=== PATIENT | male | born 1955 | race Caucasian/White ===

== ENCOUNTER 2017-01-11 09:06 | Day surgery (SDC) | payer BC ==
[2017-01-08 12:09] VITALS: BMI 29.8
[~2017-01-11 09:06] MED LIST: LACTATED RINGERS 1,000 ML IV SCH
[2017-01-11 09:45] VITALS: TEMP 97.8
[2017-01-11] MEDS ORDERED: LIDOCAINE 1% 20 ML VIAL (10MG/ML) FOR IV START INTRADERMA ONE (09:48)
[2017-01-11] MEDS ORDERED: LIDOCAINE 1% INJ 10MG/ML (20 ML MDV) ONE (10:39)
[2017-01-11] MEDS ORDERED: PROPOFOL 10 MG/ML 20 ML VIAL IV ONE (10:39)
--- NOTE | 2017-01-11 10:50 | P.GSHP ---
History of Present Illness H&P Date: 01/11/17 Chief Complaint: Abdominal pain, change in bowel Patient here today for upper and lower endoscopy. His last colonoscopy was 6-7 years ago. He is having increased constipation he is also having upper abdominal burning pain. No family history of colon cancer. Past Medical History Past Medical History: GERD/Reflux, Hypertension, Osteoarthritis (OA) Additional Past Medical History / Comment(s): CHRONIC BACK PAIN, abdominal pain with burning History of Any Multi-Drug Resistant Organisms: None Reported Past Surgical History: Hernia Repair, Orthopedic Surgery Additional Past Surgical History / Comment(s): ALBERT SHOULDERS, LEFT CARPAL TUNNEL , Past Anesthesia/Blood Transfusion Reactions: No Reported Reaction Past Psychological History: No Psychological Hx Reported Smoking Status: Former smoker Past Alcohol Use History: None Reported Additional Past Alcohol Use History / Comment(s): smoked 20 years <1ppd quit 2015 Past Drug Use History: None Reported - Past Family History Mother Family Medical History: No Reported History Medications and Allergies Home Medications Medication Instructions Recorded Confirmed Type Celecoxib [Celecoxib] 200 mg PO DAILY 03/28/15 01/08/17 History Cyclobenzaprine [Flexeril] 10 mg PO DAILY 03/28/15 01/08/17 History Lisinopril-Hctz 10-12.5 mg 1 tab PO DAILY 03/28/15 01/08/17 History [Zestoretic 10-12.5] Omeprazole [Omeprazole] 20 mg PO DAILY 03/28/15 01/08/17 History Leg Cramp Medication 1 tab PO DAILY PRN 03/30/15 01/08/17 History Ascorbic Acid [Vitamin C] 1,000 mg PO DAILY 01/08/17 01/08/17 History Escitalopram [Lexapro] 20 mg PO DAILY 01/08/17 01/08/17 History Eye Vitamin 1 tab PO DAILY 01/08/17 01/08/17 History HYDROcodone/APAP 10-325MG [[place] 1 tab PO DAILY PRN 01/08/17 01/08/17 History 10-325] Multivitamins, Thera [Multivitamin 1 tab PO DAILY 01/08/17 01/08/17 History (formulary)] Allergies Allergy/AdvReac Type Severity Reaction Status Date / Time No Known Allergies Allergy Verified 01/08/17 11:48 Surgical - Exam Vital Signs Temp Pulse Resp BP Pulse Ox 97.8 F 100 18 158/82 98 01/11/17 09:43 01/11/17 09:43 01/11/17 09:43 01/11/17 09:43 01/11/17 09:43 Physical exam: General: Well-developed, well-nourished HEENT: Normocephalic, sclerae nonicteric Abdomen: Nontender, nondistended Extremities: No edema Neuro: Alert and oriented Assessment and Plan (1) Abdominal pain Narrative/Plan: Will proceed with upper and lower endoscopy at this time. Status: Acute
--- NOTE | 2017-01-11 11:12 | P.PCN ---
Date of Procedure: 01/11/17 Procedure(s) Performed: PREOPERATIVE DIAGNOSIS: Abdominal pain, change in bowel habits POSTOPERATIVE DIAGNOSIS: Duodenitis with suspected ulcer, gastritis PROCEDURE: 1. EGD with biopsy 2. Colonoscopy ANESTHESIA: MAC SURGEON: Pepe Stock M.D. SPECIMENS: Duodenum, antrum ENDOSCOPIC PROCEDURE: The patient was on the endoscopy table in the left decubitus position. The Olympus gastroscope was inserted into the oropharynx and passed under direct visualization to the region of the third portion of the duodenum. From that point the scope was slowly withdrawn inspecting all surfaces carefully. The second and third portion of the duodenum appear normal. At the junction with the first and second portion of the duodenum there was some friable mucosa with induration and some evidence of recent bleeding. I could not visualize a definite ulcer crater however and ulcer was suspected in this area. I was able to take biopsies of the friable tissue in that area. The duodenal bulb itself was otherwise normal. The pylorus was widely patent. The stomach was carefully inspected. There was mild gastritis present. A biopsy of the antrum took place to rule out H. pylori. Retroflexion revealed a normal hiatus. The esophagus was then carefully examined. There were no neoplastic inflammatory or polypoid lesions throughout the visualized esophagus. The patient was kept on the endoscopy table in the left decubitus position. The Olympus colonoscope was inserted into the anus and passed under direct visualization to the base of the cecum. The appendiceal orifice was visualized. From that point the scope was slowly withdrawn inspecting all surfaces carefully. There were no neoplastic inflammatory or polypoid lesions throughout the cecum, ascending, transverse, descending, sigmoid and rectum. There was no diverticulosis noted. Overall the patient's prep was slightly suboptimal with some retained stool seen scattered amongst colonic mucosa. Digital rectal examination was normal. The patient was taken to the recovery room in stable condition per anesthesia guidelines. RECOMMENDATIONS: Await biopsy results. Will check CT abdomen to evaluate the duodenum. Increase antiacid therapy. We will advise shorter-term follow-up EGD
[2017-01-11 11:19] VITALS: RESP 16
[2017-01-11 11:59] VITALS: BP 149/81; PULSE 76
== END 2017-01-11 12:21 | disposition home or self-care (01) ==
LOC: ORWHC2ENDO 09:06
PROVIDERS: ATTEND Surgery
DX: K29.80 Duodenitis without bleeding (principal); K29.50 Unspecified chronic gastritis without bleeding; K21.9 Gastro-esophageal reflux disease without esophagitis; K59.00 Constipation, unspecified; I10 Essential (primary) hypertension; M19.90 Unspecified osteoarthritis, unspecified site; G89.29 Other chronic pain; M54.9 Dorsalgia, unspecified; Z87.891 Personal history of nicotine dependence; Z79.891 Long term (current) use of opiate analgesic; Z79.899 Other long term (current) drug therapy
CPT/HCPCS: 88305; 88342; 45378; 43239; J2001; J2704

== ENCOUNTER → 2017-01-17 | Outpatient (CLI) | payer BC ==
--- NOTE | 2017-01-17 19:59 | CT ---
EXAMINATION TYPE: CT abdomen w con DATE OF EXAM: 01/17/2017 7:41 PM COMPARISON: NONE HISTORY: Pt states of epigastric pain and reflux after eating x3-[address] DLP: 1245 mGycm Automated exposure control for dose reduction was used. TECHNIQUE: Helical acquisition of images was performed from the lung bases through the top of iliac crest to include entire abdomen. CONTRAST: Performed with Oral Contrast and with IV Contrast, patient injected with 100 mL of Omnipaque 300. FINDINGS: Lung bases are clear. There is no pleural effusion. There is no pericardial effusion. Liver spleen pancreas gallbladder appear normal. Bile ducts are not dilated. There is no adrenal mass . Kidneys show satisfactory contrast opacification. There is no hydronephrosis. Ureters are not dilat ed. There is no retroperitoneal adenopathy. There is no ascites. I see no intestinal wall thickening. There are no dilated loops. There is an umbilical hernia that measures 2.5 cm it contains omental fa t. I see no bony destructive process. There is spurring in the lumbar spine. IMPRESSION: THERE IS UMBILICAL HERNIA WITH OMENTAL FAT. OTHERWISE NEGATIVE CT SCAN OF THE ABDOMEN. MILD SPONDYLOT IC CHANGES IN THE LUMBAR SPINE.
== END | disposition home or self-care (01) ==
LOC: RADCTMAIN 18:41
PROVIDERS: ATTEND Surgery
DX: K42.9 Umbilical hernia without obstruction or gangrene (principal)
CPT/HCPCS: 74160; Q9967

== ENCOUNTER → 2017-09-17 | Outpatient (CLI) | payer BC | END | disposition home or self-care (01) | LOC: CPPFTMAIN 13:23 | PROVIDERS: ATTEND Family Medicine | DX: R06.09 Other forms of dyspnea (principal) | CPT/HCPCS: 94060; 94726; 94729 ==

== ENCOUNTER → 2017-12-12 | Outpatient (CLI) | payer BC ==
--- NOTE | 2017-12-12 16:47 | CT ---
CT CHEST FOR PULMONARY EMBOLISM. EXAMINATION TYPE: CT angio chest DATE OF EXAM: 12/12/2017 INDICATION: Pulmonary embolism CT DLP: 669 mGycm, Automated exposure control for dose reduction was used. CONTRAST: Patient injected with 90 mL of Omnipaque 350. COMPARISON: NONE TECHNIQUE: CT of the chest is performed on a spiral scan at 2 mm thick sections. Study is performed with intravenous contrast timed for evaluation for pulmonary embolism. This will limit additional po rtions of the evaluation. 3-D MIP images reconstructed by the technologist are reviewed on the compu ter in the coronal and sagittal planes. FINDINGS: No persistent filling defects are evident to suggest an acute pulmonary embolism. No mediastinal or hilar adenopathy enlarged by CT criteria is evident. The ascending aorta diameter at the level of the main pulmonary artery is 3.6 cm. The main pulmonary artery diameter at the bifur cation is 3.3 cm. Lung windows are clear. Limited CT section through the upper abdomen are unremarkable. IMPRESSIONS: 1. No acute pulmonary embolism.
== END | disposition home or self-care (01) ==
LOC: RADCTMAIN 15:57
PROVIDERS: ATTEND Internal Medicine Critical Care Medicine
DX: I26.99 Other pulmonary embolism without acute cor pulmonale (principal)
CPT/HCPCS: 71275; Q9967

== ENCOUNTER 2018-01-28 18:22 | Inpatient (IN) | payer BC ==
--- NOTE | 2018-01-28 18:01 | CT ---
EXAMINATION TYPE: CT angio chest DATE OF EXAM: 01/28/2018 5:50 PM COMPARISON: 12/12/2017 HISTORY: Patient complains of dyspnea with prior history of PE. CT DLP: 420.9 mGycm Automated exposure control for dose reduction was used. CONTRAST: CTA scan of the thorax is performed with IV Contrast, patient injected with 100 mL of Isovue 370, pul monary embolism protocol. There are 3-D post processed images.. FINDINGS: There is patchy coarse reticular density in the lungs consistent with fibrosis. There is no evidence of a pulmonary mass. There is no pulmonary consolidation. There is no pleural effusion. Heart size is fairly normal. There is no pericardial effusion. There is no mediastinal adenopathy. There are no hi lar masses. There are multiple filling defects in the lower lobe pulmonary arteries bilaterally. There is also fi lling defect in the left upper lobe pulmonary artery. There is spurring in the thoracic spine. I see no bony destructive process. IMPRESSION: THERE ARE NEW MULTIPLE LARGE EMBOLI IN THE LEFT UPPER LOBE AND BILATERAL LOWER LOBE PULMONARY ARTERY BRANCHES. THIS IS A CHANGE COMPARED TO LAST EXAM. PULMONARY FIBROTIC CHANGES.
--- NOTE | 2018-01-28 18:17 | US ---
EXAMINATION TYPE: US venous doppler duplex LE BI DATE OF EXAM: 01/28/2018 5:56 PM COMPARISON: NONE CLINICAL HISTORY: I29.99 Pulmonary embolism,R09.02 Hypoxia. History of PE patient on blood thinners x 2 days. SIDE PERFORMED: Bilateral TECHNIQUE: The lower extremity deep venous system is examined utilizing real time linear array sonog davion with graded compression, doppler sonography and color-flow sonography. VESSELS IMAGED: External Iliac Vein (EIV) Common Femoral Vein Deep Femoral Vein Greater Saphenous Vein * Femoral Vein Popliteal Vein Small Saphenous Vein * Proximal Calf Veins (* superficial vessels) Right Leg: Negative for DVT Left Leg: Negative for DVT No evidence of DVT bilateral legs. IMPRESSION: No evidence of deep venous thrombosis in both legs.
[2018-01-28] MEDS ORDERED: HEPARIN SODIUM,PORCINE 5,000 UNIT/ML 1 ML VIAL IV STA (18:27)
[2018-01-28] MEDS ORDERED: HEPARIN SOD,PORK IN 0.45% NACL 25,000 UNIT in 0.45% NACL 1 500ML.BAG IV SCH (18:30)
--- NOTE | 2018-01-28 18:36 | ED ---
SOB HPI - General Source: patient, RN notes reviewed Mode of arrival: ambulatory Limitations: no limitations <Denver Shin - Last Filed: 01/28/18 18:42> <Liam Moore - Last Filed: 01/28/18 18:59> - General Chief Complaint: Shortness of Breath Time Seen by Provider: 01/28/18 18:26 - History of Present Illness Initial Comments: 62-year-old male presents emergency Department from CT for abnormal CT. Patient states that he's been having shortness breath since last . Patient's found have a PE. Patient states that he had a PE last year was on eliquis up until last month. Patient states he has no Pain does have some swelling. Patient denies any chest pain no headache no dizziness. Patient states that he had workup for blood clotting disorders and states that it was all negative. Patient had no clear answer for his pulmonary embolism came from. (Denver Shin) - Related Data Home Medications Medication Instructions Recorded Confirmed Cyclobenzaprine [Flexeril] 10 mg PO HS 03/28/15 01/28/18 Lisinopril-Hctz 10-12.5 mg 1 tab PO DAILY 03/28/15 01/28/18 [Zestoretic 10-12.5] Omeprazole [Omeprazole] 20 mg PO DAILY 03/28/15 01/28/18 Ascorbic Acid [Vitamin C] 1,000 mg PO DAILY 01/08/17 01/28/18 Escitalopram [Lexapro] 20 mg PO HS 01/08/17 01/28/18 HYDROcodone/APAP 10-325MG [[place] 1 tab PO TID PRN 01/08/17 01/28/18 10-325] Multivitamins, Thera [Multivitamin 1 tab PO DAILY 01/08/17 01/28/18 (formulary)] Apixaban [Eliquis] 5 mg PO BID 01/28/18 01/28/18 Melatonin 10 mg PO HS PRN 01/28/18 01/28/18 Vits A,C,E/Lutein/Minerals 1 tab PO DAILY 01/28/18 01/28/18 [Ocuvite with Lutein Tablet] Allergies Allergy/AdvReac Type Severity Reaction Status Date / Time No Known Allergies Allergy Verified 01/28/18 18:49 Review of Systems ROS Other: All systems not noted in ROS Statement are negative. <Denver Shin - Last Filed: 01/28/18 18:42> ROS Other: All systems not noted in ROS Statement are negative. <Liam Moore - Last Filed: 01/28/18 18:59> ROS Statement: Those systems with pertinent positive or pertinent negative responses have been documented in the HPI. Past Medical History Past Medical History: GERD/Reflux, Hypertension, Osteoarthritis (OA), Pulmonary Embolus (PE) Additional Past Medical History / Comment(s): CHRONIC BACK PAIN, abdominal pain with burning History of Any Multi-Drug Resistant Organisms: None Reported Past Surgical History: Hernia Repair, Orthopedic Surgery Additional Past Surgical History / Comment(s): ALBERT SHOULDERS, LEFT CARPAL TUNNEL , Past Anesthesia/Blood Transfusion Reactions: No Reported Reaction Past Psychological History: No Psychological Hx Reported Smoking Status: Former smoker Past Alcohol Use History: None Reported Past Drug Use History: None Reported - Past Family History Mother Family Medical History: No Reported History <Denver Shin - Last Filed: 01/28/18 18:42> General Exam Limitations: no limitations General appearance: alert, in no apparent distress Head exam: Present: atraumatic, normocephalic, normal inspection Neck exam: Present: normal inspection. Absent: tenderness, meningismus, lymphadenopathy Respiratory exam: Present: normal lung sounds bilaterally. Absent: respiratory distress, wheezes, rales, rhonchi, stridor, chest wall tenderness Cardiovascular Exam: Present: regular rate, normal rhythm, normal heart sounds. Absent: systolic murmur, diastolic murmur, rubs, gallop, clicks GI/Abdominal exam: Present: soft, normal bowel sounds. Absent: distended, tenderness, guarding, rebound, rigid Extremities exam: Present: pedal edema. Absent: calf tenderness Skin exam: Present: warm, dry, intact, normal color. Absent: rash <Denver Shin - Last Filed: 01/28/18 18:42> Vital Signs 01/28/18 18:22 Temperature 98.9 F Pulse Rate 99 Respiratory 20 Rate Blood Pressure 145/67 O2 Sat by Pulse 99 Oximetry Medical Decision Making <Denver Shin - Last Filed: 01/28/18 18:42> <Liam Moore - Last Filed: 01/28/18 18:59> - Medical Decision Making Patient be admitted the hospital for PE. Patient currently sees Dr. Washington.. ( Denver Shin) Medical decision making; this is a 62-year-old male here with his . The patient first had pulmonary emboli in May of last year. He is on L Oquist of the proximal one month ago. He reports that one month ago he had a repeat CAT scan and it was suggested he stop the eliquis . The patient was reevaluated today at the centrifugal screen tender office because of shortness of breath. Repeat CAT scan today showed evidence of pulmonary emboli. The patient states he started taken eliquis several days ago because of shortness of breath started approximately 5 days ago. Complaint of shortness of breath with exertion. Lungs are clear to auscultation heart no murmur. He has chronically swollen right leg which comes and goes. But reports no evidence of past DVTs to his extremities. No other significant complaints at this time. The case discussed with Dr. Galarza, patient be admitted his service with consultation from his centrifugal screen tender, Dr. Washington. Dr. Moore (Liam Moore) - EKG Data EKG Comments: EKG performed at 18:38 sinus rhythm with first-degree AV block, rate of 78 ME 216 QRS 98 QT/QTC 404/460 (Denver Shin) Disposition <Denver Shin - Last Filed: 01/28/18 18:42> <Liam Moore - Last Filed: 01/28/18 18:59> Clinical Impression: Pulmonary embolism, Dyspnea Disposition: ADMITTED IP TO THIS HOSP Condition: Stable Referrals: Theo Reid MD [Primary Care Provider] - 1-2 days
[2018-01-28] MEDS ORDERED: NALOXONE 0.4 MG/ML 1 ML VIAL IV PRN (18:43)
[2018-01-28] MEDS ORDERED: MELATONIN 5 MG TABLET PO PRN (19:17)
[2018-01-28] MEDS ORDERED: HYDROcodone/APAP 10-325MG 1 EACH TAB PO ONE (19:17)
[2018-01-28] MEDS ORDERED: APIXABAN 5 MG TAB PO STA (19:20)
[2018-01-28 19:21] LABS: Basophils # (A) 0.1 k/uL (0-0.2); Basophils % (A) 1 %; Eosinophils # (A) 0.7 k/uL (0-0.7); Eosinophils % (A) 7 %; HCT 38.8 % (39.0-53.0); HGB 13.3 gm/dL (13.0-17.5); Lymphocytes # (A) 4.6 k/uL (1.0-4.8); MCH 29.3 pg (25.0-35.0); MCHC 34.3 g/dL (31.0-37.0); MCV 85.4 fL (80.0-100.0); Mean Platelet Volume 7.6; Monocytes # (A) 0.5 k/uL (0-1.0); Monocytes % (A) 5 %; Neutrophils % (A) 33 %; Platelet Count 284 k/uL (150-450); RBC 4.55 m/uL (4.30-5.90); RDW 12.8 % (11.5-15.5); WBC 9.1 k/uL (3.8-10.6)
[2018-01-28 19:33] LABS: Albumin 4.1 g/dL (3.5-5.0); Calcium 9.7 mg/dL (8.4-10.2); Magnesium 1.9 mg/dL (1.6-2.3); Potassium 4.4 mmol/L (3.5-5.1); Total Bilirubin 0.3 mg/dL (0.2-1.3); Total Protein 6.6 g/dL (6.3-8.2)
[2018-01-28 19:34] LABS: Lymphocytes % (A) 50 %
[2018-01-28 19:41] LABS: INR 1.1 (<1.2); Prothrombin Time 10.6 sec (9.0-12.0)
[2018-01-28] MEDS: CYCLOBENZAPRINE 10 MG TAB PO SCH (20:40)
[2018-01-28] MEDS: ESCITALOPRAM 20 MG TAB PO SCH (20:40)
[2018-01-28 22:02] VITALS: BMI 33.0
[2018-01-29] MEDS: PANTOPRAZOLE 40 MG TABLET PO SCH (06:07)
[2018-01-29] MEDS: VIT A,C & E-LUTEIN-MINERALS 1 EACH TAB PO SCH (08:02)
[2018-01-29] MEDS: APIXABAN 5 MG TAB PO SCH ×2 (08:02→19:43)
[2018-01-29] MEDS: ASCORBIC ACID 500 MG TAB PO SCH (08:02)
[2018-01-29] MEDS: LISINOPRIL-HCTZ 10-12.5 MG 1 EACH TAB PO SCH (08:03)
[2018-01-29] MEDS: HYDROcodone/APAP 10-325MG 1 EACH TAB PO PRN ×2 (08:07→17:16)
[2018-01-29] MEDS ORDERED: MULTIVITAMINS, THERA 1 EACH TAB PO SCH (12:00)
--- NOTE | 2018-01-29 12:25 | P.CNPUL ---
History of Present Illness Consult date: 01/29/18 Requesting physician: Theo Reid Reason for consult: dyspnea, abnormal CXR/CT Chief complaint: Shortness of breath, dyspnea on exertion History of present illness: This is a very pleasant 62-year-old gentleman who follows with Dr. Reid as his primary care physician. He has a history of hypertension, osteoarthritis, chronic back pain, gastroesophageal reflux disease, anxiety/depression, previous smoking history. He also has a history of pulmonary embolism and had been treated with Eliquis. He had a follow-up CT angiogram approximately one month ago that showed no evidence of residual pulmonary embolism and has Eliquis had been stopped on 12/23/2017. He presented to our office yesterday with complaints of increasing shortness of breath and dyspnea on exertion. A 6 minute walk revealed O2 saturations as low as 87%. He was sent in again yesterday for a CT angiogram and Doppler of the lower extremities. He was found to have recurrent bilateral pulmonary emboli. Dopplers of the lower extremity were negative for DVT. He was started back on his Eliquis. He is seen again today in consultation on the selective care unit. He is currently awake and alert in no acute distress. He states he is breathing easier today as compared to yesterday. He is maintaining good O2 saturations in the 90s on 2 L/m per nasal cannula. He's been hemodynamically stable. No cough or congestion. No hemoptysis. Review of Systems Constitutional: Reports fatigue, Reports malaise Eyes: denies blurred vision, denies decreased vision Ears: deny: decreased hearing Ears, nose, mouth and throat: Denies headache, Denies sore throat Cardiovascular: Reports shortness of breath, Denies chest pain Respiratory: Reports dyspnea Gastrointestinal: Denies abdominal pain, Denies diarrhea, Denies nausea, Denies vomiting Genitourinary: Reports as per HPI Musculoskeletal: Denies myalgias Integumentary: Denies pruritus, Denies rash Neurological: Denies numbness, Denies weakness Psychiatric: Denies anxiety, Denies depression Endocrine: Denies fatigue, Denies weight change Past Medical History Past Medical History: GERD/Reflux, Hypertension, Osteoarthritis (OA), Pulmonary Embolus (PE) Additional Past Medical History / Comment(s): CHRONIC BACK PAIN History of Any Multi-Drug Resistant Organisms: None Reported Past Surgical History: Hernia Repair, Orthopedic Surgery Additional Past Surgical History / Comment(s): ALBERT SHOULDERS right rotator cuff / left tendon damage, LEFT CARPAL TUNNEL, Past Anesthesia/Blood Transfusion Reactions: No Reported Reaction Past Psychological History: Depression Smoking Status: Former smoker Past Alcohol Use History: None Reported Additional Past Alcohol Use History / Comment(s): smoked 20 years <1ppd quit 2015 Past Drug Use History: None Reported - Past Family History Mother Family Medical History: No Reported History Medications and Allergies Home Medications Medication Instructions Recorded Confirmed Type Cyclobenzaprine [Flexeril] 10 mg PO HS 03/28/15 01/28/18 History Lisinopril-Hctz 10-12.5 mg 1 tab PO DAILY 03/28/15 01/28/18 History [Zestoretic 10-12.5] Omeprazole [Omeprazole] 20 mg PO DAILY 03/28/15 01/28/18 History Ascorbic Acid [Vitamin C] 1,000 mg PO DAILY 01/08/17 01/28/18 History Escitalopram [Lexapro] 20 mg PO HS 01/08/17 01/28/18 History HYDROcodone/APAP 10-325MG [[place] 1 tab PO TID PRN 01/08/17 01/28/18 History 10-325] Multivitamins, Thera [Multivitamin 1 tab PO DAILY 01/08/17 01/28/18 History (formulary)] Apixaban [Eliquis] 5 mg PO BID 01/28/18 01/28/18 History Melatonin 10 mg PO HS PRN 01/28/18 01/28/18 History Vits A,C,E/Lutein/Minerals 1 tab PO DAILY 01/28/18 01/28/18 History [Ocuvite with Lutein Tablet] Allergies Allergy/AdvReac Type Severity Reaction Status Date / Time No Known Allergies Allergy Verified 01/28/18 18:49 Physical Exam Vitals: Vital Signs Temp Pulse Pulse Resp BP BP Pulse Ox 01/29/18 08:00 97.5 F L 96 18 140/72 95 01/29/18 04:00 97 F L 88 16 125/67 97 01/29/18 00:00 97 F L 80 17 139/70 97 01/28/18 20:40 78 18 140/65 95 01/28/18 20:11 96.9 F L 71 17 139/79 97 01/28/18 19:10 98.1 F 78 18 146/67 95 01/28/18 18:30 18 01/28/18 18:22 98.9 F 99 20 145/67 99 Intake and Output 01/28/18 01/29/18 01/29/18 22:59 06:59 14:59 Intake Total 180 Balance 180 Intake: Oral 180 Other: # Voids 1 1 Weight 110.6 kg 110.6 kg GENERAL EXAM: Alert, active, comfortable in no apparent distress. HEAD: Normocephalic. EYES: Normal reaction of pupils, equal size. NOSE: Clear with pink turbinates. THROAT: No erythema or exudates. NECK: No masses, no JVD. CHEST: No chest wall deformity. LUNGS: Equal air entry with no crackles, wheeze, rhonchi or dullness. CVS: S1 and S2 normal with no audible murmur, regular rhythm. ABDOMEN: No hepatosplenomegaly, normal bowel sounds, no guarding or rigidity. SPINE: No scoliosis or deformity SKIN: No rashes CENTRAL NERVOUS SYSTEM: No focal deficits, tone is normal in all 4 extremities. EXTREMITIES: There is no peripheral edema. No clubbing, no cyanosis. Peripheral pulses are intact. Results - Laboratory Findings CBC and BMP: 01/28/18 18:59 01/28/18 18:59 PT/INR, D-dimer PT 10.6 sec (9.0-12.0) 01/28/18 18:59 INR 1.1 (<1.2) 04 18:59 Abnormal lab findings: Abnormal Labs 01/28/18 04 18:59 18:59 Hct 38.8 L Sodium 134 L BUN 27 H - Diagnostic Findings Chest x-ray: image reviewed CT scan - chest: image reviewed Assessment and Plan Assessment: Impression: #1 Acute hypoxic respiratory failure secondary to bilateral pulmonary emboli. This is unprovoked and recurrent. Outpatient workup for hereditary blood dyscrasias was negative. #2 Recent pulmonary emboli treated for greater than 3 months with follow-up CT angiogram revealing no evidence of pulmonary embolism. Eliquis was discontinued 12/23/2017. #3 Hypertension. #4 Osteoarthritis with chronic back pain. #5 History of anxiety/depression. #6 Gastroesophageal reflux disease. Plan: The patient was seen and evaluated by Dr. Washington. CT angiogram and labs were reviewed. The patient definitely will need long-term anticoagulation most likely lifelong. Previous workup for hereditary blood dyscrasias was negative according to the patient with seen Dr. White. We will evaluate the patient for possible home oxygen need. Could be discharged in the a.m. We'll continue to follow make further recommendations based on his clinical status. I, the cosigning physician, performed a history & physical examination of the patient. Lungs sounds are clear. Maintaining good O2 saturations in the 90s on 2 L/m per nasal cannula. I discussed the assessment and plan of care with my nurse practitioner, Cass Winslow. I attest to the above note as dictated by her. Time with Patient: Greater than 30
--- NOTE | 2018-01-29 15:53 | P.HPIM ---
History of Present Illness H&P Date: 01/29/18 Chief Complaint: shortness of breath 62-year-old who presented to the emergency room after undergoing a CT for shortness of breath x [address] scan revealed pulmonary embolus. The patient has a history of pulmonary embolus in 2017. He was on Eliquis up until a month ago. Patient states it was discontinued by Dr. Washington. He reports undergoing workup for clotting disorders and everything was negative per patient. The patient has a history of pulmonary embolus. Gastro-esophageal reflux disease, hypertension, osteoarthritis, chronic back pain, and depression. He is a former cigarette smoker and quit smoking in 2016 after smoking 1 pack per day for [address] of the chest: Multiple large emboli in the left upper lobe and bilateral lower lobe pulmonary artery branches Venous Doppler: Negative for DVT bilaterally Laboratory data: WBC 9.1. Hemoglobin 13.3. Platelet count 284. Sodium 134. Potassium 4.4. BUN 27. Creatinine 1.04. Magnesium 1.9. Troponin negative 1 The patient was admitted to the hospital under the care of Dr. Galarza. Consultations were placed to pulmonary. Review of Systems GENERAL: Patient denies fever. Denies chills. EYES: Denies blurred vision. Denies vision changes. Denies eye pain. EARS, NOSE, MOUTH, & THROAT: Denies headache. Denies sore throat. Denies ear pain. RESPIRATORY: Positive for shortness of breath. Denies cough. Denies sputum production. Denies hemoptysis. CARDIOVASCULAR: Denies chest pain or pressure. Denies palpitations. Denies arrhythmias. GASTROINTESTINAL: Denies abdominal pain. Denies diarrhea. Denies constipation. Denies nausea. Denies vomiting. Denies heartburn. Denies blood in the stool. GENITOURINARY: Denies urinary frequency. Denies burning. Denies dysuria. Denies cloudy urine. Denies blood in the urine. MUSCULOSKELETAL: Positive for chronic back pain. Denies myalgias. Denies joint swelling. Denies decreased range of motion beyond patients baseline. INTEGUMENTARY: Denies pruitis. Denies rash. PSYCHIATRIC: Denies suicidal or homicial ideations. ENDOCRINE: Denies weight change. Denies polydipsia. Denies polyuria. HEMATOLOGIC: Denies bleeding disorders. Past Medical History Past Medical History: GERD/Reflux, Hypertension, Osteoarthritis (OA), Pulmonary Embolus (PE) Additional Past Medical History / Comment(s): CHRONIC BACK PAIN History of Any Multi-Drug Resistant Organisms: None Reported Past Surgical History: Hernia Repair, Orthopedic Surgery Additional Past Surgical History / Comment(s): ALBERT SHOULDERS right rotator cuff / left tendon damage, LEFT CARPAL TUNNEL, Past Anesthesia/Blood Transfusion Reactions: No Reported Reaction Past Psychological History: Depression Smoking Status: Former smoker Past Alcohol Use History: None Reported Additional Past Alcohol Use History / Comment(s): smoked 20 years <1ppd quit 2015 Past Drug Use History: None Reported - Past Family History Mother Family Medical History: No Reported History Medications and Allergies Home Medications Medication Instructions Recorded Confirmed Type Cyclobenzaprine [Flexeril] 10 mg PO HS 03/28/15 01/28/18 History Lisinopril-Hctz 10-12.5 mg 1 tab PO DAILY 03/28/15 01/28/18 History [Zestoretic 10-12.5] Omeprazole [Omeprazole] 20 mg PO DAILY 03/28/15 01/28/18 History Ascorbic Acid [Vitamin C] 1,000 mg PO DAILY 01/08/17 01/28/18 History Escitalopram [Lexapro] 20 mg PO HS 01/08/17 01/28/18 History HYDROcodone/APAP 10-325MG [[place] 1 tab PO TID PRN 01/08/17 01/28/18 History 10-325] Multivitamins, Thera [Multivitamin 1 tab PO DAILY 01/08/17 01/28/18 History (formulary)] Apixaban [Eliquis] 5 mg PO BID 01/28/18 01/28/18 History Melatonin 10 mg PO HS PRN 01/28/18 01/28/18 History Vits A,C,E/Lutein/Minerals 1 tab PO DAILY 01/28/18 01/28/18 History [Ocuvite with Lutein Tablet] Allergies Allergy/AdvReac Type Severity Reaction Status Date / Time No Known Allergies Allergy Verified 01/28/18 18:49 Physical Exam Vitals: Vital Signs Temp Pulse Pulse Resp BP BP Pulse Ox 01/29/18 08:00 97.5 F L 96 18 140/72 95 01/29/18 04:00 97 F L 88 16 125/67 97 01/29/18 00:00 97 F L 80 17 139/70 97 04/10/18 20:40 78 18 140/65 95 01/28/18 20:11 96.9 F L 71 17 139/79 97 01/28/18 19:10 98.1 F 78 18 146/67 95 01/28/18 18:30 18 01/28/18 18:22 98.9 F 99 20 145/67 99 Intake and Output 01/28/18 01/29/18 01/29/18 22:59 06:59 14:59 Intake Total 180 Balance 180 Intake: Oral 180 Other: # Voids 1 1 Weight 110.6 kg 110.6 kg GENERAL: This is a 62-year-old male in no apparent distress at the time of examination. Pleasant and cooperative. HEENT: Head is atraumatic, normocephalic. Pupils are equal, round, and reactive to light. Sclerae anicteric. Conjunctivae are clear. Mucus membranes of the mouth are moist. Neck is supple. RESPIRATORY: Clear to ausculation, diminished. No wheezes, rales, or rhonchi. No use of accessory muscles. Patient maintaining oxygen saturation greater than 92%. No chest wall tenderness is noted on palpation or with deep breathing. CARDIOVASCULAR: Regular rate and rhythm. S1 and S2 noted. No systolic or diastolic murmur auscultated. No JVD noted. No S3 or S4 noted. GASTROINTESTINAL: No distention noted. Abdomen soft and round. Normal active bowel sounds auscultated x 4 quadrants. No pain or tenderness noted upon palpation. INTEGUMENTARY: No cyanosis. No jaundice. No rashes noted. No cellulitis noted. EXTREMITIES: 2+ peripheral pulses. No evidence of peripheral edema. No calf tenderness noted. NEUROLOGIC: Cranial nerves II-XII intact. PSYCHIATRIC: Awake, alert, and oriented X 3. Appropriate affect. Intact judgement and insight. Results CBC & Chem 7: 01/28/18 18:59 01/28/18 18:59 Labs: Abnormal Lab Results - Last 24 Hours (Table) 01/28/18 01/28/18 Range/Units 18:59 18:59 Hct 38.8 L (39.0-53.0) % Sodium 134 L (137-145) mmol/L BUN 27 H (9-20) mg/dL Thrombosis Risk Factor Assmnt - Choose All That Apply Any of the Below Risk Factors Present?: Yes Each Factor Represents 1 point: Obesity (BMI >25), Varicose veins Other Risk Factors: Yes Each Risk Factor Represents 2 Points: Age 61-74 years Each Risk Factor Represents 3 Points: History of DVT/PE Other congenital or acquired thrombophilia - If yes, enter type in comment: No Thrombosis Risk Factor Assessment Total Risk Factor Score: 7 Thrombosis Risk Factor Assessment Level: High Risk Assessment and Plan Plan: ASSESSMENT: Shortness of breath 1 week, secondary to multiple large pulmonary emboli in the left upper lobe and bilateral lower lobe pulmonary artery branches History of pulmonary emboli in 2017, 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 Appreciate recommendations and input Continue Eliquis Home meds as appropriate Monitor labs GI prophylaxis: Protonix 40 mg PO Daily DVT prophylaxis: Eliquis Monitor vital signs and address as appropriate Discharge planning: Patient to return home when stable Further recommendations pending patient's course Nurse practitioner note has been reviewed by physician. Signing provider agrees with the documented findings, assessment, and plan of care.
[2018-01-29] MEDS: CYCLOBENZAPRINE 10 MG TAB PO SCH (19:42)
[2018-01-29] MEDS: ESCITALOPRAM 20 MG TAB PO SCH (19:43)
[2018-01-30] MEDS: PANTOPRAZOLE 40 MG TABLET PO SCH (06:54)
[2018-01-30] MEDS: APIXABAN 5 MG TAB PO SCH (08:38)
[2018-01-30] MEDS: ASCORBIC ACID 500 MG TAB PO SCH (08:39)
[2018-01-30] MEDS: LISINOPRIL-HCTZ 10-12.5 MG 1 EACH TAB PO SCH (08:39)
[2018-01-30] MEDS: HYDROcodone/APAP 10-325MG 1 EACH TAB PO PRN (08:39)
[2018-01-30] MEDS: VIT A,C & E-LUTEIN-MINERALS 1 EACH TAB PO SCH (08:39)
[2018-01-30 11:25] VITALS: BP 125/62; PULSE 94; RESP 16; TEMP 97.2
--- NOTE | 2018-01-30 12:55 | P.DS ---
Providers Date of admission: 01/28/18 19:02 Expected date of discharge: 01/30/18 Attending physician: Theo Reid Consults: 01/28/18 18:43 Consult Physician Stat Consulting Provider: Mamadou Washington Reason/Comments: Pulmonary embolism Do you want consulting provider notified?: Yes Primary care physician: [facility] Course: 62-year-old who presented to the emergency room after undergoing a CT for shortness of breath x [address] scan revealed pulmonary embolus. The patient has a history of pulmonary embolus in 2017. He was on Eliquis up until a month ago. Patient states it was discontinued by Dr. Washington. Apparently, the patient had a CT scan about a month ago that was negative for PE. He reports undergoing workup for clotting disorders and everything was negative per patient. The patient has a history of pulmonary embolus. Gastro-esophageal reflux disease, hypertension, osteoarthritis, chronic back pain, and depression. He is a former cigarette smoker and quit smoking in 2016 after smoking 1 pack per day for [address] of the chest: Multiple large emboli in the left upper lobe and bilateral lower lobe pulmonary artery branches Venous Doppler: Negative for DVT bilaterally Laboratory data: WBC 9.1. Hemoglobin 13.3. Platelet count 284. Sodium 134. Potassium 4.4. BUN 27. Creatinine 1.04. Magnesium 1.9. Troponin negative 1 The patient was evaluated by pulmonary during hospitalization. Initially, the patient was requiring supplemental oxygen to maintain saturations greater than 92%. The patient is now on room air with oxygen saturations of 96%. He was started back on Eliquis on 01/29/2018. His dose is 10mg PO BID x 1 week. On 02/05/2018, the patient may decrease his dose to 5mg PO BID. The patient states he has a full bottle of Eliquis at home and does not require a prescription for Eliquis at this time. Patient states he will obtain refill from Dr. Galarza/Jeanette when he needs it. The patient was deemed stable for discharge per Dr. Galarza. He has also been cleared from pulmonary services for discharge. He is to follow up on an outpatient basis. DISCHARGE DIAGNOSIS: 1. Shortness of breath 1 week, secondary to multiple large pulmonary emboli in the left upper lobe and bilateral lower lobe pulmonary artery branches, unprovoked and recurrent, outpatient workup for hereditary blood dyscrasias was negative 2. Acute hypoxic respiratory failure secondary to bilateral pulmonary emboli, requiring supplemental oxygen, resolved at time of discharge 3. History of pulmonary emboli in 2017, treated with Eliquis for greater than 3 months with follow-up CT negative for PE, Eliquis discontinued 12/23/2017 per pulmonary 4. Essential hypertension 5. History of gastroesophageal reflux disease 6. Chronic back pain 7. Depression, unspecified 8. Nicotine dependence, in remission, patient quit smoking in 2016 after smoking 1 pack per day for 20 years 9. Obesity: BMI 33.1 Nurse practitioner note has been reviewed by physician. Signing provider agrees with the documented findings, assessment, and plan of care. Patient Condition at Discharge: Stable Plan - Discharge Summary New Discharge Prescriptions: Continue Omeprazole 20 mg PO DAILY Lisinopril-Hctz 10-12.5 mg [Zestoretic 10-12.5] 1 tab PO DAILY Cyclobenzaprine [Flexeril] 10 mg PO HS Multivitamins, Thera [Multivitamin (formulary)] 1 tab PO DAILY HYDROcodone/APAP 10-325MG [[place] 10-325] 1 tab PO TID PRN PRN Reason: Pain Escitalopram [Lexapro] 20 mg PO HS Ascorbic Acid [Vitamin C] 1,000 mg PO DAILY Apixaban [Eliquis] 5 mg PO BID Vits A,C,E/Lutein/Minerals [Ocuvite with Lutein Tablet] 1 tab PO DAILY Melatonin 10 mg PO HS PRN PRN Reason: Insomnia Discharge Medication List Cyclobenzaprine [Flexeril] 10 mg PO HS 03/28/15 [History] Lisinopril-Hctz 10-12.5 mg [Zestoretic 10-12.5] 1 tab PO DAILY 03/28/15 [History ] Omeprazole 20 mg PO DAILY 03/28/15 [History] Ascorbic Acid [Vitamin C] 1,000 mg PO DAILY 01/08/17 [History] Escitalopram [Lexapro] 20 mg PO HS 01/08/17 [History] HYDROcodone/APAP 10-325MG [[place] 10-325] 1 tab PO TID PRN 01/08/17 [History] Multivitamins, Thera [Multivitamin (formulary)] 1 tab PO DAILY 01/08/17 [History ] Apixaban [Eliquis] 5 mg PO BID 01/28/18 [History] Melatonin 10 mg PO HS PRN 01/28/18 [History] Vits A,C,E/Lutein/Minerals [Ocuvite with Lutein Tablet] 1 tab PO DAILY 01/28/18 [History] Follow up Appointment(s)/Referral(s): Mamadou Washington DO [Doctor of Osteopathic Medicine] - 02/13/18 2:30 pm () Theo Reid MD [Primary Care Provider] - 02/05/18 2:45 pm (Saturday) Patient Instructions/Handouts: Pulmonary Embolism (DC), Safe Use of Anticoagulants (DC) Activity/Diet/Wound Care/Special Instructions: Patient states he has a full bottle of Eliquis at home and does not need a prescription for it at this time. Will obtain refill when needed from Dr. Galarza /Jeanette Continue taking Eliquis 10mg twice a day until 02/05/2018. On 02/05/2018 resume your previous dose of 5mg twice a day. Discharge Disposition: HOME SELF-CARE
--- NOTE | 2018-01-30 14:47 | P.PN ---
Subjective Progress Note Date: 01/30/18 Principal diagnosis: Acute hypoxic rest she failure secondary to bilateral pulmonary emboli This is a very pleasant 62-year-old gentleman who follows with Dr. Reid as his primary care physician. He has a history of hypertension, osteoarthritis, chronic back pain, gastroesophageal reflux disease, anxiety/depression, previous smoking history. He also has a history of pulmonary embolism and had been treated with Eliquis. He had a follow-up CT angiogram approximately one month ago that showed no evidence of residual pulmonary embolism and has Eliquis had been stopped on 12/23/2017. He presented to our office yesterday with complaints of increasing shortness of breath and dyspnea on exertion. A 6 minute walk revealed O2 saturations as low as 87%. He was sent in again yesterday for a CT angiogram and Doppler of the lower extremities. He was found to have recurrent bilateral pulmonary emboli. Dopplers of the lower extremity were negative for DVT. He was started back on his Eliquis. He is seen again today in consultation on the selective care unit. He is currently awake and alert in no acute distress. He states he is breathing easier today as compared to yesterday. He is maintaining good O2 saturations in the 90s on 2 L/m per nasal cannula. He's been hemodynamically stable. No cough or congestion. No hemoptysis. On 01/30/2018 patient seen in follow-up on selective care unit. Denies any dyspnea, denies any chest pain, denies any pleuritic chest pain, vital signs are stable, her 3 on room air with O2 sat 96%. Respirations are even and nonlabored, lung sounds are clear to auscultation. Patient has been every initiated on Eliquis 10 mg twice daily, and from pulmonary standpoint he is stable for discharge home today with follow-up with Dr. Washington in the office. No complaints at this time, patient has been up ambulating, tolerating activity very well. Objective - Vital Signs Vital signs: Vital Signs Temp 97.2 F L 01/30/18 11:23 Pulse 94 01/30/18 11:23 Resp 16 01/30/18 12:00 BP 125/62 01/30/18 11:23 Pulse Ox 96 01/30/18 11:23 Intake & Output 04/11/18 04/12/18 04/12/18 18:59 06:59 18:59 Intake Total 660 900 236 Output Total 400 Balance 260 900 236 Weight 110.6 kg Intake: Oral 660 900 236 Output: Urine 400 Other: Voiding Method Toilet Toilet # Voids 1 - Exam GENERAL EXAM: Alert, pleasant, 62-year-old white male comfortable in no apparent distress. HEAD: Normocephalic/atraumatic. EYES: Normal reaction of pupils, equal size. Conjunctiva pink, sclera white. NOSE: Clear with pink turbinates. THROAT: No erythema or exudates. NECK: No masses, no JVD, no thyroid enlargement, no adenopathy. CHEST: No chest wall deformity. Symmetrical expansion. LUNGS: Equal air entry with no crackles, wheeze, rhonchi or dullness. CVS: Regular rate and rhythm, normal S1 and S2, no gallops, no murmurs, no rubs ABDOMEN: Soft, nontender. No hepatosplenomegaly, normal bowel sounds, no guarding or rigidity. EXTREMITIES: No clubbing, no edema, no cyanosis, 2+ pulses and upper and lower extremities. MUSCULOSKELETAL: Muscle strength and tone normal. SPINE: No scoliosis or deformity SKIN: No rashes CENTRAL NERVOUS SYSTEM: Alert and oriented -3. No focal deficits, tone is normal in all 4 extremities. PSYCHIATRIC: Alert and oriented -3. Appropriate affect. Intact judgment and insight. - Labs CBC & Chem 7: 01/28/18 18:59 04 18:59 Assessment and Plan Plan: Assessment: #1 Acute hypoxic respiratory failure secondary to bilateral pulmonary emboli. This is unprovoked and recurrent. Outpatient workup for hereditary blood dyscrasias was negative. #2 Recent pulmonary emboli treated for greater than 3 months with follow-up CT angiogram revealing no evidence of pulmonary embolism. Eliquis was discontinued 12/23/2017. #3 Hypertension. #4 Osteoarthritis with chronic back pain. #5 History of anxiety/depression. #6 Gastroesophageal reflux disease. Plan: Patient denies any complaints, denies any dyspnea, denies any chest pain, vital signs are stable, he is on room air, stable oxygenation. Patient is on Eliquis, 10 mg twice daily for the first 7 days, then 5 mg twice daily thereafter. Patient will need lifelong anticoagulation. Follow-up with Dr. Washington in the office next week. I performed a history & physical examination of the patient and discussed their management with my nurse practitioner, Cindi Stanley. I reviewed the nurse practitioner's note and agree with the documented findings and plan of care. Lung sounds are positive for clear lung sounds . The findings and the impression was discussed with the patient. I attest to the documentation by the nurse practitioner. Time with Patient: Less than 30
== END 2018-01-30 13:26 | disposition home or self-care (01) | DRG 175 ==
LOC: EC 18:22 → 6SEL 19:02
PROVIDERS: ADMIT Family Medicine; ATTEND Family Medicine
DX: I26.99 Other pulmonary embolism without acute cor pulmonale (principal); J96.01 Acute respiratory failure with hypoxia; E66.9 Obesity, unspecified; Z68.33 Body mass index [BMI] 33.0-33.9, adult; Z87.891 Personal history of nicotine dependence; F32.9 Major depressive disorder, single episode, unspecified; G89.29 Other chronic pain; I10 Essential (primary) hypertension; K21.9 Gastro-esophageal reflux disease without esophagitis; Z79.899 Other long term (current) drug therapy; Z86.711 Personal history of pulmonary embolism; M19.90 Unspecified osteoarthritis, unspecified site; M54.9 Dorsalgia, unspecified; F41.9 Anxiety disorder, unspecified
CPT/HCPCS: 71275; 80053; 83735; 84484; 85025; 85610; 85730; 93005; 93970; 99285

== ENCOUNTER 2018-12-20 02:17 | Inpatient (IN) | payer BC ==
--- NOTE | 2018-12-20 02:50 | ED ---
Syncope HPI - General Chief Complaint: Syncope Stated Complaint: Syncope Time Seen by Provider: 12/20/18 02:32 Source: patient, EMS Mode of arrival: EMS Limitations: no limitations - History of Present Illness Initial Comments: This patient is a 63-year-old man who presents to emergency department after having had multiple syncopal episodes. Patient states that his symptoms started little over 24 hours ago. He states that last night he got up to use the bathroom and then passed out. He didn't fall but denies having any significant trauma. He was also short of breath and lightheaded. He was having palpitations at this time. The patient states that he just wants go back to bed so he did that. He had another couple of episodes where he passed out and so tonight presents for evaluation. The patient states that he was having similar episodes of this year ago and was diagnosed with having a pulmonary embolism. MD Complaint: collapsed Onset/Timin -: hour(s) Prodromal Symptoms: none Injuries Sustained Associated with Event: None Current Symptoms: lightheaded, shortness of breath Context: getting out of bed Treatments Prior to Arrival: none - Related Data Home Medications Medication Instructions Recorded Confirmed Cyclobenzaprine [Flexeril] 10 mg PO HS 03/28/15 12/20/18 Lisinopril-Hctz 10-12.5 mg 1 tab PO DAILY 03/28/15 12/20/18 [Zestoretic 10-12.5] Omeprazole 20 mg PO DAILY 03/28/15 12/20/18 Ascorbic Acid [Vitamin C] 1,000 mg PO DAILY 01/08/17 12/20/18 Escitalopram [Lexapro] 20 mg PO HS 01/08/17 12/20/18 HYDROcodone/APAP 10-325MG [Kaleva 1 tab PO TID PRN 01/08/17 12/20/18 10-325] Multivitamins, Thera [Multivitamin 1 tab PO DAILY 01/08/17 12/20/18 (formulary)] Apixaban [Eliquis] 5 mg PO BID 01/28/18 12/20/18 Melatonin 10 mg PO HS PRN 01/28/18 12/20/18 Vits A,C,E/Lutein/Minerals 1 tab PO DAILY 01/28/18 12/20/18 [Ocuvite with Lutein Tablet] Allergies Allergy/AdvReac Type Severity Reaction Status Date / Time No Known Allergies Allergy Verified 01/28/18 18:49 Review of Systems ROS Statement: Those systems with pertinent positive or pertinent negative responses have been documented in the HPI. ROS Other: All systems not noted in ROS Statement are negative. Constitutional: Denies: fever, chills Respiratory: Reports: dyspnea. Denies: cough, wheezes, hemoptysis Cardiovascular: Reports: palpitations, syncope. Denies: chest pain, orthopnea, edema Gastrointestinal: Denies: abdominal pain, nausea, vomiting Genitourinary: Denies: dysuria, hematuria Musculoskeletal: Denies: back pain Skin: Denies: rash Neurological: Denies: headache, weakness, numbness Past Medical History Past Medical History: GERD/Reflux, Hypertension, Osteoarthritis (OA), Pulmonary Embolus (PE) Additional Past Medical History / Comment(s): CHRONIC BACK PAIN History of Any Multi-Drug Resistant Organisms: None Reported Past Surgical History: Hernia Repair, Orthopedic Surgery Additional Past Surgical History / Comment(s): ALBERT SHOULDERS right rotator cuff / left tendon damage, LEFT CARPAL TUNNEL, Past Anesthesia/Blood Transfusion Reactions: No Reported Reaction Past Psychological History: Depression Smoking Status: Former smoker Past Alcohol Use History: None Reported Past Drug Use History: None Reported - Past Family History Mother Family Medical History: No Reported History General Exam Limitations: no limitations General appearance: alert, in no apparent distress Head exam: Present: atraumatic, normocephalic Eye exam: Present: normal appearance. Absent: scleral icterus, conjunctival injection ENT exam: Present: normal oropharynx Neck exam: Present: normal inspection Respiratory exam: Present: normal lung sounds bilaterally. Absent: respiratory distress, wheezes, rales, rhonchi, stridor Cardiovascular Exam: Present: regular rate, normal rhythm, normal heart sounds, other (Auscultation reveals that approximately every fourth beat is dropped). Absent: bradycardia, tachycardia, irregular rhythm GI/Abdominal exam: Present: soft. Absent: distended, tenderness, guarding, rebound, rigid, mass Extremities exam: Present: normal inspection, normal capillary refill. Absent: pedal edema, calf tenderness Back exam: Present: normal inspection. Absent: CVA tenderness (R), CVA tenderness (L) Neurological exam: Present: alert Skin exam: Present: warm, dry, intact, normal color. Absent: rash Course Vital Signs 03/02/19 03/02/19 03/02/19 02:23 03:26 04:55 Temperature 98.2 F Pulse Rate 94 86 97 Respiratory 18 20 20 Rate Blood Pressure 121/66 122/66 127/51 O2 Sat by Pulse 100 97 100 Oximetry 12/20/18 05:00 Temperature Pulse Rate 95 Respiratory 18 Rate Blood Pressure 124/60 O2 Sat by Pulse 97 Oximetry - Reevaluation(s) Reevaluation #1: 12/20/18 06:22 Patient did have an episode when she attempts to get up to use the bathroom and then appears to have had a syncopal episode. He did have loss continence of bladder. Repeat ECG ordered. EKG Findings - EKG Comments: EKG Findings:: The underlying rhythm appears to be quadrigeminal, with a rate of approximately 105 bpm - EKG Results: EKG: interpreted by JOSE, sinus rhythm, normal axis, normal QRS, normal ST/T, no acute changes EKG shows: tachycardia (Rate approximately 105 bpm) Medical Decision Making - Lab Data Result diagrams: 12/20/18 02:20 12/20/18 02:20 Lab Results 12/20/18 12/20/18 12/20/18 Range/Units 02:20 02:20 02:20 WBC 9.2 (3.8-10.6) k/uL RBC 3.32 L (4.30-5.90) m/uL Hgb 9.3 L (13.0-17.5) gm/dL Hct 28.5 L (39.0-53.0) % MCV 86.0 (80.0-100.0) fL MCH 28.1 (25.0-35.0) pg MCHC 32.7 (31.0-37.0) g/dL RDW 14.9 (11.5-15.5) % Plt Count 238 (150-450) k/uL Neutrophils % 50 % Lymphocytes % 37 % Monocytes % 6 % Eosinophils % 4 % Basophils % 1 % Neutrophils # 4.6 (1.3-7.7) k/uL Lymphocytes # 3.4 (1.0-4.8) k/uL Monocytes # 0.5 (0-1.0) k/uL Eosinophils # 0.4 (0-0.7) k/uL Basophils # 0.1 (0-0.2) k/uL PT 11.3 (9.0-12.0) sec INR 1.1 (<1.2) APTT 20.0 L (22.0-30.0) sec D-Dimer 0.73 H (<0.60) mg/L FEU Sodium 133 L (137-145) mmol/L Potassium 4.2 (3.5-5.1) mmol/L Chloride 105 (98-107) mmol/L Carbon Dioxide 18 L (22-30) mmol/L Anion Gap 10 mmol/L BUN 60 H (9-20) mg/dL Creatinine 1.01 (0.66-1.25) mg/dL Est GFR (CKD-EPI)AfAm >90 (>60 ml/min/1.73 sqM) Est GFR (CKD-EPI)NonAf 78 (>60 ml/min/1.73 sqM) Glucose 124 H (74-99) mg/dL Calcium 8.7 (8.4-10.2) mg/dL Magnesium 1.9 (1.6-2.3) mg/dL Total Bilirubin 0.4 (0.2-1.3) mg/dL AST 31 (17-59) U/L ALT 41 (21-72) U/L Alkaline Phosphatase 48 (38-126) U/L Troponin I (0.000-0.034) ng/mL Total Protein 5.3 L (6.3-8.2) g/dL Albumin 3.2 L (3.5-5.0) g/dL 12/20/18 Range/Units 02:20 WBC (3.8-10.6) k/uL RBC (4.30-5.90) m/uL Hgb (13.0-17.5) gm/dL Hct (39.0-53.0) % MCV (80.0-100.0) fL MCH (25.0-35.0) pg MCHC (31.0-37.0) g/dL RDW (11.5-15.5) % Plt Count (150-450) k/uL Neutrophils % % Lymphocytes % % Monocytes % % Eosinophils % % Basophils % % Neutrophils # (1.3-7.7) k/uL Lymphocytes # (1.0-4.8) k/uL Monocytes # (0-1.0) k/uL Eosinophils # (0-0.7) k/uL Basophils # (0-0.2) k/uL PT (9.0-12.0) sec INR (<1.2) APTT (22.0-30.0) sec D-Dimer (<0.60) mg/L FEU Sodium (137-145) mmol/L Potassium (3.5-5.1) mmol/L Chloride (98-107) mmol/L Carbon Dioxide (22-30) mmol/L Anion Gap mmol/L BUN (9-20) mg/dL Creatinine (0.66-1.25) mg/dL Est GFR (CKD-EPI)AfAm (>60 ml/min/1.73 sqM) Est GFR (CKD-EPI)NonAf (>60 ml/min/1.73 sqM) Glucose (74-99) mg/dL Calcium (8.4-10.2) mg/dL Magnesium (1.6-2.3) mg/dL Total Bilirubin (0.2-1.3) mg/dL AST (17-59) U/L ALT (21-72) U/L Alkaline Phosphatase (38-126) U/L Troponin I <0.012 (0.000-0.034) ng/mL Total Protein (6.3-8.2) g/dL Albumin (3.5-5.0) g/dL Disposition Clinical Impression: Pulmonary embolism, Syncope, Rib fracture Disposition: ADMITTED IP TO THIS HOSP Condition: Fair Is patient prescribed a controlled substance at d/c from ED?: No Referrals: Theo Reid MD [Primary Care Provider] - 1-2 days
[2018-12-20 03:05] LABS: Basophils # (A) 0.1 k/uL (0-0.2); Basophils % (A) 1 %; Eosinophils # (A) 0.4 k/uL (0-0.7); Eosinophils % (A) 4 %; HCT 28.5 % (39.0-53.0); HGB 9.3 gm/dL (13.0-17.5); Lymphocytes # (A) 3.4 k/uL (1.0-4.8); Lymphocytes % (A) 37 %; MCH 28.1 pg (25.0-35.0); MCHC 32.7 g/dL (31.0-37.0); Mean Platelet Volume 7.3; Monocytes # (A) 0.5 k/uL (0-1.0); Monocytes % (A) 6 %; Neutrophils # (A) 4.6 k/uL (1.3-7.7); Neutrophils % (A) 50 %; Platelet Count 238 k/uL (150-450); RBC 3.32 m/uL (4.30-5.90); RDW 14.9 % (11.5-15.5); WBC 9.2 k/uL (3.8-10.6)
[2018-12-20 03:15] LABS: ALT 41 U/L (21-72); AST 31 U/L (17-59); Albumin 3.2 g/dL (3.5-5.0); Alkaline Phosphatase 48 U/L (38-126); Anion Gap 10 mmol/L; Blood Urea Nitrogen 60 mg/dL (9-20); Calcium 8.7 mg/dL (8.4-10.2); Carbon Dioxide 18 mmol/L (22-30); Chloride 105 mmol/L (98-107); Glucose 124 mg/dL (74-99); Magnesium 1.9 mg/dL (1.6-2.3); Potassium 4.2 mmol/L (3.5-5.1); Sodium 133 mmol/L (137-145); Total Bilirubin 0.4 mg/dL (0.2-1.3); Total Protein 5.3 g/dL (6.3-8.2)
--- NOTE | 2018-12-20 03:18 | XR ---
EXAM: XR Chest, 1 View CLINICAL HISTORY: ITS.REASON XR Reason: syncope TECHNIQUE: Frontal view of the chest. COMPARISON: 12/12/17. FINDINGS: Lungs: Mild lower lung opacities, possible atelectasis. No consolidation. Pleural space: No significant pleural effusion or pneumothorax. Heart: Unremarkable. Mediastinum: Unremarkable. Bones/joints: No gross acute fracture. IMPRESSION: No evidence of acute cardiopulmonary process.
[2018-12-20 03:25] LABS: INR 1.1 (<1.2); Prothrombin Time 11.3 sec (9.0-12.0)
[2018-12-20 03:44] LABS: D-Dimer 0.73 mg/L FEU (<0.60)
[2018-12-20] MEDS ORDERED: HEPARIN SODIUM,PORCINE 10,000 UNIT/ML 1 ML VIAL IV ONE (04:30)
[2018-12-20] MEDS ORDERED: HEPARIN SOD,PORK IN 0.45% NACL 25,000 UNIT in 0.45% NACL 1 250ML.BAG IV SCH ×2 (04:30→15:45)
[2018-12-20] MEDS ORDERED: HEPARIN SODIUM,PORCINE 5,000 UNIT/ML 1 ML VIAL IV PRN ×2 (04:30→15:32)
--- NOTE | 2018-12-20 04:31 | CT ---
EXAM: CT Angiography Chest With Intravenous Contrast CLINICAL HISTORY: ITS.REASON CT Reason: Pain TECHNIQUE: Axial computed tomographic angiography images of the chest with intravenous contrast using pulmonary embolism protocol. CTDI is 12.4 mGy and DLP is 590.5 mGy-cm. This CT exam was performed using one or more of the following dose reduction techniques: automated exposure control, adjustment of the mA and/or kV according to patient size, and/or use of iterative reconstruction technique. MIP reconstructed images were created and reviewed. COMPARISON: CT 01/28/18. FINDINGS: Pulmonary arteries: Slightly suboptimal bolus timing. Small filling defects in the right lower lobe compatible with PE. No large central saddle embolus. Aorta: No aortic aneurysm or dissection. Lungs: Mild nonspecific patchy lung densities, query atelectasis, pneumonitis, or early infarct. Pleural space: No significant effusion. No pneumothorax. Heart: Unremarkable. Bones/joints: Nondisplaced fracture of the left anterolateral seventh rib. Soft tissues: Unremarkable as visualized. Lymph nodes: Unremarkable. IMPRESSION: 1. Small filling defects in the right lower lobe compatible with PE. 2. Nondisplaced fracture of the left anterolateral seventh rib. 3. Mild nonspecific patchy lung densities, query atelectasis, pneumonitis, or early infarct. <MYCVCSECTION> Critical Value Communications 12/20/18 04:29 Call Doctor Regarding Above results, called Dr. Hutchison on 12/20 04:29 (-05:00)
[2018-12-20] MEDS ORDERED: NITROGLYCERIN SL TABS 0.4 MG TAB SUBLINGUAL PRN (06:24)
[2018-12-20] MEDS ORDERED: MELATONIN 5 MG TABLET PO PRN (11:19)
[2018-12-20] MEDS ORDERED: LISINOPRIL-HCTZ 10-12.5 MG 1 EACH TAB PO SCH (11:30)
[2018-12-20 12:08] LABS: Glucose,Whole Blood 162 mg/dL (75-99)
[2018-12-20 12:34] LABS: Glucose,Whole Blood 142 mg/dL (75-99)
--- NOTE | 2018-12-20 12:38 | P.HPIM ---
History of Present Illness H&P Date: 12/20/18 Chief Complaint: Syncope Andrea is a 63-year-old white male patient well known to my practice. Apparently over the past 24 hours, he has had several episodes of syncope with loss of consciousness. He reports getting up in bed and just not feeling well in the next things he noted he urinated himself. He has a history of pulmonary embolism 2 in the past. It was thought that he had a another pulmonary embolism. He currently takes Elequis 5 mg twice a day for anticoagulation. Andrea denies any chest pains pressures and has some minimal shortness of breath at this time. Indicates any sort of exertion he is extremely weak. He denies striking his head during any of the episodes syncope. His laboratory studies show hemoglobin of 9.3. Troponins 2 were normal at less than 0.012 and 0.0-3. His d-dimer was slightly elevated at 0.73. CT chest which was reviewed with Dr. Casanova shows residual pulmonary embolism that is small, questionably acute. But does not significantly explain his symptoms of syncope. EKG in the ER showed frequent PVCs initially and then occasional PVCs. He is not currently on telemetry. Review of Systems All systems: negative Past Medical History Past Medical History: GERD/Reflux, Hypertension, Osteoarthritis (OA), Pulmonary Embolus (PE) Additional Past Medical History / Comment(s): CHRONIC BACK PAIN History of Any Multi-Drug Resistant Organisms: None Reported Past Surgical History: Hernia Repair, Orthopedic Surgery Additional Past Surgical History / Comment(s): ALBERT SHOULDERS right rotator cuff / left tendon damage, LEFT CARPAL TUNNEL, Past Anesthesia/Blood Transfusion Reactions: No Reported Reaction Past Psychological History: Depression Smoking Status: Former smoker Past Alcohol Use History: None Reported Past Drug Use History: None Reported - Past Family History Mother Family Medical History: No Reported History Medications and Allergies Home Medications Medication Instructions Recorded Confirmed Type Lisinopril-Hctz 10-12.5 mg 1 tab PO DAILY 03/28/15 12/20/18 History [Zestoretic 10-12.5] Ascorbic Acid [Vitamin C] 1,000 mg PO DAILY 01/08/17 12/20/18 History Escitalopram [Lexapro] 20 mg PO HS 01/08/17 12/20/18 History HYDROcodone/APAP 10-325MG [Horatio 1 tab PO TID PRN 01/08/17 12/20/18 History 10-325] Multivitamins, Thera [Multivitamin 1 tab PO DAILY 01/08/17 12/20/18 History (formulary)] Apixaban [Eliquis] 5 mg PO BID 01/28/18 12/20/18 History Melatonin 10 mg PO HS PRN 01/28/18 12/20/18 History Vits A,C,E/Lutein/Minerals 1 tab PO DAILY 01/28/18 12/20/18 History [Ocuvite with Lutein Tablet] Lansoprazole [Prevacid] 30 mg PO DAILY 12/20/18 12/20/18 History Allergies Allergy/AdvReac Type Severity Reaction Status Date / Time No Known Allergies Allergy Verified 12/20/18 07:02 Physical Exam Vitals: Vital Signs Temp Pulse Pulse Pulse Pulse Resp BP 12/20/18 12:10 133 H 16 12/20/18 12:07 136 H 16 12/20/18 11:54 98.9 F 123 H 17 12/20/18 07:30 98 F 100 17 12/20/18 06:00 100 20 138/69 12/20/18 05:00 95 18 124/60 12/20/18 04:55 97 20 127/51 12/20/18 03:26 86 20 122/66 12/20/18 02:23 98.2 F 94 18 121/66 BP BP BP Pulse Ox 12/20/18 12:10 86/51 100 12/20/18 12:07 143/69 100 12/20/18 11:54 125/63 100 12/20/18 07:30 144/75 99 12/20/18 06:00 98 12/20/18 05:00 97 12/20/18 04:55 100 12/20/18 03:26 97 12/20/18 02:23 100 Intake and Output 12/19/18 12/20/18 12/20/18 22:59 06:59 14:59 Intake Total 126.941 Balance 126.941 Intake: Intake, IV Titration 126.941 Amount Heparin Sod,Pork in 0.45% 126.941 NaCl 25,000 unit In 0.45 % NaCl 1 250ml.bag @ 18 UNITS/KG/HR 20.81 mls/hr IV .Q12H1M [facility] Rx#: [id number] Other: Voiding Method Urinal Weight 115.666 kg GENERAL: fatigued HEAD: Atraumatic, normocephalic. EYES: Pupils equal round and reactive to light, extraocular movements intact, sclera anicteric, conjunctiva are normal. ENT:nares patent, oropharynx clear without exudates. Moist mucous membranes. NECK: Normal range of motion, supple without lymphadenopathy or JVD, no thyromegaly LUNGS: Breath sounds coarse to auscultation bilaterally and equal. No wheezes rales or rhonchi. HEART: Regular rate and rhythm without murmurs, rubs or gallops.S1S2 Normal ABDOMEN: Soft, nontender, normoactive bowel sounds. No guarding, no rebound. No masses appreciated. EXTREMITIES: Normal range of motion, no pitting, +1 edema and bilateral calf tenderness noted today. It is worse on the right compared to the left.. No clubbing or cyanosis. NEUROLOGICAL: Cranial nerves II through XII grossly intact. Normal speech, normal gait. PSYCH: Normal mood, normal affect. SKIN: Warm, Dry, normal turgor, no rashes or lesions noted. There are several small areas of ecchymosis consistent with his syncope and the trauma from that. Results CBC & Chem 7: 12/20/18 02:20 12/20/18 02:20 Labs: Abnormal Lab Results - Last 24 Hours (Table) 12/20/18 12/20/18 12/20/18 Range/Units 02:20 02:20 02:20 RBC 3.32 L (4.30-5.90) m/uL Hgb 9.3 L (13.0-17.5) gm/dL Hct 28.5 L (39.0-53.0) % APTT 20.0 L (22.0-30.0) sec D-Dimer 0.73 H (<0.60) mg/L FEU Sodium 133 L (137-145) mmol/L Carbon Dioxide 18 L (22-30) mmol/L BUN 60 H (9-20) mg/dL Glucose 124 H (74-99) mg/dL POC Glucose (mg/dL) (75-99) mg/dL Total Protein 5.3 L (6.3-8.2) g/dL Albumin 3.2 L (3.5-5.0) g/dL 12/20/18 12/20/18 Range/Units 10:06 12:06 RBC (4.30-5.90) m/uL Hgb (13.0-17.5) gm/dL Hct (39.0-53.0) % APTT 150.0 H* (22.0-30.0) sec D-Dimer (<0.60) mg/L FEU Sodium (137-145) mmol/L Carbon Dioxide (22-30) mmol/L BUN (9-20) mg/dL Glucose (74-99) mg/dL POC Glucose (mg/dL) 162 H (75-99) mg/dL Total Protein (6.3-8.2) g/dL Albumin (3.5-5.0) g/dL Chest x-ray: report reviewed CT scan - chest: image reviewed (With Dr. Casanova, pulmonary embolism seems minimal and improved from previous imaging) Thrombosis Risk Factor Assmnt - DVT/VTE Prophylaxis DVT/VTE Prophylaxis: Pharmacologic Prophylaxis ordered (He is currently on a heparin drip) - Choose All That Apply Each Risk Factor Represents 3 Points: History of DVT/PE Thrombosis Risk Factor Assessment Total Risk Factor Score: 3 Thrombosis Risk Factor Assessment Level: Moderate Risk Assessment and Plan (1) Syncope Current Visit: Yes Status: Acute Code(s): R55 - SYNCOPE AND COLLAPSE SNOMED Code(s): 598959409 (2) Hypertension Current Visit: Yes Status: Acute Code(s): I10 - ESSENTIAL (PRIMARY) HYPERTENSION SNOMED Code(s): 63269399 (3) assisted (current) use of anticoagulants Current Visit: Yes Status: Acute Code(s): Z79.01 - SENIOR LIVING (CURRENT) USE OF ANTICOAGULANTS SNOMED Code(s): 061546908 (4) Elevated glucose Current Visit: Yes Status: Acute Code(s): R73.09 - OTHER ABNORMAL GLUCOSE SNOMED Code(s): 910221764 (5) Anemia Current Visit: Yes Status: Acute Code(s): D64.9 - ANEMIA, UNSPECIFIED SNOMED Code(s): 624751871 (6) Hyponatremia Current Visit: Yes Status: Acute Code(s): E87.1 - HYPO-OSMOLALITY AND HYPONATREMIA SNOMED Code(s): 36198404 (7) Dehydration Current Visit: Yes Status: Acute Code(s): E86.0 - DEHYDRATION SNOMED Code( s): 71190815 (8) Pulmonary embolism Current Visit: Yes Status: Acute Code(s): I26.99 - OTHER PULMONARY EMBOLISM WITHOUT ACUTE COR PULMONALE SNOMED Code(s): 89222145 (9) Rib fracture Current Visit: Yes Status: Acute Code(s): S22.39XA - FRACTURE OF ONE RIB, UNSP SIDE, INIT FOR CLOS FX SNOMED Code(s): 79485027 (10) Dyspnea Current Visit: No Status: Acute Code(s): R06.00 - DYSPNEA, UNSPECIFIED SNOMED Code(s): 418484509 Plan: Transfer him over to the telemetry stepdown unit or ICU. Stat CT brain without contrast to evaluate for occult bleeding. Saline IV fluids for dehydration. Repeat labs, troponins every 4 hours 3, obtain a 2-D echo, carotid Doppler. Consult pulmonology ongoing, consult cardiology for further evaluation of PVCs and possible underlying arrhythmia. I'll await further recommendations from consultants. I reevaluated next 24 hours.
[2018-12-20] MEDS ORDERED: SODIUM CHLORIDE 0.9% 1,000 ML IV SCH (12:45)
--- NOTE | 2018-12-20 12:47 | P.CNPUL ---
History of Present Illness Consult date: 12/20/18 Reason for consult: dyspnea History of present illness: 63-year-old male patient with previous history of recurrent DVT and pulmonary embolism last bout being in January 2019 and the patient has been on anticoagulation with Eliquis since. The patient came into the hospital after having several syncopal episodes. The patient apparently was at home and she had 2 syncopal episode. He collapsed on the floor and he passed out. He also had a traumatic injury to his left chest area and the area is quite tender at this point in time. He has no recollection. No seizure activity. No jerky body movements. No palpitations. No chest pain. He would wake up immediately following these episodes without having any altered mentation. No focal neurological deficits. He had 2 episodes at home and he had another episode in the hospital. No cardiac arrhythmias have been documented. EKG that was done in the emergency department showed sinus rhythm with frequent P VCs. The patient is quite short of breath. He gets short of breath with limited amount of activity. Moving him to a sitting position, while examination with make him short of breath and he would drop his pressures become tachycardic. I reviewed the CT angios the chest. In comparison to the CAT scan of the chest was done in January 2018, the pulmonary emboli have privileges old and the patient has minimal residual changes/filling defect in the right lower lobe pulmonary artery branch. I would say that the symptoms that he is having is not related to pulmonary embolism nontender the patient has been on anticoagulation patient is improved considerably. D-dimer is at 0.7. O2 sat of cardiac enzymes level of less than 0.012 and a second level of 0.02. Rest of the electrodes are all within normal limits. He is diaphoretic and clammy. He is not having any chest pain. He is having some skeletal chest (probably due to this fall and left-sided chest trauma. CAT scan of the brain was not done. Dopplers were not done. Echocardiogram was not done. I ordered transferring this patient to ICU for intensive monitoring. He is currently on IV heparin. Cardiology consultation will be obtained on an emergent basis. Suspect underlying ischemic heart disease/cardiac arrhythmias underlying the patient's recurrent syncopes and passing out episodes. No swelling lower extremities at this point in time. Hemoglobin is low at 9.3 Review of Systems Constitutional: Reports fatigue, Reports weakness Eyes: denies as per HPI, denies blurred vision, denies bulging eye, denies decreased vision, denies diplopia, denies discharge, denies dry eye, denies irritation, denies itching, denies pain, denies photophobia, denies loss of peripheral vision, denies loss of vision, denies tunnel vision/blind spots Ears: deny: decreased hearing, ear discharge, earache, tinnitus Ears, nose, mouth and throat: Denies headache, Denies sore throat Cardiovascular: Reports chest pain, Reports decreased exercise tolerance, Reports dyspnea on exertion, Reports palpitations, Reports shortness of breath Respiratory: Reports dyspnea Gastrointestinal: Denies abdominal pain, Denies diarrhea, Denies nausea, Denies vomiting Genitourinary: Reports as per HPI Musculoskeletal: Reports as per HPI Musculoskeletal: absent: ankle pain, ankle stiffness, ankle swelling, as per HPI , elbow pain, elbow stiffness, elbow swelling, foot pain, foot stiffness, foot swelling, hand pain, hand stiffness, hand swelling, hip pain, hip stiffness, hip swelling, knee pain, knee stiffness, knee swelling, shoulder pain, shoulder stiffness, shoulder swelling, wrist pain, wrist stiffness, wrist swelling Integumentary: Reports as per HPI Neurological: Reports as per HPI, Reports syncope Psychiatric: Reports as per HPI Endocrine: Reports fatigue Hematologic/Lymphatic: Reports as per HPI Allergic/Immunologic: Reports as per HPI Past Medical History Past Medical History: GERD/Reflux, Hypertension, Osteoarthritis (OA), Pulmonary Embolus (PE) Additional Past Medical History / Comment(s): CHRONIC BACK PAIN, recurrent pulmonary embolism the first episode was around 2-1/2 years ago and the patient was treated with anticoagulation and then discontinued and subsequently he had another episode in 2018 and since then has been on anticoagulation History of Any Multi-Drug Resistant Organisms: None Reported Past Surgical History: Hernia Repair, Orthopedic Surgery Additional Past Surgical History / Comment(s): ALBERT SHOULDERS right rotator cuff / left tendon damage, LEFT CARPAL TUNNEL, Past Anesthesia/Blood Transfusion Reactions: No Reported Reaction Past Psychological History: Depression Smoking Status: Former smoker Past Alcohol Use History: None Reported Past Drug Use History: None Reported - Past Family History Mother Family Medical History: No Reported History Medications and Allergies Home Medications Medication Instructions Recorded Confirmed Type Lisinopril-Hctz 10-12.5 mg 1 tab PO DAILY 03/28/15 12/20/18 History [Zestoretic 10-12.5] Ascorbic Acid [Vitamin C] 1,000 mg PO DAILY 01/08/17 12/20/18 History Escitalopram [Lexapro] 20 mg PO HS 01/08/17 12/20/18 History HYDROcodone/APAP 10-325MG [Kirklin 1 tab PO TID PRN 01/08/17 12/20/18 History 10-325] Multivitamins, Thera [Multivitamin 1 tab PO DAILY 01/08/17 12/20/18 History (formulary)] Apixaban [Eliquis] 5 mg PO BID 01/28/18 12/20/18 History Melatonin 10 mg PO HS PRN 01/28/18 12/20/18 History Vits A,C,E/Lutein/Minerals 1 tab PO DAILY 01/28/18 12/20/18 History [Ocuvite with Lutein Tablet] Lansoprazole [Prevacid] 30 mg PO DAILY 12/20/18 12/20/18 History Allergies Allergy/AdvReac Type Severity Reaction Status Date / Time No Known Allergies Allergy Verified 12/20/18 07:02 Physical Exam Vitals: Vital Signs Temp Pulse Pulse Pulse Pulse Resp BP 12/20/18 12:10 133 H 16 12/20/18 12:07 136 H 16 12/20/18 11:54 98.9 F 123 H 17 12/20/18 07:30 98 F 100 17 12/20/18 06:00 100 20 138/69 12/20/18 05:00 95 18 124/60 12/20/18 04:55 97 20 127/51 12/20/18 03:26 86 20 122/66 12/20/18 02:23 98.2 F 94 18 121/66 BP BP BP Pulse Ox 12/20/18 12:10 86/51 100 12/20/18 12:07 143/69 100 12/20/18 11:54 125/63 100 12/20/18 07:30 144/75 99 12/20/18 06:00 98 12/20/18 05:00 97 12/20/18 04:55 100 12/20/18 03:26 97 12/20/18 02:23 100 Intake and Output 12/19/18 12/20/18 12/20/18 22:59 06:59 14:59 Intake Total 126.941 Balance 126.941 Intake: Intake, IV Titration 126.941 Amount Heparin Sod,Pork in 0.45% 126.941 NaCl 25,000 unit In 0.45 % NaCl 1 250ml.bag @ 18 UNITS/KG/HR 20.81 mls/hr IV .Q12H1M [facility] Rx#: [id number] Other: Voiding Method Urinal Weight 115.666 kg GENERAL EXAM: Alert, active, shortness of breath with limited amount of activity. At times he becomes tachycardic and other times he dropped his pressure. He is having a labile heart rate and blood pressure control for now. His resting in bed. He is a bit pale and he seems to be slightly diaphoretic. HEAD: Normocephalic. EYES: Normal reaction of pupils, equal size. NOSE: Clear with pink turbinates. THROAT: No erythema or exudates. NECK: No masses, no JVD. CHEST: No chest wall deformity. LUNGS: Equal air entry with no crackles, wheeze, rhonchi or dullness. CVS: S1 and S2 normal with no audible murmur, regular rhythm. ABDOMEN: No hepatosplenomegaly, normal bowel sounds, no guarding or rigidity. SPINE: No scoliosis or deformity SKIN: No rashes CENTRAL NERVOUS SYSTEM: No focal deficits, tone is normal in all 4 extremities. EXTREMITIES: There is no peripheral edema. No clubbing, no cyanosis. Peripheral pulses are intact. Results - Laboratory Findings CBC and BMP: 12/20/18 02:20 12/20/18 02:20 PT/INR, D-dimer PT 11.3 sec (9.0-12.0) 12/20/18 02:20 INR 1.1 (<1.2) 12/20/18 02:20 D-Dimer 0.73 mg/L FEU (<0.60) H 12/20/18 02:20 Abnormal lab findings: Abnormal Labs 12/20/18 12/20/18 12/20/18 02:20 02:20 02:20 RBC 3.32 L Hgb 9.3 L Hct 28.5 L APTT 20.0 L D-Dimer 0.73 H Sodium 133 L Carbon Dioxide 18 L BUN 60 H Glucose 124 H POC Glucose (mg/dL) Total Protein 5.3 L Albumin 3.2 L 12/20/18 12/20/18 12/20/18 10:06 12:06 12:32 RBC Hgb Hct APTT 150.0 H* D-Dimer Sodium Carbon Dioxide BUN Glucose POC Glucose (mg/dL) 162 H 142 H Total Protein Albumin - Diagnostic Findings CT scan - chest: image reviewed Assessment and Plan Plan: Assessment 1 recurrent bouts of syncope, very unlikely to be related to pulmonary embolism based on the above-mentioned findings. The CAT scan of the chest was reviewed and compared to the previous CAT scans was done in January 2018. The emboli discussed in the lower lobes are pretty much recovered and the patient has some minimal residual defect in the right lower lobe subsegmental branch which is not enough to explain the patient's symptoms. No hypoxemia. No signs of any RV strain pattern on the CT angios the chest. The patient is currently on IV heparin. Noted the patient was on Eliquis on outpatient basis within compliant to the treatment. Rule out cardiogenic causes of syncope including cardiac arrhythmias in the setting of an acute ischemic heart disease. Rule out neurologic causes 2 recurrent pulmonary embolism maintained on long-term medical condition with Eliquis 3 hypertension 4 osteoarthritis and chronic back pain 5 chronic eczematous depression 6 acid reflux 7 anemia, chronicity is not known. The patient a normal hemoglobin back in 2018. No evidence of any acute bleeding. No evidence of any thoracic aortic dissection. Plan We'll obtain a stat CAT scan of the brain and Dopplers of the carotids. We'll obtain a stat echocardiogram. Monitor cardiac enzymes. Monitor hemoglobin. We 'll obtain a stat cardiology consultation. Monitor hemodynamics and move the patient to the intensive care unit. We'll continue to follow and make further recommendations based on his progress. Case was discussed with the primary care. Cardiology was informed. We'll continue to follow. Condition is critical at this point in time. May have an underlying ischemic heart disease.
[2018-12-20] MEDS ORDERED: ONDANSETRON 4 MG/2 ML VIAL IVP PRN (13:11)
--- NOTE | 2018-12-20 14:21 | CT ---
EXAMINATION TYPE: CT brain wo con DATE OF EXAM: 12/20/2018 COMPARISON: None HISTORY: syncope CT DLP: 1099.4 mGycm Automated exposure control for dose reduction was used. FINDINGS: Ventricles have normal size. There is no mass effect nor midline shift. There is no sign of intracran ial hemorrhage. Calvarium is intact. IMPRESSION: NEGATIVE CT SCAN OF THE BRAIN.
[2018-12-20] MEDS ORDERED: NALOXONE 0.4 MG/ML 1 ML VIAL IV PRN (14:40)
[2018-12-20 14:47] LABS: Basophils # (A) 0.1 k/uL (0-0.2); Basophils % (A) 1 %; Eosinophils # (A) 0.1 k/uL (0-0.7); Eosinophils % (A) 1 %; HCT 23.9 % (39.0-53.0); HGB 8.1 gm/dL (13.0-17.5); Lymphocytes # (A) 1.9 k/uL (1.0-4.8); Lymphocytes % (A) 15 %; MCH 29.1 pg (25.0-35.0); MCHC 33.8 g/dL (31.0-37.0); MCV 86.1 fL (80.0-100.0); Mean Platelet Volume 8.3; Monocytes # (A) 0.4 k/uL (0-1.0); Monocytes % (A) 4 %; Neutrophils # (A) 10.1 k/uL (1.3-7.7); Neutrophils % (A) 80 %; Platelet Count 246 k/uL (150-450); RBC 2.78 m/uL (4.30-5.90); RDW 15.3 % (11.5-15.5); WBC 12.6 k/uL (3.8-10.6)
--- NOTE | 2018-12-20 14:47 | CT ---
EXAMINATION TYPE: CT abdomen pelvis wo con DATE OF EXAM: 12/20/2018 COMPARISON: 01/17/2017 HISTORY: r/o dissection or bleed abdominal pain CT DLP: 769.6 mGycm Automated exposure control for dose reduction was used. TECHNIQUE: Helical acquisition of images was performed from the lung bases through the pelvis. FINDINGS: Lung bases are clear. There is no pleural effusion. Heart size is normal. Liver spleen pancreas gallbladder appear normal. Bile ducts are not dilated. There is no adrenal mass . There is high attenuation in the renal collecting systems from previous contrast injection. Stomach appears normal. There is no hydronephrosis. There is umbilical broad-based hernia that contains fat. This measures 3 x 3 cm. There is no retroperitoneal adenopathy. Abdominal aorta is atheromatous. Contrast is present in the urinary bladder which distends smoothly. There is no inguinal hernia. Ther e is no free fluid in the pelvis. There is retained fecal material in the rectosigmoid colon. The caty endix appears normal. There is no ascites. There is no mesenteric edema. There is no evidence of free air. The bony structures are intact. There are some spondylotic changes in the lumbar spine. IMPRESSION: NO SIGN OF ACUTE ABDOMEN AND PELVIS. CONSTIPATION. NORMAL APPENDIX.
--- NOTE | 2018-12-20 15:12 | US ---
EXAMINATION TYPE: US carotid duplex BILAT DATE OF EXAM: 12/20/2018 COMPARISON: NONE CLINICAL HISTORY: syncope. EXAM MEASUREMENTS: RIGHT: Peak Systolic Velocity (PSV) cm/sec ----- Right CCA: 62.7 ----- Right ICA: 103.3 ----- Right ECA: 69.3 ICA/CCA ratio: 1.6 RIGHT: End Diastole cm/sec ----- Right CCA: 15.6 ----- Right ICA: 31.2 ----- Right ECA: 8.4 LEFT: Peak Systolic Velocity (PSV) cm/sec ----- Left CCA: 89.7 ----- Left ICA: 133.1 ----- Left ECA: 58.6 ICA/CCA ratio: 1.5 LEFT: End Diastole cm/sec ----- Left CCA: 21.7 ----- Left ICA: 42.2 ----- Left ECA: 11.6 VERTEBRALS (direction of flow): Right Vertebral: Antegrade Left Vertebral: Antegrade Rhythm: Normal No significant stenosis seen. Right ICA is tortuous distally. Left CCA has intimal thickening. Mildly elevated left ICA. Bilateral plaque noted at bulbs. IMPRESSION: There is elevated velocity in the left internal carotid artery that is suggestive of 50- 70% stenosis. There is antegrade flow in the vertebral arteries. Criteria for Assigning % of Stenosis / Diameter reduction (Estimation based on the indirect measurements of the internal carotid artery velocities (ICA PSV). 1. Normal (no stenosis)=ICA PSV < 125 cm/s: ratio < 2.0: ICA EDV<40 cm/s. 2. Less than 50% stenosis=ICA PSV < 125 cm/s: ratio < 2.0: ICA EDV<40 cm/s. 3. 50 to 69% stenosis=ICA PSV of 125 to 230 cm/s: ration 2.0 ? 4.0: ICA EDV 40-100 cm/s. 4. Greater than 70% stenosis to near occlusion= ICA PSV > 230 cm/s: ratio > 4.0: ICA EDV > 100 cm/s. 5. Near occlusion= ICA PSV velocities may be low or undetectable: variable ratio and ICA EDV. 6. Total occlusion=unable to detect flow.
--- NOTE | 2018-12-20 15:13 | US ---
EXAMINATION TYPE: US venous doppler duplex LE BI DATE OF EXAM: 12/20/2018 2:42 PM COMPARISON: US CLINICAL HISTORY: PE. Patient states history of DVT, is on eloquist. SIDE PERFORMED: Bilateral TECHNIQUE: The lower extremity deep venous system is examined utilizing real time linear array sonog davion with graded compression, doppler sonography and color-flow sonography. VESSELS IMAGED: External Iliac Vein (EIV) Common Femoral Vein Deep Femoral Vein Greater Saphenous Vein * Femoral Vein Popliteal Vein Proximal Calf Veins (* superficial vessels) Right Leg: Negative for DVT Left Leg: Negative for DVT IMPRESSION: No evidence of deep venous thrombosis in both legs.
[2018-12-20 15:14] LABS: Appearance,Urine Clear (Clear); Bilirubin,Urine Negative (Negative); Blood,Urine Negative (Negative); Color,Urine Light Yellow; Glucose,Urine (UA) Negative (Negative); Ketones,Urine Negative (Negative); Leukocyte Esterase,Urine Negative (Negative); Nitrite,Urine Negative (Negative); PH, Urine 5.5 (5.0-8.0); Protein,Urine Negative (Negative); Specific Gravity,Urine 1.023 (1.001-1.035); Urobilinogen,Urine <2.0 mg/dL (<2.0)
[2018-12-20] MEDS: HYDROcodone/APAP 10-325MG 1 EACH TAB PO PRN (15:19)
[2018-12-20] MEDS: VIT A,C & E-LUTEIN-MINERALS 1 EACH TAB PO SCH (15:20)
[2018-12-20] MEDS: PANTOPRAZOLE 40 MG TABLET PO SCH (15:20)
--- NOTE | 2018-12-20 15:28 | P.CRDCN ---
History of Present Illness Consult date: 12/20/18 History of present illness: This is a 63-year-old gentleman with history of recurrent DVT and pulmonary emboli, last episode being in January 2019. Patient has been on anticoagulation therapy with Eliquis. Patient is now admitted to the hospital with a 2 episodes of syncope at home and witnessed syncope, in the emergency room. In the emergency room, patient was in sinus rhythm with PVCs, at the time of syncope. Subsequently was admitted to medical floor. He was seen by global coordinator. He was found to be pale and seemed to be in acute distress with respiratory difficulties. His computed tomography scan of the chest showed evidence of small right-sided emboli. It was felt that, the small emboli could not be responsible for recurrent syncopes. His hemoglobin has dropped to 9 g. There is no obvious source of bleeding. Computed tomography scan of the chest did not show any evidence of dissection. Patient cardiac enzymes showed normal troponins. EKGs did not reveal any acute changes except sinus tachycardia and occasional PVCs. Venous duplex study is negative for DVT. Patient seemed to be pale, restless and complaining of intermittent abdominal pain and an urge to move bowels. Patient is being evaluated for possible any intra-abdominal bleeding or GI bleeding. A bedside echo Cardigan showed normal LV function. Actually showed hyperdynamic LV. It appears that his syncope could be related to hypovolemia and blood loss. I'm not seeing any cardiac issues at this time. We'll continue to monitor him. Computed tomography scan of the abdomen is also being planned. Computed tomography scan of the head is being planned. Further recommendation to follow. Prognosis is guarded Review of Systems Not obtained Past Medical History Past Medical History: GERD/Reflux, Hypertension, Osteoarthritis (OA), Pulmonary Embolus (PE) Additional Past Medical History / Comment(s): CHRONIC BACK PAIN, recurrent pulmonary embolism the first episode was around 2-1/2 years ago and the patient was treated with anticoagulation and then discontinued and subsequently he had another episode in 2018 and since then has been on anticoagulation History of Any Multi-Drug Resistant Organisms: None Reported Past Surgical History: Hernia Repair, Orthopedic Surgery Additional Past Surgical History / Comment(s): ALBERT SHOULDERS right rotator cuff / left tendon damage, LEFT CARPAL TUNNEL, Past Anesthesia/Blood Transfusion Reactions: No Reported Reaction Past Psychological History: Depression Smoking Status: Former smoker Past Alcohol Use History: None Reported Past Drug Use History: None Reported - Past Family History Mother Family Medical History: No Reported History Medications and Allergies Home Medications Medication Instructions Recorded Confirmed Type Lisinopril-Hctz 10-12.5 mg 1 tab PO DAILY 03/28/15 12/20/18 History [Zestoretic 10-12.5] Ascorbic Acid [Vitamin C] 1,000 mg PO DAILY 01/08/17 12/20/18 History Escitalopram [Lexapro] 20 mg PO HS 01/08/17 12/20/18 History HYDROcodone/APAP 10-325MG [Ector 1 tab PO TID PRN 01/08/17 12/20/18 History 10-325] Multivitamins, Thera [Multivitamin 1 tab PO DAILY 01/08/17 12/20/18 History (formulary)] Apixaban [Eliquis] 5 mg PO BID 01/28/18 12/20/18 History Melatonin 10 mg PO HS PRN 01/28/18 12/20/18 History Vits A,C,E/Lutein/Minerals 1 tab PO DAILY 01/28/18 12/20/18 History [Ocuvite with Lutein Tablet] Lansoprazole [Prevacid] 30 mg PO DAILY 12/20/18 12/20/18 History Allergies Allergy/AdvReac Type Severity Reaction Status Date / Time No Known Allergies Allergy Verified 12/20/18 07:02 Physical Exam Vitals: Vital Signs Temp Pulse Pulse Pulse Pulse Resp BP 12/20/18 14:30 123 H 23 114/95 12/20/18 14:15 110 H 10 L 135/70 12/20/18 13:45 125/69 12/20/18 13:30 108 H 26 H 136/63 12/20/18 13:15 107 H 17 100/86 12/20/18 13:00 122 H 18 120/69 12/20/18 12:45 115 H 17 135/78 12/20/18 12:34 98.2 F 115 H 16 135/78 12/20/18 12:10 133 H 16 12/20/18 12:07 136 H 16 12/20/18 11:54 98.9 F 123 H 17 12/20/18 07:30 98 F 100 17 12/20/18 06:00 100 20 138/69 12/20/18 05:00 95 18 124/60 12/20/18 04:55 97 20 127/51 12/20/18 03:26 86 20 122/66 12/20/18 02:23 98.2 F 94 18 121/66 BP BP BP Pulse Ox 12/20/18 14:30 100 12/20/18 14:15 99 12/20/18 13:45 12/20/18 13:30 99 12/20/18 13:15 100 12/20/18 13:00 98 12/20/18 12:45 100 12/20/18 12:34 100 12/20/18 12:10 86/51 100 12/20/18 12:07 143/69 100 12/20/18 11:54 125/63 100 12/20/18 07:30 144/75 99 12/20/18 06:00 98 12/20/18 05:00 97 12/20/18 04:55 100 12/20/18 03:26 97 12/20/18 02:23 100 Intake and Output 12/20/18 12/20/18 12/20/18 06:59 14:59 22:59 Intake Total 1126.941 Balance 1126.941 Intake: IV 500 Sodium Chloride 0.9% 1, 500 000 ml @ 500 mls/hr IV . Q2H [facility] Rx#:[id number] Intake, IV Titration 626.941 Amount Heparin Sod,Pork in 0.45% 126.941 NaCl 25,000 unit In 0.45 % NaCl 1 250ml.bag @ 18 UNITS/KG/HR 20.81 mls/hr IV .Q12H1M [facility] Rx#: [id number] Sodium Chloride 0.9% 1, 500 000 ml @ 500 mls/hr IV . Q2H [facility] Rx#:[id number] Other: Voiding Method Urinal Weight 115.666 kg GENERAL EXAM: Patient is alert and oriented and appears to be in moderate distress and also restless HEENT: Normocephalic. Normal reaction of pupils, equal size NECK: No masses, no nuchal rigidity. CHEST: No chest wall deformity. LUNGS: Equal air entry with no crackles or wheeze. HEART: S1 and S2 normal with no audible mumurs or gallops. Regular rhythm, distant heart sounds ABDOMEN: Soft and mildly distended. Mild discomfort in the lower abdomen SKIN: No rashes CENTRAL NERVOUS SYSTEM: No focal deficits. EXTREMITIES: No cyanosis, clubbing or edema. Results 12/20/18 14:22 12/20/18 02:20 Cardiac Enzymes 12/20/18 12/20/18 12/20/18 Range/Units 02:20 02:20 07:55 AST 31 (17-59) U/L Troponin I <0.012 0.023 (0.000-0.034) ng/mL 12/20/18 Range/Units 14:22 AST (17-59) U/L Troponin I 0.014 (0.000-0.034) ng/mL Coagulation 12/20/18 12/20/18 Range/Units 02:20 10:06 PT 11.3 (9.0-12.0) sec APTT 20.0 L 150.0 H* (22.0-30.0) sec CBC 12/20/18 12/20/18 Range/Units 02:20 14:22 WBC 9.2 12.6 H (3.8-10.6) k/uL RBC 3.32 L 2.78 L (4.30-5.90) m/uL Hgb 9.3 L 8.1 L (13.0-17.5) gm/dL Hct 28.5 L 23.9 L (39.0-53.0) % Plt Count 238 246 (150-450) k/uL Comprehensive Metabolic Panel 12/20/18 Range/Units 02:20 Sodium 133 L (137-145) mmol/L Potassium 4.2 (3.5-5.1) mmol/L Chloride 105 (98-107) mmol/L Carbon Dioxide 18 L (22-30) mmol/L BUN 60 H (9-20) mg/dL Creatinine 1.01 (0.66-1.25) mg/dL Glucose 124 H (74-99) mg/dL Calcium 8.7 (8.4-10.2) mg/dL AST 31 (17-59) U/L ALT 41 (21-72) U/L Alkaline Phosphatase 48 (38-126) U/L Total Protein 5.3 L (6.3-8.2) g/dL Albumin 3.2 L (3.5-5.0) g/dL Current Medications Generic Name Dose Route Start Last Admin Trade Name Freq PRN Reason Stop Dose Admin Hydrocodone Bitart/Acetaminophen 1 each 12/20/18 11:19 Ector 10 PO TID PRN Pain Escitalopram Oxalate 20 mg 12/20/18 21:00 Lexapro PO HS [facility] Sodium Chloride 1,000 mls @ 100 mls/hr 12/20/18 12:45 Saline 0.9% IV .Q10H [facility] Insulin Aspart 0 unit 12/20/18 17:30 Novolog SQ ACHS [facility] Protocol Melatonin 10 mg 12/20/18 11:19 Melatonin PO HS PRN Insomnia Multivitamins/Minerals 1 each 12/20/18 12:00 Ivite PO DAILY@1200 [facility] Naloxone HCl 0.2 mg 12/20/18 14:40 Narcan IV Q2M PRN Opioid Reversal Nitroglycerin 0.4 mg 12/20/18 06:24 Nitrostat SUBLINGUAL Q5M PRN Chest Pain Ondansetron HCl 4 mg 12/20/18 13:11 12/20/18 13:39 Zofran IVP 4 mg Q6HR PRN Administration Nausea And Vomiting Pantoprazole Sodium 40 mg 12/20/18 11:30 Protonix PO AC-BRKFST [facility] Intake and Output 12/20/18 12/20/18 12/20/18 06:59 14:59 22:59 Intake Total 1126.941 Balance 1126.941 Intake: IV 500 Sodium Chloride 0.9% 1, 500 000 ml @ 500 mls/hr IV . Q2H [facility] Rx#:[id number] Intake, IV Titration 626.941 Amount Heparin Sod,Pork in 0.45% 126.941 NaCl 25,000 unit In 0.45 % NaCl 1 250ml.bag @ 18 UNITS/KG/HR 20.81 mls/hr IV .Q12H1M [facility] Rx#: [id number] Sodium Chloride 0.9% 1, 500 000 ml @ 500 mls/hr IV . Q2H [facility] Rx#:[id number] Other: Voiding Method Urinal Weight 115.666 kg 12/20/18 14:22 12/20/18 02:20 EKG Interpretations (text) Sinus rhythm and sinus tachycardia Assessment and Plan (1) Anemia Current Visit: Yes Status: Acute Code(s): D64.9 - ANEMIA, UNSPECIFIED SNOMED Code(s): 518798365 (2) long term care administrator (current) use of anticoagulants Current Visit: Yes Status: Acute Code(s): Z79.01 - STAVE CUTTER (CURRENT) USE OF ANTICOAGULANTS SNOMED Code(s): 813960716 (3) Pulmonary embolism Current Visit: Yes Status: Acute Code(s): I26.99 - OTHER PULMONARY EMBOLISM WITHOUT ACUTE COR PULMONALE SNOMED Code(s): 47391095 (4) Rib fracture Current Visit: Yes Status: Acute Code(s): S22.39XA - FRACTURE OF ONE RIB, UNSP SIDE, INIT FOR CLOS FX SNOMED Code(s): 71346068 (5) Syncope Current Visit: Yes Status: Acute Code(s): R55 - SYNCOPE AND COLLAPSE SNOMED Code(s): 453031352 (6) Abdominal pain Current Visit: No Status: Acute Code(s): R10.9 - UNSPECIFIED ABDOMINAL PAIN SNOMED Code(s): 09251353 Plan: The etiology of his syncope isn't symptoms is not entirely clear. It appears there is a drop in hemoglobin and is suspected there could be GI bleeding. Patient already had troponins which are within normal range. An echo Doppler study which showed normal LV function. No arrhythmias are documented. We'll continue to monitor him. Further recommendation to follow
[2018-12-20] MEDS ORDERED: HEPARIN SODIUM,PORCINE 5,000 UNIT/ML 1 ML VIAL IV ONE (15:32)
[2018-12-20] MEDS: SODIUM CHLORIDE 0.9% 1,000 ML IV SCH (15:47)
--- NOTE | 2018-12-20 16:29 | ECHOF ---
Referral Reason:syncope MEASUREMENTS -------- HEIGHT: 177.8 cm WEIGHT: 115.7 kg BP: RVIDd: 2.7 cm (< 3.3) IVSd: 1.4 cm (0.6 - 1.1) LVIDd: 2.1 cm (3.9 - 5.3) LVPWd: 1.4 cm (0.6 - 1.1) IVSs: 1.6 cm LVIDs: 1.3 cm LVPWs: 1.9 cm MV E Daniel: 0.86 m/s MV DecT: 135 ms MV A Daniel: 0.59 m/s MV E/A Ratio: 1.46 RAP: 5.00 mmHg RVSP: 8.99 mmHg FINDINGS -------- Resting tachycardia (HR>100bpm). This was a technically difficult study with suboptimal views. The left ventricular size is normal. There is moderate concentric left ventricular hypertrophy. O verall left ventricular systolic function is normal with, an EF between 65 - 70 %. The right ventricle is normal in size and function. The left atrium is normal in size. The right atrium is normal in size. The aortic valve is trileaflet and appears structurally normal. There is trace mitral regurgitation. Trace tricuspid regurgitation present. The pulmonic valve was not well visualized. The aortic root size is normal. The pericardium is normal. CONCLUSIONS -------- 1. Resting tachycardia (HR>100bpm). 2. This was a technically difficult study with suboptimal views. 3. The left ventricular size is normal. 4. There is moderate concentric left ventricular hypertrophy. 5. Overall left ventricular systolic function is normal with, an EF between 65 - 70 %. 6. The right ventricle is normal in size and function. 7. The left atrium is normal in size. 8. The right atrium is normal in size. 9. The aortic valve is trileaflet and appears structurally normal. 10. There is trace mitral regurgitation. 11. Trace tricuspid regurgitation present. 12. The pulmonic valve was not well visualized. 13. The aortic root size is normal. 14. The pericardium is normal. EYE PHYSICIAN: Reyna Hawk [facility]
[2018-12-20 17:14] LABS: Glucose,Whole Blood 141 mg/dL (75-99)
[2018-12-20] MEDS: INSULIN ASPART (NovoLOG) 100 UNIT/ML VIAL SQ SCH ×2 (17:20→20:00)
[2018-12-20 19:39] LABS: Glucose,Whole Blood 175 mg/dL (75-99)
[2018-12-20] MEDS: ESCITALOPRAM 20 MG TAB PO SCH (20:00)
[2018-12-20 20:24] LABS: Basophils # (A) 0.1 k/uL (0-0.2); Basophils % (A) 0 %; Eosinophils % (A) 0 %; HCT 20.9 % (39.0-53.0); Lymphocytes # (A) 2.3 k/uL (1.0-4.8); Lymphocytes % (A) 18 %; MCH 28.7 pg (25.0-35.0); MCHC 33.2 g/dL (31.0-37.0); MCV 86.5 fL (80.0-100.0); Mean Platelet Volume 7.9; Monocytes # (A) 0.8 k/uL (0-1.0); Monocytes % (A) 6 %; Neutrophils # (A) 9.7 k/uL (1.3-7.7); Neutrophils % (A) 75 %; Platelet Count 235 k/uL (150-450); RBC 2.42 m/uL (4.30-5.90); RDW 15.7 % (11.5-15.5)
[2018-12-20 20:33] LABS: Anion Gap 8 mmol/L; Blood Urea Nitrogen 53 mg/dL (9-20); Calcium 8.2 mg/dL (8.4-10.2); Carbon Dioxide 19 mmol/L (22-30); Chloride 109 mmol/L (98-107); Glucose 145 mg/dL (74-99); Potassium 4.9 mmol/L (3.5-5.1); Sodium 136 mmol/L (137-145)
[2018-12-20] MEDS: DOCUSATE 100 MG CAP PO SCH (21:00)
[2018-12-20 23:05] LABS: Hemoglobin A1C 6.4 % (4.0-6.0)
[2018-12-21 00:04] LABS: Basophils # (A) 0.1 k/uL (0-0.2); Basophils % (A) 0 %; Eosinophils % (A) 0 %; Lymphocytes # (A) 2.7 k/uL (1.0-4.8); Lymphocytes % (A) 18 %; MCH 28.7 pg (25.0-35.0); MCHC 33.2 g/dL (31.0-37.0); MCV 86.7 fL (80.0-100.0); Mean Platelet Volume 7.8; Monocytes # (A) 0.8 k/uL (0-1.0); Monocytes % (A) 6 %; Neutrophils # (A) 10.8 k/uL (1.3-7.7); Neutrophils % (A) 74 %; Platelet Count 229 k/uL (150-450); RDW 15.9 % (11.5-15.5); WBC 14.6 k/uL (3.8-10.6)
[2018-12-21 00:10] LABS: HCT 19.1 % (39.0-53.0); HGB 6.3 gm/dL (13.0-17.5)
[2018-12-21] MEDS: SODIUM CHLORIDE 0.9% 1,000 ML IV SCH ×3 (01:15→14:06)
[2018-12-21] MEDS: HYDROcodone/APAP 10-325MG 1 EACH TAB PO PRN ×3 (02:07→17:15)
[2018-12-21 06:46] LABS: Basophils # (A) 0.1 k/uL (0-0.2); Basophils % (A) 1 %; Eosinophils # (A) 0.1 k/uL (0-0.7); Eosinophils % (A) 0 %; HCT 23.2 % (39.0-53.0); HGB 7.7 gm/dL (13.0-17.5); Hypochromasia Slight; Lymphocytes # (A) 2.5 k/uL (1.0-4.8); Lymphocytes % (A) 18 %; MCH 28.9 pg (25.0-35.0); MCV 87.6 fL (80.0-100.0); Mean Platelet Volume 7.8; Monocytes # (A) 0.9 k/uL (0-1.0); Monocytes % (A) 6 %; Neutrophils # (A) 10.3 k/uL (1.3-7.7); Neutrophils % (A) 74 %; Platelet Count 192 k/uL (150-450); RBC 2.64 m/uL (4.30-5.90); WBC 13.9 k/uL (3.8-10.6)
[2018-12-21 06:58] LABS: Glucose,Whole Blood 171 mg/dL (75-99)
[2018-12-21 07:05] LABS: Anion Gap 6 mmol/L; Blood Urea Nitrogen 50 mg/dL (9-20); Calcium 7.7 mg/dL (8.4-10.2); Carbon Dioxide 19 mmol/L (22-30); Chloride 110 mmol/L (98-107); Cholesterol 108 mg/dL (<200); Glucose 141 mg/dL (74-99); HDL Cholesterol 26 mg/dL (40-60); LDL Cholesterol,Calculated 25 mg/dL (0-99); Magnesium 1.9 mg/dL (1.6-2.3); Phosphorus 3.1 mg/dL (2.5-4.5); Potassium 5.1 mmol/L (3.5-5.1); Sodium 135 mmol/L (137-145); Triglycerides 285 mg/dL (<150)
[2018-12-21] MEDS: INSULIN ASPART (NovoLOG) 100 UNIT/ML VIAL SQ SCH ×4 (07:09→21:27)
[2018-12-21] MEDS: MAGNESIUM SULFATE-D5W PMX 1 GM in DEXTROSE/WATER 1 100ML.BAG IVPB SCH ×2 (07:13→08:17)
[2018-12-21] MEDS: DOCUSATE 100 MG CAP PO SCH ×2 (08:10→21:47)
[2018-12-21] MEDS: PANTOPRAZOLE 40 MG TABLET PO SCH (08:10)
[2018-12-21] MEDS ORDERED: ASPIRIN 325 MG TAB PO SCH (09:00)
[2018-12-21] MEDS ORDERED: MAGNESIUM HYDROXIDE 2,400 MG/10 ML CUP PO PRN (09:14)
[2018-12-21] MEDS: METOPROLOL TARTRATE 25 MG TAB PO SCH ×2 (09:43→21:46)
[2018-12-21 10:32] LABS: Anisocytosis Slight; Basophils # (A) 0.1 k/uL (0-0.2); Basophils % (A) 1 %; Eosinophils # (A) 0.1 k/uL (0-0.7); Eosinophils % (A) 0 %; HCT 21.7 % (39.0-53.0); Lymphocytes # (A) 2.8 k/uL (1.0-4.8); Lymphocytes % (A) 18 %; MCH 27.6 pg (25.0-35.0); MCHC 32.2 g/dL (31.0-37.0); MCV 85.8 fL (80.0-100.0); Mean Platelet Volume 8.9; Monocytes # (A) 1.2 k/uL (0-1.0); Monocytes % (A) 8 %; Neutrophils # (A) 11.2 k/uL (1.3-7.7); Neutrophils % (A) 72 %; Platelet Count 192 k/uL (150-450); RBC 2.53 m/uL (4.30-5.90); WBC 15.6 k/uL (3.8-10.6)
--- NOTE | 2018-12-21 10:46 | P.PN ---
Subjective Progress Note Date: 12/21/18 This is a 63-year-old gentleman with history of pulmonary emboli and DVT who was on anticoagulation therapy, was admitted with recurrent syncopal episodes. Patient was hypotensive, pale and having chest and abdominal discomfort yesterday. It is also found that patient's hemoglobin was dropping. Yesterday' s hemoglobin dropped below 7 g. Patient received IV fluids and the blood transfusion. His hemoglobin went up to more than 7 g. His blood pressure is well controlled. Patient seemed to be more comfortable and doesn't appear to be in distress. The etiology of the anemia is not clear. No evidence of GI bleeding. Apparently patient had a normal bowel movement. Denies any chest pain. Still complains of exertional shortness of breath which could be related to his anemia. His echocardiogram showed normal LV function. No further cardiac solutions at this time. Workup for anemia needs to be continued Objective - Vital Signs Vital signs: Vital Signs Temp 98.1 F 12/21/18 08:00 Pulse 92 12/21/18 10:00 Resp 18 12/21/18 10:00 BP 164/57 12/21/18 10:00 Pulse Ox 99 12/21/18 10:00 Intake & Output 12/20/18 12/21/18 12/21/18 18:59 06:59 18:59 Intake Total 2666.941 3562.833 2700 Output Total 500 1380 615 Balance 2166.941 2182.833 2085 Weight 112.3 kg Intake: IV 900 1820 1300 PRBC 620 Sodium Chloride 0.9% 1, 400 1200 1300 000 ml @ 100 mls/hr IV . Q10H JULIA Rx#:[id number] Sodium Chloride 0.9% 1, 500 000 ml @ 500 mls/hr IV . Q2H JULIA Rx#:[id number] Intake, IV Titration 626.941 42.833 Amount Heparin Sod,Pork in 0.45% 126.941 NaCl 25,000 unit In 0.45 % NaCl 1 250ml.bag @ 18 UNITS/KG/HR 20.81 mls/hr IV .Q12H1M JULIA Rx#: [id number] Heparin Sod,Pork in 0.45% 42.833 NaCl 25,000 unit In 0.45 % NaCl 1 250ml.bag @ 8.65 UNITS/KG/HR 10 mls/hr IV .Q24H JULIA Rx#:[id number] Sodium Chloride 0.9% 1, 500 000 ml @ 500 mls/hr IV . Q2H JULIA Rx#:[id number] Oral 1140 1080 1400 Blood Product 620 Rc As-1 Unit 310 [id number] Rc As-1 Unit 310 [id number] Output: Urine 500 1380 615 Other: Voiding Method Urinal Indwelling Catheter Indwelling Catheter - Exam GENERAL EXAM: Patient is alert and oriented and doesn't appear to be in any acute distress HEENT: Normocephalic. Normal reaction of pupils, equal size, normal range of extraocular motion. No erythema or exudates in the throat. NECK: No masses, no nuchal rigidity. CHEST: No chest wall deformity. LUNGS: Equal air entry with no crackles or wheeze. HEART: S1 and S2 normal with no audible mumurs or gallops. Regular rhythm, femorals equal on both sides.. ABDOMEN: No hepatosplenomegaly, normal bowel sounds, no guarding or rigidity. Mild tenderness in the lower abdomen SKIN: No rashes CENTRAL NERVOUS SYSTEM: No focal deficits. EXTREMITIES: No cyanosis, clubbing or edema. - Labs CBC & Chem 7: 12/21/18 06:25 12/21/18 06:25 Labs: Abnormal Lab Results - Last 24 Hours (Table) 12/20/18 12/20/18 12/20/18 Range/Units 02:20 10:06 12:06 WBC (3.8-10.6) k/uL RBC (4.30-5.90) m/uL Hgb (13.0-17.5) gm/dL Hct (39.0-53.0) % RDW (11.5-15.5) % Neutrophils # (1.3-7.7) k/uL APTT 150.0 H* (22.0-30.0) sec Sodium (137-145) mmol/L Chloride (98-107) mmol/L Carbon Dioxide (22-30) mmol/L BUN (9-20) mg/dL Glucose (74-99) mg/dL POC Glucose (mg/dL) 162 H (75-99) mg/dL Hemoglobin A1c 6.4 H (4.0-6.0) % Calcium (8.4-10.2) mg/dL Triglycerides (<150) mg/dL HDL Cholesterol (40-60) mg/dL Crossmatch 12/20/18 12/20/18 12/20/18 Range/Units 12:32 14:22 17:12 WBC 12.6 H (3.8-10.6) k/uL RBC 2.78 L (4.30-5.90) m/uL Hgb 8.1 L (13.0-17.5) gm/dL Hct 23.9 L (39.0-53.0) % RDW (11.5-15.5) % Neutrophils # 10.1 H (1.3-7.7) k/uL APTT (22.0-30.0) sec Sodium (137-145) mmol/L Chloride (98-107) mmol/L Carbon Dioxide (22-30) mmol/L BUN (9-20) mg/dL Glucose (74-99) mg/dL POC Glucose (mg/dL) 142 H 141 H (75-99) mg/dL Hemoglobin A1c (4.0-6.0) % Calcium (8.4-10.2) mg/dL Triglycerides (<150) mg/dL HDL Cholesterol (40-60) mg/dL Crossmatch 12/20/18 12/20/18 12/20/18 Range/Units 19:37 19:41 19:41 WBC 13.0 H (3.8-10.6) k/uL RBC 2.42 L (4.30-5.90) m/uL Hgb 7.0 L (13.0-17.5) gm/dL Hct 20.9 L (39.0-53.0) % RDW 15.7 H (11.5-15.5) % Neutrophils # 9.7 H (1.3-7.7) k/uL APTT (22.0-30.0) sec Sodium 136 L (137-145) mmol/L Chloride 109 H (98-107) mmol/L Carbon Dioxide 19 L (22-30) mmol/L BUN 53 H (9-20) mg/dL Glucose 145 H (74-99) mg/dL POC Glucose (mg/dL) 175 H (75-99) mg/dL Hemoglobin A1c (4.0-6.0) % Calcium 8.2 L (8.4-10.2) mg/dL Triglycerides (<150) mg/dL HDL Cholesterol (40-60) mg/dL Crossmatch 12/20/18 12/20/18 12/20/18 Range/Units 19:41 20:45 23:21 WBC 14.6 H (3.8-10.6) k/uL RBC 2.20 L (4.30-5.90) m/uL Hgb 6.3 L* (13.0-17.5) gm/dL Hct 19.1 L* (39.0-53.0) % RDW 15.9 H (11.5-15.5) % Neutrophils # 10.8 H (1.3-7.7) k/uL APTT 46.1 H (22.0-30.0) sec Sodium (137-145) mmol/L Chloride (98-107) mmol/L Carbon Dioxide (22-30) mmol/L BUN (9-20) mg/dL Glucose (74-99) mg/dL POC Glucose (mg/dL) (75-99) mg/dL Hemoglobin A1c (4.0-6.0) % Calcium (8.4-10.2) mg/dL Triglycerides (<150) mg/dL HDL Cholesterol (40-60) mg/dL Crossmatch See Detail 12/21/18 12/21/18 12/21/18 Range/Units 06:25 06:25 06:58 WBC 13.9 H (3.8-10.6) k/uL RBC 2.64 L (4.30-5.90) m/uL Hgb 7.7 L (13.0-17.5) gm/dL Hct 23.2 L (39.0-53.0) % RDW 16.0 H (11.5-15.5) % Neutrophils # 10.3 H (1.3-7.7) k/uL APTT (22.0-30.0) sec Sodium 135 L (137-145) mmol/L Chloride 110 H (98-107) mmol/L Carbon Dioxide 19 L (22-30) mmol/L BUN 50 H (9-20) mg/dL Glucose 141 H (74-99) mg/dL POC Glucose (mg/dL) 171 H (75-99) mg/dL Hemoglobin A1c (4.0-6.0) % Calcium 7.7 L (8.4-10.2) mg/dL Triglycerides 285 H (<150) mg/dL HDL Cholesterol 26 L (40-60) mg/dL Crossmatch Assessment and Plan (1) Anemia Current Visit: Yes Status: Acute Code(s): D64.9 - ANEMIA, UNSPECIFIED SNOMED Code(s): 056115734 (2) [facility] (current) use of anticoagulants Current Visit: Yes Status: Acute Code(s): Z79.01 - SKILLED NURSING (CURRENT) USE OF ANTICOAGULANTS SNOMED Code(s): 642015746 (3) Pulmonary embolism Current Visit: Yes Status: Acute Code(s): I26.99 - OTHER PULMONARY EMBOLISM WITHOUT ACUTE COR PULMONALE SNOMED Code(s): 08434323 (4) Rib fracture Current Visit: Yes Status: Acute Code(s): S22.39XA - FRACTURE OF ONE RIB, UNSP SIDE, INIT FOR CLOS FX SNOMED Code(s): 01752189 (5) Syncope Current Visit: Yes Status: Acute Code(s): R55 - SYNCOPE AND COLLAPSE SNOMED Code(s): 969243447 (6) Abdominal pain Current Visit: No Status: Acute Code(s): R10.9 - UNSPECIFIED ABDOMINAL PAIN SNOMED Code(s): 56008015 Plan: Patient is ill-looking better today. Doesn't appear to be in acute distress. Blood pressure is going up. I'm going to start him on a beta jay in the form of metoprolol 25 mg by mouth twice a day. We'll may also start on bisoprolol. Workup for anemia to be continued
[2018-12-21 10:59] LABS: Reticulocyte % 3.3 % (0.5-2.0)
[2018-12-21 12:04] LABS: Glucose,Whole Blood 186 mg/dL (75-99)
[2018-12-21] MEDS: VIT A,C & E-LUTEIN-MINERALS 1 EACH TAB PO SCH (12:14)
--- NOTE | 2018-12-21 12:18 | P.PN ---
Subjective Andrea is a 63-year-old white male patient well known to my practice. Apparently over the past 24 hours, he has had several episodes of syncope with loss of consciousness. He reports getting up in bed and just not feeling well in the next things he noted he urinated himself. He has a history of pulmonary embolism 2 in the past. It was thought that he had a another pulmonary embolism. He currently takes Elequis 5 mg twice a day for anticoagulation. Andrea denies any chest pains pressures and has some minimal shortness of breath at this time. Indicates any sort of exertion he is extremely weak. He denies striking his head during any of the episodes syncope. His laboratory studies show hemoglobin of 9.3. Troponins 2 were normal at less than 0.012 and 0.0-3. His d-dimer was slightly elevated at 0.73. CT chest which was reviewed with Dr. Casanova shows residual pulmonary embolism that is small, questionably acute. But does not significantly explain his symptoms of syncope. EKG in the ER showed frequent PVCs initially and then occasional PVCs. He is not currently on telemetry. 12/21/2018: Patient is now on the intensive care unit. After seeing the patient , I ordered IV fluid bolus due to his elevated BUN/creatinine and his decreased hemoglobin. His hemoglobin dropped as well last night requiring 2 units packed red blood cells. Overnight he had a small bloody stool. Cardiology seen him and felt that there is no cardiac etiology for his syncope. On discussions today, Andrea indicates he is feeling a bit better, he's been having midepigastric abdominal pain for the past several weeks. He's been taking a lot of Tums lately. Currently he denies any chest pains pressures or shortness of breath at rest. He complains of weakness, that is mildly improved. He remains on IV fluids of normal saline 100 mL an hour. Incidental finding of elevated glucose led to hemoglobin A1c was 6.4. I discussed with him that he has new onset diabetes. I did Discussed his case with Dr. Casanova today. I also discussed with Dr. Blum is now on consult and will plan EGD for him. Objective - Vital Signs Vital signs: Vital Signs Temp 98.1 F 12/21/18 08:00 Pulse 93 12/21/18 11:00 Resp 29 H 12/21/18 11:00 BP 155/61 12/21/18 11:00 Pulse Ox 99 12/21/18 11:00 Intake & Output 12/20/18 12/21/18 12/21/18 18:59 06:59 18:59 Intake Total 2666.941 3562.833 3280 Output Total 500 1380 765 Balance 2166.941 2182.833 2515 Weight 112.3 kg Intake: IV 900 1820 1400 PRBC 620 Sodium Chloride 0.9% 1, 400 1200 1400 000 ml @ 100 mls/hr IV . Q10H JULIA Rx#:[id number] Sodium Chloride 0.9% 1, 500 000 ml @ 500 mls/hr IV . Q2H JULIA Rx#:[id number] Intake, IV Titration 626.941 42.833 Amount Heparin Sod,Pork in 0.45% 126.941 NaCl 25,000 unit In 0.45 % NaCl 1 250ml.bag @ 18 UNITS/KG/HR 20.81 mls/hr IV .Q12H1M JULIA Rx#: [id number] Heparin Sod,Pork in 0.45% 42.833 NaCl 25,000 unit In 0.45 % NaCl 1 250ml.bag @ 8.65 UNITS/KG/HR 10 mls/hr IV .Q24H JULIA Rx#:[id number] Sodium Chloride 0.9% 1, 500 000 ml @ 500 mls/hr IV . Q2H JULIA Rx#:[id number] Oral 1140 1080 1880 Blood Product 620 Rc As-1 Unit 310 [id number] Rc As-1 Unit 310 [id number] Output: Urine 500 1380 765 Other: Voiding Method Urinal Indwelling Catheter Indwelling Catheter - Exam GENERAL: fatigued NECK: Normal range of motion, supple without lymphadenopathy or JVD, no thyromegaly LUNGS: Breath sounds coarse to auscultation bilaterally and equal. No wheezes rales or rhonchi. HEART: Regular rate and rhythm without murmurs, rubs or gallops.S1S2 Normal ABDOMEN: Soft, mild midepigastric tenderness, normoactive bowel sounds. No guarding, no rebound. No masses appreciated. EXTREMITIES: Normal range of motion, no pitting, +1 edema and bilateral calf tenderness noted today. It is worse on the right compared to the left.. No clubbing or cyanosis. NEUROLOGICAL: Cranial nerves II through XII grossly intact. Normal speech, normal gait. PSYCH: Normal mood, normal affect. SKIN: Warm, Dry, normal turgor, no rashes or lesions noted. There are several small areas of ecchymosis consistent with his syncope and the trauma from that. - Labs CBC & Chem 7: 12/21/18 10:07 12/21/18 06:25 Labs: Abnormal Lab Results - Last 24 Hours (Table) 12/20/18 12/20/18 12/20/18 Range/Units 02:20 12:32 14:22 WBC 12.6 H (3.8-10.6) k/uL RBC 2.78 L (4.30-5.90) m/uL Hgb 8.1 L (13.0-17.5) gm/dL Hct 23.9 L (39.0-53.0) % RDW (11.5-15.5) % Neutrophils # 10.1 H (1.3-7.7) k/uL Monocytes # (0-1.0) k/uL Retic Count (0.5-2.0) % APTT (22.0-30.0) sec Sodium (137-145) mmol/L Chloride (98-107) mmol/L Carbon Dioxide (22-30) mmol/L BUN (9-20) mg/dL Glucose (74-99) mg/dL POC Glucose (mg/dL) 142 H (75-99) mg/dL Hemoglobin A1c 6.4 H (4.0-6.0) % Calcium (8.4-10.2) mg/dL Triglycerides (<150) mg/dL HDL Cholesterol (40-60) mg/dL Crossmatch 12/20/18 12/20/18 12/20/18 Range/Units 17:12 19:37 19:41 WBC 13.0 H (3.8-10.6) k/uL RBC 2.42 L (4.30-5.90) m/uL Hgb 7.0 L (13.0-17.5) gm/dL Hct 20.9 L (39.0-53.0) % RDW 15.7 H (11.5-15.5) % Neutrophils # 9.7 H (1.3-7.7) k/uL Monocytes # (0-1.0) k/uL Retic Count (0.5-2.0) % APTT (22.0-30.0) sec Sodium (137-145) mmol/L Chloride (98-107) mmol/L Carbon Dioxide (22-30) mmol/L BUN (9-20) mg/dL Glucose (74-99) mg/dL POC Glucose (mg/dL) 141 H 175 H (75-99) mg/dL Hemoglobin A1c (4.0-6.0) % Calcium (8.4-10.2) mg/dL Triglycerides (<150) mg/dL HDL Cholesterol (40-60) mg/dL Crossmatch 12/20/18 12/20/18 12/20/18 Range/Units 19:41 19:41 20:45 WBC (3.8-10.6) k/uL RBC (4.30-5.90) m/uL Hgb (13.0-17.5) gm/dL Hct (39.0-53.0) % RDW (11.5-15.5) % Neutrophils # (1.3-7.7) k/uL Monocytes # (0-1.0) k/uL Retic Count (0.5-2.0) % APTT 46.1 H (22.0-30.0) sec Sodium 136 L (137-145) mmol/L Chloride 109 H (98-107) mmol/L Carbon Dioxide 19 L (22-30) mmol/L BUN 53 H (9-20) mg/dL Glucose 145 H (74-99) mg/dL POC Glucose (mg/dL) (75-99) mg/dL Hemoglobin A1c (4.0-6.0) % Calcium 8.2 L (8.4-10.2) mg/dL Triglycerides (<150) mg/dL HDL Cholesterol (40-60) mg/dL Crossmatch See Detail 12/20/18 12/21/18 12/21/18 Range/Units 23:21 06:25 06:25 WBC 14.6 H 13.9 H (3.8-10.6) k/uL RBC 2.20 L 2.64 L (4.30-5.90) m/uL Hgb 6.3 L* 7.7 L (13.0-17.5) gm/dL Hct 19.1 L* 23.2 L (39.0-53.0) % RDW 15.9 H 16.0 H (11.5-15.5) % Neutrophils # 10.8 H 10.3 H (1.3-7.7) k/uL Monocytes # (0-1.0) k/uL Retic Count (0.5-2.0) % APTT (22.0-30.0) sec Sodium 135 L (137-145) mmol/L Chloride 110 H (98-107) mmol/L Carbon Dioxide 19 L (22-30) mmol/L BUN 50 H (9-20) mg/dL Glucose 141 H (74-99) mg/dL POC Glucose (mg/dL) (75-99) mg/dL Hemoglobin A1c (4.0-6.0) % Calcium 7.7 L (8.4-10.2) mg/dL Triglycerides 285 H (<150) mg/dL HDL Cholesterol 26 L (40-60) mg/dL Crossmatch 12/21/18 12/21/18 12/21/18 Range/Units 06:58 10:07 10:07 WBC 15.6 H (3.8-10.6) k/uL RBC 2.53 L (4.30-5.90) m/uL Hgb 7.0 L (13.0-17.5) gm/dL Hct 21.7 L (39.0-53.0) % RDW 16.0 H (11.5-15.5) % Neutrophils # 11.2 H (1.3-7.7) k/uL Monocytes # 1.2 H (0-1.0) k/uL Retic Count 3.3 H (0.5-2.0) % APTT (22.0-30.0) sec Sodium (137-145) mmol/L Chloride (98-107) mmol/L Carbon Dioxide (22-30) mmol/L BUN (9-20) mg/dL Glucose (74-99) mg/dL POC Glucose (mg/dL) 171 H (75-99) mg/dL Hemoglobin A1c (4.0-6.0) % Calcium (8.4-10.2) mg/dL Triglycerides (<150) mg/dL HDL Cholesterol (40-60) mg/dL Crossmatch 12/21/18 Range/Units 12:02 WBC (3.8-10.6) k/uL RBC (4.30-5.90) m/uL Hgb (13.0-17.5) gm/dL Hct (39.0-53.0) % RDW (11.5-15.5) % Neutrophils # (1.3-7.7) k/uL Monocytes # (0-1.0) k/uL Retic Count (0.5-2.0) % APTT (22.0-30.0) sec Sodium (137-145) mmol/L Chloride (98-107) mmol/L Carbon Dioxide (22-30) mmol/L BUN (9-20) mg/dL Glucose (74-99) mg/dL POC Glucose (mg/dL) 186 H (75-99) mg/dL Hemoglobin A1c (4.0-6.0) % Calcium (8.4-10.2) mg/dL Triglycerides (<150) mg/dL HDL Cholesterol (40-60) mg/dL Crossmatch Assessment and Plan (1) Syncope Current Visit: Yes Status: Acute Code(s): R55 - SYNCOPE AND COLLAPSE SNOMED Code(s): 374422507 (2) Hypertension Current Visit: Yes Status: Acute Code(s): I10 - ESSENTIAL (PRIMARY) HYPERTENSION SNOMED Code(s): 19455352 (3) [facility] (current) use of anticoagulants Current Visit: Yes Status: Acute Code(s): Z79.01 - [facility] (CURRENT) USE OF ANTICOAGULANTS SNOMED Code(s): 083038862 (4) Elevated glucose Current Visit: Yes Status: Acute Code(s): R73.09 - OTHER ABNORMAL GLUCOSE SNOMED Code(s): 823473751 (5) Anemia Current Visit: Yes Status: Acute Code(s): D64.9 - ANEMIA, UNSPECIFIED SNOMED Code(s): 672227497 (6) Hyponatremia Current Visit: Yes Status: Acute Code(s): E87.1 - HYPO-OSMOLALITY AND HYPONATREMIA SNOMED Code(s): 71441388 (7) Dehydration Current Visit: Yes Status: Acute Code(s): E86.0 - DEHYDRATION SNOMED Code( s): 94864654 (8) Pulmonary embolism Current Visit: Yes Status: Acute Code(s): I26.99 - OTHER PULMONARY EMBOLISM WITHOUT ACUTE COR PULMONALE SNOMED Code(s): 87042213 (9) Rib fracture Current Visit: Yes Status: Acute Code(s): S22.39XA - FRACTURE OF ONE RIB, UNSP SIDE, INIT FOR CLOS FX SNOMED Code(s): 14699540 (10) Dyspnea Current Visit: No Status: Acute Code(s): R06.00 - DYSPNEA, UNSPECIFIED SNOMED Code(s): 966361456 (11) Midepigastric pain Current Visit: Yes Status: Acute Code(s): R10.13 - EPIGASTRIC PAIN SNOMED Code(s): 15913033 (12) Upper GI bleeding Current Visit: Yes Status: Acute Code(s): K92.2 - GASTROINTESTINAL HEMORRHAGE, UNSPECIFIED SNOMED Code(s): 28648314 (13) New onset type 2 diabetes mellitus Current Visit: Yes Status: Acute Code(s): E11.9 - TYPE 2 DIABETES MELLITUS WITHOUT COMPLICATIONS SNOMED Code(s): 45699159 Plan: An EGD is planned with Dr. Blum. Consult has been ordered with Dr. White for possible hemolysis. He'll be transfused 1 unit of packed red blood cells at this time for continuing dropping hemoglobin. He'll continue on NovoLog scale and Accu-Cheks before meals and at bedtime. Once he is stable plan metformin orally. CT abdomen and pelvis was essentially normal, 2-D echo essentially normal. EF. Venous Doppler was normal limits DVT. Carotids surely shows elevated left internal carotid artery velocity. This consistent with 50-70% stenosis. CT brain was negative for any bleeding I'll await further recommendations from consultants. I reevaluated next 24 hours.
--- NOTE | 2018-12-21 12:45 | P.PN ---
Subjective Progress Note Date: 12/21/18 63-year-old male patient with previous history of recurrent DVT and pulmonary embolism last bout being in January 2019 and the patient has been on anticoagulation with Eliquis since. The patient came into the hospital after having several syncopal episodes. The patient apparently was at home and she had 2 syncopal episode. He collapsed on the floor and he passed out. He also had a traumatic injury to his left chest area and the area is quite tender at this point in time. He has no recollection. No seizure activity. No jerky body movements. No palpitations. No chest pain. He would wake up immediately following these episodes without having any altered mentation. No focal neurological deficits. He had 2 episodes at home and he had another episode in the hospital. No cardiac arrhythmias have been documented. EKG that was done in the emergency department showed sinus rhythm with frequent P VCs. The patient is quite short of breath. He gets short of breath with limited amount of activity. Moving him to a sitting position, while examination with make him short of breath and he would drop his pressures become tachycardic. I reviewed the CT angios the chest. In comparison to the CAT scan of the chest was done in January 2018, the pulmonary emboli have privileges old and the patient has minimal residual changes/filling defect in the right lower lobe pulmonary artery branch. I would say that the symptoms that he is having is not related to pulmonary embolism nontender the patient has been on anticoagulation patient is improved considerably. D-dimer is at 0.7. O2 sat of cardiac enzymes level of less than 0.012 and a second level of 0.02. Rest of the electrodes are all within normal limits. He is diaphoretic and clammy. He is not having any chest pain. He is having some skeletal chest (probably due to this fall and left-sided chest trauma. CAT scan of the brain was not done. Dopplers were not done. Echocardiogram was not done. I ordered transferring this patient to ICU for intensive monitoring. He is currently on IV heparin. Cardiology consultation will be obtained on an emergent basis. Suspect underlying ischemic heart disease/cardiac arrhythmias underlying the patient's recurrent syncopes and passing out episodes. No swelling lower extremities at this point in time. Hemoglobin is low at 9.3 On today's evaluation of 2018, the patient is in the intensive care unit. The workup thus far has been negative for any cardiopulmonary issues. As mentioned earlier, CT angios the chest was not suggestive of pulmonary embolism. The patient had an echocardiogram that showed no acute abnormalities and he was hyperdynamic. CAT scan of the brain was negative. CAT scan of the abdomen and pelvis was also negative. Overnight, the patient continued to have issues with drop in hemoglobin without any evidence of any external bleeding or ongoing GI bleed. His hemoglobin dropped down to 6.3. At that point, the patient was transfused with 2 units of packed RBC. He had a small bloody stool , yet an upper GI bleeding is suspected knowing that the patient's BNP is also elevated. I consulted gastroenterology and the plan is to proceed with a EGD for tomorrow. Currently he is on a normal saline at the rate of 100 mL an hour. He has some vague abdominal discomfort in the mid abdominal area. He has taken and it states in the past. He is currently on IV fluids at the rate of 100 mL an hour. Hemoglobin was being monitored. No chest pain other than some skeletal chest wall pain at site of his fall along the left chest area. Hematology consultation will be also obtained. No evidence of any hemolysis. Note that, the IV heparin was also discontinued based on the significant drop in hemoglobin. His most recent hemoglobin is at 7.7. A repeat level came back at 7.0. His coagulation profile at time of admission was within normal limits. Objective - Vital Signs Vital signs: Vital Signs Temp 98.2 F 12/21/18 12:00 Pulse 73 12/21/18 12:00 Resp 18 12/21/18 12:00 BP 124/49 12/21/18 12:00 Pulse Ox 100 12/21/18 12:00 Intake & Output 12/20/18 12/21/18 12/21/18 18:59 06:59 18:59 Intake Total 2666.941 3562.833 3860 Output Total 500 1380 865 Balance 2166.941 2182.833 2995 Weight 112.3 kg Intake: IV 900 1820 1500 PRBC 620 Sodium Chloride 0.9% 1, 400 1200 1500 000 ml @ 100 mls/hr IV . Q10H JULIA Rx#:[id number] Sodium Chloride 0.9% 1, 500 000 ml @ 500 mls/hr IV . Q2H JULIA Rx#:[id number] Intake, IV Titration 626.941 42.833 Amount Heparin Sod,Pork in 0.45% 126.941 NaCl 25,000 unit In 0.45 % NaCl 1 250ml.bag @ 18 UNITS/KG/HR 20.81 mls/hr IV .Q12H1M JULIA Rx#: [id number] Heparin Sod,Pork in 0.45% 42.833 NaCl 25,000 unit In 0.45 % NaCl 1 250ml.bag @ 8.65 UNITS/KG/HR 10 mls/hr IV .Q24H JULIA Rx#:[id number] Sodium Chloride 0.9% 1, 500 000 ml @ 500 mls/hr IV . Q2H JULIA Rx#:[id number] Oral 1140 1080 2360 Blood Product 620 Rc As-1 Unit 310 [id number] Rc As-1 Unit 310 [id number] Output: Urine 500 1380 865 Other: Voiding Method Urinal Indwelling Catheter Indwelling Catheter - Exam GENERAL EXAM: Alert, active HEAD: Normocephalic. EYES: Normal reaction of pupils, equal size. NOSE: Clear with pink turbinates. THROAT: No erythema or exudates. NECK: No masses, no JVD. CHEST: No chest wall deformity. LUNGS: Equal air entry with no crackles, wheeze, rhonchi or dullness. CVS: S1 and S2 normal with no audible murmur, regular rhythm. ABDOMEN: No hepatosplenomegaly, normal bowel sounds, no guarding or rigidity. SPINE: No scoliosis or deformity SKIN: No rashes CENTRAL NERVOUS SYSTEM: No focal deficits, tone is normal in all 4 extremities. EXTREMITIES: There is no peripheral edema. No clubbing, no cyanosis. Peripheral pulses are intact. - Labs CBC & Chem 7: 12/21/18 10:07 12/21/18 06:25 Labs: Abnormal Lab Results - Last 24 Hours (Table) 12/20/18 12/20/18 12/20/18 Range/Units 02:20 14:22 17:12 WBC 12.6 H (3.8-10.6) k/uL RBC 2.78 L (4.30-5.90) m/uL Hgb 8.1 L (13.0-17.5) gm/dL Hct 23.9 L (39.0-53.0) % RDW (11.5-15.5) % Neutrophils # 10.1 H (1.3-7.7) k/uL Monocytes # (0-1.0) k/uL Retic Count (0.5-2.0) % APTT (22.0-30.0) sec Sodium (137-145) mmol/L Chloride (98-107) mmol/L Carbon Dioxide (22-30) mmol/L BUN (9-20) mg/dL Glucose (74-99) mg/dL POC Glucose (mg/dL) 141 H (75-99) mg/dL Hemoglobin A1c 6.4 H (4.0-6.0) % Calcium (8.4-10.2) mg/dL Triglycerides (<150) mg/dL HDL Cholesterol (40-60) mg/dL Crossmatch 12/20/18 12/20/18 12/20/18 Range/Units 19:37 19:41 19:41 WBC 13.0 H (3.8-10.6) k/uL RBC 2.42 L (4.30-5.90) m/uL Hgb 7.0 L (13.0-17.5) gm/dL Hct 20.9 L (39.0-53.0) % RDW 15.7 H (11.5-15.5) % Neutrophils # 9.7 H (1.3-7.7) k/uL Monocytes # (0-1.0) k/uL Retic Count (0.5-2.0) % APTT (22.0-30.0) sec Sodium 136 L (137-145) mmol/L Chloride 109 H (98-107) mmol/L Carbon Dioxide 19 L (22-30) mmol/L BUN 53 H (9-20) mg/dL Glucose 145 H (74-99) mg/dL POC Glucose (mg/dL) 175 H (75-99) mg/dL Hemoglobin A1c (4.0-6.0) % Calcium 8.2 L (8.4-10.2) mg/dL Triglycerides (<150) mg/dL HDL Cholesterol (40-60) mg/dL Crossmatch 12/20/18 12/20/18 12/20/18 Range/Units 19:41 20:45 23:21 WBC 14.6 H (3.8-10.6) k/uL RBC 2.20 L (4.30-5.90) m/uL Hgb 6.3 L* (13.0-17.5) gm/dL Hct 19.1 L* (39.0-53.0) % RDW 15.9 H (11.5-15.5) % Neutrophils # 10.8 H (1.3-7.7) k/uL Monocytes # (0-1.0) k/uL Retic Count (0.5-2.0) % APTT 46.1 H (22.0-30.0) sec Sodium (137-145) mmol/L Chloride (98-107) mmol/L Carbon Dioxide (22-30) mmol/L BUN (9-20) mg/dL Glucose (74-99) mg/dL POC Glucose (mg/dL) (75-99) mg/dL Hemoglobin A1c (4.0-6.0) % Calcium (8.4-10.2) mg/dL Triglycerides (<150) mg/dL HDL Cholesterol (40-60) mg/dL Crossmatch See Detail 12/21/18 12/21/18 12/21/18 Range/Units 06:25 06:25 06:58 WBC 13.9 H (3.8-10.6) k/uL RBC 2.64 L (4.30-5.90) m/uL Hgb 7.7 L (13.0-17.5) gm/dL Hct 23.2 L (39.0-53.0) % RDW 16.0 H (11.5-15.5) % Neutrophils # 10.3 H (1.3-7.7) k/uL Monocytes # (0-1.0) k/uL Retic Count (0.5-2.0) % APTT (22.0-30.0) sec Sodium 135 L (137-145) mmol/L Chloride 110 H (98-107) mmol/L Carbon Dioxide 19 L (22-30) mmol/L BUN 50 H (9-20) mg/dL Glucose 141 H (74-99) mg/dL POC Glucose (mg/dL) 171 H (75-99) mg/dL Hemoglobin A1c (4.0-6.0) % Calcium 7.7 L (8.4-10.2) mg/dL Triglycerides 285 H (<150) mg/dL HDL Cholesterol 26 L (40-60) mg/dL Crossmatch 12/21/18 12/21/18 12/21/18 Range/Units 10:07 10:07 12:02 WBC 15.6 H (3.8-10.6) k/uL RBC 2.53 L (4.30-5.90) m/uL Hgb 7.0 L (13.0-17.5) gm/dL Hct 21.7 L (39.0-53.0) % RDW 16.0 H (11.5-15.5) % Neutrophils # 11.2 H (1.3-7.7) k/uL Monocytes # 1.2 H (0-1.0) k/uL Retic Count 3.3 H (0.5-2.0) % APTT (22.0-30.0) sec Sodium (137-145) mmol/L Chloride (98-107) mmol/L Carbon Dioxide (22-30) mmol/L BUN (9-20) mg/dL Glucose (74-99) mg/dL POC Glucose (mg/dL) 186 H (75-99) mg/dL Hemoglobin A1c (4.0-6.0) % Calcium (8.4-10.2) mg/dL Triglycerides (<150) mg/dL HDL Cholesterol (40-60) mg/dL Crossmatch Assessment and Plan Plan: Assessment 1 recurrent bouts of syncope, with a significant drop in hemoglobin down to 6.4. Consider an upper GI bleeding 9 elevation in the [place]. The workup for cardiopulmonary disease has been negative. Cardiac enzymes are nonelevated. Echo is within normal limits. No significant cardiac arrhythmias. The CAT scan of the abdomen and pelvis is also within normal limits. 2 recurrent pulmonary embolism maintained on long-term medical condition with Eliquis, currently off anticoagulation and the patient is also off IV heparin also. 3 hypertension 4 osteoarthritis and chronic back pain 5 chronic eczematous depression 6 acid reflux Plan It is very much likely the patient is having upper GI bleed and we haven't seen or with this any melanotic stool or bloody bowel movements.. We'll monitor the hemoglobin. We'll continue IV fluids. We'll transfuse to maintain hemoglobin above 7. Put the patient IV Protonix. GI consultation. EGD for tomorrow. We' ll obtain a GI consultation. We'll obtain a hematology consultation. We'll keep the patient ICU for now. Clear liquids only. Monitored hemodynamics and keep the maintenance fluid at 130s an hour. Further recommendations are to follow.
--- NOTE | 2018-12-21 13:07 | CONS ---
CONSULTATION DATE OF SERVICE: December 21, 2018. REQUESTING PHYSICIAN: Dr. Reid. REASON FOR CONSULTATION: Severe anemia and syncope. HISTORY OF PRESENT ILLNESS: The patient is a 63-year-old pleasant white male came to the emergency room after having 2 episodes of syncope at home. He has history of DVT and PE in the past and has been on anticoagulation with Eliquis since then. Came to the emergency room yesterday and was very orthostatic and . He passed out at home, he fell and hit the floor and he was having some tenderness in the left rib cage area. CT of the chest, abdomen and pelvis done that was unremarkable. This morning, the patient dropped his hemoglobin by 3 g. At the time of admission to the hospital. His hemoglobin was 9.3 g/dL. This morning it was 6.3 g/dL. He received 2 units of blood transfusion and repeat CBC was 7. He has been complaining of some epigastric discomfort but no nausea, vomiting. He had 1 bowel movement this morning in the ICU, which was brown in color. Prior to the onset of his symptoms, patient denies having any GI bleed. Has been taking Motrin as needed for headaches and chronic back pain for the last several weeks. He has prior history of peptic ulcer disease. PAST MEDICAL HISTORY: Significant for DVT and PE in the past on Eliquis, currently on hold. He was on IV heparin yesterday but did hold because of drop in hemoglobin. History of hypertension, degenerative joint disease. Gastroesophageal reflux disease, chronic back pain. PAST SURGICAL HISTORY: Hernia repair, shoulder surgery. SOCIAL HISTORY: Chronic smoker. Former smoker. No alcohol use. FAMILY HISTORY: Unremarkable. MEDICATIONS: At home include lisinopril, Lexapro, multivitamin, Eliquis, melatonin, multivitamin, and Prevacid. ALLERGIES: None. REVIEW OF SYSTEMS: Cardiopulmonary: No chest pain, shortness of breath. GENITOURINARY: No dysuria or hematuria. Musculoskeletal: Unremarkable. Skin unremarkable. Endocrine unremarkable. Psychiatric unremarkable. Neurology: Severe syncope. ENT: Vision unremarkable. Constitutional: No recent weight loss. No fever, chills, night sweats. PHYSICAL EXAMINATION: He appears comfortable. No apparent distress. Vital signs stable. Blood pressure is 124/76 and pulse rate 74. The patient apparently is still orthostatic. HEENT examination unremarkable. Conjunctivae pink. Sclerae anicteric. Oral cavity no lesions. Neck: No jugular venous distention or lymph node enlargement. Chest was clear to auscultation. HEART: Regular rate and rhythm. ABDOMEN: Soft, very minimal tenderness in the epigastric area. Bowel sounds are positive. No organomegaly. Extremities: No pedal edema. Skin no rashes. NEUROLOGIC: Alert and oriented x3. No focal deficits. LABS: At the time of admission to the hospital, yesterday hemoglobin was 9.3. Yesterday evening it was 6.3 and today it is 7 after 2 units of blood transfusion. BUN is 60, creatinine 1.01. ALT, AST, bilirubin and alkaline phosphatase are within normal limits. Stool occult blood was negative. IMPRESSION: 1. This is a patient who presented to the hospital with acute episode of syncope at which time he passed out and fell on the floor and hurt his left side of the chest. He was noted to have a hemoglobin of 9.3 and yesterday evening dropped to 6.3 g/dL. Clinically no evidence of active gastrointestinal bleed. He had 1 bowel movement this morning which was brown in color. Stool was Hemoccult negative, but no evidence of nausea. No evidence of coffee-grounds emesis also. Because of the elevated BUN, it is likely that he may have an upper GI source of bleeding, though clinically not apparent yet. Presently receiving a third unit of blood transfusion, has been taking Motrin and possibility of upper GI source of bleeding because of NSAID use needs to be considered. 2. History of atrial fibrillation and pulmonary embolism, was on Eliquis, currently on hold. RECOMMENDATION: 1. Clear liquid diet. 2. Continue with Protonix 40 mg daily. 3. We will proceed with an upper endoscopy tomorrow or today if his overall condition changes. 4. CBC every 12 hours and we will follow the patient during his hospital stay. Thank you for this consultation. MMODL / IJN: [id number] /
[2018-12-21 16:48] LABS: HCT 23.4 % (39.0-53.0); HGB 7.9 gm/dL (13.0-17.5); MCH 28.5 pg (25.0-35.0); MCHC 33.8 g/dL (31.0-37.0); MCV 84.5 fL (80.0-100.0); Mean Platelet Volume 8.5; Platelet Count 147 k/uL (150-450); RBC 2.77 m/uL (4.30-5.90); RDW 15.9 % (11.5-15.5); WBC 17.1 k/uL (3.8-10.6)
[2018-12-21 16:55] LABS: Glucose,Whole Blood 137 mg/dL (75-99)
[2018-12-21 21:27] LABS: Glucose,Whole Blood 117 mg/dL (75-99)
[2018-12-21] MEDS: ESCITALOPRAM 20 MG TAB PO SCH (21:47)
[2018-12-21 22:47] LABS: Anisocytosis Slight; Basophils # (A) 0.1 k/uL (0-0.2); Basophils % (A) 1 %; Eosinophils # (A) 0.2 k/uL (0-0.7); Eosinophils % (A) 2 %; HCT 20.4 % (39.0-53.0); Lymphocytes # (A) 2.8 k/uL (1.0-4.8); Lymphocytes % (A) 21 %; MCH 29.2 pg (25.0-35.0); MCHC 33.7 g/dL (31.0-37.0); MCV 86.5 fL (80.0-100.0); Mean Platelet Volume 7.4; Monocytes # (A) 0.8 k/uL (0-1.0); Monocytes % (A) 6 %; Neutrophils # (A) 9.4 k/uL (1.3-7.7); Neutrophils % (A) 69 %; Platelet Count 162 k/uL (150-450); RBC 2.36 m/uL (4.30-5.90); WBC 13.6 k/uL (3.8-10.6)
[2018-12-21 22:56] LABS: HGB 6.9 gm/dL (13.0-17.5)
[2018-12-22 05:43] LABS: Basophils # (A) 0.1 k/uL (0-0.2); Basophils % (A) 1 %; Eosinophils # (A) 0.3 k/uL (0-0.7); Eosinophils % (A) 2 %; HCT 22.7 % (39.0-53.0); HGB 7.4 gm/dL (13.0-17.5); Lymphocytes # (A) 2.6 k/uL (1.0-4.8); Lymphocytes % (A) 21 %; MCH 28.7 pg (25.0-35.0); MCHC 32.6 g/dL (31.0-37.0); Mean Platelet Volume 7.2; Monocytes # (A) 0.7 k/uL (0-1.0); Monocytes % (A) 5 %; Neutrophils # (A) 8.4 k/uL (1.3-7.7); Neutrophils % (A) 69 %; Platelet Count 155 k/uL (150-450); RBC 2.58 m/uL (4.30-5.90); RDW 15.9 % (11.5-15.5); WBC 12.2 k/uL (3.8-10.6)
[2018-12-22 05:52] LABS: Anion Gap 2 mmol/L; Blood Urea Nitrogen 22 mg/dL (9-20); Calcium 7.4 mg/dL (8.4-10.2); Carbon Dioxide 23 mmol/L (22-30); Chloride 107 mmol/L (98-107); Glucose 106 mg/dL (74-99); Magnesium 2.3 mg/dL (1.6-2.3); Potassium 4.4 mmol/L (3.5-5.1); Sodium 132 mmol/L (137-145)
[2018-12-22 06:57] LABS: Glucose,Whole Blood 130 mg/dL (75-99)
[2018-12-22] MEDS: INSULIN ASPART (NovoLOG) 100 UNIT/ML VIAL SQ SCH ×4 (07:38→21:26)
[2018-12-22] MEDS: PANTOPRAZOLE 40 MG TABLET PO SCH (07:39)
[2018-12-22] MEDS ORDERED: METOPROLOL TARTRATE 5 MG/5 ML VIAL IVP ONE (08:52)
[2018-12-22 09:14] LABS: Iron Saturation 84.12 (15.00-50.00)
[2018-12-22] MEDS: METOPROLOL TARTRATE 25 MG TAB PO SCH ×2 (09:25→21:31)
[2018-12-22] MEDS: SODIUM CHLORIDE 0.9% 1,000 ML IV SCH ×3 (10:04→21:30)
[2018-12-22 11:10] LABS: Reticulocyte % 2.7 % (0.5-2.0)
--- NOTE | 2018-12-22 11:41 | P.PN ---
Subjective Progress Note Date: 12/22/18 Principal diagnosis: Recurrent bouts of syncope and anemia. 63-year-old male patient with previous history of recurrent DVT and pulmonary embolism last bout being in January 2019 and the patient has been on anticoagulation with Eliquis since. The patient came into the hospital after having several syncopal episodes. The patient apparently was at home and she had 2 syncopal episode. He collapsed on the floor and he passed out. He also had a traumatic injury to his left chest area and the area is quite tender at this point in time. He has no recollection. No seizure activity. No jerky body movements. No palpitations. No chest pain. He would wake up immediately following these episodes without having any altered mentation. No focal neurological deficits. He had 2 episodes at home and he had another episode in the hospital. No cardiac arrhythmias have been documented. EKG that was done in the emergency department showed sinus rhythm with frequent P VCs. The patient is quite short of breath. He gets short of breath with limited amount of activity. Moving him to a sitting position, while examination with make him short of breath and he would drop his pressures become tachycardic. I reviewed the CT angios the chest. In comparison to the CAT scan of the chest was done in January 2018, the pulmonary emboli have privileges old and the patient has minimal residual changes/filling defect in the right lower lobe pulmonary artery branch. I would say that the symptoms that he is having is not related to pulmonary embolism nontender the patient has been on anticoagulation patient is improved considerably. D-dimer is at 0.7. O2 sat of cardiac enzymes level of less than 0.012 and a second level of 0.02. Rest of the electrodes are all within normal limits. He is diaphoretic and clammy. He is not having any chest pain. He is having some skeletal chest (probably due to this fall and left-sided chest trauma. CAT scan of the brain was not done. Dopplers were not done. Echocardiogram was not done. I ordered transferring this patient to ICU for intensive monitoring. He is currently on IV heparin. Cardiology consultation will be obtained on an emergent basis. Suspect underlying ischemic heart disease/cardiac arrhythmias underlying the patient's recurrent syncopes and passing out episodes. No swelling lower extremities at this point in time. Hemoglobin is low at 9.3 On today's evaluation of 2018, the patient is in the intensive care unit. The workup thus far has been negative for any cardiopulmonary issues. As mentioned earlier, CT angios the chest was not suggestive of pulmonary embolism. The patient had an echocardiogram that showed no acute abnormalities and he was hyperdynamic. CAT scan of the brain was negative. CAT scan of the abdomen and pelvis was also negative. Overnight, the patient continued to have issues with drop in hemoglobin without any evidence of any external bleeding or ongoing GI bleed. His hemoglobin dropped down to 6.3. At that point, the patient was transfused with 2 units of packed RBC. He had a small bloody stool , yet an upper GI bleeding is suspected knowing that the patient's BNP is also elevated. I consulted gastroenterology and the plan is to proceed with a EGD for tomorrow. Currently he is on a normal saline at the rate of 100 mL an hour. He has some vague abdominal discomfort in the mid abdominal area. He has taken and it states in the past. He is currently on IV fluids at the rate of 100 mL an hour. Hemoglobin was being monitored. No chest pain other than some skeletal chest wall pain at site of his fall along the left chest area. Hematology consultation will be also obtained. No evidence of any hemolysis. Note that, the IV heparin was also discontinued based on the significant drop in hemoglobin. His most recent hemoglobin is at 7.7. A repeat level came back at 7.0. His coagulation profile at time of admission was within normal limits. Reevaluated today on 12/22/2018, patient remains in the intensive care unit, scheduled to undergo EGD today to further evaluate his anemia. Hemoglobin this morning is 7.4, patient received a total of 4 units of packed RBCs since admission. It is felt that his anemia is most likely secondary to GI blood losses unless proven otherwise. Patient is presently asymptomatic, no shortness of breath no cough no wheezing no chest pain. And he is quite comfortable in the ICU. Again EGD is scheduled to be done today. And the patient is hemodynamically stable. Anticoagulations therapy remains on hold. Objective - Vital Signs Vital signs: Vital Signs Temp 98.5 F 12/22/18 08:00 Pulse 78 12/22/18 11:00 Resp 11 L 12/22/18 11:00 BP 143/59 12/22/18 11:00 Pulse Ox 95 12/22/18 11:00 Intake & Output 12/21/18 12/22/18 12/22/18 18:59 06:59 18:59 Intake Total 5540 2130 400 Output Total 1540 1385 452 Balance 4000 745 -52 Weight 113 kg Intake: IV 2390 1200 300 PRBC 390 Sodium Chloride 0.9% 1, 2000 1200 300 000 ml @ 100 mls/hr IV . Q10H JULIA Rx#:[id number] Intake, IV Titration 100 Amount Sodium Chloride 0.9% 1, 100 000 ml @ 100 mls/hr IV . Q10H JULIA Rx#:[id number] Oral 2840 620 Blood Product 310 310 Rc As-1 Unit 310 [id number] Rc As-1 Unit 310 [id number] Output: Urine 1540 1385 452 Other: Voiding Method Indwelling Catheter Indwelling Catheter Indwelling Catheter - Exam Physical Exam: Revealed 63-year-old white male in no distress. Head: Atraumatic normocephalic. HEENT:[Neck is supple.] [No neck masses.] [No thyromegaly.] [No JVD.] PERRLA, EOMI, moist mucous membranes. Chest: [Clear throughout, no crackles, no rhonchi, no wheezes.] Cardiac Exam: [Normal S1 and S2, no S3 gallop, no murmur.] Abdomen: [Soft, nontender, no megaly, no rebound, no guarding, normal bowel sounds.] Extremities: [No clubbing, no edema, no cyanosis.] Neurological Exam: [No focal neurologic deficit. Lymphatics: No lymphadenopathy. Psychiatric: Normal mood affect and mental status examination. Skin: No rashes.] - Labs CBC & Chem 7: 12/22/18 04:50 12/22/18 04:50 Labs: Abnormal Lab Results - Last 24 Hours (Table) 12/20/18 12/21/18 12/21/18 Range/Units 20:45 10:07 12:02 WBC (3.8-10.6) k/uL RBC (4.30-5.90) m/uL Hgb (13.0-17.5) gm/dL Hct (39.0-53.0) % RDW (11.5-15.5) % Plt Count (150-450) k/uL Neutrophils # (1.3-7.7) k/uL Retic Count (0.5-2.0) % Sodium (137-145) mmol/L BUN (9-20) mg/dL Glucose (74-99) mg/dL POC Glucose (mg/dL) 186 H (75-99) mg/dL Calcium (8.4-10.2) mg/dL Iron 249 H (65-175) ug/dL Iron Saturation 84.12 H (15.00-50.00) Crossmatch See Detail 12/21/18 12/21/18 12/21/18 Range/Units 16:24 16:53 21:25 WBC 17.1 H (3.8-10.6) k/uL RBC 2.77 L (4.30-5.90) m/uL Hgb 7.9 L (13.0-17.5) gm/dL Hct 23.4 L (39.0-53.0) % RDW 15.9 H (11.5-15.5) % Plt Count 147 L (150-450) k/uL Neutrophils # (1.3-7.7) k/uL Retic Count (0.5-2.0) % Sodium (137-145) mmol/L BUN (9-20) mg/dL Glucose (74-99) mg/dL POC Glucose (mg/dL) 137 H 117 H (75-99) mg/dL Calcium (8.4-10.2) mg/dL Iron (65-175) ug/dL Iron Saturation (15.00-50.00) Crossmatch 12/21/18 12/22/18 12/22/18 Range/Units 22:15 04:50 04:50 WBC 13.6 H 12.2 H (3.8-10.6) k/uL RBC 2.36 L 2.58 L (4.30-5.90) m/uL Hgb 6.9 L* 7.4 L (13.0-17.5) gm/dL Hct 20.4 L 22.7 L (39.0-53.0) % RDW 16.0 H 15.9 H (11.5-15.5) % Plt Count (150-450) k/uL Neutrophils # 9.4 H 8.4 H (1.3-7.7) k/uL Retic Count (0.5-2.0) % Sodium 132 L (137-145) mmol/L BUN 22 H (9-20) mg/dL Glucose 106 H (74-99) mg/dL POC Glucose (mg/dL) (75-99) mg/dL Calcium 7.4 L (8.4-10.2) mg/dL Iron (65-175) ug/dL Iron Saturation (15.00-50.00) Crossmatch 12/22/18 12/22/18 Range/Units 04:50 06:56 WBC (3.8-10.6) k/uL RBC (4.30-5.90) m/uL Hgb (13.0-17.5) gm/dL Hct (39.0-53.0) % RDW (11.5-15.5) % Plt Count (150-450) k/uL Neutrophils # (1.3-7.7) k/uL Retic Count 2.7 H (0.5-2.0) % Sodium (137-145) mmol/L BUN (9-20) mg/dL Glucose (74-99) mg/dL POC Glucose (mg/dL) 130 H (75-99) mg/dL Calcium (8.4-10.2) mg/dL Iron (65-175) ug/dL Iron Saturation (15.00-50.00) Crossmatch Assessment and Plan Assessment: Impression: 1 recurrent episodes of syncope, associated with anemia, most likely source is GI blood loss unless for otherwise. Patient received a total of 4 units of packed RBCs since admission, presently hemodynamically stable, asymptomatic, and he is undergoing EGD sometime later today. 2 history of deep vein thromboses and pulmonary embolism 2 presently he is off heparin, and off anticoagulation therapy until cleared by gastroenterology. Otherwise the patient could not be cleared for anticoagulations therapy, May have to seriously consider a placement of IVC filter. 3 multiple comorbidities including hypertension, osteoarthritis, history of depression, GERD without esophagitis. Recommendation: Continue present meds, continue Protonix, patient will remain in the ICU for now, we'll decide upon transfer out of the ICU depending on the GI findings/EGD findings. Had a long discussion with the and the patient regarding his anticoagulations therapy, and again they are very well aware that I may recommend IVC filter placement if there is absent contraindication to anticoagulation therapy if recommended by GI. In the meantime we'll continue to hold and granulation therapy for now. We'll continue to follow closely. Time with Patient: Less than 30
[2018-12-22 12:03] LABS: Glucose,Whole Blood 121 mg/dL (75-99)
[2018-12-22] MEDS ORDERED: IV FLUID CONTINUATION 300 ML IV ONE (13:02)
[2018-12-22] MEDS ORDERED: PROPOFOL 10 MG/ML 20 ML VIAL IV ONE (13:02)
[2018-12-22] MEDS ORDERED: fentaNYL (PF) 50 MCG/ML 2 ML AMP ONE (13:02)
[2018-12-22] MEDS ORDERED: LIDOCAINE 1% INJ 10MG/ML (20 ML MDV) ONE (13:02)
--- NOTE | 2018-12-22 13:30 | P.PCN ---
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 On presentation to the hospital patient was found to have a hemoglobin of 6.9. The patient has had prior peptic ulcer disease and underwent initial EGD with repeat to check for healing in the past. He does report very occasional Motrin use. PROCEDURE PERFORMED: Esophagogastroduodenoscopy with biopsy. PREOPERATIVE DIAGNOSIS: Anemia of acute blood loss. ESTIMATED BLOOD LOSS: Minimal. IV sedation per anesthesia. PROCEDURE: After informed consent was obtained, the patient was brought into the endoscopy unit. IV sedation was administered by Anesthesia under continuous monitoring. Initially the Olympus GIF-190 video endoscope was inserted into the mouth. Esophagus intubated without any difficulty. It was gradually advanced into the stomach and duodenum and carefully examined. The bulb appeared grossly normal except for a small nonbleeding ulcer in the distal bulb proximal to the duodenal sweep without high risk stigmata for rebleeding, with biopsies taken of the duodenal ulcer. The second portion of the duodenum appeared grossly normal, with biopsies taken. The scope at this time was withdrawn to the stomach , adequately insufflated with air, and upon careful examination, mucosa of the antrum, body, cardia and the fundus appeared normal except for some mild scattered erythema in the antrum and body with biopsies taken. The scope was then withdrawn into the esophagus. The GE junction was located at 40 cm from the incisors. The esophagus appeared normal. There were no erosions or ulcerations seen and the patient tolerated the procedure well. IMPRESSION: 1. Nonbleeding duodenal bulb ulcer without high-risk stigmata for rebleeding, biopsied. 2. Mild gastritis antrum and body, biopsied. 3. Duodenal biopsies. RECOMMENDATIONS: The findings of this examination were discussed with the patient and his . Okay for full liquid diet. Continue to monitor hemoglobin and transfuse as needed. Continue Protonix twice a day. Await pathology from biopsies. Would hold Eliquis today and tomorrow given presentation of symptomatic anemia of acute blood loss.
[2018-12-22] MEDS: PANTOPRAZOLE 40 MG/10 ML VIAL IVP SCH ×2 (13:49→21:30)
[2018-12-22] MEDS: VIT A,C & E-LUTEIN-MINERALS 1 EACH TAB PO SCH (13:50)
[2018-12-22] MEDS: HYDROcodone/APAP 10-325MG 1 EACH TAB PO PRN (13:50)
[2018-12-22] MEDS: DOCUSATE 100 MG CAP PO SCH ×2 (13:50→21:31)
--- NOTE | 2018-12-22 14:05 | P.PN ---
Subjective Progress Note Date: 12/22/18 This is a 63-year-old gentleman with history of pulmonary emboli and DVT who was on anticoagulation therapy, was admitted with recurrent syncopal episodes. Patient was hypotensive, pale and having chest and abdominal discomfort yesterday. It is also found that patient's hemoglobin was dropping. Yesterday' s hemoglobin dropped below 7 g. Patient received IV fluids and the blood transfusion. His hemoglobin went up to more than 7 g. His blood pressure is well controlled. Patient seemed to be more comfortable and doesn't appear to be in distress. The etiology of the anemia is not clear. No evidence of GI bleeding. Apparently patient had a normal bowel movement. Denies any chest pain. Still complains of exertional shortness of breath which could be related to his anemia. His echocardiogram showed normal LV function. No further cardiac solutions at this time. Workup for anemia needs to be continued. 12/22/2018: The patient is more stable today. Denies any chest pain or shortness of breath. It continues to complain of epigastric burning and pain. Patient is going to have upper endoscopy today. Patient received another unit of blood transfusion yesterday and his hemoglobin is about 8 g. Clinically blood pressure is stable. In fact, his blood pressure running about 150/80. Heart rate is better controlled. We'll going to resume him on his lisinopril hydrochlorothiazide along with beta jay. Further recommendations depend on findings on endoscopy. Objective - Vital Signs Vital signs: Vital Signs Temp 98.5 F 12/22/18 12:00 Pulse 71 12/22/18 13:00 Resp 16 12/22/18 13:00 BP 146/58 12/22/18 13:00 Pulse Ox 95 12/22/18 13:00 Intake & Output 12/21/18 12/22/18 12/22/18 18:59 06:59 18:59 Intake Total 5540 2130 800 Output Total 1540 1385 902 Balance 4000 745 -102 Weight 113 kg Intake: IV 2390 1200 700 PRBC 390 Sodium Chloride 0.9% , 1999 1200 700 000 ml @ 100 mls/hr IV . Q10H JULIA Rx#:[id number] Intake, IV Titration 100 Amount Sodium Chloride 0.9% 1, 100 000 ml @ 100 mls/hr IV . Q10H JULIA Rx#:[id number] Oral 2840 620 Blood Product 310 310 Rc As-1 Unit 310 [id number] Rc As-1 Unit 310 [id number] Output: Urine 1540 1385 902 Other: Voiding Method Indwelling Catheter Indwelling Catheter Indwelling Catheter - Exam GENERAL EXAM: Patient is alert and oriented and doesn't appear to be in any acute distress HEENT: Normocephalic. Normal reaction of pupils, equal size, normal range of extraocular motion. No erythema or exudates in the throat. NECK: No masses, no nuchal rigidity. CHEST: No chest wall deformity. LUNGS: Equal air entry with no crackles or wheeze. HEART: S1 and S2 normal with no audible mumurs or gallops. Regular rhythm, femorals equal on both sides.. ABDOMEN: No hepatosplenomegaly, normal bowel sounds, no guarding or rigidity. Mild tenderness in the lower abdomen SKIN: No rashes CENTRAL NERVOUS SYSTEM: No focal deficits. EXTREMITIES: No cyanosis, clubbing or edema. - Labs CBC & Chem 7: 12/22/18 04:50 12/22/18 04:50 Labs: Abnormal Lab Results - Last 24 Hours (Table) 12/20/18 12/21/18 12/21/18 Range/Units 20:45 10:07 16:24 WBC 17.1 H (3.8-10.6) k/uL RBC 2.77 L (4.30-5.90) m/uL Hgb 7.9 L (13.0-17.5) gm/dL Hct 23.4 L (39.0-53.0) % RDW 15.9 H (11.5-15.5) % Plt Count 147 L (150-450) k/uL Neutrophils # (1.3-7.7) k/uL Retic Count (0.5-2.0) % Sodium (137-145) mmol/L BUN (9-20) mg/dL Glucose (74-99) mg/dL POC Glucose (mg/dL) (75-99) mg/dL Calcium (8.4-10.2) mg/dL Iron 249 H (65-175) ug/dL Iron Saturation 84.12 H (15.00-50.00) Crossmatch See Detail 12/21/18 12/21/18 12/21/18 Range/Units 16:53 21:25 22:15 WBC 13.6 H (3.8-10.6) k/uL RBC 2.36 L (4.30-5.90) m/uL Hgb 6.9 L* (13.0-17.5) gm/dL Hct 20.4 L (39.0-53.0) % RDW 16.0 H (11.5-15.5) % Plt Count (150-450) k/uL Neutrophils # 9.4 H (1.3-7.7) k/uL Retic Count (0.5-2.0) % Sodium (137-145) mmol/L BUN (9-20) mg/dL Glucose (74-99) mg/dL POC Glucose (mg/dL) 137 H 117 H (75-99) mg/dL Calcium (8.4-10.2) mg/dL Iron (65-175) ug/dL Iron Saturation (15.00-50.00) Crossmatch 12/22/18 12/22/18 12/22/18 Range/Units 04:50 04:50 04:50 WBC 12.2 H (3.8-10.6) k/uL RBC 2.58 L (4.30-5.90) m/uL Hgb 7.4 L (13.0-17.5) gm/dL Hct 22.7 L (39.0-53.0) % RDW 15.9 H (11.5-15.5) % Plt Count (150-450) k/uL Neutrophils # 8.4 H (1.3-7.7) k/uL Retic Count 2.7 H (0.5-2.0) % Sodium 132 L (137-145) mmol/L BUN 22 H (9-20) mg/dL Glucose 106 H (74-99) mg/dL POC Glucose (mg/dL) (75-99) mg/dL Calcium 7.4 L (8.4-10.2) mg/dL Iron (65-175) ug/dL Iron Saturation (15.00-50.00) Crossmatch 12/22/18 12/22/18 Range/Units 06:56 12:02 WBC (3.8-10.6) k/uL RBC (4.30-5.90) m/uL Hgb (13.0-17.5) gm/dL Hct (39.0-53.0) % RDW (11.5-15.5) % Plt Count (150-450) k/uL Neutrophils # (1.3-7.7) k/uL Retic Count (0.5-2.0) % Sodium (137-145) mmol/L BUN (9-20) mg/dL Glucose (74-99) mg/dL POC Glucose (mg/dL) 130 H 121 H (75-99) mg/dL Calcium (8.4-10.2) mg/dL Iron (65-175) ug/dL Iron Saturation (15.00-50.00) Crossmatch Assessment and Plan (1) Anemia Current Visit: Yes Status: Acute Code(s): D64.9 - ANEMIA, UNSPECIFIED SNOMED Code(s): 938812427 (2) intermediate (current) use of anticoagulants Current Visit: Yes Status: Acute Code(s): Z79.01 - APPLICATIONS PROGRAMMER (CURRENT) USE OF ANTICOAGULANTS SNOMED Code(s): 331201088 (3) Pulmonary embolism Current Visit: Yes Status: Acute Code(s): I26.99 - OTHER PULMONARY EMBOLISM WITHOUT ACUTE COR PULMONALE SNOMED Code(s): 42475128 (4) Rib fracture Current Visit: Yes Status: Acute Code(s): S22.39XA - FRACTURE OF ONE RIB, UNSP SIDE, INIT FOR CLOS FX SNOMED Code(s): 85524709 (5) Syncope Current Visit: Yes Status: Acute Code(s): R55 - SYNCOPE AND COLLAPSE SNOMED Code(s): 362075011 (6) Abdominal pain Current Visit: No Status: Acute Code(s): R10.9 - UNSPECIFIED ABDOMINAL PAIN SNOMED Code(s): 23251718 Plan: Hemodynamically stable. Waiting for endoscopy. I will add lisinopril/ hydrochlorothiazide for better control of blood pressure. Will continue beta blockers.
[2018-12-22 16:46] LABS: Glucose,Whole Blood 118 mg/dL (75-99)
--- NOTE | 2018-12-22 18:37 | P.PN ---
Subjective Progress Note Date: 12/22/18 Principal diagnosis: GI bleed Patient underwent EGD earlier today, at that time a nonbleeding duodenal bulb ulcer, was noted with mild gastritis antrum and body by the both were biopsied and duodenum was also biopsied, she has a past medical history of pulmonary embolus 2 for which she was worked up extensively and to this day we haven't found the cause patient had a second pulmonary embolus and it was determined that we will add anticoagulate him with eliquis which incidentally was being held patient was also transfused with I believe a unit of packed red cells on examination was appeared quite stable today Objective - Vital Signs Vital signs: Vital Signs Temp 98.3 F 12/22/18 16:00 Pulse 87 12/22/18 18:00 Resp 27 H 12/22/18 18:00 BP 153/65 12/22/18 18:00 Pulse Ox 98 12/22/18 18:00 Intake & Output 12/21/18 12/22/18 12/22/18 18:59 06:59 18:59 Intake Total 5540 2130 1100 Output Total 1540 1385 1172 Balance 4000 745 -72 Weight 113 kg Intake: IV 2390 1200 1000 PRBC 390 Sodium Chloride 0.9% 1, 2000 1200 1000 000 ml @ 100 mls/hr IV . Q10H [facility] Rx#:[id number] Intake, IV Titration 100 Amount Sodium Chloride 0.9% 1, 100 000 ml @ 100 mls/hr IV . Q10H JULIA Rx#:[id number] Oral 2840 620 Blood Product 310 310 Rc As-1 Unit 310 [id number] Rc As-1 Unit 310 [id number] Output: Urine 1540 1385 1172 Other: Voiding Method Indwelling Catheter Indwelling Catheter Indwelling Catheter - Exam General: [Patient awake, alert and oriented times 3. Patient in no acute distress.] Slightly pale HEENT: [PERRL. EOMI. No pharyngeal erythema or exudate.] Neck: [No adenopathy.] Cardiac: [Heart regular in rate and rhythm. No S3. No S4. No clicks, rubs. No murmur.] Lungs: [Clear to auscultation bilaterally.] Abdomen: [No mass. No organomegaly. Bowel sounds presnt and normoactive in all 4 quadrants.] Extremes: [No edema no cyanosis no claudication normal pulses] : [] Musculoskeletal: [No joint erythema, edema or tenderness.] Skin: [No rash.] Neurologic: [No lateralizing deficits. CN II - XII grossly intact.] Lymphatic: [No adenopathy.] - Labs CBC & Chem 7: 12/22/18 04:50 12/22/18 04:50 Labs: Abnormal Lab Results - Last 24 Hours (Table) 12/20/18 12/21/18 12/21/18 Range/Units 20:45 10:07 21:25 WBC (3.8-10.6) k/uL RBC (4.30-5.90) m/uL Hgb (13.0-17.5) gm/dL Hct (39.0-53.0) % RDW (11.5-15.5) % Neutrophils # (1.3-7.7) k/uL Retic Count (0.5-2.0) % Sodium (137-145) mmol/L BUN (9-20) mg/dL Glucose (74-99) mg/dL POC Glucose (mg/dL) 117 H (75-99) mg/dL Calcium (8.4-10.2) mg/dL Iron 249 H (65-175) ug/dL Iron Saturation 84.12 H (15.00-50.00) Crossmatch See Detail 12/21/18 12/22/18 12/22/18 Range/Units 22:15 04:50 04:50 WBC 13.6 H 12.2 H (3.8-10.6) k/uL RBC 2.36 L 2.58 L (4.30-5.90) m/uL Hgb 6.9 L* 7.4 L (13.0-17.5) gm/dL Hct 20.4 L 22.7 L (39.0-53.0) % RDW 16.0 H 15.9 H (11.5-15.5) % Neutrophils # 9.4 H 8.4 H (1.3-7.7) k/uL Retic Count (0.5-2.0) % Sodium 132 L (137-145) mmol/L BUN 22 H (9-20) mg/dL Glucose 106 H (74-99) mg/dL POC Glucose (mg/dL) (75-99) mg/dL Calcium 7.4 L (8.4-10.2) mg/dL Iron (65-175) ug/dL Iron Saturation (15.00-50.00) Crossmatch 12/22/18 12/22/18 12/22/18 Range/Units 04:50 06:56 12:02 WBC (3.8-10.6) k/uL RBC (4.30-5.90) m/uL Hgb (13.0-17.5) gm/dL Hct (39.0-53.0) % RDW (11.5-15.5) % Neutrophils # (1.3-7.7) k/uL Retic Count 2.7 H (0.5-2.0) % Sodium (137-145) mmol/L BUN (9-20) mg/dL Glucose (74-99) mg/dL POC Glucose (mg/dL) 130 H 121 H (75-99) mg/dL Calcium (8.4-10.2) mg/dL Iron (65-175) ug/dL Iron Saturation (15.00-50.00) Crossmatch 12/22/18 Range/Units 16:44 WBC (3.8-10.6) k/uL RBC (4.30-5.90) m/uL Hgb (13.0-17.5) gm/dL Hct (39.0-53.0) % RDW (11.5-15.5) % Neutrophils # (1.3-7.7) k/uL Retic Count (0.5-2.0) % Sodium (137-145) mmol/L BUN (9-20) mg/dL Glucose (74-99) mg/dL POC Glucose (mg/dL) 118 H (75-99) mg/dL Calcium (8.4-10.2) mg/dL Iron (65-175) ug/dL Iron Saturation (15.00-50.00) Crossmatch Assessment and Plan (1) Anemia Current Visit: Yes Status: Acute Code(s): D64.9 - ANEMIA, UNSPECIFIED SNOMED Code(s): 891877925 (2) Dehydration Current Visit: Yes Status: Acute Code(s): E86.0 - DEHYDRATION SNOMED Code( s): 24802892 (3) Elevated glucose Current Visit: Yes Status: Acute Code(s): R73.09 - OTHER ABNORMAL GLUCOSE SNOMED Code(s): 985561045 (4) Hypertension Current Visit: Yes Status: Acute Code(s): I10 - ESSENTIAL (PRIMARY) HYPERTENSION SNOMED Code(s): 61881132 (5) Hyponatremia Current Visit: Yes Status: Acute Code(s): E87.1 - HYPO-OSMOLALITY AND HYPONATREMIA SNOMED Code(s): 35295731 (6) New onset type 2 diabetes mellitus Current Visit: Yes Status: Acute Code(s): E11.9 - TYPE 2 DIABETES MELLITUS WITHOUT COMPLICATIONS SNOMED Code(s): 22835558 Plan: Discussed at length with patient the likelihood that this was stress induced ulcer disease Discussed strategies for reducing life stressors including shelter which this patient is eligible for And he feels at this time the financial gain with waiting another year is not worth the risk so in fact that may be the plan after being discharge from the hospital However we are awaiting biopsies and will continue to follow patient may be transferred to selective Time with Patient: Greater than 30
[2018-12-22 20:46] LABS: Glucose,Whole Blood 120 mg/dL (75-99)
[2018-12-22] MEDS: ESCITALOPRAM 20 MG TAB PO SCH (21:31)
--- NOTE | 2018-12-22 21:48 | P.CONS ---
History of Present Illness - Reason for Consult Consult date: 12/22/18 anemia Requesting physician: Natalya Casanova - Chief Complaint syncopy - History of Present Illness Mr. White is a very pleasant male with a past medical history significant for PE in April 2017 post flight, then January of 2018 with no cause identified, CTA is showing small PE in the RLL, BLE doppler is negative for DVT. Pt came to hospital because any time he sat up he would pass out, he was feeling very SOB, experiencing palpitations. He has complained more of "burning " in the epigastric area, noted significant increase in TUMS use, he had a gastric ulcer diagnosed 4-5 years ago, he had colonoscopy 3 years ago and most recent EGD was 2 years ago. Pt denies bleeding, black or bloody stool, he takes motrin a few times a week for MS c/o, no recent wt. loss, N,V,D, no other c/o on a 14 point ROS. Review of Systems 14 point ROS Is negative except as stated in HPI Past Medical History Past Medical History: GERD/Reflux, Hypertension, Osteoarthritis (OA), Pulmonary Embolus (PE) Additional Past Medical History / Comment(s): CHRONIC BACK PAIN, recurrent pulmonary embolism the first episode was around 2-1/2 years ago and the patient was treated with anticoagulation and then discontinued and subsequently he had another episode in 2018 and since then has been on anticoagulation History of Any Multi-Drug Resistant Organisms: None Reported Past Surgical History: Hernia Repair, Orthopedic Surgery Additional Past Surgical History / Comment(s): [employer] right rotator cuff / left tendon damage, LEFT CARPAL TUNNEL, Past Anesthesia/Blood Transfusion Reactions: No Reported Reaction Past Psychological History: Depression Smoking Status: Former smoker Past Alcohol Use History: None Reported Past Drug Use History: None Reported - Past Family History Mother Family Medical History: No Reported History Medications and Allergies Home Medications Medication Instructions Recorded Confirmed Type Lisinopril-Hctz 10-12.5 mg 1 tab PO DAILY 03/28/15 12/20/18 History [Zestoretic 10-12.5] Ascorbic Acid [Vitamin C] 1,000 mg PO DAILY 01/08/17 12/20/18 History Escitalopram [Lexapro] 20 mg PO HS 01/08/17 12/20/18 History HYDROcodone/APAP 10-325MG [[place] 1 tab PO TID PRN 01/08/17 12/20/18 History 10-325] Multivitamins, Thera [Multivitamin 1 tab PO DAILY 01/08/17 12/20/18 History (formulary)] Apixaban [Eliquis] 5 mg PO BID 01/28/18 12/20/18 History Melatonin 10 mg PO HS PRN 01/28/18 12/20/18 History Vits A,C,E/Lutein/Minerals 1 tab PO DAILY 01/28/18 12/20/18 History [Ocuvite with Lutein Tablet] Lansoprazole [Prevacid] 30 mg PO DAILY 12/20/18 12/20/18 History Allergies Allergy/AdvReac Type Severity Reaction Status Date / Time No Known Allergies Allergy Verified 12/20/18 07:02 Physical Exam Vitals: Vital Signs Temp Pulse Resp BP Pulse Ox 12/22/18 19:00 80 19 167/56 95 12/22/18 18:00 87 27 H 153/65 98 12/22/18 17:00 77 23 145/50 100 12/22/18 16:00 98.3 F 85 16 152/54 95 12/22/18 15:00 69 25 H 150/60 99 12/22/18 14:00 70 16 142/56 97 12/22/18 13:00 71 16 146/58 95 12/22/18 12:00 98.5 F 76 18 146/59 95 12/22/18 11:00 78 11 L 143/59 95 12/22/18 10:00 77 14 150/61 95 12/22/18 09:00 78 24 156/58 96 12/22/18 08:00 98.5 F 78 23 146/60 95 12/22/18 07:00 84 16 147/61 94 L 12/22/18 06:00 76 19 144/57 95 12/22/18 05:00 86 22 140/58 95 12/22/18 04:00 72 19 141/60 96 12/22/18 03:00 80 27 H 146/59 99 12/22/18 02:40 74 16 146/59 12/22/18 02:00 75 21 144/61 99 12/22/18 01:15 75 12 144/61 12/22/18 01:00 71 21 134/55 98 12/22/18 00:45 97.9 F 68 17 135/55 98 12/22/18 00:35 98.3 F 71 20 137/58 12/22/18 00:14 73 20 140/58 95 12/22/18 00:00 98.2 F 75 19 128/59 99 12/21/18 23:00 80 21 145/59 98 12/21/18 22:00 80 6 L 134/55 100 Intake and Output 12/22/18 12/22/18 12/22/18 06:59 14:59 22:59 Intake Total 1110 800 500 Output Total 905 902 370 Balance 205 -102 130 Intake: IV 800 700 500 Sodium Chloride 0.9% 1, 800 700 500 000 ml @ 100 mls/hr IV . Q10H [facility] Rx#:[id number] Intake, IV Titration 100 Amount Sodium Chloride 0.9% 1, 100 000 ml @ 100 mls/hr IV . Q10H JULIA Rx#:[id number] Blood Product 310 Rc As-1 Unit 310 [id number] Output: Urine 905 902 370 Other: Voiding Method Indwelling Catheter Indwelling Catheter Indwelling Catheter Weight 113 kg - Constitutional General appearance: cooperative, no acute distress, obese - EENT Eyes: anicteric sclerae, EOMI ENT: hearing grossly normal, normal oropharynx - Neck Neck: no lymphadenopathy - Respiratory Respiratory: bilateral: CTA - Cardiovascular sinus tachycardia Heart sounds: normal: S1, S2 Abnormal Heart Sounds: no systolic murmur, no diastolic murmur, no rub, no S3 Gallop, no S4 Gallop, no click, no other leg Peripheral Edema: bilateral: None - Gastrointestinal General gastrointestinal: no absent bowel sounds, no decreased bowel sounds, no distended, no hepatomegaly, no hyperactive bowel sounds, normal bowel sounds, no organomegaly, no rigid, no scaphoid, soft, no splenomegaly, tenderness, no umbilical hernia, no ventral hernia Localized gastrointestinal: tender: epigastric periumbilical (mild) - Integumentary Integumentary: normal turgor, pale - Neurologic Neurologic: CNII-XII intact - Musculoskeletal Musculoskeletal: strength equal bilaterally - Psychiatric Psychiatric: A&O x's 3, appropriate affect, intact judgment & insight Results CBC & Chem 7: 12/22/18 04:50 12/22/18 04:50 Labs: Abnormal Lab Results - Last 24 Hours (Table) 12/20/18 12/21/18 12/21/18 Range/Units 20:45 10:07 22:15 WBC 13.6 H (3.8-10.6) k/uL RBC 2.36 L (4.30-5.90) m/uL Hgb 6.9 L* (13.0-17.5) gm/dL Hct 20.4 L (39.0-53.0) % RDW 16.0 H (11.5-15.5) % Neutrophils # 9.4 H (1.3-7.7) k/uL Retic Count (0.5-2.0) % Sodium (137-145) mmol/L BUN (9-20) mg/dL Glucose (74-99) mg/dL POC Glucose (mg/dL) (75-99) mg/dL Calcium (8.4-10.2) mg/dL Iron 249 H (65-175) ug/dL Iron Saturation 84.12 H (15.00-50.00) Crossmatch See Detail 12/22/18 12/22/18 12/22/18 Range/Units 04:50 04:50 04:50 WBC 12.2 H (3.8-10.6) k/uL RBC 2.58 L (4.30-5.90) m/uL Hgb 7.4 L (13.0-17.5) gm/dL Hct 22.7 L (39.0-53.0) % RDW 15.9 H (11.5-15.5) % Neutrophils # 8.4 H (1.3-7.7) k/uL Retic Count 2.7 H (0.5-2.0) % Sodium 132 L (137-145) mmol/L BUN 22 H (9-20) mg/dL Glucose 106 H (74-99) mg/dL POC Glucose (mg/dL) (75-99) mg/dL Calcium 7.4 L (8.4-10.2) mg/dL Iron (65-175) ug/dL Iron Saturation (15.00-50.00) Crossmatch 12/22/18 12/22/18 12/22/18 Range/Units 06:56 12:02 16:44 WBC (3.8-10.6) k/uL RBC (4.30-5.90) m/uL Hgb (13.0-17.5) gm/dL Hct (39.0-53.0) % RDW (11.5-15.5) % Neutrophils # (1.3-7.7) k/uL Retic Count (0.5-2.0) % Sodium (137-145) mmol/L BUN (9-20) mg/dL Glucose (74-99) mg/dL POC Glucose (mg/dL) 130 H 121 H 118 H (75-99) mg/dL Calcium (8.4-10.2) mg/dL Iron (65-175) ug/dL Iron Saturation (15.00-50.00) Crossmatch 12/22/18 Range/Units 20:45 WBC (3.8-10.6) k/uL RBC (4.30-5.90) m/uL Hgb (13.0-17.5) gm/dL Hct (39.0-53.0) % RDW (11.5-15.5) % Neutrophils # (1.3-7.7) k/uL Retic Count (0.5-2.0) % Sodium (137-145) mmol/L BUN (9-20) mg/dL Glucose (74-99) mg/dL POC Glucose (mg/dL) 120 H (75-99) mg/dL Calcium (8.4-10.2) mg/dL Iron (65-175) ug/dL Iron Saturation (15.00-50.00) Crossmatch CT scan - abdomen: report reviewed CT scan - chest: report reviewed CT Scan - head: report reviewed CT scan - pelvis: report reviewed Venous US: report reviewed Assessment and Plan (1) Anemia Narrative/Plan: Highly suspect acute on chronic loss of blood as cause for significant anemia. Acute on chronic, r/t anticoagulation and NSAID. GI work up is planned. Pt has been transfused. Cont CBC monitoring with PRBCs for Hgb<7. Anemia work up ordered. No evidence to support work up hemolysis at this time but, will cont to monitor Current Visit: Yes Status: Acute Priority: High Code(s): D64.9 - ANEMIA, UNSPECIFIED SNOMED Code(s): 570617617 Plan: Dr attests: I have performed history and physical exam of patient, developed impression and plan of care, discussed with dictator. Agree with dictation, documented as a scribe.
[2018-12-22] MEDS ORDERED: FAMOTIDINE 20 MG TAB PO PRN (21:53)
[2018-12-23 05:34] LABS: Anisocytosis Slight; Basophils % (A) 0 %; Eosinophils # (A) 0.3 k/uL (0-0.7); Eosinophils % (A) 4 %; Lymphocytes # (A) 1.9 k/uL (1.0-4.8); Lymphocytes % (A) 24 %; MCH 28.9 pg (25.0-35.0); MCV 87.5 fL (80.0-100.0); Mean Platelet Volume 7.3; Monocytes # (A) 0.5 k/uL (0-1.0); Monocytes % (A) 6 %; Neutrophils # (A) 5.2 k/uL (1.3-7.7); Neutrophils % (A) 64 %; Platelet Count 162 k/uL (150-450); RBC 2.41 m/uL (4.30-5.90); RDW 16.7 % (11.5-15.5); WBC 8.1 k/uL (3.8-10.6)
[2018-12-23 05:49] LABS: Anion Gap 3 mmol/L; Blood Urea Nitrogen 14 mg/dL (9-20); Calcium 7.7 mg/dL (8.4-10.2); Carbon Dioxide 24 mmol/L (22-30); Chloride 108 mmol/L (98-107); Glucose 100 mg/dL (74-99); HGB 6.9 gm/dL (13.0-17.5); Sodium 135 mmol/L (137-145)
[2018-12-23 06:50] LABS: Glucose,Whole Blood 127 mg/dL (75-99)
[2018-12-23] MEDS: INSULIN ASPART (NovoLOG) 100 UNIT/ML VIAL SQ SCH ×4 (07:01→21:48)
[2018-12-23] MEDS: METOPROLOL TARTRATE 25 MG TAB PO SCH ×2 (09:36→21:53)
[2018-12-23] MEDS: PANTOPRAZOLE 40 MG/10 ML VIAL IVP SCH ×2 (09:36→21:54)
[2018-12-23] MEDS: DOCUSATE 100 MG CAP PO SCH ×2 (10:01→21:53)
--- NOTE | 2018-12-23 10:23 | P.PN ---
Subjective Progress Note Date: 12/23/18 Principal diagnosis: Acute blood loss anemia and GI bleeding Status post EGD with findings of nonbleeding duodenal ulcer yesterday. Passed a black colored bowel movement this morning. Hemoglobin down to 6.9 this morning receiving 1 unit of blood. BUN 14. Feels well. Afebrile. Denies hematemesis or hematochezia. Objective - Vital Signs Vital signs: Vital Signs Temp 98.3 F 12/23/18 09:54 Pulse 82 12/23/18 09:54 Resp 18 12/23/18 09:54 BP 140/65 12/23/18 09:54 Pulse Ox 98 12/23/18 09:44 Intake & Output 12/22/18 12/23/18 12/23/18 18:59 06:59 18:59 Intake Total 1300 1200 0 Output Total 1272 1040 Balance 28 160 0 Weight 113 kg 117.6 kg Intake: IV 1200 1200 Sodium Chloride 0.9% 1, 1200 1200 000 ml @ 100 mls/hr IV . Q10H JULIA Rx#:[id number] Intake, IV Titration 100 Amount Sodium Chloride 0.9% 1, 100 000 ml @ 100 mls/hr IV . Q10H JULIA Rx#:[id number] Blood Product 0 Rc As-1 Unit 0 [id number] Output: Urine 1272 1040 Other: Voiding Method Indwelling Catheter Indwelling Catheter Indwelling Catheter - Exam General appearance: The patient is alert, oriented, in no acute distress. HET: Head is normocephalic and atraumatic. Pupils are equal and reactive. Oropharynx is clear without lesions. Neck: Supple without lymphadenopathy. Trachea midline. Heart: S1 S2. Regular rate and rhythm. Lungs: No crackles or wheezes are heard. Abdomen: Soft, nontender, nondistended with bowel sounds. No peritoneal signs. No palpable organomegaly or masses. Extremities: Normal skin color and turgor. No cyanosis, rash, ulceration, clubbing, or edema. Radial and pedal pulses are 2/4 bilaterally. Neurological: No focal deficits. Strength and sensation are grossly intact. - Labs CBC & Chem 7: 12/23/18 04:50 12/23/18 04:50 Labs: Abnormal Lab Results - Last 24 Hours (Table) 12/20/18 12/22/18 12/22/18 Range/Units 20:45 04:50 12:02 RBC (4.30-5.90) m/uL Hgb (13.0-17.5) gm/dL Hct (39.0-53.0) % RDW (11.5-15.5) % Retic Count 2.7 H (0.5-2.0) % Sodium (137-145) mmol/L Chloride (98-107) mmol/L Glucose (74-99) mg/dL POC Glucose (mg/dL) 121 H (75-99) mg/dL Calcium (8.4-10.2) mg/dL Crossmatch See Detail 12/22/18 12/22/18 12/23/18 Range/Units 16:44 20:45 04:50 RBC 2.41 L (4.30-5.90) m/uL Hgb 6.9 L* (13.0-17.5) gm/dL Hct 21.0 L (39.0-53.0) % RDW 16.7 H (11.5-15.5) % Retic Count (0.5-2.0) % Sodium (137-145) mmol/L Chloride (98-107) mmol/L Glucose (74-99) mg/dL POC Glucose (mg/dL) 118 H 120 H (75-99) mg/dL Calcium (8.4-10.2) mg/dL Crossmatch 12/23/18 12/23/18 Range/Units 04:50 06:48 RBC (4.30-5.90) m/uL Hgb (13.0-17.5) gm/dL Hct (39.0-53.0) % RDW (11.5-15.5) % Retic Count (0.5-2.0) % Sodium 135 L (137-145) mmol/L Chloride 108 H (98-107) mmol/L Glucose 100 H (74-99) mg/dL POC Glucose (mg/dL) 127 H (75-99) mg/dL Calcium 7.7 L (8.4-10.2) mg/dL Crossmatch Assessment and Plan (1) Duodenal ulcer Current Visit: Yes Status: Acute Code(s): K26.9 - DUODENAL ULCER, UNSP ACUTE OR CHRONIC, W/O HEMOR OR PERF SNOMED Code(s): 95339002 (2) GI bleed Current Visit: Yes Status: Acute Code(s): K92.2 - GASTROINTESTINAL HEMORRHAGE, UNSPECIFIED SNOMED Code(s): 59856779 (3) Acute blood loss anemia Current Visit: Yes Status: Acute Code(s): D62 - ACUTE POSTHEMORRHAGIC ANEMIA SNOMED Code(s): 620718791 (4) History of atrial fibrillation Current Visit: Yes Status: Acute Code(s): Z86.79 - PERSONAL HISTORY OF OTHER DISEASES OF THE CIRCULATORY SYSTEM SNOMED Code(s): 083217174 (5) Hx pulmonary embolism Current Visit: Yes Status: Acute Code(s): Z86.711 - PERSONAL HISTORY OF PULMONARY EMBOLISM SNOMED Code(s): 505572601 Plan: 1. CBC monitoring will check at 1600 after blood transfusion is completed. Protonix 40 mg twice daily. Carafate 1 g twice daily. Clear liquid diet for now. We'll continue to follow closely. Continue to hold anticoagulation. Assessment and plan a care discussed with Dr. Siddiqui
--- NOTE | 2018-12-23 14:00 | NM ---
EXAMINATION TYPE: NM GI bleeding DATE OF EXAM: 12/23/2018 HISTORY: Persistent anemia COMPARISON: NONE Following administration of 3 ml PYP, 26.2 mCi Tc 99m Sodium Pertechnetate labeled red cells was give n intravenously. Immediate images post injection. FINDINGS: Normal tracer activity is seen in the blood pool of the abdominal aorta, common iliac arteries, liver , and spleen on all of the interval images. Later images show accumulation of tracer in the urinary b ladder, which is consistent with excreted tracer. No abnormal tracer uptake is present outside the bl ood pool that would be consistent with an active GI bleed. IMPRESSION: Negative examination. No evidence of active gastrointestinal bleeding. Follow-up as clinically indica sumi if recurrent gastrointestinal bleeding is noted.
--- NOTE | 2018-12-23 14:16 | P.PN ---
Subjective Progress Note Date: 12/23/18 Principal diagnosis: Syncope, acute GI blood loss anemia 63-year-old male patient with previous history of recurrent DVT and pulmonary embolism last bout being in January 2019 and the patient has been on anticoagulation with Eliquis since. The patient came into the hospital after having several syncopal episodes. The patient apparently was at home and she had 2 syncopal episode. He collapsed on the floor and he passed out. He also had a traumatic injury to his left chest area and the area is quite tender at this point in time. He has no recollection. No seizure activity. No jerky body movements. No palpitations. No chest pain. He would wake up immediately following these episodes without having any altered mentation. No focal neurological deficits. He had 2 episodes at home and he had another episode in the hospital. No cardiac arrhythmias have been documented. EKG that was done in the emergency department showed sinus rhythm with frequent P VCs. The patient is quite short of breath. He gets short of breath with limited amount of activity. Moving him to a sitting position, while examination with make him short of breath and he would drop his pressures become tachycardic. I reviewed the CT angios the chest. In comparison to the CAT scan of the chest was done in January 2018, the pulmonary emboli have privileges old and the patient has minimal residual changes/filling defect in the right lower lobe pulmonary artery branch. I would say that the symptoms that he is having is not related to pulmonary embolism nontender the patient has been on anticoagulation patient is improved considerably. D-dimer is at 0.7. O2 sat of cardiac enzymes level of less than 0.012 and a second level of 0.02. Rest of the electrodes are all within normal limits. He is diaphoretic and clammy. He is not having any chest pain. He is having some skeletal chest (probably due to this fall and left-sided chest trauma. CAT scan of the brain was not done. Dopplers were not done. Echocardiogram was not done. I ordered transferring this patient to ICU for intensive monitoring. He is currently on IV heparin. Cardiology consultation will be obtained on an emergent basis. Suspect underlying ischemic heart disease/cardiac arrhythmias underlying the patient's recurrent syncopes and passing out episodes. No swelling lower extremities at this point in time. Hemoglobin is low at 9.3 On today's evaluation of 2018, the patient is in the intensive care unit. The workup thus far has been negative for any cardiopulmonary issues. As mentioned earlier, CT angios the chest was not suggestive of pulmonary embolism. The patient had an echocardiogram that showed no acute abnormalities and he was hyperdynamic. CAT scan of the brain was negative. CAT scan of the abdomen and pelvis was also negative. Overnight, the patient continued to have issues with drop in hemoglobin without any evidence of any external bleeding or ongoing GI bleed. His hemoglobin dropped down to 6.3. At that point, the patient was transfused with 2 units of packed RBC. He had a small bloody stool , yet an upper GI bleeding is suspected knowing that the patient's BNP is also elevated. I consulted gastroenterology and the plan is to proceed with a EGD for tomorrow. Currently he is on a normal saline at the rate of 100 mL an hour. He has some vague abdominal discomfort in the mid abdominal area. He has taken and it states in the past. He is currently on IV fluids at the rate of 100 mL an hour. Hemoglobin was being monitored. No chest pain other than some skeletal chest wall pain at site of his fall along the left chest area. Hematology consultation will be also obtained. No evidence of any hemolysis. Note that, the IV heparin was also discontinued based on the significant drop in hemoglobin. His most recent hemoglobin is at 7.7. A repeat level came back at 7.0. His coagulation profile at time of admission was within normal limits. Reevaluated today on 12/22/2018, patient remains in the intensive care unit, scheduled to undergo EGD today to further evaluate his anemia. Hemoglobin this morning is 7.4, patient received a total of 4 units of packed RBCs since admission. It is felt that his anemia is most likely secondary to GI blood losses unless proven otherwise. Patient is presently asymptomatic, no shortness of breath no cough no wheezing no chest pain. And he is quite comfortable in the ICU. Again EGD is scheduled to be done today. And the patient is hemodynamically stable. Anticoagulations therapy remains on hold. On 12/23/2017 patient seen in follow-up [facility], patient had a small dark-colored bowel movement this morning, today's hemoglobin 6.9, patient is receiving another unit of blood, will be his fifth unit of PRBCs. Hemodynamics remain stable, no fever, slightly lightheaded at times with position change, but no acute distress, no complaints of shortness of breath or chest pain, room air pulse ox 98%. Patient underwent EGD yesterday, with findings of nonbleeding duodenal ulcer. No hematemesis or hematochezia, he is on PPI therapy, tolerating clear liquid diet, anticoagulation remains on hold. Objective - Vital Signs Vital signs: Vital Signs Temp 97.4 F L 12/23/18 10:24 Pulse 68 12/23/18 10:24 Resp 18 12/23/18 10:24 BP 160/69 12/23/18 10:24 Pulse Ox 98 12/23/18 09:44 Intake & Output 12/22/18 12/23/18 12/23/18 18:59 06:59 18:59 Intake Total 1300 1200 310 Output Total 1272 1040 300 Balance 28 160 10 Weight 113 kg 117.6 kg Intake: IV 1200 1200 Sodium Chloride 0.9% 1, 1200 1200 000 ml @ 100 mls/hr IV . Q10H JULIA Rx#:[id number] Intake, IV Titration 100 Amount Sodium Chloride 0.9% 1, 100 000 ml @ 100 mls/hr IV . Q10H JULIA Rx#:[id number] Blood Product 310 Rc As-1 Unit 310 [id number] Output: Urine 1272 1040 300 Other: Voiding Method Indwelling Catheter Indwelling Catheter Indwelling Catheter - Exam GENERAL EXAM: Alert, pleasant, 63-year-old white male comfortable in no apparent distress. HEAD: Normocephalic/atraumatic. EYES: Normal reaction of pupils, equal size. Conjunctiva pink, sclera white. NOSE: Clear with pink turbinates. THROAT: No erythema or exudates. NECK: No masses, no JVD, no thyroid enlargement, no adenopathy. CHEST: No chest wall deformity. Symmetrical expansion. LUNGS: Equal air entry with no crackles, wheeze, rhonchi or dullness. CVS: Regular rate and rhythm, normal S1 and S2, no gallops, no murmurs, no rubs ABDOMEN: Soft, nontender. No hepatosplenomegaly, normal bowel sounds, no guarding or rigidity. EXTREMITIES: No clubbing, no edema, no cyanosis, 2+ pulses and upper and lower extremities. MUSCULOSKELETAL: Muscle strength and tone normal. SPINE: No scoliosis or deformity SKIN: No rashes CENTRAL NERVOUS SYSTEM: Alert and oriented -3. No focal deficits, tone is normal in all 4 extremities. PSYCHIATRIC: Alert and oriented -3. Appropriate affect. Intact judgment and insight. - Labs CBC & Chem 7: 12/23/18 04:50 12/23/18 04:50 Labs: Abnormal Lab Results - Last 24 Hours (Table) 12/20/18 12/22/18 12/22/18 Range/Units 20:45 04:50 16:44 RBC (4.30-5.90) m/uL Hgb (13.0-17.5) gm/dL Hct (39.0-53.0) % RDW (11.5-15.5) % Sodium (137-145) mmol/L Chloride (98-107) mmol/L Glucose (74-99) mg/dL POC Glucose (mg/dL) 118 H (75-99) mg/dL Calcium (8.4-10.2) mg/dL RBC Folate 1,846 H (280 - 791) ng/mL Crossmatch See Detail 12/22/18 12/23/18 12/23/18 Range/Units 20:45 04:50 04:50 RBC 2.41 L (4.30-5.90) m/uL Hgb 6.9 L* (13.0-17.5) gm/dL Hct 21.0 L (39.0-53.0) % RDW 16.7 H (11.5-15.5) % Sodium 135 L (137-145) mmol/L Chloride 108 H (98-107) mmol/L Glucose 100 H (74-99) mg/dL POC Glucose (mg/dL) 120 H (75-99) mg/dL Calcium 7.7 L (8.4-10.2) mg/dL RBC Folate (280 - 791) ng/mL Crossmatch 12/23/18 Range/Units 06:48 RBC (4.30-5.90) m/uL Hgb (13.0-17.5) gm/dL Hct (39.0-53.0) % RDW (11.5-15.5) % Sodium (137-145) mmol/L Chloride (98-107) mmol/L Glucose (74-99) mg/dL POC Glucose (mg/dL) 127 H (75-99) mg/dL Calcium (8.4-10.2) mg/dL RBC Folate (280 - 791) ng/mL Crossmatch Assessment and Plan Plan: Assessment: 1 recurrent bouts of syncope, related to acute GI blood loss anemia. Patient has received a total of 5 units of packed red blood cells since admission, EGD with findings of nonbleeding duodenal ulcer and gastritis. The workup for cardiopulmonary disease has been negative. Cardiac enzymes are nonelevated. Echo is within normal limits. No significant cardiac arrhythmias. The CAT scan of the abdomen and pelvis is also within normal limits. 2 recurrent pulmonary embolism maintained on long-term medical condition with Eliquis, currently off anticoagulation and the patient is also off IV heparin also. 3 hypertension 4 osteoarthritis and chronic back pain 5 chronic eczematous depression 6 acid reflux Plan: Hemodynamic patient remains stable, did receive in the unit of packed red blood cells this morning, he is off anticoagulation. He may need IVC filter placement if there is absolute contraindication to restart anticoagulation. GI service is following, and patient will need clearance from the GI service for anticoagulation. Otherwise no complaints of shortness of breath, chest pain, patient is tolerating ambulation, tolerating clear liquid diet. Continue with current medical treatment I performed a history & physical examination of the patient and discussed their management with my nurse practitioner, Cindi Stanley. I reviewed the nurse practitioner's note and agree with the documented findings and plan of care. Lung sounds are positive for clear breath sounds. The findings and the impression was discussed with the patient. I attest to the documentation by the nurse practitioner. Time with Patient: Less than 30
[2018-12-23] MEDS: LISINOPRIL-HCTZ 10-12.5 MG 1 EACH TAB PO SCH (14:32)
[2018-12-23] MEDS: HYDROcodone/APAP 10-325MG 1 EACH TAB PO PRN (14:32)
[2018-12-23] MEDS: SUCRALFATE 1 GM TAB PO SCH ×2 (14:32→18:06)
[2018-12-23] MEDS: VIT A,C & E-LUTEIN-MINERALS 1 EACH TAB PO SCH (14:37)
[2018-12-23] MEDS: SODIUM CHLORIDE 0.9% 1,000 ML IV SCH ×2 (14:39→21:55)
[2018-12-23 16:16] LABS: Anisocytosis Slight; Basophils # (A) 0.1 k/uL (0-0.2); Basophils % (A) 1 %; Eosinophils # (A) 0.4 k/uL (0-0.7); Eosinophils % (A) 4 %; HCT 25.1 % (39.0-53.0); Lymphocytes # (A) 1.9 k/uL (1.0-4.8); Lymphocytes % (A) 19 %; MCH 29.4 pg (25.0-35.0); MCHC 33.8 g/dL (31.0-37.0); MCV 86.9 fL (80.0-100.0); Mean Platelet Volume 7.1; Monocytes # (A) 0.6 k/uL (0-1.0); Monocytes % (A) 6 %; Neutrophils # (A) 6.9 k/uL (1.3-7.7); Neutrophils % (A) 69 %; Platelet Count 190 k/uL (150-450); RBC 2.89 m/uL (4.30-5.90); RDW 16.5 % (11.5-15.5)
[2018-12-23 16:20] LABS: HGB 8.5 gm/dL (13.0-17.5)
[2018-12-23 16:41] LABS: Glucose,Whole Blood 114 mg/dL (75-99)
--- NOTE | 2018-12-23 18:05 | P.PN ---
Subjective Progress Note Date: 12/23/18 Principal diagnosis: GI bleed Patient underwent EGD earlier yesterday, at that time a nonbleeding duodenal bulb ulcer, was noted with mild gastritis antrum and body by the both were biopsied and duodenum was also biopsied, he has a past medical history of pulmonary embolus 2 for which she was worked up extensively and to this day we haven't found the cause patient had a second pulmonary embolus and it was determined that we will add anticoagulate him with eliquis which incidentally was being held patient was also transfused with I believe a unit of packed red cells on examination was appeared quite stable today 12/23/2018 It appears patient went to radiology to undergo tagged red cell study for possible persistent GI bleeding, the examination was negative with no evidence of gastrointestinal bleeding he was transfused what appears to be a fifth unit packed red blood cells today, hemoglobin is now up to 8.5 patient still complains of mild dizziness appears to be hemodynamically stable, will await tomorrow's hemoglobin and hematocrit Objective - Vital Signs Vital signs: Vital Signs Temp 98.1 F 12/23/18 16:00 Pulse 71 12/23/18 16:00 Resp 18 12/23/18 16:00 BP 133/62 12/23/18 16:00 Pulse Ox 96 12/23/18 16:00 Intake & Output 12/22/18 12/23/18 12/23/18 18:59 06:59 18:59 Intake Total 1300 1200 532 Output Total 1272 1040 1800 Balance 28 160 -1268 Weight 113 kg 117.6 kg Intake: IV 1200 1200 Sodium Chloride 0.9% 1, 1200 1200 000 ml @ 100 mls/hr IV . Q10H JULIA Rx#:[id number] Intake, IV Titration 100 Amount Sodium Chloride 0.9% 1, 100 000 ml @ 100 mls/hr IV . Q10H JULIA Rx#:[id number] Oral 222 Blood Product 310 Rc As-1 Unit 310 [id number] Output: Urine 1272 1040 1800 Uretheral ([place]inter[place]) 900 Other: Voiding Method Indwelling Catheter Indwelling Catheter Toilet Urinal - Exam General: [Patient awake, alert and oriented times 3. Patient in no acute distress.] Slightly pale HEENT: [PERRL. EOMI. No pharyngeal erythema or exudate.] Neck: [No adenopathy.] Cardiac: [Heart regular in rate and rhythm. No S3. No S4. No clicks, rubs. No murmur.] Lungs: [Clear to auscultation bilaterally.] Abdomen: [No mass. No organomegaly. Bowel sounds presnt and normoactive in all 4 quadrants.] Extremes: [No edema no cyanosis no claudication normal pulses] : [] Musculoskeletal: [No joint erythema, edema or tenderness.] Skin: [No rash.] Neurologic: [No lateralizing deficits. CN II - XII grossly intact.] Lymphatic: [No adenopathy.] - Labs CBC & Chem 7: 12/23/18 15:56 12/23/18 04:50 Labs: Abnormal Lab Results - Last 24 Hours (Table) 12/20/18 12/22/18 12/22/18 Range/Units 20:45 04:50 20:45 RBC (4.30-5.90) m/uL Hgb (13.0-17.5) gm/dL Hct (39.0-53.0) % RDW (11.5-15.5) % Sodium (137-145) mmol/L Chloride (98-107) mmol/L Glucose (74-99) mg/dL POC Glucose (mg/dL) 120 H (75-99) mg/dL Calcium (8.4-10.2) mg/dL RBC Folate 1,846 H (280 - 791) ng/mL Crossmatch See Detail 12/23/18 12/23/18 12/23/18 Range/Units 04:50 04:50 06:48 RBC 2.41 L (4.30-5.90) m/uL Hgb 6.9 L* (13.0-17.5) gm/dL Hct 21.0 L (39.0-53.0) % RDW 16.7 H (11.5-15.5) % Sodium 135 L (137-145) mmol/L Chloride 108 H (98-107) mmol/L Glucose 100 H (74-99) mg/dL POC Glucose (mg/dL) 127 H (75-99) mg/dL Calcium 7.7 L (8.4-10.2) mg/dL RBC Folate (280 - 791) ng/mL Crossmatch 12/23/18 12/23/18 Range/Units 15:56 16:39 RBC 2.89 L (4.30-5.90) m/uL Hgb 8.5 L D (13.0-17.5) gm/dL Hct 25.1 L (39.0-53.0) % RDW 16.5 H (11.5-15.5) % Sodium (137-145) mmol/L Chloride (98-107) mmol/L Glucose (74-99) mg/dL POC Glucose (mg/dL) 114 H (75-99) mg/dL Calcium (8.4-10.2) mg/dL RBC Folate (280 - 791) ng/mL Crossmatch Assessment and Plan (1) Anemia Current Visit: Yes Status: Acute Priority: High Code(s): D64.9 - ANEMIA, UNSPECIFIED SNOMED Code(s): 706530799 (2) Dehydration Current Visit: Yes Status: Acute Code(s): E86.0 - DEHYDRATION SNOMED Code( s): 57274912 (3) Elevated glucose Current Visit: Yes Status: Acute Code(s): R73.09 - OTHER ABNORMAL GLUCOSE SNOMED Code(s): 553602506 (4) Hypertension Current Visit: Yes Status: Acute Code(s): I10 - ESSENTIAL (PRIMARY) HYPERTENSION SNOMED Code(s): 84384018 (5) Hyponatremia Current Visit: Yes Status: Acute Code(s): E87.1 - HYPO-OSMOLALITY AND HYPONATREMIA SNOMED Code(s): 08621134 (6) New onset type 2 diabetes mellitus Current Visit: Yes Status: Acute Code(s): E11.9 - TYPE 2 DIABETES MELLITUS WITHOUT COMPLICATIONS SNOMED Code(s): 79395322 Plan: Discussed at length with patient the likelihood that this was stress induced ulcer disease Discussed strategies for reducing life stressors including fci which this patient is eligible for And he feels at this time the financial gain with waiting another year is not worth the risk so in fact that may be the plan after being discharge from the hospital However we are awaiting biopsies and will continue to follow patient may be transferred to [facility] Awaiting input from Cole Kwan as to whether or not patient is able to resume anticoagulant/antiplatelet therapy for recurrent pulmonary embolus as recommended or suggested by Dr. Farley a Vianey filter may be a viable alternative Awaiting further recommendations Time with Patient: Greater than 30
[2018-12-23 21:02] LABS: Glucose,Whole Blood 113 mg/dL (75-99)
[2018-12-23] MEDS: ESCITALOPRAM 20 MG TAB PO SCH (21:54)
[2018-12-24 04:00] LABS: Hemoglobin A1C 5.8 % (4.0-6.0)
[2018-12-24 06:05] LABS: Glucose,Whole Blood 107 mg/dL (75-99)
[2018-12-24] MEDS: INSULIN ASPART (NovoLOG) 100 UNIT/ML VIAL SQ SCH ×4 (06:07→21:30)
[2018-12-24] MEDS: SUCRALFATE 1 GM TAB PO SCH ×2 (06:27→17:32)
[2018-12-24] MEDS: SODIUM CHLORIDE 0.9% 1,000 ML IV SCH ×2 (06:28→17:22)
[2018-12-24 07:09] LABS: Anisocytosis Slight; Basophils % (A) 1 %; Eosinophils # (A) 0.4 k/uL (0-0.7); Eosinophils % (A) 5 %; HCT 25.3 % (39.0-53.0); HGB 8.3 gm/dL (13.0-17.5); Lymphocytes # (A) 1.7 k/uL (1.0-4.8); Lymphocytes % (A) 21 %; MCH 28.1 pg (25.0-35.0); MCHC 32.7 g/dL (31.0-37.0); MCV 86.2 fL (80.0-100.0); Mean Platelet Volume 7.8; Monocytes # (A) 0.4 k/uL (0-1.0); Monocytes % (A) 5 %; Neutrophils # (A) 5.5 k/uL (1.3-7.7); Neutrophils % (A) 67 %; Platelet Count 199 k/uL (150-450); RBC 2.94 m/uL (4.30-5.90); RDW 16.9 % (11.5-15.5); WBC 8.2 k/uL (3.8-10.6)
[2018-12-24 07:26] LABS: Anion Gap 6 mmol/L; Blood Urea Nitrogen 12 mg/dL (9-20); Carbon Dioxide 25 mmol/L (22-30); Chloride 104 mmol/L (98-107); Glucose 101 mg/dL (74-99); Potassium 3.8 mmol/L (3.5-5.1); Sodium 135 mmol/L (137-145)
[2018-12-24] MEDS: DOCUSATE 100 MG CAP PO SCH ×2 (08:19→21:29)
[2018-12-24] MEDS: LISINOPRIL-HCTZ 10-12.5 MG 1 EACH TAB PO SCH (08:26)
[2018-12-24] MEDS: METOPROLOL TARTRATE 25 MG TAB PO SCH ×2 (08:26→21:29)
[2018-12-24] MEDS: PANTOPRAZOLE 40 MG/10 ML VIAL IVP SCH (08:26)
[2018-12-24 11:17] LABS: Glucose,Whole Blood 132 mg/dL (75-99)
[2018-12-24] MEDS: HYDROcodone/APAP 10-325MG 1 EACH TAB PO PRN (11:33)
[2018-12-24] MEDS: VIT A,C & E-LUTEIN-MINERALS 1 EACH TAB PO SCH (11:34)
--- NOTE | 2018-12-24 12:49 | P.PN ---
Subjective Progress Note Date: 12/24/18 Principal diagnosis: Acute blood loss anemia and GI bleeding Status post EGD with findings of nonbleeding duodenal ulcer. Denies hematemesis hematochezia melena. Hemoglobin stable at 8.3. Denies abdominal pain. Tolerating full liquids. BUN 12. Feels well. Afebrile. Objective - Vital Signs Vital signs: Vital Signs Temp 99.1 F 12/24/18 08:17 Pulse 85 12/24/18 08:17 Resp 14 12/24/18 08:17 BP 130/60 12/24/18 08:17 Pulse Ox 95 12/24/18 08:17 Intake & Output 12/23/18 12/24/18 12/24/18 18:59 06:59 18:59 Intake Total 754 720 Output Total 1800 1200 Balance -1046 -480 Weight 112.1 kg Intake: Oral 444 720 Blood Product 310 Rc As-1 Unit 310 [id number] Output: Urine 1800 1200 Uretheral ([place]) 900 Other: Voiding Method Toilet Toilet Urinal Urinal # Voids 3 - Exam General appearance: The patient is alert, oriented, in no acute distress. HET: Head is normocephalic and atraumatic. Pupils are equal and reactive. Oropharynx is clear without lesions. Neck: Supple without lymphadenopathy. Trachea midline. Heart: S1 S2. Regular rate and rhythm. Lungs: No crackles or wheezes are heard. Abdomen: Soft, nontender, nondistended with bowel sounds. No peritoneal signs. No palpable organomegaly or masses. Extremities: Normal skin color and turgor. No cyanosis, rash, ulceration, clubbing, or edema. Radial and pedal pulses are 2/4 bilaterally. Neurological: No focal deficits. Strength and sensation are grossly intact. - Labs CBC & Chem 7: 12/24/18 06:08 12/24/18 06:08 Labs: Abnormal Lab Results - Last 24 Hours (Table) 12/20/18 12/23/18 12/23/18 Range/Units 20:45 15:56 16:39 RBC 2.89 L (4.30-5.90) m/uL Hgb 8.5 L D (13.0-17.5) gm/dL Hct 25.1 L (39.0-53.0) % RDW 16.5 H (11.5-15.5) % Sodium (137-145) mmol/L Glucose (74-99) mg/dL POC Glucose (mg/dL) 114 H (75-99) mg/dL Calcium (8.4-10.2) mg/dL Crossmatch See Detail 12/23/18 12/24/18 12/24/18 Range/Units 21:01 06:04 06:08 RBC 2.94 L (4.30-5.90) m/uL Hgb 8.3 L (13.0-17.5) gm/dL Hct 25.3 L (39.0-53.0) % RDW 16.9 H (11.5-15.5) % Sodium (137-145) mmol/L Glucose (74-99) mg/dL POC Glucose (mg/dL) 113 H 107 H (75-99) mg/dL Calcium (8.4-10.2) mg/dL Crossmatch 12/24/18 12/24/18 Range/Units 06:08 11:15 RBC (4.30-5.90) m/uL Hgb (13.0-17.5) gm/dL Hct (39.0-53.0) % RDW (11.5-15.5) % Sodium 135 L (137-145) mmol/L Glucose 101 H (74-99) mg/dL POC Glucose (mg/dL) 132 H (75-99) mg/dL Calcium 8.0 L (8.4-10.2) mg/dL Crossmatch Assessment and Plan (1) Duodenal ulcer Current Visit: Yes Status: Acute Code(s): K26.9 - DUODENAL ULCER, UNSP ACUTE OR CHRONIC, W/O HEMOR OR PERF SNOMED Code(s): 98097765 (2) GI bleed Current Visit: Yes Status: Acute Code(s): K92.2 - GASTROINTESTINAL HEMORRHAGE, UNSPECIFIED SNOMED Code(s): 18361140 (3) Acute blood loss anemia Current Visit: Yes Status: Acute Code(s): D62 - ACUTE POSTHEMORRHAGIC ANEMIA SNOMED Code(s): 098670011 (4) History of atrial fibrillation Current Visit: Yes Status: Acute Code(s): Z86.79 - PERSONAL HISTORY OF OTHER DISEASES OF THE CIRCULATORY SYSTEM SNOMED Code(s): 705134709 (5) Hx pulmonary embolism Current Visit: Yes Status: Acute Code(s): Z86.711 - PERSONAL HISTORY OF PULMONARY EMBOLISM SNOMED Code(s): 954214424 Plan: 1. CBC daily. Low residue diet. Continue with Carafate and Protonix. From a GI standpoint okay to restart anticoagulant if necessary. Assessment and plan a care discussed with Dr. Siddiqui
--- NOTE | 2018-12-24 13:21 | P.PN ---
Subjective Progress Note Date: 12/24/18 Principal diagnosis: Syncope, acute GI blood loss anemia 63-year-old male patient with previous history of recurrent DVT and pulmonary embolism last bout being in January 2019 and the patient has been on anticoagulation with Eliquis since. The patient came into the hospital after having several syncopal episodes. The patient apparently was at home and she had 2 syncopal episode. He collapsed on the floor and he passed out. He also had a traumatic injury to his left chest area and the area is quite tender at this point in time. He has no recollection. No seizure activity. No jerky body movements. No palpitations. No chest pain. He would wake up immediately following these episodes without having any altered mentation. No focal neurological deficits. He had 2 episodes at home and he had another episode in the hospital. No cardiac arrhythmias have been documented. EKG that was done in the emergency department showed sinus rhythm with frequent P VCs. The p atient is quite short of breath. He gets short of breath with limited amount of activity. Moving him to a sitting position, while examination with make him short of breath and he would drop his pressures become tachycardic. I reviewed the CT angios the chest. In comparison to the CAT scan of the chest was done in January 2018, the pulmonary emboli have privileges old and the patient has minimal residual changes/filling defect in the right lower lobe pulmonary artery branch. I would say that the symptoms that he is having is not related to pulmonary embolism nontender the patient has been on anticoagulation patient is improved considerably. D-dimer is at 0.7. O2 sat of cardiac enzymes level of less than 0.012 and a second level of 0.02. Rest of the electrodes are all within normal limits. He is diaphoretic and clammy. He is not having any chest pain. He is having some skeletal chest (probably due to this fall and left-sided chest trauma. CAT scan of the brain was not done. Dopplers were not done. Echocardiogram was not done. I ordered transferring this patient to ICU for i ntensive monitoring. He is currently on IV heparin. Cardiology consultation will be obtained on an emergent basis. Suspect underlying ischemic heart disease/cardiac arrhythmias underlying the patient's recurrent syncopes and passing out episodes. No swelling lower extremities at this point in time. Hemoglobin is low at 9.3 On today's evaluation of 2018, the patient is in the intensive care unit. The workup thus far has been negative for any cardiopulmonary issues. As mentioned earlier, CT angios the chest was not suggestive of pulmonary embolism. The patient had an echocardiogram that showed no acute abnormalities and he was hyperdynamic. CAT scan of the brain was negative. CAT scan of the abdomen and pelvis was also negative. Overnight, the patient continued to have issues with drop in hemoglobin without any evidence of any external bleeding or ongoing GI bleed. His hemoglobin dropped down to 6.3. At that point, the patient was transfused with 2 units of packed RBC. He had a small bloody stool, yet an upper GI bleeding is suspected knowing that the patient's BNP is also elevated. I consulted gastroenterology and the plan is to proceed with a EGD for tomorrow. Currently he is on a normal saline at the rate of 100 mL an hour. He has some vague abdominal discomfort in the mid abdominal area. He has taken and it states in the past. He is currently on IV fluids at the rate of 100 mL an hour. Hemoglobin was being monitored. No chest pain other than some skeletal chest wall pain at site of his fall along the left chest area. Hematology consultation will be also obtained. No evidence of any hemolysis. Note that, the IV heparin was also discontinued based on the significant drop in hemoglobin. His most recent hemoglobin is at 7.7. A repeat level came back at 7.0. His coagulation profile at time of admission was within normal limits. Reevaluated today on 12/22/2018, patient remains in the intensive care unit, scheduled to undergo EGD today to further evaluate his anemia. Hemoglobin this morning is 7.4, patient received a total of 4 units of packed RBCs since admission. It is felt that his anemia is most likely secondary to GI blood losses unless proven otherwise. Patient is presently asymptomatic, no shortness of breath no cough no wheezing no chest pain. And he is quite comfortable in the ICU. Again EGD is scheduled to be done today. And the patient is hemodynamically stable. Anticoagulations therapy remains on hold. On 12/23/2017 patient seen in follow-up on selective care unit, patient had a small dark-colored bowel movement this morning, today's hemoglobin 6.9, patient is receiving another unit of blood, will be his fifth unit of PRBCs. Hemodynamics remain stable, no fever, slightly lightheaded at times with position change, but no acute distress, no complaints of shortness of breath or chest pain, room air pulse ox 98%. Patient underwent EGD yesterday, with findings of nonbleeding duodenal ulcer. No hematemesis or hematochezia, he is on PPI therapy, tolerating clear liquid diet, anticoagulation remains on hold. On 12/24/2017 patient seen in follow-up on selective care unit, no acute distress, did have some bouts of clear diarrhea, no blood, no melena in the stool, no hematemesis, today's hemoglobin is 8.3. Patient did receive a total of 5 units of packed red blood cells this admission. 0.9 normal saline at a rate of 100 ML per hour, no shortness of breath, no chest pain, experiencing some shortness of breath with ambulation, but no acute distress, room air pulse ox is 95%, she did undergo GI nuclear scan, which did not show any evidence of active gastrointestinal bleeding. Blood pressure stable, no tachycardia, no fever or chills, no abdominal pain. From pulmonary perspective patient is sta ble, been ambulating, tolerating full liquid diet. Objective - Vital Signs Vital signs: Vital Signs Temp 99.1 F 12/24/18 08:17 Pulse 85 12/24/18 08:17 Resp 14 12/24/18 08:17 BP 130/60 12/24/18 08:17 Pulse Ox 95 12/24/18 08:17 Intake & Output 12/23/18 12/24/18 12/24/18 18:59 06:59 18:59 Intake Total 754 942 Output Total 1800 1200 Balance -1046 -258 Weight 112.1 kg Intake: Oral 444 942 Blood Product 310 Rc As-1 Unit 310 [id number] Output: Urine 1800 1200 Uretheral ([place]) 900 Other: Voiding Method Toilet Toilet Urinal Urinal # Voids 3 - Exam GENERAL EXAM: Alert, pleasant, 63-year-old white male comfortable in no apparent distress. HEAD: Normocephalic/atraumatic. EYES: Normal reaction of pupils, equal size. Conjunctiva pink, sclera white. NOSE: Clear with pink turbinates. THROAT: No erythema or exudates. NECK: No masses, no JVD, no thyroid enlargement, no adenopathy. CHEST: No chest wall deformity. Symmetrical expansion. LUNGS: Equal air entry with no crackles, wheeze, rhonchi or dullness. CVS: Regular rate and rhythm, normal S1 and S2, no gallops, no murmurs, no rubs ABDOMEN: Soft, nontender. No hepatosplenomegaly, normal bowel sounds, no guarding or rigidity. EXTREMITIES: No clubbing, no edema, no cyanosis, 2+ pulses and upper and lower extremities. MUSCULOSKELETAL: Muscle strength and tone normal. SPINE: No scoliosis or deformity SKIN: No rashes CENTRAL NERVOUS SYSTEM: Alert and oriented -3. No focal deficits, tone is normal in all 4 extremities. PSYCHIATRIC: Alert and oriented -3. Appropriate affect. Intact judgment and insight. - Labs CBC & Chem 7: 12/24/18 06:08 12/24/18 06:08 Labs: Abnormal Lab Results - Last 24 Hours (Table) 12/20/18 12/23/18 12/23/18 Range/Units 20:45 15:56 16:39 RBC 2.89 L (4.30-5.90) m/uL Hgb 8.5 L D (13.0-17.5) gm/dL Hct 25.1 L (39.0-53.0) % RDW 16.5 H (11.5-15.5) % Sodium (137-145) mmol/L Glucose (74-99) mg/dL POC Glucose (mg/dL) 114 H (75-99) mg/dL Calcium (8.4-10.2) mg/dL Crossmatch See Detail 12/23/18 12/24/18 12/24/18 Range/Units 21:01 06:04 06:08 RBC 2.94 L (4.30-5.90) m/uL Hgb 8.3 L (13.0-17.5) gm/dL Hct 25.3 L (39.0-53.0) % RDW 16.9 H (11.5-15.5) % Sodium (137-145) mmol/L Glucose (74-99) mg/dL POC Glucose (mg/dL) 113 H 107 H (75-99) mg/dL Calcium (8.4-10.2) mg/dL Crossmatch 12/24/18 12/24/18 Range/Units 06:08 11:15 RBC (4.30-5.90) m/uL Hgb (13.0-17.5) gm/dL Hct (39.0-53.0) % RDW (11.5-15.5) % Sodium 135 L (137-145) mmol/L Glucose 101 H (74-99) mg/dL POC Glucose (mg/dL) 132 H (75-99) mg/dL Calcium 8.0 L (8.4-10.2) mg/dL Crossmatch Assessment and Plan Plan: Assessment: 1 recurrent bouts of syncope, related to acute GI blood loss anemia. Patient has received a total of 5 units of packed red blood cells since admission, EGD with findings of nonbleeding duodenal ulcer and gastritis. The workup for cardiopulmonary disease has been negative. Cardiac enzymes are nonelevated. Echo is within normal limits. No significant cardiac arrhythmias. The CAT scan of the abdomen and pelvis is also within normal limits. GI nuclear scan did not show any evidence of active gastrointestinal bleeding 2 recurrent pulmonary embolism maintained on long-term medical condition with Eliquis, currently off anticoagulation and the patient is also off IV heparin also. 3 hypertension 4 osteoarthritis and chronic back pain 5 chronic eczematous depression 6 acid reflux Plan: From pulmonary perspective patient remains stable, no difficulty breathing, no chest pain. Vital signs are stable, we will await recommendation from GI service as to when to restart patient's anticoagulation. I performed a history & physical examination of the patient and discussed their management with my nurse practitioner, Cindi Stanley. I reviewed the nurse practitioner's note and agree with the documented findings and plan of care. Lung sounds are positive for clear breath sounds. The findings and the impression was discussed with the patient. I attest to the documentation by the nurse practitioner. Time with Patient: Less than 30
--- NOTE | 2018-12-24 14:05 | P.PN ---
Subjective Progress Note Date: 12/24/18 Principal diagnosis: GI bleed Patient underwent EGD earlier yesterday, at that time a nonbleeding duodenal bulb ulcer, was noted with mild gastritis antrum and body by the both were biopsied and duodenum was also biopsied, he has a past medical history of pulmonary embolus 2 for which she was worked up extensively and to this day we haven't found the cause patient had a second pulmonary embolus and it was determined that we will add anticoagulate him with eliquis which incidentally was being held patient was also transfused with I believe a unit of packed red cells on examination was appeared quite stable today 12/23/2018 It appears patient went to radiology to undergo tagged red cell study for possible persistent GI bleeding, the examination was negative with no evidence of gastrointestinal bleeding he was transfused what appears to be a fifth unit packed red blood cells today, hemoglobin is now up to 8.5 patient still complains of mild dizziness appears to be hemodynamically stable, will await tomorrow's hemoglobin and hematocrit 12/24/2018 Patient is awake and oriented 3 as stated tagged red cell study yesterday showed no bleeding patient is feeling better she still fatigue weakness hemoglobin was 8.3 tolerating liquids currently hemodynamically stable Objective - Vital Signs Vital signs: Vital Signs Temp 99.1 F 12/24/18 08:17 Pulse 85 12/24/18 08:17 Resp 14 12/24/18 08:17 BP 130/60 12/24/18 08:17 Pulse Ox 95 12/24/18 08:17 Intake & Output 12/23/18 12/24/18 12/24/18 18:59 06:59 18:59 Intake Total 754 942 Output Total 1800 1200 Balance -1046 -258 Weight 112.1 kg Intake: Oral 444 942 Blood Product 310 Rc As-1 Unit 310 [id number] Output: Urine 1800 1200 Uretheral ([place]) 900 Other: Voiding Method Toilet Toilet Urinal Urinal # Voids 3 - Exam General: [Patient awake, alert and oriented times 3. Patient in no acute distress.] Slightly pale HEENT: [PERRL. EOMI. No pharyngeal erythema or exudate.] Neck: [No adenopathy.] Cardiac: [Heart regular in rate and rhythm. No S3. No S4. No clicks, rubs. No murmur.] Lungs: [Clear to auscultation bilaterally.] Abdomen: [No mass. No organomegaly. Bowel sounds presnt and normoactive in all 4 quadrants.] Extremes: [No edema no cyanosis no claudication normal pulses] : [] Musculoskeletal: [No joint erythema, edema or tenderness.] Skin: [No rash.] Neurologic: [No lateralizing deficits. CN II - XII grossly intact.] Lymphatic: [No adenopathy.] - Labs CBC & Chem 7: 12/24/18 06:08 12/24/18 06:08 Labs: Abnormal Lab Results - Last 24 Hours (Table) 12/20/18 12/23/18 12/23/18 Range/Units 20:45 15:56 16:39 RBC 2.89 L (4.30-5.90) m/uL Hgb 8.5 L D (13.0-17.5) gm/dL Hct 25.1 L (39.0-53.0) % RDW 16.5 H (11.5-15.5) % Sodium (137-145) mmol/L Glucose (74-99) mg/dL POC Glucose (mg/dL) 114 H (75-99) mg/dL Calcium (8.4-10.2) mg/dL Crossmatch See Detail 12/23/18 12/24/18 12/24/18 Range/Units 21:01 06:04 06:08 RBC 2.94 L (4.30-5.90) m/uL Hgb 8.3 L (13.0-17.5) gm/dL Hct 25.3 L (39.0-53.0) % RDW 16.9 H (11.5-15.5) % Sodium (137-145) mmol/L Glucose (74-99) mg/dL POC Glucose (mg/dL) 113 H 107 H (75-99) mg/dL Calcium (8.4-10.2) mg/dL Crossmatch 12/24/18 12/24/18 Range/Units 06:08 11:15 RBC (4.30-5.90) m/uL Hgb (13.0-17.5) gm/dL Hct (39.0-53.0) % RDW (11.5-15.5) % Sodium 135 L (137-145) mmol/L Glucose 101 H (74-99) mg/dL POC Glucose (mg/dL) 132 H (75-99) mg/dL Calcium 8.0 L (8.4-10.2) mg/dL Crossmatch Assessment and Plan (1) Anemia Current Visit: Yes Status: Acute Priority: High Code(s): D64.9 - ANEMIA, UNSPECIFIED SNOMED Code(s): 853830709 (2) Dehydration Current Visit: Yes Status: Acute Code(s): E86.0 - DEHYDRATION SNOMED Code( s): 78483145 (3) Elevated glucose Current Visit: Yes Status: Acute Code(s): R73.09 - OTHER ABNORMAL GLUCOSE SNOMED Code(s): 325434517 (4) Hypertension Current Visit: Yes Status: Acute Code(s): I10 - ESSENTIAL (PRIMARY) HYPERTENSION SNOMED Code(s): 03421915 (5) Hyponatremia Current Visit: Yes Status: Acute Code(s): E87.1 - HYPO-OSMOLALITY AND HYPONATREMIA SNOMED Code(s): 92822125 (6) New onset type 2 diabetes mellitus Current Visit: Yes Status: Acute Code(s): E11.9 - TYPE 2 DIABETES MELLITUS WITHOUT COMPLICATIONS SNOMED Code(s): 49168810 Plan: Discussed at length with patient the likelihood that this was stress induced ulcer disease Discussed strategies for reducing life stressors including longterm which this patient is eligible for And he feels at this time the financial gain with waiting another year is not worth the risk so in fact that may be the plan after being discharge from the hospital However we are awaiting biopsies and will continue to follow patient may be transferred to [facility] [place] [facility] Awaiting input from Cole Kwan as to whether or not patient is able to resume anticoagulant/antiplatelet therapy for recurrent pulmonary embolus as recommended or suggested by Dr. Farley a Vina filter may be a viable alternative No dark tarry stool noted Awaiting further recommendations Time with Patient: Greater than 30
--- NOTE | 2018-12-24 15:38 | P.PN ---
Subjective Progress Note Date: 12/24/18 Patient seen and examined this morning, in no acute distress, patient did have some bouts of diarrhea which were clear, no blood, no melena in the stool. His hemoglobin today is 8.3. He did receive a total of 5 units of packed red blood cells during this admission. Continues to be on IV fluids at. He's having some mild shortness of breath when he ambulates but otherwise doing well. He did undergo a GI nuclear scan which did not show evidence of active GI bleeding. Hemodynamically he remains stable. He did have a discussion with the patient regarding placement of a filter, versus discontinuation of Eliquis. Objective - Vital Signs Vital signs: Vital Signs Temp 97.6 F 12/24/18 12:00 Pulse 85 12/24/18 12:00 Resp 16 12/24/18 12:00 BP 132/68 12/24/18 12:00 Pulse Ox 97 12/24/18 12:00 Intake & Output 12/23/18 12/24/18 12/24/18 18:59 06:59 18:59 Intake Total 754 942 Output Total 1800 1200 Balance -1046 -258 Weight 112.1 kg Intake: Oral 444 942 Blood Product 310 Rc As-1 Unit 310 [id number] Output: Urine 1800 1200 Uretheral ([place]) 900 Other: Voiding Method Toilet Toilet Toilet Urinal Urinal Urinal # Voids 3 - Exam GENERAL EXAM: Alert, pleasant, 63-year-old white male comfortable in no apparent distress. HEAD: Normocephalic/atraumatic. EYES: Normal reaction of pupils, equal size. Conjunctiva pink, sclera white. NOSE: Clear with pink turbinates. THROAT: No erythema or exudates. NECK: No masses, no JVD, no thyroid enlargement, no adenopathy. CHEST: No chest wall deformity. Symmetrical expansion. LUNGS: Equal air entry with no crackles, wheeze, rhonchi or dullness. CVS: Regular rate and rhythm, normal S1 and S2, no gallops, no murmurs, no rubs ABDOMEN: Soft, nontender. No hepatosplenomegaly, normal bowel sounds, no guarding or rigidity. EXTREMITIES: No clubbing, no edema, no cyanosis, 2+ pulses and upper and lower extremities. MUSCULOSKELETAL: Muscle strength and tone normal. SPINE: No scoliosis or deformity SKIN: No rashes CENTRAL NERVOUS SYSTEM: Alert and oriented -3. No focal deficits, tone is normal in all 4 extremities. PSYCHIATRIC: Alert and oriented -3. Appropriate affect. Intact judgment and insight. - Labs CBC & Chem 7: 12/24/18 06:08 12/24/18 06:08 Labs: Abnormal Lab Results - Last 24 Hours (Table) 12/20/18 12/23/18 12/23/18 Range/Units 20:45 15:56 16:39 RBC 2.89 L (4.30-5.90) m/uL Hgb 8.5 L D (13.0-17.5) gm/dL Hct 25.1 L (39.0-53.0) % RDW 16.5 H (11.5-15.5) % Sodium (137-145) mmol/L Glucose (74-99) mg/dL POC Glucose (mg/dL) 114 H (75-99) mg/dL Calcium (8.4-10.2) mg/dL Crossmatch See Detail 12/23/18 12/24/18 12/24/18 Range/Units 21:01 06:04 06:08 RBC 2.94 L (4.30-5.90) m/uL Hgb 8.3 L (13.0-17.5) gm/dL Hct 25.3 L (39.0-53.0) % RDW 16.9 H (11.5-15.5) % Sodium (137-145) mmol/L Glucose (74-99) mg/dL POC Glucose (mg/dL) 113 H 107 H (75-99) mg/dL Calcium (8.4-10.2) mg/dL Crossmatch 12/24/18 12/24/18 Range/Units 06:08 11:15 RBC (4.30-5.90) m/uL Hgb (13.0-17.5) gm/dL Hct (39.0-53.0) % RDW (11.5-15.5) % Sodium 135 L (137-145) mmol/L Glucose 101 H (74-99) mg/dL POC Glucose (mg/dL) 132 H (75-99) mg/dL Calcium 8.0 L (8.4-10.2) mg/dL Crossmatch Assessment and Plan Plan: Assessment: 1 recurrent bouts of syncope, related to acute GI blood loss anemia. Patient has received a total of 5 units of packed red blood cells since admission, EGD with findings of nonbleeding duodenal ulcer and gastritis. The workup for cardiopulmonary disease has been negative. Cardiac enzymes are nonelevated. Echo is within normal limits. No significant cardiac arrhythmias. The CAT scan of the abdomen and pelvis is also within normal limits. GI nuclear scan did not show any evidence of active gastrointestinal bleeding 2 recurrent pulmonary embolism maintained on long-term medical condition with Eliquis, currently off anticoagulation and the patient is also off IV heparin also. 3 hypertension 4 osteoarthritis and chronic back pain 5 chronic eczematous depression 6 acid reflux Plan Cardiology's perspective, we will just recommended at this time to continue current medications. DNP note has been reviewed, I agree with a documented findings and plan of care. Patient was seen and examined.
[2018-12-24 16:30] LABS: Glucose,Whole Blood 117 mg/dL (75-99)
[2018-12-24 20:18] LABS: Glucose,Whole Blood 129 mg/dL (75-99)
[2018-12-24] MEDS: PANTOPRAZOLE 40 MG TABLET PO SCH (21:29)
[2018-12-24] MEDS: APIXABAN 2.5 MG TABLET PO SCH (21:29)
[2018-12-24] MEDS: ESCITALOPRAM 20 MG TAB PO SCH (21:29)
--- NOTE | 2018-12-24 22:32 | P.PN ---
Subjective Progress Note Date: 12/24/18 Principal diagnosis: Upper GI bleed while on anticoagulation for PE/DVT In f/u today pt is ambulating, he is still having some dizziness with changing positions, no syncopy, bleeding. He states much improvement in the "burning" in his mid chest/epigastric area Objective - Vital Signs Vital signs: Vital Signs Temp 97.9 F 12/24/18 15:33 Pulse 85 12/24/18 15:33 Resp 16 12/24/18 15:33 BP 133/68 12/24/18 15:33 Pulse Ox 96 12/24/18 15:33 Intake & Output 12/23/18 12/24/18 12/24/18 18:59 06:59 18:59 Intake Total 754 2042 Output Total 1800 1200 Balance -1046 842 Weight 112.1 kg Intake: IV 1100 Sodium Chloride 0.9% 1, 1100 000 ml @ 100 mls/hr IV . Q10H [facility] Rx#:[id number] Oral 444 942 Blood Product 310 Rc As-1 Unit 310 [id number] Output: Urine 1800 1200 Uretheral ([place]) 900 Other: Voiding Method Toilet Toilet Toilet Urinal Urinal Urinal # Voids 3 - Constitutional General appearance: Present: cooperative, no acute distress, obese - EENT Eyes: Present: anicteric sclerae, EOMI ENT: Present: hearing grossly normal - Respiratory Respiratory: bilateral: CTA - Cardiovascular Heart sounds: normal: S1, S2 - Peripheral edema leg Peripheral Edema: bilateral: None - Gastrointestinal General gastrointestinal: Present: normal bowel sounds, soft. Absent: absent bowel sounds, decreased bowel sounds, distended, hepatomegaly, hyperactive bowel sounds, organomegaly, rigid, scaphoid, splenomegaly, tenderness, umbilical hernia, ventral hernia - Integumentary Integumentary: Present: pale - Neurologic Neurologic: Present: CNII-XII intact - Musculoskeletal Musculoskeletal: Present: generalized weakness, strength equal bilaterally - Psychiatric Psychiatric: Present: A&O x's 3, appropriate affect, intact judgment & insight - Labs CBC & Chem 7: 12/24/18 06:08 12/24/18 06:08 Labs: Abnormal Lab Results - Last 24 Hours (Table) 12/20/18 12/23/18 12/24/18 Range/Units 20:45 21:01 06:04 RBC (4.30-5.90) m/uL Hgb (13.0-17.5) gm/dL Hct (39.0-53.0) % RDW (11.5-15.5) % Sodium (137-145) mmol/L Glucose (74-99) mg/dL POC Glucose (mg/dL) 113 H 107 H (75-99) mg/dL Calcium (8.4-10.2) mg/dL Crossmatch See Detail 12/24/18 12/24/18 12/24/18 Range/Units 06:08 06:08 11:15 RBC 2.94 L (4.30-5.90) m/uL Hgb 8.3 L (13.0-17.5) gm/dL Hct 25.3 L (39.0-53.0) % RDW 16.9 H (11.5-15.5) % Sodium 135 L (137-145) mmol/L Glucose 101 H (74-99) mg/dL POC Glucose (mg/dL) 132 H (75-99) mg/dL Calcium 8.0 L (8.4-10.2) mg/dL Crossmatch 12/24/18 Range/Units 16:28 RBC (4.30-5.90) m/uL Hgb (13.0-17.5) gm/dL Hct (39.0-53.0) % RDW (11.5-15.5) % Sodium (137-145) mmol/L Glucose (74-99) mg/dL POC Glucose (mg/dL) 117 H (75-99) mg/dL Calcium (8.4-10.2) mg/dL Crossmatch Assessment and Plan (1) Anemia Narrative/Plan: Hgb stable today, cont CBC monitoring with PRBCs for Hgb<7. Anemia work up not indicative of iron deficiency, no supplement ordered. Current Visit: Yes Status: Acute Priority: High Code(s): D64.9 - ANEMIA, UNSPECIFIED SNOMED Code(s): 422628911 Plan: Discussed case with Dr. White. His recommendation is that if it is felt that gastric ulcer can be treated then close monitoring and resumption of anticoagulation would be the optimal due to pt history of unprovoked DVT. If there are concerns about treatment/healing of the ulcer or if there are concerns for additional ulcers forming then IVC would be necessary to prevent potential future DVT migration to PE. Pt and have been informed of risks and benefits of both methods of treatment.
[2018-12-25] MEDS: SODIUM CHLORIDE 0.9% 1,000 ML IV SCH ×2 (06:04→18:14)
[2018-12-25 06:25] LABS: Glucose,Whole Blood 110 mg/dL (75-99)
[2018-12-25] MEDS: INSULIN ASPART (NovoLOG) 100 UNIT/ML VIAL SQ SCH ×3 (06:32→18:15)
[2018-12-25 06:43] LABS: Anisocytosis Slight; Basophils % (A) 1 %; Eosinophils # (A) 0.5 k/uL (0-0.7); Eosinophils % (A) 7 %; HCT 24.4 % (39.0-53.0); HGB 7.8 gm/dL (13.0-17.5); Lymphocytes # (A) 1.5 k/uL (1.0-4.8); Lymphocytes % (A) 22 %; MCHC 32.1 g/dL (31.0-37.0); MCV 87.2 fL (80.0-100.0); Mean Platelet Volume 7.4; Monocytes # (A) 0.3 k/uL (0-1.0); Monocytes % (A) 4 %; Neutrophils # (A) 4.1 k/uL (1.3-7.7); Neutrophils % (A) 63 %; Platelet Count 195 k/uL (150-450); RDW 16.6 % (11.5-15.5); WBC 6.5 k/uL (3.8-10.6)
[2018-12-25 06:55] LABS: Anion Gap 6 mmol/L; Blood Urea Nitrogen 12 mg/dL (9-20); Calcium 8.2 mg/dL (8.4-10.2); Carbon Dioxide 25 mmol/L (22-30); Chloride 105 mmol/L (98-107); Glucose 98 mg/dL (74-99); Potassium 3.8 mmol/L (3.5-5.1); Sodium 136 mmol/L (137-145)
[2018-12-25] MEDS: SUCRALFATE 1 GM TAB PO SCH ×2 (07:05→18:21)
[2018-12-25] MEDS: HYDROcodone/APAP 10-325MG 1 EACH TAB PO PRN ×2 (07:05→17:14)
[2018-12-25] MEDS: METOPROLOL TARTRATE 25 MG TAB PO SCH (08:41)
[2018-12-25] MEDS: PANTOPRAZOLE 40 MG TABLET PO SCH (08:41)
[2018-12-25] MEDS: APIXABAN 2.5 MG TABLET PO SCH (08:42)
[2018-12-25] MEDS: LISINOPRIL-HCTZ 10-12.5 MG 1 EACH TAB PO SCH (08:43)
--- NOTE | 2018-12-25 11:11 | P.PN ---
Subjective Progress Note Date: 12/25/18 Principal diagnosis: Syncope, acute GI blood loss anemia 63-year-old male patient with previous history of recurrent DVT and pulmonary embolism last bout being in January 2019 and the patient has been on anticoagulation with Eliquis since. The patient came into the hospital after having several syncopal episodes. The patient apparently was at home and she had 2 syncopal episode. He collapsed on the floor and he passed out. He also had a traumatic injury to his left chest area and the area is quite tender at this point in time. He has no recollection. No seizure activity. No jerky body movements. No palpitations. No chest pain. He would wake up immediately following these episodes without having any altered mentation. No focal neurological deficits. He had 2 episodes at home and he had another episode in the hospital. No cardiac arrhythmias have been documented. EKG that was done in the emergency department showed sinus rhythm with frequent P VCs. The p atient is quite short of breath. He gets short of breath with limited amount of activity. Moving him to a sitting position, while examination with make him short of breath and he would drop his pressures become tachycardic. I reviewed the CT angios the chest. In comparison to the CAT scan of the chest was done in January 2018, the pulmonary emboli have privileges old and the patient has minimal residual changes/filling defect in the right lower lobe pulmonary artery branch. I would say that the symptoms that he is having is not related to pulmonary embolism nontender the patient has been on anticoagulation patient is improved considerably. D-dimer is at 0.7. O2 sat of cardiac enzymes level of less than 0.012 and a second level of 0.02. Rest of the electrodes are all within normal limits. He is diaphoretic and clammy. He is not having any chest pain. He is having some skeletal chest (probably due to this fall and left-sided chest trauma. CAT scan of the brain was not done. Dopplers were not done. Echocardiogram was not done. I ordered transferring this patient to ICU for i ntensive monitoring. He is currently on IV heparin. Cardiology consultation will be obtained on an emergent basis. Suspect underlying ischemic heart disease/cardiac arrhythmias underlying the patient's recurrent syncopes and passing out episodes. No swelling lower extremities at this point in time. Hemoglobin is low at 9.3 On today's evaluation of 2018, the patient is in the intensive care unit. The workup thus far has been negative for any cardiopulmonary issues. As mentioned earlier, CT angios the chest was not suggestive of pulmonary embolism. The patient had an echocardiogram that showed no acute abnormalities and he was hyperdynamic. CAT scan of the brain was negative. CAT scan of the abdomen and pelvis was also negative. Overnight, the patient continued to have issues with drop in hemoglobin without any evidence of any external bleeding or ongoing GI bleed. His hemoglobin dropped down to 6.3. At that point, the patient was transfused with 2 units of packed RBC. He had a small bloody stool, yet an upper GI bleeding is suspected knowing that the patient's BNP is also elevated. I consulted gastroenterology and the plan is to proceed with a EGD for tomorrow. Currently he is on a normal saline at the rate of 100 mL an hour. He has some vague abdominal discomfort in the mid abdominal area. He has taken and it states in the past. He is currently on IV fluids at the rate of 100 mL an hour. Hemoglobin was being monitored. No chest pain other than some skeletal chest wall pain at site of his fall along the left chest area. Hematology consultation will be also obtained. No evidence of any hemolysis. Note that, the IV heparin was also discontinued based on the significant drop in hemoglobin. His most recent hemoglobin is at 7.7. A repeat level came back at 7.0. His coagulation profile at time of admission was within normal limits. Reevaluated today on 12/22/2018, patient remains in the intensive care unit, scheduled to undergo EGD today to further evaluate his anemia. Hemoglobin this morning is 7.4, patient received a total of 4 units of packed RBCs since admission. It is felt that his anemia is most likely secondary to GI blood losses unless proven otherwise. Patient is presently asymptomatic, no shortness of breath no cough no wheezing no chest pain. And he is quite comfortable in the ICU. Again EGD is scheduled to be done today. And the patient is hemodynamically stable. Anticoagulations therapy remains on hold. On 12/23/2017 patient seen in follow-up on selective care unit, patient had a small dark-colored bowel movement this morning, today's hemoglobin 6.9, patient is receiving another unit of blood, will be his fifth unit of PRBCs. Hemodynamics remain stable, no fever, slightly lightheaded at times with position change, but no acute distress, no complaints of shortness of breath or chest pain, room air pulse ox 98%. Patient underwent EGD yesterday, with findings of nonbleeding duodenal ulcer. No hematemesis or hematochezia, he is on PPI therapy, tolerating clear liquid diet, anticoagulation remains on hold. On 12/24/2017 patient seen in follow-up on selective care unit, no acute distress, did have some bouts of clear diarrhea, no blood, no melena in the stool, no hematemesis, today's hemoglobin is 8.3. Patient did receive a total of 5 units of packed red blood cells this admission. 0.9 normal saline at a rate of 100 ML per hour, no shortness of breath, no chest pain, experiencing some shortness of breath with ambulation, but no acute distress, room air pulse ox is 95%, she did undergo GI nuclear scan, which did not show any evidence of active gastrointestinal bleeding. Blood pressure stable, no tachycardia, no fever or chills, no abdominal pain. From pulmonary perspective patient is sta ble, been ambulating, tolerating full liquid diet. On 12/25/2018 patient seen in follow-up for elective care unit, no acute distress, there has been no further bleeding, no melena, no hematemesis, vital signs have been stable, yesterday we restarted the patient on oral Eliquis at a reduced dose, 2.5 mg twice daily with permission of the GI service. There has been no bleeding overnight, vital signs remain stable, no syncope, no lightheadedness, patient is tolerating ambulation, no shortness of breath or chest pain, lung sounds are clear to auscultation, today's labs reveal hemoglobin of 7.8, appendectomy was unremarkable. Objective - Vital Signs Vital signs: Vital Signs Temp 98.7 F 12/25/18 08:44 Pulse 84 12/25/18 08:44 Resp 14 12/25/18 08:44 BP 138/58 12/25/18 08:44 Pulse Ox 95 12/25/18 08:44 Intake & Output 12/24/18 12/25/18 12/25/18 18:59 06:59 18:59 Intake Total 2042 480 Output Total 1200 1200 Balance 842 -1200 480 Weight 112.4 kg Intake: IV 1100 Sodium Chloride 0.9% 1, 1100 000 ml @ 100 mls/hr IV . Q10H [facility] Rx#:[id number] Oral 942 480 Output: Urine 1200 1200 Other: Voiding Method Toilet Toilet Toilet Urinal Urinal Urinal # Voids 2 - Exam GENERAL EXAM: Alert, pleasant, 63-year-old white male comfortable in no apparent distress. HEAD: Normocephalic/atraumatic. EYES: Normal reaction of pupils, equal size. Conjunctiva pink, sclera white. NOSE: Clear with pink turbinates. THROAT: No erythema or exudates. NECK: No masses, no JVD, no thyroid enlargement, no adenopathy. CHEST: No chest wall deformity. Symmetrical expansion. LUNGS: Equal air entry with no crackles, wheeze, rhonchi or dullness. CVS: Regular rate and rhythm, normal S1 and S2, no gallops, no murmurs, no rubs ABDOMEN: Soft, nontender. No hepatosplenomegaly, normal bowel sounds, no guarding or rigidity. EXTREMITIES: No clubbing, no edema, no cyanosis, 2+ pulses and upper and lower extremities. MUSCULOSKELETAL: Muscle strength and tone normal. SPINE: No scoliosis or deformity SKIN: No rashes CENTRAL NERVOUS SYSTEM: Alert and oriented -3. No focal deficits, tone is normal in all 4 extremities. PSYCHIATRIC: Alert and oriented -3. Appropriate affect. Intact judgment and insight. - Labs CBC & Chem 7: 12/25/18 06:06 12/25/18 06:06 Labs: Abnormal Lab Results - Last 24 Hours (Table) 12/24/18 12/24/18 12/24/18 Range/Units 11:15 16:28 20:17 RBC (4.30-5.90) m/uL Hgb (13.0-17.5) gm/dL Hct (39.0-53.0) % RDW (11.5-15.5) % Sodium (137-145) mmol/L POC Glucose (mg/dL) 132 H 117 H 129 H (75-99) mg/dL Calcium (8.4-10.2) mg/dL 12/25/18 12/25/18 12/25/18 Range/Units 06:06 06:06 06:24 RBC 2.80 L (4.30-5.90) m/uL Hgb 7.8 L (13.0-17.5) gm/dL Hct 24.4 L (39.0-53.0) % RDW 16.6 H (11.5-15.5) % Sodium 136 L (137-145) mmol/L POC Glucose (mg/dL) 110 H (75-99) mg/dL Calcium 8.2 L (8.4-10.2) mg/dL Assessment and Plan Plan: Assessment: 1 recurrent bouts of syncope, related to acute GI blood loss anemia. Patient has received a total of 5 units of packed red blood cells since admission, EGD with findings of nonbleeding duodenal ulcer and gastritis. The workup for cardiopulmonary disease has been negative. Cardiac enzymes are nonelevated. Echo is within normal limits. No significant cardiac arrhythmias. The CAT scan of the abdomen and pelvis is also within normal limits. GI nuclear scan did not show any evidence of active gastrointestinal bleeding 2 recurrent pulmonary embolism maintained on long-term medical condition with Eliquis, anticoagulation has been resumed at reduced dose with GI service clearance 3 hypertension 4 osteoarthritis and chronic back pain 5 chronic eczematous depression 6 acid reflux Plan: Patient's Eliquis has been restarted, at reduced dose, at 2.5 mg twice daily with GI service clearance. There has been no further bleeding overnight, signs remain stable, no shortness of breath or chest pain, no lightheadedness. From pulmonary perspective patient is stable for discharge home today, he will need outpatient follow-up labs in the next several days for monitoring of his anemia. I performed a history & physical examination of the patient and discussed their management with my nurse practitioner, Cindi Stanley. I reviewed the nurse practitioner's note and agree with the documented findings and plan of care. Lung sounds are positive for clear breath sounds. The findings and the impression was discussed with the patient. I attest to the documentation by the nurse practitioner. Time with Patient: Less than 30
[2018-12-25 11:13] VITALS: RESP 16
[2018-12-25 11:16] LABS: Glucose,Whole Blood 115 mg/dL (75-99)
--- NOTE | 2018-12-25 11:24 | P.PN ---
Subjective Progress Note Date: 12/25/18 Principal diagnosis: Acute blood loss anemia and GI bleeding Status post EGD with findings of nonbleeding duodenal ulcer. Denies hematemesis hematochezia melena. Hemoglobin 7.8. Denies abdominal pain. Tolerating regular. BUN creatinine within normal limits. Feels well. Afebrile. Anticoagulation restarted yesterday. Objective - Vital Signs Vital signs: Vital Signs Temp 98.6 F 12/25/18 11:12 Pulse 80 12/25/18 11:12 Resp 16 12/25/18 11:12 BP 128/72 12/25/18 11:12 Pulse Ox 97 12/25/18 11:12 Intake & Output 12/24/18 12/25/18 12/25/18 18:59 06:59 18:59 Intake Total 2042 480 Output Total 1200 1200 Balance 842 -1200 480 Weight 112.4 kg Intake: IV 1100 Sodium Chloride 0.9% 1, 1100 000 ml @ 100 mls/hr IV . Q10H [facility] Rx#:[id number] Oral 942 480 Output: Urine 1200 1200 Other: Voiding Method Toilet Toilet Toilet Urinal Urinal Urinal # Voids 2 - Exam General appearance: The patient is alert, oriented, in no acute distress. HET: Head is normocephalic and atraumatic. Pupils are equal and reactive. Oropharynx is clear without lesions. Neck: Supple without lymphadenopathy. Trachea midline. Heart: S1 S2. Regular rate and rhythm. Lungs: No crackles or wheezes are heard. Abdomen: Soft, nontender, nondistended with bowel sounds. No peritoneal signs. No palpable organomegaly or masses. Extremities: Normal skin color and turgor. No cyanosis, rash, ulceration, clu bbing, or edema. Radial and pedal pulses are 2/4 bilaterally. Neurological: No focal deficits. Strength and sensation are grossly intact. - Labs CBC & Chem 7: 12/25/18 06:06 12/25/18 06:06 Labs: Abnormal Lab Results - Last 24 Hours (Table) 12/24/18 12/24/18 12/25/18 Range/Units 16:28 20:17 06:06 RBC 2.80 L (4.30-5.90) m/uL Hgb 7.8 L (13.0-17.5) gm/dL Hct 24.4 L (39.0-53.0) % RDW 16.6 H (11.5-15.5) % Sodium (137-145) mmol/L POC Glucose (mg/dL) 117 H 129 H (75-99) mg/dL Calcium (8.4-10.2) mg/dL 12/25/18 12/25/18 12/25/18 Range/Units 06:06 06:24 11:15 RBC (4.30-5.90) m/uL Hgb (13.0-17.5) gm/dL Hct (39.0-53.0) % RDW (11.5-15.5) % Sodium 136 L (137-145) mmol/L POC Glucose (mg/dL) 110 H 115 H (75-99) mg/dL Calcium 8.2 L (8.4-10.2) mg/dL Assessment and Plan (1) Duodenal ulcer Current Visit: Yes Status: Acute Code(s): K26.9 - DUODENAL ULCER, UNSP ACUTE OR CHRONIC, W/O HEMOR OR PERF SNOMED Code(s): 07342410 (2) GI bleed Current Visit: Yes Status: Acute Code(s): K92.2 - GASTROINTESTINAL HEMORRHAGE, UNSPECIFIED SNOMED Code(s): 75400262 (3) Acute blood loss anemia Current Visit: Yes Status: Acute Code(s): D62 - ACUTE POSTHEMORRHAGIC ANEMIA SNOMED Code(s): 024225279 (4) History of atrial fibrillation Current Visit: Yes Status: Acute Code(s): Z86.79 - PERSONAL HISTORY OF OTHER DISEASES OF THE CIRCULATORY SYSTEM SNOMED Code(s): 616119397 (5) Hx pulmonary embolism Current Visit: Yes Status: Acute Code(s): Z86.711 - PERSONAL HISTORY OF PULMONARY EMBOLISM SNOMED Code(s): 175739645 Plan: 1. Continue present medical therapy. Discharge per medicine consult staff. Protonix 40 mg daily. Carafate 1 g before meals twice a day additional 2 weeks after discharge. Return to office in 2-3 weeks. Assessment and plan a care discussed with Dr. Siddiqui
[2018-12-25] MEDS ORDERED: SODIUM FERRIC GLUCONAT-SUCROSE 125 MG in SODIUM CHLORIDE 0.9% 100 ML IVPB ONE ×2 (12:56→13:30)
--- NOTE | 2018-12-25 13:06 | P.PN ---
Subjective Progress Note Date: 12/25/18 Patient seen and examined this morning, in no acute distress, patient did have some bouts of diarrhea which were clear, no blood, no melena in the stool. His hemoglobin today is 8.3. He did receive a total of 5 units of packed red blood cells during this admission. Continues to be on IV fluids at. He's having some mild shortness of breath when he ambulates but otherwise doing well. He did undergo a GI nuclear scan which did not show evidence of active GI bleeding. Hemodynamically he remains stable. He did have a discussion with the patient regarding placement of a filter, versus discontinuation of Eliquis. 12/25/2018 Patient was seen and examined this morning, feeling well overall. Hemoglobin 7.8 today, platelet count 195, sodium 136, potassium 3.8, BUN 12 and creatinine 0.8. Patient has been initiated on 2-1/2 mg of Eliquis at by mouth twice a day, by pulmonary, if he has no issues with bleeding on this this we'll continue, if he continues to have drop in hemoglobin he may require filter. Objective - Vital Signs Vital signs: Vital Signs Temp 98.6 F 12/25/18 11:12 Pulse 80 12/25/18 11:12 Resp 16 12/25/18 11:12 BP 128/72 12/25/18 11:12 Pulse Ox 97 12/25/18 11:12 Intake & Output 12/24/18 12/25/18 12/25/18 18:59 06:59 18:59 Intake Total 2042 480 Output Total 1200 1200 Balance 842 -1200 480 Weight 112.4 kg Intake: IV 1100 Sodium Chloride 0.9% 1, 1100 000 ml @ 100 mls/hr IV . Q10H [facility] Rx#:[id number] Oral 942 480 Output: Urine 1200 1200 Other: Voiding Method Toilet Toilet Toilet Urinal Urinal Urinal # Voids 2 1 - Exam GENERAL EXAM: Alert, pleasant, 63-year-old white male comfortable in no apparent distress. HEAD: Normocephalic/atraumatic. EYES: Normal reaction of pupils, equal size. Conjunctiva pink, sclera white. NOSE: Clear with pink turbinates. THROAT: No erythema or exudates. NECK: No masses, no JVD, no thyroid enlargement, no adenopathy. CHEST: No chest wall deformity. Symmetrical expansion. LUNGS: Equal air entry with no crackles, wheeze, rhonchi or dullness. CVS: Regular rate and rhythm, normal S1 and S2, no gallops, no murmurs, no rubs ABDOMEN: Soft, nontender. No hepatosplenomegaly, normal bowel sounds, no guarding or rigidity. EXTREMITIES: No clubbing, no edema, no cyanosis, 2+ pulses and upper and lower extremities. MUSCULOSKELETAL: Muscle strength and tone normal. SPINE: No scoliosis or deformity SKIN: No rashes CENTRAL NERVOUS SYSTEM: Alert and oriented -3. No focal deficits, tone is normal in all 4 extremities. PSYCHIATRIC: Alert and oriented -3. Appropriate affect. Intact judgment and insight. - Labs CBC & Chem 7: 12/25/18 06:06 12/25/18 06:06 Labs: Abnormal Lab Results - Last 24 Hours (Table) 12/24/18 12/24/18 12/25/18 Range/Units 16:28 20:17 06:06 RBC 2.80 L (4.30-5.90) m/uL Hgb 7.8 L (13.0-17.5) gm/dL Hct 24.4 L (39.0-53.0) % RDW 16.6 H (11.5-15.5) % Sodium (137-145) mmol/L POC Glucose (mg/dL) 117 H 129 H (75-99) mg/dL Calcium (8.4-10.2) mg/dL 12/25/18 12/25/18 12/25/18 Range/Units 06:06 06:24 11:15 RBC (4.30-5.90) m/uL Hgb (13.0-17.5) gm/dL Hct (39.0-53.0) % RDW (11.5-15.5) % Sodium 136 L (137-145) mmol/L POC Glucose (mg/dL) 110 H 115 H (75-99) mg/dL Calcium 8.2 L (8.4-10.2) mg/dL Assessment and Plan Plan: Assessment: 1 recurrent bouts of syncope, related to acute GI blood loss anemia. Patient has received a total of 5 units of packed red blood cells since admission, EGD with findings of nonbleeding duodenal ulcer and gastritis. The workup for cardiopulmonary disease has been negative. Cardiac enzymes are nonelevated. Echo is within normal limits. No significant cardiac arrhythmias. The CAT scan of the abdomen and pelvis is also within normal limits. GI nuclear scan did not show any evidence of active gastrointestinal bleeding 2 recurrent pulmonary embolism maintained on long-term medical condition with Eliquis, currently off anticoagulation and the patient is also off IV heparin also. 3 hypertension 4 osteoarthritis and chronic back pain 5 chronic eczematous depression 6 acid reflux Plan Cardiology's perspective, patient may be discharged once cleared by primary. We will make him a follow-up appointment to see Dr. Wallace in the office post discharge. DNP note has been reviewed, I agree with a documented findings and plan of care. Patient was seen and examined.
[2018-12-25] MEDS: DOCUSATE 100 MG CAP PO SCH (14:57)
[2018-12-25] MEDS: VIT A,C & E-LUTEIN-MINERALS 1 EACH TAB PO SCH (15:10)
[2018-12-25 15:47] VITALS: BP 132/64; PULSE 70; TEMP 97.1
[2018-12-25 16:21] LABS: Glucose,Whole Blood 114 mg/dL (75-99)
--- NOTE | 2018-12-25 18:24 | P.DS ---
Providers Date of admission: 12/20/18 13:37 Expected date of discharge: 12/25/18 Attending physician: Theo Reid Consults: 12/20/18 06:24 Consult Physician Routine Consulting Provider: Mamadou Washington Consult Reason/Comments: acute PE Do you want consulting provider notified?: Yes 12/20/18 11:59 Consult Physician Urgent Consulting Provider: Tye Wallace Consult Reason/Comments: Syncope/SOB Do you want consulting provider notified?: Yes 12/21/18 08:59 Consult Physician Routine Consulting Provider: Berto Story Consult Reason/Comments: drop in Hgb Do you want consulting provider notified?: Yes 12/21/18 09:01 Consult Physician Routine Consulting Provider: Aicha Villegas Consult Reason/Comments: drop in Hgb possible GI bleed Do you want consulting provider notified?: Yes Primary care physician: Theo Reid - Discharge Diagnosis(es) (1) Anemia Patient was admitted with GI bleed General: [Patient awake, alert and oriented times 3. Patient in no acute distress.] HEENT: [PERRL. EOMI. No pharyngeal erythema or exudate.] Neck: [No adenopathy.] Cardiac: [Heart regular in rate and rhythm. No S3. No S4. No clicks, rubs. No murmur.] Lungs: [Clear to auscultation bilaterally.] Abdomen: [No mass. No organomegaly. Bowel sounds presnt and normoactive in all 4 quadrants.] Extremes: [No edema no cyanosis no claudication normal pulses] : [] Musculoskeletal: [No joint erythema, edema or tenderness.] Skin: [No rash.] Neurologic: [No lateralizing deficits. CN II - XII grossly intact.] Lymphatic: [No adenopathy.] Current Visit: Yes Status: Acute Priority: High (2) Dehydration Current Visit: Yes Status: Acute (3) Elevated glucose Current Visit: Yes Status: Acute (4) Hypertension Current Visit: Yes Status: Acute (5) Hyponatremia Current Visit: Yes Status: Acute (6) New onset type 2 diabetes mellitus Current Visit: Yes Status: Acute Patient Condition at Discharge: Fair Plan - Discharge Summary Discharge Rx Participant: Yes New Discharge Prescriptions: No Action Lisinopril-Hctz 10-12.5 mg [Zestoretic 10-12.5] 1 tab PO DAILY Multivitamins, Thera [Multivitamin (formulary)] 1 tab PO DAILY HYDROcodone/APAP 10-325MG [[place] 10-325] 1 tab PO TID PRN PRN Reason: Pain Escitalopram [Lexapro] 20 mg PO HS Ascorbic Acid [Vitamin C] 1,000 mg PO DAILY Apixaban [Eliquis] 5 mg PO BID Vits A,C,E/Lutein/Minerals [Ocuvite with Lutein Tablet] 1 tab PO DAILY Melatonin 10 mg PO HS PRN PRN Reason: Insomnia Lansoprazole [Prevacid] 30 mg PO DAILY Discharge Medication List Lisinopril-Hctz 10-12.5 mg [Zestoretic 10-12.5] 1 tab PO DAILY 03/28/15 [History] Ascorbic Acid [Vitamin C] 1,000 mg PO DAILY 01/08/17 [History] Escitalopram [Lexapro] 20 mg PO HS 01/08/17 [History] HYDROcodone/APAP 10-325MG [[place] 10-325] 1 tab PO TID PRN 01/08/17 [History] Multivitamins, Thera [Multivitamin (formulary)] 1 tab PO DAILY 01/08/17 [History] Apixaban [Eliquis] 5 mg PO BID 01/28/18 [History] Melatonin 10 mg PO HS PRN 01/28/18 [History] Vits A,C,E/Lutein/Minerals [Ocuvite with Lutein Tablet] 1 tab PO DAILY 01/28/18 [History] Lansoprazole [Prevacid] 30 mg PO DAILY 12/20/18 [History] Follow up Appointment(s)/Referral(s): Dalton White MD [STAFF PHYSICIAN] - 1 Week (CBC follow up, plan for weekly labs draws for 4-6 weeks) Mamadou Washington DO [Doctor of Osteopathic Medicine] - 01/13/19 8:30 am Theo Reid MD [Primary Care Provider] - 12/31/18 11:30 am (Saturday with Steffi MONTAGUE) Edy Siddiqui MD [STAFF PHYSICIAN] - 01/21/19 1:30 pm (Metal Inspector.) Patient Instructions/Handouts: Pulmonary Embolism (DC), Gastritis (DC), Diet for Stomach Ulcers and Gastritis (ED), Safe Use of Anticoagulants (DC)
--- NOTE | 2018-12-25 21:15 | P.PN ---
Subjective Progress Note Date: 12/25/18 The pt denied any new s/s. No CP/SOB/obvious bleeding/n/v/f/c. He still fatigues easily. Objective - Vital Signs Vital signs: Vital Signs Temp 97.1 F L 12/25/18 15:46 Pulse 70 12/25/18 15:46 Resp 16 12/25/18 15:46 BP 132/64 12/25/18 15:46 Pulse Ox 97 12/25/18 11:12 Intake & Output 12/25/18 12/25/18 12/26/18 06:59 18:59 06:59 Intake Total 2040 Output Total 1200 Balance -1200 2040 Weight 112.4 kg Intake: Intake, IV Titration 200 Amount Sodium Chloride 0.9% 1, 100 000 ml @ 100 mls/hr IV . Q10H [facility] Rx#:[id number] Sodium Ferric Gluconat- 100 Sucrose 125 mg In Sodium Chloride 0.9% 100 ml @ 100 mls/hr IVPB ONCE ONE Rx#:[id number] Oral 1840 Output: Urine 1200 Other: Voiding Method Toilet Toilet Urinal Urinal # Voids 2 1 - Constitutional General appearance: Present: no acute distress - EENT Eyes: Present: EOMI ENT: Present: hearing grossly normal, normal oropharynx - Respiratory Respiratory: - Cardiovascular Rhythm: regular Heart sounds: - Gastrointestinal General gastrointestinal: Present: normal bowel sounds, soft - Integumentary Integumentary: Present: normal - Neurologic Neurologic: Present: CNII-XII intact - Musculoskeletal Musculoskeletal: Present: strength equal bilaterally - Psychiatric Psychiatric: Present: A&O x's 3, appropriate affect - Labs CBC & Chem 7: 12/25/18 06:06 12/25/18 06:06 Labs: Abnormal Lab Results - Last 24 Hours (Table) 12/25/18 12/25/18 12/25/18 Range/Units 06:06 06:06 06:24 RBC 2.80 L (4.30-5.90) m/uL Hgb 7.8 L (13.0-17.5) gm/dL Hct 24.4 L (39.0-53.0) % RDW 16.6 H (11.5-15.5) % Sodium 136 L (137-145) mmol/L POC Glucose (mg/dL) 110 H (75-99) mg/dL Calcium 8.2 L (8.4-10.2) mg/dL 12/25/18 12/25/18 Range/Units 11:15 16:17 RBC (4.30-5.90) m/uL Hgb (13.0-17.5) gm/dL Hct (39.0-53.0) % RDW (11.5-15.5) % Sodium (137-145) mmol/L POC Glucose (mg/dL) 115 H 114 H (75-99) mg/dL Calcium (8.4-10.2) mg/dL Assessment and Plan (1) Acute blood loss anemia Narrative/Plan: Due to duodenal ulcer, and ongoing anticoagulation. No active bleeding noted. Hgb is fairly stable. Start IV iron Current Visit: Yes Status: Acute Code(s): D62 - ACUTE POSTHEMORRHAGIC ANEMIA SNOMED Code(s): 491020470 (2) Duodenal ulcer Narrative/Plan: On aggressive treatment per GI with PPI and carafate. No active bleeding noted on EGD Current Visit: Yes Status: Acute Code(s): K26.9 - DUODENAL ULCER, UNSP ACUTE OR CHRONIC, W/O HEMOR OR PERF SNOMED Code(s): 91706202 (3) Hx pulmonary embolism Narrative/Plan: Pt has been recommended lifelong anticoagulation for his h/o unprovoked , recurrent PE. The current situation is obviously complicated by his GI bleed. Management options include following, and were discussed in detail with the patient: - Cessation of anticoagulation for a few weeks with resumption if hemoglobin remains stable. Given his history, this would place him at significant risk for recurrent PE. - Placement of an IVC filter. It is well documented, that permanent IVC filters are not reliable after about a year, with essentially similar rates of recurrent thrombosis versus patients will have filters, as well as increased risk of filter related complications. Placement of a temporary, removable filter for a few weeks is reasonable to consider, till anticoagulation can be resumed. However removable filter placement and removal is not available locally, and would require referral to an outside institution. If the patient is not actively bleeding, they may not choose to do the filter anyway. Based on our discussion the patient is less inclined for this - Resumption of anticoagulation. The patient has chosen the same, which is reasonable in my opinion. He has a known source of bleeding, which is being actively treated. At the time of his EGD, no active bleeding was noted, and hemoglobin has been fairly stable since. He is on the lower eliquis dose, which has been documented to have lower bleeding risk compared to the standard dose, and has good effectiveness in preventing recurrent thrombus, versus placebo. Therefore, continue eliquis at the current dose. He will be monitored closely as an outpatient, with blood draws every week. Current Visit: Yes Status: Acute Code(s): Z86.711 - PERSONAL HISTORY OF PULMONARY EMBOLISM SNOMED Code(s): 168502835 Plan: Okay for discharge from our standpoint, whenever felt to be appropriate per the admitting service
[2018-12-26] MEDS ORDERED: SUCRALFATE 1 GM TAB PO SCH (07:30)
[2018-12-26] MEDS ORDERED: ASCORBIC ACID 500 MG TAB PO SCH (12:00)
[2018-12-26] MEDS ORDERED: MULTIVITAMINS, THERA 1 EACH TAB PO SCH (12:00)
== END 2018-12-25 18:11 | disposition home or self-care (01) | DRG 377 ==
LOC: EC 02:17 → 3NMEDONC 06:24 → 2SICU 12:24 → OBSVTOIN 13:37 → 3SCARD 12-23 07:44
PROVIDERS: ADMIT Family Medicine; ATTEND Family Medicine
PROC: 30233N1 Transfusion of Nonautologous Red Blood Cells into Peripheral Vein, Percutaneous Approach (ICD-10-PCS; 2018-12-21)
PROC: 0DB78ZX Excision of Stomach, Pylorus, Via Natural or Artificial Opening Endoscopic, Diagnostic (ICD-10-PCS; 2018-12-22)
PROC: 0DB98ZX Excision of Duodenum, Via Natural or Artificial Opening Endoscopic, Diagnostic (ICD-10-PCS; principal; 2018-12-22 07:45)
DX: K26.4 Chronic or unspecified duodenal ulcer with hemorrhage (principal); I26.99 Other pulmonary embolism without acute cor pulmonale; D62 Acute posthemorrhagic anemia; E87.1 Hypo-osmolality and hyponatremia; S22.32XA Fracture of one rib, left side, initial encounter for closed fracture; I95.9 Hypotension, unspecified; I48.91 Unspecified atrial fibrillation; E11.65 Type 2 diabetes mellitus with hyperglycemia; K29.71 Gastritis, unspecified, with bleeding; M19.90 Unspecified osteoarthritis, unspecified site; K21.9 Gastro-esophageal reflux disease without esophagitis; I10 Essential (primary) hypertension; G89.29 Other chronic pain; M54.9 Dorsalgia, unspecified; F32.9 Major depressive disorder, single episode, unspecified; I49.3 Ventricular premature depolarization; E86.0 Dehydration; R00.0 Tachycardia, unspecified; R94.4 Abnormal results of kidney function studies; W18.30XA Fall on same level, unspecified, initial encounter; Z79.01 Long term (current) use of anticoagulants; Z79.899 Other long term (current) drug therapy; Z87.11 Personal history of peptic ulcer disease; Z87.891 Personal history of nicotine dependence
CPT/HCPCS: 36415; 43239; 70450; 71045; 71275; 74176; 78278; 80048; 80053; 80061; 81003; 82272; 82607; 82728; 82747; 83010; 83036; 83540; 83550; 83615; 83735; 84100; 84484; 85025; 85027; 85045; 85379; 85610; 85730; 86850; 86900; 86901; 86920; 88305; 93005; 93306; 93880; 93970; 96365; 96366; 96376; 99285

== ENCOUNTER 2018-12-29 14:24 | Emergency (ER) | payer BC ==
[2018-12-29 14:43] VITALS: TEMP 98.9
[2018-12-29] MEDS ORDERED: SODIUM CHLORIDE 0.9% 500 ML 500 ML IV STA ×3 (16:03→17:07)
[2018-12-29] MEDS ORDERED: SODIUM CHLORIDE 0.9% 1,000 ML IV STA (16:26)
--- NOTE | 2018-12-29 16:30 | ED ---
Recheck HPI - General Chief Complaint: Recheck/Abnormal Lab/Rx Stated Complaint: AMEILA Time Seen by Provider: 12/29/18 15:38 Source: patient, RN notes reviewed Mode of arrival: ambulatory Limitations: no limitations - History of Present Illness Initial Comments: This is a 63-year-old male with a recent admission for GI bleed from a stomach ulcer who did receive 5 units of blood while he was in the hospital who is now been home for several days that has had progressively worsening exertional dyspnea. He denies any chest pain fevers chills nausea vomiting sweats he denies any bleeding no black tarry stools no red stools. No other complaints other than the above. He was concerned that he was anemic again. He apparently did have an episode this morning where he looked pale. No other modifying factors at this time - Related Data Home Medications Medication Instructions Recorded Confirmed Lisinopril-Hctz 10-12.5 mg 1 tab PO DAILY 03/28/15 12/29/18 [Zestoretic 10-12.5] Ascorbic Acid [Vitamin C] 1,000 mg PO HS 01/08/17 12/29/18 Escitalopram [Lexapro] 20 mg PO HS 01/08/17 12/29/18 HYDROcodone/APAP 10-325MG [[place] 1 tab PO TID PRN 01/08/17 12/29/18 10-325] Multivitamins, Thera [Multivitamin 1 tab PO HS 01/08/17 12/29/18 (formulary)] Melatonin 10 mg PO HS PRN 01/28/18 12/29/18 Vits A,C,E/Lutein/Minerals 1 tab PO HS 01/28/18 12/29/18 [Ocuvite with Lutein Tablet] Amitriptyline HCl [Elavil] 25 mg PO HS 12/29/18 12/29/18 Apixaban [Eliquis] 2.5 mg PO DAILY 12/29/18 12/29/18 Previous Rx's Medication Instructions Recorded Pantoprazole Sodium [Protonix] 40 mg PO AC-BID #60 tablet. 12/25/18 Sucralfate [Carafate] 1 gm PO BID #60 ml 12/25/18 Ipratropium/Albuterol Sulfate 2 puff INHALATION QID #1 inhaler 12/29/18 [Combivent Respimat Inhaler] Allergies Allergy/AdvReac Type Severity Reaction Status Date / Time No Known Allergies Allergy Verified 12/29/18 15:32 Review of Systems ROS Statement: Those systems with pertinent positive or pertinent negative responses have been documented in the HPI. ROS Other: All systems not noted in ROS Statement are negative. Past Medical History Past Medical History: GERD/Reflux, Hypertension, Osteoarthritis (OA), Pulmonary Embolus (PE) Additional Past Medical History / Comment(s): CHRONIC BACK PAIN, recurrent pulmonary embolism the first episode was around 2-1/2 years ago and the patient was treated with anticoagulation and then discontinued and subsequently he had another episode in 2018 and since then has been on anticoagulation History of Any Multi-Drug Resistant Organisms: None Reported Past Surgical History: Hernia Repair, Orthopedic Surgery Additional Past Surgical History / Comment(s): ALBERT SHOULDERS right rotator cuff/ left tendon damage, LEFT CARPAL TUNNEL, Past Anesthesia/Blood Transfusion Reactions: No Reported Reaction Past Psychological History: Depression Smoking Status: Former smoker Past Alcohol Use History: None Reported Past Drug Use History: None Reported - Past Family History Mother Family Medical History: No Reported History General Exam - General Exam Comments Initial Comments: This is a well-developed well-nourished awake alert oriented 3 male Limitations: no limitations General appearance: alert, in no apparent distress Head exam: Present: atraumatic, normocephalic, normal inspection Eye exam: Present: normal appearance, PERRL, EOMI. Absent: scleral icterus, conjunctival injection, periorbital swelling ENT exam: Present: normal exam, mucous membranes moist Neck exam: Present: normal inspection. Absent: tenderness, meningismus, lymphadenopathy Respiratory exam: Present: normal lung sounds bilaterally. Absent: respiratory distress, wheezes, rales, rhonchi, stridor Cardiovascular Exam: Present: regular rate, normal rhythm, normal heart sounds. Absent: systolic murmur, diastolic murmur, rubs, gallop, clicks GI/Abdominal exam: Present: soft, normal bowel sounds. Absent: distended, tenderness, guarding, rebound, rigid Rectal exam: Present: deferred Extremities exam: Present: normal inspection, full ROM, normal capillary refill. Absent: tenderness, pedal edema, joint swelling, calf tenderness Back exam: Present: normal inspection Neurological exam: Present: alert, oriented X3, CN II-XII intact Psychiatric exam: Present: normal affect, normal mood Skin exam: Present: warm, dry, intact, pallor. Absent: rash Course Vital Signs 12/29/18 12/29/18 12/29/18 14:37 15:44 17:00 Temperature 98.9 F Pulse Rate 83 75 65 Respiratory 18 18 14 Rate Blood Pressure 98/52 100/56 107/49 O2 Sat by Pulse 98 98 100 Oximetry 12/29/18 18:00 Temperature Pulse Rate 67 Respiratory 12 Rate Blood Pressure 116/52 O2 Sat by Pulse 98 Oximetry - Reevaluation(s) Reevaluation #1: 12/29/18 18:07 Repeat examination patient reveals no symptoms at this time resting comfortably pulse ox 100% sinus rhythm on monitor I did discuss case with Dr. Chandra patient be discharged he is a follow-up tomorrow in the office patient will be placed on an inhaler to be used when necessary he does a long history of smoking and the glass dust exposure. Reevaluation #2: 12/29/18 18:08 environmental monitoring specialist: environmental monitoring specialist indicated due to exertional dyspnea to rule out dysrhythmia. Patient's heart rate was 84 minus examination. No evidence of dysrhythmia noted. No ST-T wave abnormalities seen. Medical Decision Making - Medical Decision Making I did discuss findings with patient family patient presenting with exertional dyspnea. Patient had an extensive workup for PE as well as treatment for the anemia that he had on his last admission. The case was discussed with Dr. Chandra patient will follow up tomorrow in the office he will be placed on an inhaler. - Lab Data Result diagrams: 12/29/18 14:58 12/29/18 14:58 Lab Results 12/29/18 12/29/18 12/29/18 Range/Units 14:58 14:58 14:58 WBC 7.8 (3.8-10.6) k/uL RBC 3.34 L (4.30-5.90) m/uL Hgb 9.2 L (13.0-17.5) gm/dL Hct 29.1 L (39.0-53.0) % MCV 86.9 (80.0-100.0) fL MCH 27.4 (25.0-35.0) pg MCHC 31.5 (31.0-37.0) g/dL RDW 15.7 H (11.5-15.5) % Plt Count 335 (150-450) k/uL Neutrophils % 58 % Lymphocytes % 26 % Monocytes % 7 % Eosinophils % 7 % Basophils % 1 % Neutrophils # 4.5 (1.3-7.7) k/uL Lymphocytes # 2.0 (1.0-4.8) k/uL Monocytes # 0.6 (0-1.0) k/uL Eosinophils # 0.5 (0-0.7) k/uL Basophils # 0.1 (0-0.2) k/uL Hypochromasia Slight Poikilocytosis Slight PT (9.0-12.0) sec INR (<1.2) APTT (22.0-30.0) sec D-Dimer (<0.60) mg/L FEU Sodium 136 L (137-145) mmol/L Potassium 4.6 (3.5-5.1) mmol/L Chloride 103 (98-107) mmol/L Carbon Dioxide 23 (22-30) mmol/L Anion Gap 10 mmol/L BUN 18 (9-20) mg/dL Creatinine 1.22 (0.66-1.25) mg/dL Est GFR (CKD-EPI)AfAm 72 (>60 ml/min/1.73 sqM) Est GFR (CKD-EPI)NonAf 63 (>60 ml/min/1.73 sqM) Glucose 107 H (74-99) mg/dL Calcium 8.8 (8.4-10.2) mg/dL Magnesium 2.1 (1.6-2.3) mg/dL Total Bilirubin 0.3 (0.2-1.3) mg/dL AST 18 (17-59) U/L ALT 37 (21-72) U/L Alkaline Phosphatase 76 (38-126) U/L Creatine Kinase 46 L (55-170) U/L Troponin I (0.000-0.034) ng/mL NT-Pro-B Natriuret Pep pg/mL Total Protein 6.0 L (6.3-8.2) g/dL Albumin 3.5 (3.5-5.0) g/dL Blood Type A Positive Blood Type Recheck No Antibody Screen NEGATIVE Spec Expiration Date 01/01/2019232612/29/18 12/29/1812/29/19 Range/Units 14:58 14:58 14:58 WBC (3.8-10.6) k/uL RBC (4.30-5.90) m/uL Hgb (13.0-17.5) gm/dL Hct (39.0-53.0) % MCV (80.0-100.0) fL MCH (25.0-35.0) pg MCHC (31.0-37.0) g/dL RDW (11.5-15.5) % Plt Count (150-450) k/uL Neutrophils % % Lymphocytes % % Monocytes % % Eosinophils % % Basophils % % Neutrophils # (1.3-7.7) k/uL Lymphocytes # (1.0-4.8) k/uL Monocytes # (0-1.0) k/uL Eosinophils # (0-0.7) k/uL Basophils # (0-0.2) k/uL Hypochromasia Poikilocytosis PT 10.1 (9.0-12.0) sec INR 0.9 (<1.2) APTT 23.2 (22.0-30.0) sec D-Dimer 1.73 H (<0.60) mg/L FEU Sodium (137-145) mmol/L Potassium (3.5-5.1) mmol/L Chloride (98-107) mmol/L Carbon Dioxide (22-30) mmol/L Anion Gap mmol/L BUN (9-20) mg/dL Creatinine (0.66-1.25) mg/dL Est GFR (CKD-EPI)AfAm (>60 ml/min/1.73 sqM) Est GFR (CKD-EPI)NonAf (>60 ml/min/1.73 sqM) Glucose (74-99) mg/dL Calcium (8.4-10.2) mg/dL Magnesium (1.6-2.3) mg/dL Total Bilirubin (0.2-1.3) mg/dL AST (17-59) U/L ALT (21-72) U/L Alkaline Phosphatase (38-126) U/L Creatine Kinase (55-170) U/L Troponin I <0.012 (0.000-0.034) ng/mL NT-Pro-B Natriuret Pep 183 pg/mL Total Protein (6.3-8.2) g/dL Albumin (3.5-5.0) g/dL Blood Type Blood Type Recheck Antibody Screen Spec Expiration Date - EKG Data -: EKG Interpreted by Me EKG shows normal: sinus rhythm (Sinus rhythm a 78. We'll 200 QRS duration 90 QT since QTC 396/451 occasional PVCs) - Radiology Data Radiology results: report reviewed, image reviewed (I did review the imaging and report some evidence of left lower lobe atelectasis apparently has been seen before) Disposition Clinical Impression: Exertional dyspnea, Bronchospasm, Chronic anemia Disposition: HOME SELF-CARE Condition: Good Instructions (If sedation given, give patient instructions): Bronchospasm (ED), Dyspnea (ED) Prescriptions: Ipratropium/Albuterol Sulfate [Combivent Respimat Inhaler] 2 puff INHALATION QID #1 inhaler Is patient prescribed a controlled substance at d/c from ED?: No Referrals: Theo Reid MD [Primary Care Provider] - 1-2 days Stan Galarza Jr, DO [Doctor of Osteopathic Medicine] - 1-2 days
[2018-12-29 16:52] LABS: Basophils # (A) 0.1 k/uL (0-0.2); Basophils % (A) 1 %; Eosinophils # (A) 0.5 k/uL (0-0.7); Eosinophils % (A) 7 %; HCT 29.1 % (39.0-53.0); HGB 9.2 gm/dL (13.0-17.5); Hypochromasia Slight; Lymphocytes % (A) 26 %; MCH 27.4 pg (25.0-35.0); MCHC 31.5 g/dL (31.0-37.0); MCV 86.9 fL (80.0-100.0); Mean Platelet Volume 9.1; Monocytes # (A) 0.6 k/uL (0-1.0); Monocytes % (A) 7 %; Neutrophils # (A) 4.5 k/uL (1.3-7.7); Neutrophils % (A) 58 %; Platelet Count 335 k/uL (150-450); Poikilocytosis Slight; RBC 3.34 m/uL (4.30-5.90); RDW 15.7 % (11.5-15.5); WBC 7.8 k/uL (3.8-10.6)
--- NOTE | 2018-12-29 17:03 | XR ---
EXAMINATION TYPE: XR chest 2V DATE OF EXAM: 12/29/2018 COMPARISON: Chest x-ray and CTA chest December 20, 2018 HISTORY: Difficulty in breathing. TECHNIQUE: Frontal and lateral views of the chest are obtained. FINDINGS: There is new patchy bibasilar opacity. No pleural effusion or pneumothorax is evident bila terally. The cardiac silhouette size is upper limits of normal on current study.. The osseous struc tures are intact. IMPRESSION: New patchy bibasilar atelectasis and/or infiltrate.
[2018-12-29 17:06] LABS: Albumin 3.5 g/dL (3.5-5.0); Calcium 8.8 mg/dL (8.4-10.2); Magnesium 2.1 mg/dL (1.6-2.3); Potassium 4.6 mmol/L (3.5-5.1); Total Bilirubin 0.3 mg/dL (0.2-1.3)
[2018-12-29 17:12] LABS: INR 0.9 (<1.2); Partial Thromboplastin Time 23.2 sec (22.0-30.0); Prothrombin Time 10.1 sec (9.0-12.0)
[2018-12-29 17:38] LABS: D-Dimer 1.73 mg/L FEU (<0.60)
[2018-12-29 18:03] VITALS: BP 116/52; PULSE 67; RESP 12
== END 2018-12-29 18:38 | disposition home or self-care (01) ==
LOC: EC 14:24
DX: R06.09 Other forms of dyspnea (principal); J98.01 Acute bronchospasm; D64.9 Anemia, unspecified; I10 Essential (primary) hypertension; F32.9 Major depressive disorder, single episode, unspecified; Z86.711 Personal history of pulmonary embolism; Z87.891 Personal history of nicotine dependence; Z79.01 Long term (current) use of anticoagulants; Z79.899 Other long term (current) drug therapy; Z53.8 Procedure and treatment not carried out for other reasons
CPT/HCPCS: 36415; 71046; 80053; 82550; 83735; 83880; 84484; 85025; 85379; 85610; 85730; 86850; 86900; 86901; 93005; 96360; 99285

== ENCOUNTER 2019-01-28 11:34 | Inpatient (IN) | payer BC ==
--- NOTE | 2019-01-28 11:06 | CT ---
EXAMINATION TYPE: CT angio chest DATE OF EXAM: 01/28/2019 COMPARISON: CTA chest January 28, 2018 HISTORY: Recurrent Pulmonary Embolism CT DLP: 529 mGycm. Automated Exposure Control for Dose Reduction was Utilized. CONTRAST: CTA scan of the thorax is performed with IV Contrast, patient injected with 80 mL of Isovue 370, pulm onary embolism protocol. MIP Images are created on CT scanner and reviewed. FINDINGS: LUNGS: The lungs are grossly clear, there is no concerning parenchymal mass or nodule identified. T here is no pleural effusion or pneumothorax seen. The tracheobronchial tree is patent. MEDIASTINUM: There is satisfactory enhancement of the pulmonary artery and its branches, there is per sistent or recurrent pulmonary embolism in the right lower lobe segmental branches with subsegmental extension beginning axial image 85 through 90 for reference. There is right middle lobe segmental emb olism with subsegmental extension beginning axial image 74. There is right upper lobe segmental embol ism axial image 41 with subsegmental extension better seen on coronal images. The lingula show segmen guilherme embolism coronal image 103.. There is smaller embolism in segmental branches left lower lobe with subsegmental extension seen best coronal image 117 and axial image 82 . No cardiomegaly or increasin g right ventricular dilatation is present. No reflux of contrast into hepatic veins or IVC is seen. There are no greater than 1 cm hilar or mediastinal lymph nodes. No pericardial effusion is seen. S ome Coronary artery calcification is redemonstrated which is noted larger for underlying coronary art adelina disease OTHER: Slight S-shaped scoliotic curvature with multilevel spurring in the spine is seen IMPRESSION: Persistent or recurrent bilateral pulmonary embolism as detailed above with areas of new clot identified though there is some improvement in clot burden in the bilateral lower lobes noted. This is in comparison to the January 28, 2018 study. On further review patient had CTA chest December 20 which I did not notice initially, there is significant increased bilateral pulmonary embolism fro m the more recent study. Critical results communicated to ordering physician via telephone at time of dictation. Patient instr ucted to report to emergency room for further workup and/or treatment. These results communicated to medical office technologist. A Document Only message has been documented for Mamadou Washington DO in the [employer] system on 01/28/2019 11:03 AM, Message ID [id number].
--- NOTE | 2019-01-28 12:53 | ED ---
General Adult HPI - General Chief complaint: Shortness of Breath Stated complaint: AMELIA Time Seen by Provider: 01/28/19 11:46 Source: patient, RN notes reviewed, old records reviewed Mode of arrival: wheelchair Limitations: no limitations - History of Present Illness Initial comments: 63-year-old male presenting for evaluation of abnormal outpatient CT. Patient has history of pulmonary embolism, he received outpatient computed tomography scan today which showed increasing clot burden. Patient had felt increasing dyspnea over the past 24 hours. Several near syncopal episodes. Patient had history of pulmonary embolism, developed significant gastrointestinal hemorrhage requiring transfusion. His anticoagulant dose was reduced to 2.5 mg of Eliquis. Denies chest pain. Denies abdominal pain nausea vomiting. Denies fever or chills. - Related Data Home Medications Medication Instructions Recorded Confirmed Lisinopril-Hctz 10-12.5 mg 1 tab PO DAILY 03/28/15 01/28/19 [Zestoretic 10-12.5] Ascorbic Acid [Vitamin C] 1,000 mg PO HS 01/08/17 01/28/19 Escitalopram [Lexapro] 20 mg PO HS 01/08/17 01/28/19 HYDROcodone/APAP 10-325MG [[place] 1 tab PO TID PRN 01/08/17 01/28/19 10-325] Multivitamins, Thera [Multivitamin 1 tab PO HS 01/08/17 01/28/19 (formulary)] Melatonin 10 mg PO HS PRN 01/28/18 01/28/19 Vits A,C,E/Lutein/Minerals 1 tab PO HS 01/28/18 01/28/19 [Ocuvite with Lutein Tablet] Amitriptyline HCl [Elavil] 25 mg PO HS 12/29/18 01/28/19 Apixaban [Eliquis] 2.5 mg PO DAILY 12/29/18 01/28/19 Previous Rx's Medication Instructions Recorded Pantoprazole Sodium [Protonix] 40 mg PO AC-BID #60 tablet. 12/25/18 Sucralfate [Carafate] 1 gm PO BID #60 ml 12/25/18 Allergies Allergy/AdvReac Type Severity Reaction Status Date / Time No Known Allergies Allergy Verified 01/28/19 13:38 Review of Systems ROS Statement: Those systems with pertinent positive or pertinent negative responses have been documented in the HPI. ROS Other: All systems not noted in ROS Statement are negative. Past Medical History Past Medical History: GERD/Reflux, Hypertension, Osteoarthritis (OA), Pulmonary Embolus (PE) Additional Past Medical History / Comment(s): CHRONIC BACK PAIN, recurrent pulmonary embolism the first episode was around 2-1/2 years ago and the patient was treated with anticoagulation and then discontinued and subsequently he had another episode in 2018 and since then has been on anticoagulation History of Any Multi-Drug Resistant Organisms: None Reported Past Surgical History: Hernia Repair, Orthopedic Surgery Additional Past Surgical History / Comment(s): ALBERT SHOULDERS right rotator cuff/ left tendon damage, LEFT CARPAL TUNNEL, Past Anesthesia/Blood Transfusion Reactions: No Reported Reaction Past Psychological History: Depression Smoking Status: Former smoker Past Alcohol Use History: None Reported Past Drug Use History: None Reported - Past Family History Mother Family Medical History: No Reported History General Exam Limitations: no limitations General appearance: alert, in no apparent distress Head exam: Present: atraumatic, normocephalic Eye exam: Present: normal appearance, PERRL ENT exam: Present: normal exam Neck exam: Present: normal inspection. Absent: tenderness, meningismus Respiratory exam: Present: normal lung sounds bilaterally. Absent: respiratory distress, wheezes Cardiovascular Exam: Present: regular rate, normal rhythm GI/Abdominal exam: Present: soft. Absent: distended, tenderness, guarding Extremities exam: Present: normal capillary refill. Absent: pedal edema, calf tenderness Neurological exam: Present: alert, oriented X3. Absent: CN II-XII intact, motor sensory deficit Psychiatric exam: Present: normal affect, normal mood Skin exam: Present: warm, dry, intact. Absent: cyanosis, diaphoretic Course Vital Signs 01/28/19 12:10 Temperature 98.2 F Pulse Rate 68 Respiratory 20 Rate Blood Pressure 109/66 O2 Sat by Pulse 100 Oximetry EKG Findings - EKG Comments: EKG Findings:: EKG: Sinus rhythm with first-degree AV block, rate of 65 DC interval 222, QRS duration 98, QTC 438, no ST segment changes, no ischemic changes. Medical Decision Making - Medical Decision Making 63-year-old male presenting with dyspnea, near syncope. Patient received outpatient computed tomography scan today which showed bilateral pulmonary embolism, there was concern that this was worsening pulmonary emboli. He is currently on Eliquis but only taking 2.5 mg once daily. Laboratory studies are obtained, patient has hemoglobin 10 which is improved from prior. He has normal white blood cell count, normal CMP. Vital signs are stable with no hypoxia, no tachycardia or hypotension. I discussed the case with Dr. Casanova, he is familiar with the case. Recommend reinitiating full dose anticoagulation. Recommend eliquis, 5 mg twice a day. This medication is warranted in the emergency department. He will be placed in observation for monitoring of vital signs and hemoglobin. Repeat hemoglobin has been ordered for the morning. Patient is also placed on proton pump inhibitor. - Lab Data Result diagrams: 01/28/19 12:50 01/28/19 12:50 Lab Results 01/28/19 01/28/19 01/28/19 Range/Units 12:50 12:50 12:50 WBC 7.8 (3.8-10.6) k/uL RBC 4.05 L (4.30-5.90) m/uL Hgb 10.0 L (13.0-17.5) gm/dL Hct 33.5 L (39.0-53.0) % MCV 82.9 (80.0-100.0) fL MCH 24.7 L (25.0-35.0) pg MCHC 29.8 L (31.0-37.0) g/dL RDW 15.1 (11.5-15.5) % Plt Count 273 (150-450) k/uL Neutrophils % 47 % Lymphocytes % 37 % Monocytes % 6 % Eosinophils % 7 % Basophils % 1 % Neutrophils # 3.6 (1.3-7.7) k/uL Lymphocytes # 2.9 (1.0-4.8) k/uL Monocytes # 0.5 (0-1.0) k/uL Eosinophils # 0.5 (0-0.7) k/uL Basophils # 0.1 (0-0.2) k/uL Hypochromasia Marked PT 10.5 (9.0-12.0) sec INR 1.0 (<1.2) APTT 21.6 L (22.0-30.0) sec Sodium 135 L (137-145) mmol/L Potassium 5.1 (3.5-5.1) mmol/L Chloride 103 (98-107) mmol/L Carbon Dioxide 22 (22-30) mmol/L Anion Gap 10 mmol/L BUN 27 H (9-20) mg/dL Creatinine 1.15 (0.66-1.25) mg/dL Est GFR (CKD-EPI)AfAm 78 (>60 ml/min/1.73 sqM) Est GFR (CKD-EPI)NonAf 67 (>60 ml/min/1.73 sqM) Glucose 93 (74-99) mg/dL Calcium 9.8 (8.4-10.2) mg/dL Magnesium 1.9 (1.6-2.3) mg/dL Total Bilirubin 0.4 (0.2-1.3) mg/dL AST 20 (17-59) U/L ALT 26 (21-72) U/L Alkaline Phosphatase 70 (38-126) U/L Troponin I (0.000-0.034) ng/mL Total Protein 6.8 (6.3-8.2) g/dL Albumin 4.0 (3.5-5.0) g/dL 01/28/19 Range/Units 12:50 WBC (3.8-10.6) k/uL RBC (4.30-5.90) m/uL Hgb (13.0-17.5) gm/dL Hct (39.0-53.0) % MCV (80.0-100.0) fL MCH (25.0-35.0) pg MCHC (31.0-37.0) g/dL RDW (11.5-15.5) % Plt Count (150-450) k/uL Neutrophils % % Lymphocytes % % Monocytes % % Eosinophils % % Basophils % % Neutrophils # (1.3-7.7) k/uL Lymphocytes # (1.0-4.8) k/uL Monocytes # (0-1.0) k/uL Eosinophils # (0-0.7) k/uL Basophils # (0-0.2) k/uL Hypochromasia PT (9.0-12.0) sec INR (<1.2) APTT (22.0-30.0) sec Sodium (137-145) mmol/L Potassium (3.5-5.1) mmol/L Chloride (98-107) mmol/L Carbon Dioxide (22-30) mmol/L Anion Gap mmol/L BUN (9-20) mg/dL Creatinine (0.66-1.25) mg/dL Est GFR (CKD-EPI)AfAm (>60 ml/min/1.73 sqM) Est GFR (CKD-EPI)NonAf (>60 ml/min/1.73 sqM) Glucose (74-99) mg/dL Calcium (8.4-10.2) mg/dL Magnesium (1.6-2.3) mg/dL Total Bilirubin (0.2-1.3) mg/dL AST (17-59) U/L ALT (21-72) U/L Alkaline Phosphatase (38-126) U/L Troponin I <0.012 (0.000-0.034) ng/mL Total Protein (6.3-8.2) g/dL Albumin (3.5-5.0) g/dL Disposition Clinical Impression: Pulmonary embolism, Anemia Disposition: ADMITTED IP TO THIS [facility] Condition: Stable Is patient prescribed a controlled substance at d/c from ED?: No Referrals: Theo Reid MD [Primary Care Provider] - 1-2 days Decision to Admit Reason: Admit from EC Decision Date: 01/28/19 Decision Time: 14:55
[2019-01-28 13:14] LABS: Calcium 9.8 mg/dL (8.4-10.2); Magnesium 1.9 mg/dL (1.6-2.3); Potassium 5.1 mmol/L (3.5-5.1); Total Bilirubin 0.4 mg/dL (0.2-1.3); Total Protein 6.8 g/dL (6.3-8.2)
[2019-01-28 13:17] LABS: Partial Thromboplastin Time 21.6 sec (22.0-30.0); Prothrombin Time 10.5 sec (9.0-12.0)
[2019-01-28 13:42] LABS: Basophils # (A) 0.1 k/uL (0-0.2); Basophils % (A) 1 %; Eosinophils # (A) 0.5 k/uL (0-0.7); Eosinophils % (A) 7 %; HCT 33.5 % (39.0-53.0); Hypochromasia Marked; Lymphocytes # (A) 2.9 k/uL (1.0-4.8); Lymphocytes % (A) 37 %; MCH 24.7 pg (25.0-35.0); MCHC 29.8 g/dL (31.0-37.0); MCV 82.9 fL (80.0-100.0); Mean Platelet Volume 7.2; Monocytes # (A) 0.5 k/uL (0-1.0); Monocytes % (A) 6 %; Neutrophils # (A) 3.6 k/uL (1.3-7.7); Neutrophils % (A) 47 %; Platelet Count 273 k/uL (150-450); RBC 4.05 m/uL (4.30-5.90); RDW 15.1 % (11.5-15.5); WBC 7.8 k/uL (3.8-10.6)
[2019-01-28] MEDS ORDERED: APIXABAN 5 MG TAB PO STA (14:22)
[2019-01-28] MEDS ORDERED: NALOXONE 0.4 MG/ML 1 ML VIAL IV PRN (14:50)
[2019-01-28] MEDS ORDERED: PANTOPRAZOLE 40 MG/10 ML VIAL IVP STA (14:52)
[2019-01-28] MEDS: SODIUM CHLORIDE 0.9% 1,000 ML IV SCH (15:16)
[2019-01-28 17:16] VITALS: BMI 33.9
[2019-01-28] MEDS: HYDROcodone/APAP 10-325MG 1 EACH TAB PO PRN (20:38)
[2019-01-28] MEDS: APIXABAN 5 MG TAB PO SCH (20:38)
[2019-01-28] MEDS: PANTOPRAZOLE 40 MG/10 ML VIAL IVP SCH (20:39)
[2019-01-28] MEDS: AMITRIPTYLINE HCL 25 MG TAB PO SCH (21:50)
[2019-01-29 06:52] LABS: Basophils # (A) 0.1 k/uL (0-0.2); Basophils % (A) 1 %; Eosinophils # (A) 0.6 k/uL (0-0.7); Eosinophils % (A) 8 %; HCT 34.5 % (39.0-53.0); HGB 10.2 gm/dL (13.0-17.5); Hypochromasia Marked; Lymphocytes # (A) 2.6 k/uL (1.0-4.8); Lymphocytes % (A) 39 %; MCH 24.9 pg (25.0-35.0); MCHC 29.6 g/dL (31.0-37.0); Mean Platelet Volume 7.3; Monocytes # (A) 0.4 k/uL (0-1.0); Monocytes % (A) 6 %; Neutrophils # (A) 2.9 k/uL (1.3-7.7); Neutrophils % (A) 43 %; Platelet Count 281 k/uL (150-450); RBC 4.11 m/uL (4.30-5.90); RDW 15.3 % (11.5-15.5); WBC 6.8 k/uL (3.8-10.6)
[2019-01-29 07:02] LABS: ALT 19 U/L (21-72); AST 19 U/L (17-59); Albumin 3.9 g/dL (3.5-5.0); Alkaline Phosphatase 73 U/L (38-126); Anion Gap 10 mmol/L; Blood Urea Nitrogen 23 mg/dL (9-20); Calcium 9.9 mg/dL (8.4-10.2); Carbon Dioxide 22 mmol/L (22-30); Chloride 104 mmol/L (98-107); Glucose 90 mg/dL (74-99); Potassium 4.9 mmol/L (3.5-5.1); Sodium 136 mmol/L (137-145); Total Bilirubin 0.7 mg/dL (0.2-1.3); Total Protein 6.6 g/dL (6.3-8.2)
[2019-01-29] MEDS: PANTOPRAZOLE 40 MG/10 ML VIAL IVP SCH ×2 (09:47→20:36)
[2019-01-29] MEDS: LISINOPRIL-HCTZ 10-12.5 MG 1 EACH TAB PO SCH (09:47)
[2019-01-29] MEDS: APIXABAN 5 MG TAB PO SCH ×2 (09:47→20:35)
[2019-01-29] MEDS ORDERED: CYCLOBENZAPRINE 10 MG TAB PO PRN (11:43)
[2019-01-29] MEDS: SODIUM CHLORIDE 0.9% 1,000 ML IV SCH (11:54)
[2019-01-29] MEDS: HYDROcodone/APAP 10-325MG 1 EACH TAB PO PRN (13:54)
--- NOTE | 2019-01-29 14:54 | P.HPIM ---
History of Present Illness H&P Date: 01/29/19 Chief Complaint: SOB, near syncope This is a 63-year-old admitted with increasing shortness of breath X 24 hours, multiple near syncopal episodes ,abnormal outpatient CT, and multiple other medical issues in a patient with history of PE, significant recent GI bleed requiring transfusions, with subsequent reduction in Eliquis dose. Outpatient CT reported increasing clot burden. He reports history of migraines, last month, when the GI bleed occurred, he was chewing many Excedrin in addition to Eliquis. GI bleed workup completed at that time .GI nuclear scan did not show evidence of active GI bleed. CT of the abdomen and pelvis reported within normal limits. EGD reported nonbleeding duodenal ulcer, mild gastritis. Echo during the prior visit within normal limits, with no significant arrhythmias. Prior anemia workup with hematology not indicative of iron deficiency. Carotid Doppler performed last visit reported left internal carotid artery stenosis 50-70%.Denie s chest pain, palpitations, nausea vomiting, diarrhea, abdominal pain. Denies hemoptysis, rectal bleeding. Complains of neck pain,"tight neck", near syncopal spells with bending over, speech sometimes affected. Denies fever. EKG reporting sinus rhythm with first-degree AV block. On admission required 2 L nasal cannula O2, currently maintaining O2 sats of 99% on room air. Hemoglobin 10. Review of Systems Review of systems: CONSTITUTIONAL: No fever, no fatigue. HEENT: No recent visual problems or hearing problems. Denied any sore throat. CARDIOVASCULAR: No chest pain, no palpitations, positive near- syncope. PULMONARY: shortness of breath, no cough, no hemoptysis. GASTROINTESTINAL: No diarrhea, no nausea, no vomiting, no abdominal pain. Normoactive bowel sounds. NEUROLOGICAL: No headaches, no weakness, no numbness. Lightheadedness, dizziness with bending over, speech sometimes affected. HEMATOLOGICAL: Denies any bleeding or petechiae. GENITOURINARY: Denies any burning micturition, frequency, or urgency. MUSCULOSKELETAL/RHEUMATOLOGICAL: Denies any joint pain, swelling, or any muscle pain. ENDOCRINE: Denies any polyuria or polydipsia. PSYCHIATRIC: No anxiety, no depression The rest of the 14 point review of systems is negative Past Medical History Past Medical History: GERD/Reflux, Hypertension, Osteoarthritis (OA), Pulmonary Embolus (PE) Additional Past Medical History / Comment(s): CHRONIC BACK PAIN, recurrent pulmonary embolism the first episode was around 2-1/2 years ago and the patient was treated with anticoagulation and then discontinued and subsequently he had another episode in 2018 and since then has been on anticoagulation, hypertension, osteoarthritis, chronic back pain, chronic depression, acid reflux, recent hospitalization for GI bleed, currently artery stenosis, 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%. History of Any Multi-Drug Resistant Organisms: None Reported Past Surgical History: Hernia Repair, Orthopedic Surgery Additional Past Surgical History / Comment(s): ALBERT SHOULDERS right rotator cuff/ left tendon damage, LEFT CARPAL TUNNEL,right knee Past Anesthesia/Blood Transfusion Reactions: No Reported Reaction Past Psychological History: Depression Smoking Status: Former smoker Past Alcohol Use History: None Reported Additional Past Alcohol Use History / Comment(s): smoked 20 years <1ppd quit 2015 Past Drug Use History: None Reported - Past Family History Mother Family Medical History: No Reported History Medications and Allergies Home Medications Medication Instructions Recorded Confirmed Type Lisinopril-Hctz 10-12.5 mg 1 tab PO DAILY 03/28/15 01/28/19 History [Zestoretic 10-12.5] Ascorbic Acid [Vitamin C] 1,000 mg PO HS 01/08/17 01/28/19 History Escitalopram [Lexapro] 20 mg PO HS 01/08/17 01/28/19 History HYDROcodone/APAP 10-325MG [[place] 1 tab PO TID PRN 01/08/17 01/28/19 History 10-325] Multivitamins, Thera [Multivitamin 1 tab PO HS 01/08/17 01/28/19 History (formulary)] Melatonin 10 mg PO HS PRN 01/28/18 01/28/19 History Vits A,C,E/Lutein/Minerals 1 tab PO HS 01/28/18 01/28/19 History [Ocuvite with Lutein Tablet] Pantoprazole Sodium [Protonix] 40 mg PO AC-BID #60 tablet. 12/25/18 01/28/19 Rx Sucralfate [Carafate] 1 gm PO BID #60 ml 12/25/18 01/28/19 Rx Amitriptyline HCl [Elavil] 25 mg PO HS 03/11/19 04/10/19 History Apixaban [Eliquis] 2.5 mg PO DAILY 12/29/18 01/28/19 History Allergies Allergy/AdvReac Type Severity Reaction Status Date / Time No Known Allergies Allergy Verified 01/28/19 13:38 Physical Exam Vitals: Vital Signs Temp Pulse Pulse Pulse Resp BP BP 01/29/19 07:43 97 F L 94 16 132/68 01/29/19 04:00 97.2 F L 75 16 137/65 01/28/19 23:12 71 01/28/19 23:10 98.5 F 71 18 107/53 01/28/19 20:00 97.4 F L 75 75 18 122/54 01/28/19 17:04 98.2 F 18 121/51 01/28/19 16:00 98.2 F 70 18 121/51 01/28/19 15:01 64 19 113/52 01/28/19 14:30 63 17 112/41 01/28/19 14:00 64 18 106/47 Pulse Ox 01/29/19 07:43 97 01/29/19 04:00 99 01/28/19 23:12 01/28/19 23:10 98 01/28/19 20:00 97 01/28/19 17:04 97 01/28/19 16:00 97 01/28/19 15:01 98 01/28/19 14:30 98 01/28/19 14:00 99 Intake and Output 01/28/19 01/29/19 01/29/19 22:59 06:59 14:59 Intake Total 340 Balance 340 Intake: Oral 340 Other: Voiding Method Urinal Urinal # Voids 1 1 Weight 112.7 kg PHYSICAL EXAM: VITAL SIGNS: As above GENERAL: Sitting up in bed, no acute distress HEENT: Conjunctivae normal. eyes normal. Oral mucosa moist, atraumatic, normocephalic NECK: No JVD. No thyroid enlargement. No LNs, neck stiffness CARDIOVASCULAR: S1, S2 regular. No murmur, rub or gallop RESPIRATION: Breath sounds diminished in the bases. No rhonchi or crackles. No bronchial breathing. ABDOMEN: Soft, distended, nontender. No guarding. no masses palpable. No hepatosplenomegaly.no guarding, no rigidity.Bowel sounds heard. LEGS: No edema. no swelling PSYCHIATRY: Alert and oriented -3, mood and affect normal. NERVOUS SYSTEM: Cranial N 2-12 grossly normal. Moves all 4 limbs. Diffuse weakness, No focal deficits. Strength and sensation grossly intact. Skin: no ulcer no rash Joints: No active swelling. No inflammation. Lymphatic system. No LN neck axilla or groin. Results CBC & Chem 7: 01/29/19 06:20 01/29/19 06:20 Labs: Abnormal Lab Results - Last 24 Hours (Table) 01/28/19 01/29/19 01/29/19 Range/Units 12:50 06:20 06:20 RBC 4.05 L 4.11 L (4.30-5.90) m/uL Hgb 10.0 L 10.2 L (13.0-17.5) gm/dL Hct 33.5 L 34.5 L (39.0-53.0) % MCH 24.7 L 24.9 L (25.0-35.0) pg MCHC 29.8 L 29.6 L (31.0-37.0) g/dL Sodium 136 L (137-145) mmol/L BUN 23 H (9-20) mg/dL ALT 19 L (21-72) U/L Thrombosis Risk Factor Assmnt - Choose All That Apply Each Risk Factor Represents 2 Points: Age 61-74 years Each Risk Factor Represents 3 Points: History of DVT/PE Thrombosis Risk Factor Assessment Total Risk Factor Score: 5 Thrombosis Risk Factor Assessment Level: High Risk Assessment and Plan Assessment: -Recurrent or persistent Pulmonary embolism in a patient with history of PE -Hypoxic respiratory failure, secondary to the above -Chronic anemia, in a patient with history of recent GI bleed. GI nuclear scan did not show evidence of active GI bleed. Prior anemia workup with hematology not indicative of iron deficiency. -Recent EGD reporting nonbleeding duodenal ulcer and gastritis -Recent echo normal -Near syncope, possibly orthostatic hypotension ,possibly vertebral artery stenosis, under further evaluation. History of left internal carotid stenosis 50-70%. Workup in progress. -Hypertension -History of DVTs -Gastroesophageal reflux disease -Osteoarthritis -Chronic back pain -Depression -History of nicotine dependence; patient smoked 1 pack a day for 20 years, quit in 2016 Plan: Continue on current medication regime ,monitoring and symptomatic treatment. Neck MRI/MRA ordered. Vascular surgery consulted. Muscle relaxant ordered for neck tightness. Orthostatic vitals every shift ordered. Continue with neuro checks as ordered. Reinforced no Excedrin, no aspirin products, no NSAIDs to be used with Eliquis. Eliquis dose increased to 2.3 mg daily with close monitoring. Close monitoring of hemoglobin with repeat labs ordered for a.m. pulmonary consult in place with further recommendations pending.prognosis guarded given multiple complex medical issues. Further recommendations to follow. The impression and plan of care has been dictated as directed. : I performed a history and examination of this patient, discussed the same with the dictator. I agree with the dictator's note ,documented as a scribe. Any additional findings or plans will be noted. Time taken: 35 minutes
--- NOTE | 2019-01-29 15:10 | P.CNPUL ---
History of Present Illness Consult date: 01/28/19 Reason for consult: pulmonary embolism History of present illness: 63-year-old male patient with previous hospitalization due to GI bleeding of p ulmonary embolism, coming in to the hospital because of increasing shortness of breath over the past 24 hours and episodes of near syncope. The patient at the time of admission was hemodynamically stable. No chills no fever. No chest pain. No abdominal pain. He has been taking Eliquis 2.5 mg by mouth twice a day. A repeat CT angios the chest was done in the emergency department that showed bilateral pulmonary embolism with new clots forming in the lower lobes bilaterally in comparison today recent The computed tomography scan of the chest on 12/20/2018 and for that reason the patient was admitted to the hospital for further investigation What that this patient was in the hospital back in December 2018 and at that time the patient was brought into the intensive care unit because of episodes of presyncope. He had a significant drop in hemoglobin down to 6.3. GI was consulted and the patient was found to have a nonbleeding duodenal ulcer. The EGD that was done on 12/22/2018 showed a nonbleeding duodenal bulb ulcer without high risk for stigmata for rebleeding. The patient was also found to have mild gastritis and biopsies were also obtained. The pathology was benign and patient was discharged home on Eliquis 2.5 mg twice a day which is the subtherapeutic dose. There was no evidence of bleeding at time of discharge from the hospital. Since his discharge, the patient has not shown any signs of bleeding. His hemoglobin today is at 10.0. Rest of the blood work is all within normal limits. No nausea. No vomiting. No abdominal pain. Echocardiogram from 12/20/2018 was within normal limits and the patient had a normal ejection fraction without any valvular abnormalities. Carotid Dopplers showed elevated velocities in the left internal carotid artery suggestive of 50-70% stenosis. Vertebral arteries were within normal limits. A CAT scan of the brain was also negative. The CAT scan of the abdomen and pelvis showed no acute abnormalities. And did GI nuclear scan/RBC tagged scan was also negative. Currently the patient admitted to the hospital. The patient is brought up to 5 mg of Eliquis twice a day.room air pulse ox is 98%.was dynamically stable. Review of Systems Constitutional: Reports fatigue, Reports weakness Eyes: denies as per HPI, denies blurred vision, denies bulging eye, denies decreased vision, denies diplopia, denies discharge, denies dry eye, denies irritation, denies itching, denies pain, denies photophobia, denies loss of peripheral vision, denies loss of vision, denies tunnel vision/blind spots Ears: deny: decreased hearing, ear discharge, earache, tinnitus Ears, nose, mouth and throat: Denies headache, Denies sore throat Cardiovascular: Reports nochest pain, Reports decreased exercise tolerance, Reports dyspnea on exertion, no palpitations Respiratory: Reports dyspnea Gastrointestinal: Denies abdominal pain, Denies diarrhea, Denies nausea, Denies vomiting Genitourinary: Reports as per HPI Musculoskeletal: Reports as per HPI Musculoskeletal: absent: ankle pain, ankle stiffness, ankle swelling, as per HPI, elbow pain, elbow stiffness, elbow swelling, foot pain, foot stiffness, foot swelling, hand pain, hand stiffness, hand swelling, hip pain, hip stiffness, hip swelling, knee pain, knee stiffness, knee swelling, shoulder pain, shoulder stiffness, shoulder swelling, wrist pain, wrist stiffness, wrist swelling Integumentary: Reports as per HPI Neurological: Reports as per HPI, Reports pre syncope Psychiatric: Reports as per HPI Endocrine: Reports fatigue Hematologic/Lymphatic: Reports as per HPI Allergic/Immunologic: Reports as per HPI Past Medical History Past Medical History: GERD/Reflux, Hypertension, Osteoarthritis (OA), Pulmonary Embolus (PE) Additional Past Medical History / Comment(s): CHRONIC BACK PAIN, recurrent pulmonary embolism the first episode was around 2-1/2 years ago and the patient was treated with anticoagulation and then discontinued and subsequently he had another episode in 2018 and since then has been on anticoagulation, hypertension, osteoarthritis, chronic back pain, chronic depression, acid reflux, recent hospitalization for GI bleed, currently artery stenosis, 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%. History of Any Multi-Drug Resistant Organisms: None Reported Past Surgical History: Hernia Repair, Orthopedic Surgery Additional Past Surgical History / Comment(s): ALBERT SHOULDERS right rotator cuff/ left tendon damage, LEFT CARPAL TUNNEL, Past Anesthesia/Blood Transfusion Reactions: No Reported Reaction Past Psychological History: Depression Smoking Status: Former smoker Past Alcohol Use History: None Reported Past Drug Use History: None Reported - Past Family History Mother Family Medical History: No Reported History Medications and Allergies Home Medications Medication Instructions Recorded Confirmed Type Lisinopril-Hctz 10-12.5 mg 1 tab PO DAILY 03/28/15 01/28/19 History [Zestoretic 10-12.5] Ascorbic Acid [Vitamin C] 1,000 mg PO HS 01/08/17 01/28/19 History Escitalopram [Lexapro] 20 mg PO HS 01/08/17 01/28/19 History HYDROcodone/APAP 10-325MG [[place] 1 tab PO TID PRN 01/08/17 01/28/19 History 10-325] Multivitamins, Thera [Multivitamin 1 tab PO HS 01/08/17 01/28/19 History (formulary)] Melatonin 10 mg PO HS PRN 01/28/18 01/28/19 History Vits A,C,E/Lutein/Minerals 1 tab PO HS 01/28/18 01/28/19 History [Ocuvite with Lutein Tablet] Pantoprazole Sodium [Protonix] 40 mg PO AC-BID #60 tablet. 12/25/18 01/28/19 Rx Sucralfate [Carafate] 1 gm PO BID #60 ml 12/25/18 01/28/19 Rx Amitriptyline HCl [Elavil] 25 mg PO HS 12/29/18 01/28/19 History Apixaban [Eliquis] 2.5 mg PO DAILY 12/29/18 01/28/19 History Allergies Allergy/AdvReac Type Severity Reaction Status Date / Time No Known Allergies Allergy Verified 01/28/19 13:38 Physical Exam Vitals: Vital Signs Temp Pulse Resp BP Pulse Ox 01/28/19 15:01 64 19 113/52 98 01/28/19 14:30 63 17 112/41 98 01/28/19 14:00 64 18 106/47 99 01/28/19 13:30 65 18 114/59 99 01/28/19 13:00 64 18 129/69 99 01/28/19 12:10 98.2 F 68 20 109/66 100 Intake and Output 01/28/19 01/28/19 01/28/19 06:59 14:59 22:59 Other: Weight 113.398 kg GENERAL EXAM: Alert, active, HEAD: Normocephalic. EYES: Normal reaction of pupils, equal size. NOSE: Clear with pink turbinates. THROAT: No erythema or exudates. NECK: No masses, no JVD. CHEST: No chest wall deformity. LUNGS: Equal air entry with no crackles, wheeze, rhonchi or dullness. CVS: S1 and S2 normal with no audible murmur, regular rhythm. ABDOMEN: No hepatosplenomegaly, normal bowel sounds, no guarding or rigidity. SPINE: No scoliosis or deformity SKIN: No rashes CENTRAL NERVOUS SYSTEM: No focal deficits, tone is normal in all 4 extremities. EXTREMITIES: There is no peripheral edema. No clubbing, no cyanosis. Peripheral pulses are intact. Results - Laboratory Findings CBC and BMP: 01/29/19 06:20 01/29/19 06:20 PT/INR, D-dimer PT 10.5 sec (9.0-12.0) 01/28/19 12:50 INR 1.0 (<1.2) 01/28/19 12:50 Abnormal lab findings: Abnormal Labs 01/28/19 01/28/19 01/28/19 12:50 12:50 12:50 RBC 4.05 L Hgb 10.0 L Hct 33.5 L MCH 24.7 L MCHC 29.8 L APTT 21.6 L Sodium 135 L BUN 27 H - Diagnostic Findings CT scan - chest: image reviewed Assessment and Plan Plan: 1 bilateral pulmonary embolism, with some interval progression since the original CAT scan of the chest from December 2018, probably related to suboptimal dosing Eliquis. 2 GI bleed secondary to a duodenal ulcer, post endoscopy and the patient shows no active signs of GI bleeding and hemoglobin above 10and the patient has been maintained on Protonix on outpatient basis. 3 hypertension 4 osteoarthritis and chronic back pain 5 chronic depression 6 acid reflux 7 carotid artery stenosis 50-70% based on the most recent carotid Dopplers plan We'll continue with Eliquis at a therapeutic dose of 5 mg by mouth twice a day. Monitor hemoglobin. Monitor the symptoms. May need to be evaluated by v ascular surgery regarding the carotid artery stenosis as the patient is having episodes of presyncope which probably is not related to his pulmonary embolism. The patient's hemodynamically stable. no signs of right-sided heart failure and the clot burden's office small and does not explain his recurrent episodes of presyncope. He is actually taking well. Consult vascular surgeon regarding her carotid stenosis. Monitor his progress. Watch for any signs of GI bleed.
--- NOTE | 2019-01-29 15:16 | P.PN ---
Subjective Progress Note Date: 01/29/19 Principal diagnosis: Recurrent episodes of presyncopal episodes, lightheadedness and dizziness, hypoxemic respiratory failure, pulmonary embolism 63-year-old male patient with previous hospitalization due to GI bleeding of pulmonary embolism, coming in to the hospital because of increasing shortness of breath over the past 24 hours and episodes of near syncope. The patient at the time of admission was hemodynamically stable. No chills no fever. No chest pain. No abdominal pain. He has been taking Eliquis 2.5 mg by mouth twice a day. A repeat CT angios the chest was done in the emergency department that showed bilateral pulmonary embolism with new clots forming in the lower lobes bilaterally in comparison today recent The computed tomography scan of the chest on 12/20/2018 and for that reason the patient was admitted to the hospital for further investigation What that this patient was in the hospital back in December 2018 and at that time the patient was brought into the intensive care unit because of episodes of presyncope. He had a significant drop in hemoglobin down to 6.3. GI was consulted and the patient was found to have a nonbleeding duodenal ulcer. The EGD that was done on 12/22/2018 showed a nonbleeding duodenal bulb ulcer without high risk for stigmata for rebleeding. The patient was also found to have mild gastritis and biopsies were also obtained. The pathology was benign and patient was discharged home on Eliquis 2.5 mg twice a day which is the subtherapeutic dose. There was no evidence of bleeding at time of discharge from the hospital. Since his discharge, the patient has not shown any signs of bleeding. His hemoglobin today is at 10.0. Rest of the blood work is all within normal limits. No nausea. No vomiting. No abdominal pain. Echocardiogram from 12/20/2018 was within normal limits and the patient had a normal ejection fraction without any valvular abnormalities. Carotid Dopplers showed elevated velocities in the left internal carotid artery suggestive of 50-70% stenosis. Vertebral arteries were within normal limits. A CAT scan of the brain was also negative. The CAT scan of the abdomen and pelvis showed no acute abnormalities. And did GI nuclear scan/RBC tagged scan was also negative. Currently the patient admitted to the hospital. The patient is brought up to 5 mg of Eliquis twice a day.room air pulse ox is 98%.was dynamically stable. On 01/29/2019 patient in follow-up on selective care unit. Patient is awake and alert, no episodes of syncope while inpatient, room air pulse ox is 95%, he is afebrile, hemodynamically stable. No couplets of chest pain or hemoptysis, yesterday we restarted therapeutic doses of Eliquis. hemoglobin is 10.2, there is has been no evidence of bleeding. He denies any shortness of breath, no chest pain. He states his been experiencing episodes of lightheadedness while walking around his house, he experienced some falls, related to lightheadedness and dizziness, and presyncopal episodes. Patient has a history of chronic artery stenosis of 50-70% found on most recent carotid Dopplers. Objective - Vital Signs Vital signs: Vital Signs Temp 98 F 01/29/19 11:50 Pulse 97 01/29/19 11:50 Resp 16 01/29/19 11:50 BP 130/59 01/29/19 11:50 Pulse Ox 95 01/29/19 11:50 Intake & Output 01/28/19 01/29/19 01/29/19 18:59 06:59 18:59 Intake Total 340 Balance 340 Weight 113.398 kg 112.7 kg Intake: Oral 340 Other: Voiding Method Urinal # Voids 1 4 - Exam GENERAL EXAM: Alert, pleasant, 63-year-old white male, comfortable in no apparent distress. HEAD: Normocephalic/atraumatic. EYES: Normal reaction of pupils, equal size. Conjunctiva pink, sclera white. NOSE: Clear with pink turbinates. THROAT: No erythema or exudates. NECK: No masses, no JVD, no thyroid enlargement, no adenopathy. CHEST: No chest wall deformity. Symmetrical expansion. LUNGS: Equal air entry with no crackles, wheeze, rhonchi or dullness. CVS: Regular rate and rhythm, normal S1 and S2, no gallops, no murmurs, no rubs ABDOMEN: Soft, nontender. No hepatosplenomegaly, normal bowel sounds, no guarding or rigidity. EXTREMITIES: No clubbing, no edema, no cyanosis, 2+ pulses and upper and lower extremities. MUSCULOSKELETAL: Muscle strength and tone normal. SPINE: No scoliosis or deformity SKIN: No rashes CENTRAL NERVOUS SYSTEM: Alert and oriented -3. No focal deficits, tone is normal in all 4 extremities. PSYCHIATRIC: Alert and oriented -3. Appropriate affect. Intact judgment and insight. - Labs CBC & Chem 7: 01/29/19 06:20 01/29/19 06:20 Labs: Abnormal Lab Results - Last 24 Hours (Table) 01/29/19 01/29/19 Range/Units 06:20 06:20 RBC 4.11 L (4.30-5.90) m/uL Hgb 10.2 L (13.0-17.5) gm/dL Hct 34.5 L (39.0-53.0) % MCH 24.9 L (25.0-35.0) pg MCHC 29.6 L (31.0-37.0) g/dL Sodium 136 L (137-145) mmol/L BUN 23 H (9-20) mg/dL ALT 19 L (21-72) U/L Assessment and Plan Plan: 1 bilateral pulmonary embolism, with some interval progression since the original CAT scan of the chest from December 2018, probably related to suboptimal dosing Eliquis. 2 GI bleed secondary to a duodenal ulcer, post endoscopy and the patient shows no active signs of GI bleeding and hemoglobin above 10and the patient has been maintained on Protonix on outpatient basis. 3 hypertension 4 osteoarthritis and chronic back pain 5 chronic depression 6 acid reflux 7 carotid artery stenosis 50-70% based on the most recent carotid Dopplers Plan: Continue current dose of Eliquis, patient has had no evidence of bleeding, hemoglobin is stable, vital signs are stable. Recommend evaluation of his neurological status, carotid MRA and MRI/MRA of the brain. He denies any shortness of breath, vital signs are stable, no complaints of chest pain. I performed a history & physical examination of the patient and discussed their management with my nurse practitioner, Cindi Stanley. I reviewed the nurse practitioner's note and agree with the documented findings and plan of care. Lung sounds are positive for clear breath sounds. The findings and the impress ion was discussed with the patient. I attest to the documentation by the nurse practitioner. Time with Patient: Less than 30
--- NOTE | 2019-01-29 15:36 | MR ---
EXAMINATION TYPE: MR brain wo/w mrane wo/wcon DATE OF EXAM: 01/29/2019 COMPARISON: CT brain 12/20/2018 HISTORY: Near syncope, falling TECHNIQUE: Multiplanar, multisequence images of the brain and brainstem is performed without and with IV contras t, utilizing 12 mL intravenous Gadavist . [id number] imaging, postcontrast images obtained throug h the neck, three-dimensional reconstructions were then alternate workstation. FINDINGS: Diffusion weighted images demonstrate no evidence of a recent infarct or other diffusion ab normality. There is no extra-axial fluid collection. There are scattered hyperintensities on invers ion recovery and T2-weighted sequences within the subcortical and periventricular white matter, appro ximately 30-40 lesions are present. Largest lesion on axial image 23 (convexity left frontal lobe on the left measures 17 mm. The ventricular system and cisternal spaces are normal in size and appearanc e. The brain volume is age appropriate. Midline structures demonstrate normal morphology. The craniocervical junction appears within normal limits. Post contrast images demonstrate no abnormal enhancement. The dural venous sinuses appear pa tent. The visualized sinuses are clear and the globes are intact. Neck MRA shows patent innominate artery, common carotid arteries, vertebral arteries and proximal lef t and right subclavian arteries. Vertebral arteries are codominant. There is no evident dissection or aneurysm present. No significant stenosis of the proximal internal carotid arteries or right vertebr al artery. Questionable stenosis involving the proximal left vertebral artery. Persistent origi n of the left posterior cerebral artery noted. IMPRESSION: Nonspecific white matter demyelination. Findings may be due to chronic small vessel ische laurie, hypertension, migraine headaches, vasculitis, multiple sclerosis felt less likely. Patent caroti d and vertebral arteries with questionable proximal left vertebral artery stenosis
[2019-01-29] MEDS: AMITRIPTYLINE HCL 25 MG TAB PO SCH (20:35)
[2019-01-30 07:31] LABS: Basophils # (A) 0.1 k/uL (0-0.2); Basophils % (A) 1 %; Eosinophils # (A) 0.6 k/uL (0-0.7); Eosinophils % (A) 9 %; HCT 33.9 % (39.0-53.0); HGB 10.7 gm/dL (13.0-17.5); Hypochromasia Marked; Lymphocytes # (A) 2.1 k/uL (1.0-4.8); Lymphocytes % (A) 33 %; MCH 25.9 pg (25.0-35.0); MCHC 31.5 g/dL (31.0-37.0); MCV 82.3 fL (80.0-100.0); Mean Platelet Volume 7.4; Monocytes # (A) 0.4 k/uL (0-1.0); Monocytes % (A) 7 %; Neutrophils % (A) 48 %; Platelet Count 303 k/uL (150-450); Poikilocytosis Slight; RBC 4.12 m/uL (4.30-5.90); RDW 15.4 % (11.5-15.5); WBC 6.3 k/uL (3.8-10.6)
[2019-01-30 07:46] LABS: Anion Gap 6 mmol/L; Blood Urea Nitrogen 16 mg/dL (9-20); Calcium 10.1 mg/dL (8.4-10.2); Carbon Dioxide 26 mmol/L (22-30); Chloride 106 mmol/L (98-107); Glucose 98 mg/dL (74-99); Potassium 4.9 mmol/L (3.5-5.1); Sodium 138 mmol/L (137-145)
[2019-01-30] MEDS: LISINOPRIL-HCTZ 10-12.5 MG 1 EACH TAB PO SCH (09:24)
[2019-01-30] MEDS: SODIUM CHLORIDE 0.9% 1,000 ML IV SCH (09:24)
[2019-01-30] MEDS: APIXABAN 5 MG TAB PO SCH ×2 (09:24→22:01)
[2019-01-30] MEDS: PANTOPRAZOLE 40 MG/10 ML VIAL IVP SCH ×2 (09:25→22:02)
[2019-01-30] MEDS: HYDROcodone/APAP 10-325MG 1 EACH TAB PO PRN (10:44)
[2019-01-30] MEDS: FLUDROCORTISONE 0.1 MG TAB PO SCH (12:47)
--- NOTE | 2019-01-30 13:47 | P.PN ---
Subjective Progress Note Date: 01/30/19 Principal diagnosis: Recurrent episodes of presyncopal episodes, lightheadedness and dizziness, hypoxemic respiratory failure, pulmonary embolism. 63-year-old male patient with previous hospitalization due to GI bleeding of pulmonary embolism, coming in to the hospital because of increasing shortness of breath over the past 24 hours and episodes of near syncope. The patient at the time of admission was hemodynamically stable. No chills no fever. No chest pain. No abdominal pain. He has been taking Eliquis 2.5 mg by mouth twice a day. A repeat CT angios the chest was done in the emergency department that showed bilateral pulmonary embolism with new clots forming in the lower lobes bilaterally in comparison today recent The computed tomography scan of the chest on 12/20/2018 and for that reason the patient was admitted to the hospital for further investigation This patient was in the hospital back in December 2018 and at that time the patient was brought into the intensive care unit because of episodes of presyncope. He had a significant drop in hemoglobin down to 6.3. GI was consulted and the patient was found to have a nonbleeding duodenal ulcer. The EGD that was done on 12/22/2018 showed a nonbleeding duodenal bulb ulcer without high risk for stigmata for rebleeding. The patient was also found to have mild gastritis and biopsies were also obtained. The pathology was benign and patient was discharged home on Eliquis 2.5 mg twice a day which is the subtherapeutic dose. There was no evidence of bleeding at time of discharge from the hospital. Since his discharge, the patient has not shown any signs of bleeding. His hemoglobin today is at 10.0. Rest of the blood work is all within normal limits. No nausea. No vomiting. No abdominal pain. Echocardiogram from 12/20/2018 was within normal limits and the patient had a normal ejection fraction without any valvular abnormalities. Carotid Dopplers showed elevated velocities in the left internal carotid artery suggestive of 50-70% stenosis. Vertebral arteries were within normal limits. A CAT scan of the brain was also negative. The CAT scan of the abdomen and pelvis showed no acute abnormalities. And did GI nuclear scan/RBC tagged scan was also negative. Currently the patient admitted to the hospital. The patient is brought up to 5 mg of Eliquis twice a day.room air pulse ox is 98%.was dynamically stable. On 01/29/2019 patient in follow-up on selective care unit. Patient is awake and alert, no episodes of syncope while inpatient, room air pulse ox is 95%, he is afebrile, hemodynamically stable. No couplets of chest pain or hemoptysis, yesterday we restarted therapeutic doses of Eliquis. hemoglobin is 10.2, there is has been no evidence of bleeding. He denies any shortness of breath, no chest pain. He states his been experiencing episodes of lightheadedness while walking around his house, he experienced some falls, related to lightheadedness and dizziness, and presyncopal episodes. Patient has a history of chronic artery stenosis of 50-70% found on most recent carotid Dopplers. The patient is seen today 01/30/2018 in follow-up on the selective care unit. He is awake and alert in no acute distress. He is currently sitting up in a chair at the bedside. Maintaining good O2 saturations in the 90s on room air. No worsening shortness of breath, cough or congestion. He remains afebrile. Hemodynamically stable. White count 6.3. Hemoglobin 10.7. Creatinine 0.98. MRI of the brain and MRA of the neck revealed nonspecific white matter demyelination. Findings may be due to his chronic small vessel ischemia, hypertension, migraine headaches, vasculitis, multiple sclerosis felt less likely. Patent carotid and vertebral arteries with a questionable proximal left vertebral artery stenosis. Vascular surgery has been consulted. CT angiogram of the bilateral carotids are pending. Objective - Vital Signs Vital signs: Vital Signs Temp 98.2 F 01/30/19 11:44 Pulse 85 01/30/19 11:44 Resp 18 01/30/19 11:44 BP 105/53 01/30/19 11:44 Pulse Ox 99 01/30/19 11:44 Intake & Output 01/29/19 01/30/19 01/30/19 18:59 06:59 18:59 Intake Total 400 450 80 Balance 400 450 80 Weight 108.6 kg Intake: Intake, IV Titration 450 Amount Sodium Chloride 0.9% 1, 450 000 ml @ 50 mls/hr IV . Q20H [facility] Rx#:[id number] Oral 400 80 Other: Voiding Method Urinal # Voids 4 1 3 - Exam GENERAL EXAM: Alert, active, comfortable in no apparent distress. HEAD: Normocephalic. EYES: Normal reaction of pupils, equal size. NOSE: Clear with pink turbinates. THROAT: No erythema or exudates. NECK: No masses, no JVD. CHEST: No chest wall deformity. LUNGS: Equal air entry with no crackles, wheeze, rhonchi or dullness. CVS: S1 and S2 normal with no audible murmur, regular rhythm. ABDOMEN: No hepatosplenomegaly, normal bowel sounds, no guarding or rigidity. SPINE: No scoliosis or deformity SKIN: No rashes CENTRAL NERVOUS SYSTEM: No focal deficits, tone is normal in all 4 extremities. EXTREMITIES: There is no peripheral edema. No clubbing, no cyanosis. Peripheral pulses are intact. - Labs CBC & Chem 7: 01/30/19 06:54 01/30/19 06:54 Labs: Abnormal Lab Results - Last 24 Hours (Table) 01/30/19 Range/Units 06:54 RBC 4.12 L (4.30-5.90) m/uL Hgb 10.7 L (13.0-17.5) gm/dL Hct 33.9 L (39.0-53.0) % Assessment and Plan Assessment: Impression: 1 bilateral pulmonary embolism, with some interval progression since the original CAT scan of the chest from December 2018, probably related to suboptimal dosing Eliquis. 2 GI bleed secondary to a duodenal ulcer, post endoscopy and the patient shows no active signs of GI bleeding and hemoglobin above 10and the patient has been maintained on Protonix on outpatient basis. 3 hypertension 4 osteoarthritis and chronic back pain 5 chronic depression 6 acid reflux 7 carotid artery stenosis 50-70% based on the most recent carotid Dopplers Plan: The patient was seen and evaluated by Dr. Casanova. He remains stable from the pulmonary standpoint. Continue Eliquis for his pulmonary emboli. Vascular consult is pending. We'll continue to follow. I, the cosigning physician, performed a history & physical examination of the patient. Lungs sounds are clear. Maintaining good O2 saturations in the 90s on room air. I discussed the assessment and plan of care with my nurse pr actitioner, Cass Winslow. I attest to the above note as dictated by her.
--- NOTE | 2019-01-30 15:14 | P.PN ---
Subjective Progress Note Date: 01/30/19 medical issues in a patient with history of PE, significant recent GI bleed requiring transfusions, with subsequent reduction in Eliquis dose. Outpatient CT reported increasing clot burden. He reports history of migraines, last month, when the GI bleed occurred, he was chewing many Excedrin in addition to Eliquis. GI bleed workup completed at that time .GI nuclear scan did not show evidence of active GI bleed. CT of the abdomen and pelvis reported within normal limits. EGD reported nonbleeding duodenal ulcer, mild gastritis. Echo during the prior visit within normal limits, with no significant arrhythmias. Prior anemia workup with hematology not indicative of iron deficiency. Carotid Doppler p erformed last visit reported left internal carotid artery stenosis 50-70%.Denies chest pain, palpitations, nausea vomiting, diarrhea, abdominal pain. Denies hemoptysis, rectal bleeding. Complains of neck pain,"tight neck", near syncopal spells with bending over, speech sometimes affected. Denies fever. EKG reporting sinus rhythm with first-degree AV block. On admission required 2 L nasal cannula O2, currently maintaining O2 sats of 99% on room air. Hemoglobin 10. 01/30/2019 positive symptomatic orthostatic hypotension. Upon standing, reports tingling throughout entire body, all extremities-not asymmetrical. Reports exertional shortness of breath. Patient has been receiving spine injections spinal injections for 2 years at neurologist's office. MRA reporting nonspecific white matter demyelination possible proximal left vertebral artery stenosis. Vascular surgery consult in place, recommendations pending. Telemetry sinus rhythm with PACs. Hemoglobin stable at 10.7, no signs of bleeding. Denies hemoptysis, denies blood in stools, denies abdominal pain. Denies chest pain, palpitations. Objective - Vital Signs Vital signs: Vital Signs Temp 98.2 F 01/30/19 11:44 Pulse 85 01/30/19 11:44 Resp 18 01/30/19 11:44 BP 105/53 01/30/19 11:44 Pulse Ox 99 01/30/19 11:44 Intake & Output 01/29/19 01/30/19 01/30/19 18:59 06:59 18:59 Intake Total 400 450 80 Balance 400 450 80 Weight 108.6 kg Intake: Intake, IV Titration 450 Amount Sodium Chloride 0.9% 1, 450 000 ml @ 50 mls/hr IV . Q20H [facility] Rx#:[id number] Oral 400 80 Other: Voiding Method Urinal # Voids 4 1 3 - Exam VITAL SIGNS: As above GENERAL: Sitting up in chair, no acute distress HEENT: Conjunctivae normal. eyes normal. Oral mucosa moist, atraumatic, normocephalic NECK: No JVD. No thyroid enlargement. No LNs, neck stiffness CARDIOVASCULAR: S1, S2 regular. No murmur, rub or gallop RESPIRATION: Breath sounds diminished in the bases. No rhonchi or crackles. No bronchial breathing. ABDOMEN: Soft, distended, nontender. No guarding. no masses palpable. No hepatosplenomegaly.no guarding, no rigidity.Bowel sounds heard. LEGS: No edema. no swelling PSYCHIATRY: Alert and oriented -3, mood and affect normal. NERVOUS SYSTEM: Cranial N 2-12 grossly normal. Moves all 4 limbs. Diffuse weakness, No focal deficits. Strength and sensation grossly intact. Negative for radiculopathy; negative Spurings, negative axillary load and unload. Skin: no ulcer no rash - Labs CBC & Chem 7: 01/30/19 06:54 01/30/19 06:54 Labs: Abnormal Lab Results - Last 24 Hours (Table) 01/30/19 Range/Units 06:54 RBC 4.12 L (4.30-5.90) m/uL Hgb 10.7 L (13.0-17.5) gm/dL Hct 33.9 L (39.0-53.0) % Assessment and Plan Assessment: -Worsening bilateral Pulmonary embolism in a patient with history of PE, chest CT reporting increasing clot burden -Hypoxic respiratory failure, secondary to the above -Chronic anemia, in a patient with history of recent GI bleed. GI nuclear scan did not show evidence of active GI bleed. Prior anemia workup with hematology not indicative of iron deficiency. -Recent EGD reporting nonbleeding duodenal ulcer and gastritis -Recent echo normal -Near syncope, positive orthostatic hypotension ,possibly vertebral artery stenosis, under further evaluation. History of left internal carotid stenosis 50-70%. Workup in progress. -Hypertension -History of DVTs -Gastroesophageal reflux disease -Osteoarthritis, degenerative joint disease -Chronic back pain -Depression -History of nicotine dependence; patient smoked 1 pack a day for 20 years, quit in 2016. Plan: Continue on current medication regime ,monitoring and symptomatic treatment. Vascular surgery consult in place, recommendations pending. PT ordered. Up with assistance only, secondary to orthostatic hypotension. Florinef added to med regime. Continue with orthostatic vitals every shift. Hemoglobin has remained stable, diet advanced to a heart healthy.close monitoring of hemoglobin with repeat labs ordered for a.m. Prognosis guarded given multiple complex medical issues. Further recommendations to follow. The impression and plan of care has been dictated as directed. : I performed a history and examination of this patient, discussed the same with the dictator. I agree with the dictator's note ,documented as a scribe. Any additional findings or plans will be noted. Time taken: 35 minutes
--- NOTE | 2019-01-30 16:35 | P.CON ---
Consult Note - . Consult date: 01/30/19 Assessment/Plan:: Patient is a 63-year-old male who is evaluated today for a diagnosis of carotid stenosis. This was initially documented on a carotid duplex exam in the recent past suggesting 50-70% left ICA stenosis. The patient has a history of vert iginous type symptoms, possibly orthostatic in nature. Additionally he was recently diagnosed with a pulmonary embolism and remains on oral anticoagulation. According to the patient this represents his second episode of pulmonary and was him and and he believes he may need lifelong anticoagulation. Anticoagulation was complicated by bleeding peptic ulcer as the patient was also taking multiple doses of Excedrin type medications on a daily basis. This led to an upper GI bleed and resulting blood loss anemia. He was taking the Excedrin or complaint of a stiff neck. Additionally the patient has a long history of venous insufficiency as demonstrated by varicose veins. He has in the past use support hose on an intermittent basis. Recent lower extremity venous duplex imaging using demonstrated no evidence of deep venous thrombosis. Past medical history is significant for hypertension, pulmonary embolism peptic ulcer disease with bleeding duodenal ulcer next number his blood loss anemia. Medications include L A[place] Carafate Protonix Lexapro and Zestoretic. The patient has NO KNOWN DRUG ALLERGIES. Social history significant for approximate [id number] tobacco use although the patient stopped utilizing tobacco products 3 years prior. Physical examination revealed a pleasant appearing gentleman who appeared her stated age who is alert cooperative in no apparent distress. Vital signs are stable and patient is afebrile Neck: Supple without adenopathy, with a right carotid bruit noted. Heart: Regular without murmur. Lungs: Clear to auscultation bilaterally. Abdomen: Soft with normoactive bowel sounds. No mass noted. Extremities: Upper extremities demonstrates axillary, brachial and radial pulses be intact bilaterally. Lower extremities demonstrates femoral, popliteal, dorsalis patient posterior tibial pulses are intact bilaterally. Large varicosities are noted bilaterally with early stasis dermatitis changes noted. No venous ulce ration is noted. No significant leg edema is noted at this time. Neurologic: Cranial nerves II through XII are grossly intact. There is equal motor strength in both the upper and lower extremities. Tongue is midline. No facial droop is noted. Laboratory values demonstrates hemoglobin 10.2 hematocrit of 34.5. White cell count 6.8 and platelet count was 281. Electrolytes are unremarkable. Review of MRA demonstrates no significant carotid occlusive disease. Small degree of vertebral artery stenosis was noted. Impression: #1 no evidence of hemodynamically significant carotid stenosis. #2 pulmonary embolism, recurrent/persistent #3 blood loss anemia secondary to peptic ulcer disease #4 venous insufficiency bilateral lower extremities with resulting large varicosities bilaterally. Recommendation: In reference to his carotid occlusive disease no intervention is required or appropriate at this time. I agree with statin therapy and if the patient can medically tolerate a single 81 mg aspirin tablet daily I would recommend instituting aspirin therapy as best medical therapy for carotid occlusive disease. Yearly carotid duplex imaging should be considered. In reference to his venous insufficiency I believe the patient would benefit by the utilization of knee high 20-30 mm gradient support hose. Patient may be a good candidate for endovenous ablation of the great saphenous vein and stab phlebectomy of large varicosities of the lower extremities. I would like to follow the patient in the office in reference to his venous issues as well as his carotid issue. Thank you very much for allowing me to participate in the care of your patient. I trust this letter is useful to you and if I can be of future assistance please feel free to contact me.
[2019-01-30] MEDS: AMITRIPTYLINE HCL 25 MG TAB PO SCH (22:02)
[2019-01-31] MEDS: SODIUM CHLORIDE 0.9% 1,000 ML IV SCH (03:00)
[2019-01-31 07:14] LABS: Basophils # (A) 0.1 k/uL (0-0.2); Basophils % (A) 1 %; Eosinophils # (A) 0.7 k/uL (0-0.7); Eosinophils % (A) 9 %; HGB 10.7 gm/dL (13.0-17.5); Hypochromasia Marked; Lymphocytes # (A) 3.3 k/uL (1.0-4.8); Lymphocytes % (A) 42 %; MCH 25.6 pg (25.0-35.0); MCHC 30.7 g/dL (31.0-37.0); MCV 83.4 fL (80.0-100.0); Mean Platelet Volume 7.3; Monocytes # (A) 0.6 k/uL (0-1.0); Monocytes % (A) 7 %; Neutrophils % (A) 38 %; Platelet Count 279 k/uL (150-450); RBC 4.19 m/uL (4.30-5.90); RDW 15.3 % (11.5-15.5); WBC 7.7 k/uL (3.8-10.6)
[2019-01-31 07:32] LABS: Calcium 9.9 mg/dL (8.4-10.2); Potassium 5.2 mmol/L (3.5-5.1)
[2019-01-31] MEDS: FLUDROCORTISONE 0.1 MG TAB PO SCH (09:48)
[2019-01-31] MEDS: APIXABAN 5 MG TAB PO SCH (09:49)
[2019-01-31] MEDS: HYDROcodone/APAP 10-325MG 1 EACH TAB PO PRN (09:49)
[2019-01-31] MEDS: LISINOPRIL-HCTZ 10-12.5 MG 1 EACH TAB PO SCH (09:49)
[2019-01-31] MEDS: PANTOPRAZOLE 40 MG/10 ML VIAL IVP SCH (09:49)
--- NOTE | 2019-01-31 10:33 | P.DS ---
Providers Date of admission: 01/28/19 14:50 Expected date of discharge: 01/31/19 Attending physician: Theo Reid Consults: 01/28/19 14:50 Consult Physician Urgent Consulting Provider: Natalya Casanova Consult Reason/Comments: PE Do you want consulting provider notified?: Already Contacted 01/29/19 11:44 Consult Physician Routine Consulting Provider: Matteo Johnson Consult Reason/Comments: carotid stenosis, poss.vertebral stenosis Do you want consulting provider notified?: Yes Primary care physician: Theo Reid - Discharge Diagnosis(es) (1) Orthostatic syncope Current Visit: Yes Status: Acute (2) Abnormal MRI of head Current Visit: Yes Status: Acute (3) Neck pain Current Visit: Yes Status: Acute (4) Carotid artery stenosis Current Visit: Yes Status: Acute (5) Venous (peripheral) insufficiency Current Visit: Yes Status: Acute (6) Anemia Current Visit: Yes Status: Acute Priority: High (7) Pulmonary embolism Current Visit: Yes Status: Acute (8) Dyspnea Current Visit: No Status: Acute (9) Hx pulmonary embolism Current Visit: No Status: Acute (10) Hypertension Current Visit: No Status: Acute (11) [facility] (current) use of anticoagulants Current Visit: No Status: Acute (12) Syncope Current Visit: No Status: Acute Hospital Course: medical issues in a patient with history of PE, significant recent GI bleed requiring transfusions, with subsequent reduction in Eliquis dose. Outpatient CT reported increasing clot burden. He reports history of migraines, last month, when the GI bleed occurred, he was chewing many Excedrin in addition to Eliquis. GI bleed workup completed at that time .GI nuclear scan did not show evidence of active GI bleed. CT of the abdomen and pelvis reported within normal limits. EGD reported nonbleeding duodenal ulcer, mild gastritis. Echo during the prior visit within normal limits, with no significant arrhythmias. Prior anemia workup with hematology not indicative of iron deficiency. Carotid Doppler performed last visit reported left internal carotid artery stenosis 50- 70%.Denies chest pain, palpitations, nausea vomiting, diarrhea, abdominal pain. Denies hemoptysis, rectal bleeding. Complains of neck pain,"tight neck", near syncopal spells with bending over, speech sometimes affected. Denies fever. EKG reporting sinus rhythm with first-degree AV block. On admission required 2 L nasal cannula O2, currently maintaining O2 sats of 99% on room air. Hemoglobin 10. 01/30/2019 positive symptomatic orthostatic hypotension. Upon standing, reports tingling throughout entire body, all extremities-not asymmetrical. Reports exertional shortness of breath. Patient has been receiving spine injections spinal injections for 2 years at neurologist's office. MRA reporting nonspecific white matter demyelination possible proximal left vertebral artery stenosis. Vascular surgery consult in place, recommendations pending. Telemetry sinus rhythm with PACs. Hemoglobin stable at 10.7, no signs of bleeding. Denies hemoptysis, denies blood in stools, denies abdominal pain. Denies chest pain, palpitations. 01/31/2019: Patient feels better. His blood pressures remained stable. His MRI had shown nonspecific white matter demyelination findings may be due to chronic small vessel ischemia, hypertension, migraine, vasculitis, MS was felt to be less likely. Patent carotid and vertebral arteries with a questionable proximal left vertebral artery stenosis. This result prompted a consult Dr. Johnson over the carotid and possible vertebral artery stenosis. He felt it was mild and a baby aspirin combined with his Elequis to be adequate treatment once his GI ulcers healed. For my sessions Dr. aCsanova, there may be some autoimmune/ vasculitis disease present causing his symptoms, labs will be ordered to evaluate this and followed up outpatient. Patient Condition at Discharge: Stable Plan - Discharge Summary Discharge Rx Participant: No New Discharge Prescriptions: New Apixaban [Eliquis] 5 mg PO BID #60 tab Cyclobenzaprine [Flexeril] 10 mg PO TID PRN #90 tab PRN Reason: Muscle Spasm Fludrocortisone [Florinef] 0.1 mg PO DAILY #30 tab Continue Lisinopril-Hctz 10-12.5 mg [Zestoretic 10-12.5] 1 tab PO DAILY Multivitamins, Thera [Multivitamin (formulary)] 1 tab PO HS HYDROcodone/APAP 10-325MG [[place] 10-325] 1 tab PO TID PRN PRN Reason: Pain Escitalopram [Lexapro] 20 mg PO HS Ascorbic Acid [Vitamin C] 1,000 mg PO HS Vits A,C,E/Lutein/Minerals [Ocuvite with Lutein Tablet] 1 tab PO HS Melatonin 10 mg PO HS PRN PRN Reason: Insomnia Pantoprazole Sodium [Protonix] 40 mg PO AC-BID #60 tablet. Amitriptyline HCl [Elavil] 25 mg PO HS Sucralfate [Carafate] 1 gm PO BID #60 ml Discontinued Apixaban [Eliquis] 2.5 mg PO DAILY Discharge Medication List Lisinopril-Hctz 10-12.5 mg [Zestoretic 10-12.5] 1 tab PO DAILY 03/28/15 [History] Ascorbic Acid [Vitamin C] 1,000 mg PO HS 01/08/17 [History] Escitalopram [Lexapro] 20 mg PO HS 01/08/17 [History] HYDROcodone/APAP 10-325MG [[place] 10-325] 1 tab PO TID PRN 01/08/17 [History] Multivitamins, Thera [Multivitamin (formulary)] 1 tab PO HS 01/08/17 [History] Melatonin 10 mg PO HS PRN 01/28/18 [History] Vits A,C,E/Lutein/Minerals [Ocuvite with Lutein Tablet] 1 tab PO HS 01/28/18 [History] Pantoprazole Sodium [Protonix] 40 mg PO AC-BID #60 tablet. 12/25/18 [Rx] Amitriptyline HCl [Elavil] 25 mg PO HS 12/29/18 [History] Apixaban [Eliquis] 5 mg PO BID #60 tab 01/31/19 [Rx] Cyclobenzaprine [Flexeril] 10 mg PO TID PRN #90 tab 01/31/19 [Rx] Fludrocortisone [Florinef] 0.1 mg PO DAILY #30 tab 01/31/19 [Rx] Sucralfate [Carafate] 1 gm PO BID #60 ml 01/31/19 [Rx] Follow up Appointment(s)/Referral(s): Matteo Johnson DO [Doctor of Osteopathic Medicine] - 1 Week Theo Reid MD [Primary Care Provider] - 02/04/19 3:15 pm Natalya Casanova MD [STAFF PHYSICIAN] - 1 Week Activity/Diet/Wound Care/Special Instructions: With Steffi MONTAGUE. Discharge Disposition: HOME SELF-CARE
[2019-01-31 12:12] VITALS: RESP 18
[2019-01-31 12:19] VITALS: BP 124/64; PULSE 67; TEMP 96.4
--- NOTE | 2019-01-31 14:25 | P.PN ---
Subjective Progress Note Date: 01/31/19 Principal diagnosis: Recurrent episodes of presyncopal episodes, lightheadedness and dizziness, hypoxemic respiratory failure, pulmonary embolism. 63-year-old male patient with previous hospitalization due to GI bleeding of pulmonary embolism, coming in to the hospital because of increasing shortness of breath over the past 24 hours and episodes of near syncope. The patient at the time of admission was hemodynamically stable. No chills no fever. No chest pain. No abdominal pain. He has been taking Eliquis 2.5 mg by mouth twice a day. A repeat CT angios the chest was done in the emergency department that showed bilateral pulmonary embolism with new clots forming in the lower lobes bilaterally in comparison today recent The computed tomography scan of the chest on 12/20/2018 and for that reason the patient was admitted to the hospital for further investigation This patient was in the hospital back in December 2018 and at that time the patient was brought into the intensive care unit because of episodes of presyncope. He had a significant drop in hemoglobin down to 6.3. GI was consulted and the patient was found to have a nonbleeding duodenal ulcer. The EGD that was done on 12/22/2018 showed a nonbleeding duodenal bulb ulcer without high risk for stigmata for rebleeding. The patient was also found to have mild gastritis and biopsies were also obtained. The pathology was benign and patient was discharged home on Eliquis 2.5 mg twice a day which is the subtherapeutic dose. There was no evidence of bleeding at time of discharge from the hospital. Since his discharge, the patient has not shown any signs of bleeding. His hemoglobin today is at 10.0. Rest of the blood work is all within normal limits. No nausea. No vomiting. No abdominal pain. Echocardiogram from 12/20/2018 was within normal limits and the patient had a normal ejection fraction without any valvular abnormalities. Carotid Dopplers showed elevated velocities in the left internal carotid artery suggestive of 50-70% stenosis. Vertebral arteries were within normal limits. A CAT scan of the brain was also negative. The CAT scan of the abdomen and pelvis showed no acute abnormalities. And did GI nuclear scan/RBC tagged scan was also negative. Currently the patient admitted to the hospital. The patient is brought up to 5 mg of Eliquis twice a day.room air pulse ox is 98%.was dynamically stable. On 01/29/2019 patient in follow-up on selective care unit. Patient is awake and alert, no episodes of syncope while inpatient, room air pulse ox is 95%, he is afebrile, hemodynamically stable. No couplets of chest pain or hemoptysis, yesterday we restarted therapeutic doses of Eliquis. hemoglobin is 10.2, there is has been no evidence of bleeding. He denies any shortness of breath, no chest pain. He states his been experiencing episodes of lightheadedness while walking around his house, he experienced some falls, related to lightheadedness and dizziness, and presyncopal episodes. Patient has a history of chronic artery stenosis of 50-70% found on most recent carotid Dopplers. The patient is seen today 01/30/2018 in follow-up on the selective care unit. He is awake and alert in no acute distress. He is currently sitting up in a chair at the bedside. Maintaining good O2 saturations in the 90s on room air. No worsening shortness of breath, cough or congestion. He remains afebrile. Hemodynamically stable. White count 6.3. Hemoglobin 10.7. Creatinine 0.98. MRI of the brain and MRA of the neck revealed nonspecific white matter demyelination. Findings may be due to his chronic small vessel ischemia, hypertension, migraine headaches, vasculitis, multiple sclerosis felt less likely. Patent carotid and vertebral arteries with a questionable proximal left vertebral artery stenosis. Vascular surgery has been consulted. CT angiogram of the bilateral carotids are pending. The patient is seen today 01/31/2019 in follow-up on the selective care unit. He is currently sitting up in a chair at the bedside. Awake and alert in no acute distress. He is feeling quite a bit better impact his baseline. No episodes of weakness or dizziness. No shortness of breath. His been afebrile. Weight count 7.7. Hemoglobin 10.7. Creatinine 1.15. He had been seen and evaluated by vascular surgery who were not planning any intervention at this time. Objective - Vital Signs Vital signs: Vital Signs Temp 96.4 F L 01/31/19 12:00 Pulse 67 01/31/19 12:00 Resp 18 01/31/19 12:00 BP 124/64 01/31/19 12:00 Pulse Ox 92 L 01/31/19 12:00 Intake & Output 01/30/19 01/31/19 01/31/19 18:59 06:59 18:59 Intake Total 720 650 480 Balance 720 650 480 Weight 110 kg Intake: Intake, IV Titration 400 Amount Sodium Chloride 0.9% 1, 400 000 ml @ 50 mls/hr IV . Q20H [facility] Rx#:[id number] Oral 720 250 480 Other: Voiding Method Toilet Toilet Urinal Urinal # Voids 3 0 1 - Exam GENERAL EXAM: Alert, active, comfortable in no apparent distress. On room air. HEAD: Normocephalic. EYES: Normal reaction of pupils, equal size. NOSE: Clear with pink turbinates. THROAT: No erythema or exudates. NECK: No masses, no JVD. CHEST: No chest wall deformity. LUNGS: Equal air entry with no crackles, wheeze, rhonchi or dullness. CVS: S1 and S2 normal with no audible murmur, regular rhythm. ABDOMEN: No hepatosplenomegaly, normal bowel sounds, no guarding or rigidity. SPINE: No scoliosis or deformity SKIN: No rashes CENTRAL NERVOUS SYSTEM: No focal deficits, tone is normal in all 4 extremities. EXTREMITIES: There is no peripheral edema. No clubbing, no cyanosis. Periphera l pulses are intact. - Labs CBC & Chem 7: 01/31/19 06:43 01/31/19 06:43 Labs: Abnormal Lab Results - Last 24 Hours (Table) 01/31/19 01/31/19 Range/Units 06:43 06:43 RBC 4.19 L (4.30-5.90) m/uL Hgb 10.7 L (13.0-17.5) gm/dL Hct 35.0 L (39.0-53.0) % MCHC 30.7 L (31.0-37.0) g/dL Potassium 5.2 H (3.5-5.1) mmol/L BUN 22 H (9-20) mg/dL Assessment and Plan Assessment: Impression: 1 bilateral pulmonary embolism, with some interval progression since the original CAT scan of the chest from December 2018, probably related to suboptimal dosing Eliquis. 2 GI bleed secondary to a duodenal ulcer, post endoscopy and the patient shows no active signs of GI bleeding and hemoglobin above 10and the patient has been maintained on Protonix on outpatient basis. 3 hypertension 4 osteoarthritis and chronic back pain 5 chronic depression 6 acid reflux 7 carotid artery stenosis 50-70% based on the most recent carotid Dopplers 8 dizziness and lightheadedness, MRI of the brain revealed nonspecific white matter demyelination. Findings may be due to chronic small vessel ischemia, hypertension, migraine headaches, vasculitis, multiple sclerosis felt less likely. Plan: The patient was seen and evaluated by Dr. Casanova. He remains stable from the pulmonary standpoint. Continue Eliquis for his pulmonary emboli. No plans from vascular surgeons at this time. To follow up with neurology in the outpatient setting. He is cleared for discharge. Follow up with Dr. Washington in our office. I, the cosigning physician, performed a history & physical examination of the patient. Lungs sounds are clear. Maintaining good O2 saturations in the 90s on room air. I discussed the assessment and plan of care with my nurse practition er, Cass Winslow. I attest to the above note as dictated by her.
[2019-01-31] MEDS ORDERED: PANTOPRAZOLE 40 MG TABLET PO SCH (17:30)
[2019-02-02 14:48] LABS: C-ANCA <1:20 Titer (<1:20); P-ANCA <1:20 Titer (<1:20)
--- NOTE | 2019-02-03 11:48 | CDI ---
Documentation Clarification Form Date: 02/03/19 From: DAGOBERTO Patel Phone: If you have question, contact Jailyn Lr at [phone] M-F 8:30 am to 6pm Admit Date: 01/28/2019 2:50:00 PM Patient Name: Andrea White Visit Number: [id number] Discharge Date: 01/31/2019 3:38:00 PM ATTENTION: The Clinical Documentation Specialists (CDI) and [facility] [employer] [facility] [employer] Coding Staff appreciate your assistance in clarifying documentation. Please respond to the clarification below the line at the bottom and electronically sign. The CDI & [employer] [facility] [employer] Coding staff will review the response and follow-up if needed. Please note: Queries are made part of the Legal Health Record. If you have any questions, please contact the author of this message via ITS. Dr. Theo Reid The patient presented with the shortness of breath x24 hours and multiple near syncopal episodes. According to the H&P assessment: 1. Recurrent or persistent pulmonary embolism in a patient with a history of PE. 2. Hypoxic respiratory failure, secondary to above Hypoxemic respiratory failure is documented multiple times. Tobacco use: Quit 2015 Home oxygen: none Vital signs on admit: T 98.2, P 68, RR 20 Pulse oximetry: 97-99 throughout the stay In your professional opinion, can you please clarify if these findings signify one of the following conditions? Acuity of hypoxic respiratory failure ----> Acute Chronic Acute on Chronic MTDD
== END 2019-01-31 15:38 | disposition home or self-care (01) | DRG 175 ==
LOC: SUPCPDRO 11:34 → EC 11:34 → 3SCARD 14:50
PROVIDERS: ADMIT Family Medicine; ATTEND Family Medicine
DX: I26.99 Other pulmonary embolism without acute cor pulmonale (principal); J96.01 Acute respiratory failure with hypoxia; K26.4 Chronic or unspecified duodenal ulcer with hemorrhage; F32.9 Major depressive disorder, single episode, unspecified; K21.9 Gastro-esophageal reflux disease without esophagitis; M19.90 Unspecified osteoarthritis, unspecified site; M54.9 Dorsalgia, unspecified; I65.22 Occlusion and stenosis of left carotid artery; K29.70 Gastritis, unspecified, without bleeding; G89.29 Other chronic pain; I10 Essential (primary) hypertension; I65.02 Occlusion and stenosis of left vertebral artery; D50.0 Iron deficiency anemia secondary to blood loss (chronic); I44.0 Atrioventricular block, first degree; I87.2 Venous insufficiency (chronic) (peripheral); I95.1 Orthostatic hypotension; M43.6 Torticollis; Z87.891 Personal history of nicotine dependence; Z79.01 Long term (current) use of anticoagulants; Z79.899 Other long term (current) drug therapy; Z86.718 Personal history of other venous thrombosis and embolism; Z86.711 Personal history of pulmonary embolism; Z91.81 History of falling
CPT/HCPCS: 36415; 70549; 70553; 71275; 80048; 80053; 83735; 84484; 85025; 85610; 85730; 86038; 86255; 93005; 96374; 96376; 99285

== ENCOUNTER → 2019-02-23 | Outpatient (CLI) | payer BC ==
[2019-02-23 12:17] LABS: Basophils # (A) 0.1 k/uL (0-0.2); Basophils % (A) 1 %; Eosinophils # (A) 0.4 k/uL (0-0.7); Eosinophils % (A) 6 %; HCT 30.5 % (39.0-53.0); HGB 9.4 gm/dL (13.0-17.5); Hypochromasia Marked; Lymphocytes # (A) 2.2 k/uL (1.0-4.8); Lymphocytes % (A) 36 %; MCH 24.9 pg (25.0-35.0); MCHC 30.7 g/dL (31.0-37.0); Mean Platelet Volume 7.8; Monocytes # (A) 0.5 k/uL (0-1.0); Monocytes % (A) 7 %; Neutrophils # (A) 2.9 k/uL (1.3-7.7); Neutrophils % (A) 46 %; Platelet Count 306 k/uL (150-450); RBC 3.76 m/uL (4.30-5.90); RDW 15.9 % (11.5-15.5); WBC 6.3 k/uL (3.8-10.6)
== END | disposition home or self-care (01) ==
LOC: LABWHC1 11:20
PROVIDERS: ATTEND Internal Medicine Critical Care Medicine
DX: D64.9 Anemia, unspecified (principal)
CPT/HCPCS: 36415; 85025

== ENCOUNTER → 2019-06-20 | Outpatient (CLI) | payer BC ==
--- NOTE | 2019-06-20 09:53 | CT ---
EXAMINATION TYPE: CT angio chest DATE OF EXAM: 06/20/2019 COMPARISON: 01/28/2019 HISTORY: 63-year-old male Follow up to pulmonary embolism TECHNIQUE: Contiguous axial scanning of the chest performed with IV Contrast, patient injected with 5 3 ml mL of Isovue 370. Coronal/sagittal MIP reconstructions performed. CT DLP: 524.2 mGycm Automated exposure control for dose reduction was used. FINDINGS: Heart normal size without pericardial effusion. Mild focal coronary vessel calcifications are noted u pper LAD. No flattening of the ventricular septum or reflux of contrast into the hepatic veins. Aorta normal caliber with a mild arch calcifications and conventional branching anatomy. Borderline to mildly enlarged caliber to the main right and left pulmonary arteries measuring up to 2 .7 cm may reflect underlying pulmonary arterial hypertension. There is borderline optimal opacification of the pulmonary arteries. Minimal residual right upper lob e are again segmental branch embolic material. Some embolic material within an anterior segmental bra nch on axial image 57 not clearly seen previously. Focal centrally located embolic material within the right lower lobar pulmonary artery appears to be on axial image 78 with clearance of some of the other segmental branch emboli such as in the right lo wer lobe superior segment and some of the basilar right lower lobe segments. Minimal residual embolic material anterior segmental branch left upper lobe, axial image 62 other pre viously seen segmental branch left lower lobe emboli appear to have resolved. Prominent but nonenlarged mediastinal lymph nodes measuring up to 7 mm. Small focal area of groundglass right middle lobe, axial image 85. Otherwise, no consolidation or ple ural effusion. Visualized upper abdomen shows mild to moderate stool burden. Bones: mild degenerative disc disease. IMPRESSION: 1. MINIMAL RESIDUAL SCATTERED EMBOLIC MATERIAL WITHIN SEGMENTAL BRANCHES. MUCH OF THE PREVIOUSLY SEEN EMBOLI HAVE CLEARED. 2. HOWEVER, AT LEAST 2 NEW PULMONARY EMBOLI ARE NOW SEEN, ONE WITHIN THE RIGHT LOWER LOBAR BRANCH AND ONE WITHIN THE ANTERIOR RIGHT UPPER LOBE SEGMENTAL BRANCH. 3. SUSPECT UNDERLYING PULMONARY ARTERIAL HYPERTENSION. NO EVIDENCE FOR RIGHT HEART STRAIN AND NO LARG E CENTRAL EMBOLI. 4. NEW SMALL AREA OF GROUNDGLASS IN THE RIGHT MIDDLE LOBE COULD REPRESENT A SMALL INFECTIOUS OR INFLA MMATORY FOCUS. CORRELATE WITH PATIENT'S SYMPTOMS. A Chase level critical message alert has been initiated for Datlon White MD~[id number] via the [employer] Critical Results System on 06/20/2019 9:51 AM. This message alert has been sent to Dalton White MD~J [id number] via the preferences provided by the clinician for the receipt of Radiology Critical Findings. [facility] [place] [id number].
== END | disposition home or self-care (01) ==
LOC: RADCTMAIN 08:53
PROVIDERS: ATTEND Internal Medicine Hematology & Oncology
DX: I26.99 Other pulmonary embolism without acute cor pulmonale (principal)
CPT/HCPCS: 71275; Q9967

== ENCOUNTER 2019-10-17 12:21 | Inpatient (IN) | payer BC, MEDICARE ==
[2019-10-17] MEDS ORDERED: SODIUM CHLORIDE 0.9% 500 ML 500 ML IV STA (13:08)
[2019-10-17] MEDS ORDERED: IPRATROPIUM-ALBUTEROL 3 ML NEB INHALATION STA (13:08)
--- NOTE | 2019-10-17 13:16 | ED ---
General Adult HPI - General Chief complaint: Shortness of Breath Stated complaint: poss PE Time Seen by Provider: 10/17/19 13:01 Source: patient, RN notes reviewed, old records reviewed Mode of arrival: ambulatory Limitations: no limitations - History of Present Illness Initial comments: 64-year-old male presenting with 1 week of dyspnea, significantly worsening over the past 24 hours. He reports a very mild nonproductive cough associated with his dyspnea. 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 He does report subjective fever and chills. No central chest pain. No lower extremity pain or swelling. No abdominal pain. He reports a very mild sore throat. - Related Data Home Medications Medication Instructions Recorded Confirmed Lisinopril-Hctz 10-12.5 mg 1 tab PO DAILY 03/28/15 01/28/19 [Zestoretic 10-12.5] Ascorbic Acid [Vitamin C] 1,000 mg PO HS 01/08/17 01/28/19 Escitalopram [Lexapro] 20 mg PO HS 01/08/17 01/28/19 HYDROcodone/APAP 10-325MG [[place] 1 tab PO TID PRN 01/08/17 01/28/19 10-325] Multivitamins, Thera [Multivitamin 1 tab PO HS 01/08/17 01/28/19 (formulary)] Melatonin 10 mg PO HS PRN 01/28/18 01/28/19 Vits A,C,E/Lutein/Minerals 1 tab PO HS 01/28/18 01/28/19 [Ocuvite with Lutein Tablet] Amitriptyline HCl [Elavil] 25 mg PO HS 12/29/18 01/28/19 Previous Rx's Medication Instructions Recorded Pantoprazole Sodium [Protonix] 40 mg PO AC-BID #60 tablet. 12/25/18 Apixaban [Eliquis] 5 mg PO BID #60 tab 01/31/19 Cyclobenzaprine [Flexeril] 10 mg PO TID PRN #90 tab 01/31/19 Fludrocortisone [Florinef] 0.1 mg PO DAILY #30 tab 01/31/19 Sucralfate [Carafate] 1 gm PO BID #60 ml 01/31/19 Allergies Allergy/AdvReac Type Severity Reaction Status Date / Time No Known Allergies Allergy Verified 10/17/19 12:49 Review of Systems ROS Statement: Those systems with pertinent positive or pertinent negative responses have been documented in the HPI. ROS Other: All systems not noted in ROS Statement are negative. 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 History of Any Multi-Drug Resistant Organisms: None Reported Past Surgical History: Hernia Repair, Orthopedic Surgery Additional Past Surgical History / Comment(s): ALBERT SHOULDERS right rotator cuff/ left tendon damage, LEFT CARPAL TUNNEL, Past Anesthesia/Blood Transfusion Reactions: No Reported Reaction Past Psychological History: Depression Smoking Status: Former smoker Past Alcohol Use History: None Reported Past Drug Use History: None Reported - Past Family History Mother Family Medical History: No Reported History General Exam Limitations: no limitations General appearance: alert, in no apparent distress Head exam: Present: atraumatic, normocephalic Eye exam: Present: normal appearance, PERRL ENT exam: Present: mucous membranes moist, other (Pharyngeal erythema) Neck exam: Present: normal inspection. Absent: tenderness, meningismus Respiratory exam: Present: rhonchi (Right middle and lower lung ng). Absent: respiratory distress Cardiovascular Exam: Present: regular rate, normal rhythm GI/Abdominal exam: Present: soft. Absent: distended, tenderness, guarding Extremities exam: Present: normal inspection, normal capillary refill. Absent: pedal edema Neurological exam: Present: alert, oriented X3, CN II-XII intact. Absent: motor sensory deficit Psychiatric exam: Present: normal affect, normal mood Skin exam: Present: warm, dry, intact. Absent: cyanosis, diaphoretic Course Vital Signs 10/17/19 10/17/19 10/17/19 12:49 12:59 14:02 Temperature 100.3 F H 102.5 F H Pulse Rate 111 H 94 Respiratory 22 Rate Blood Pressure 110/58 O2 Sat by Pulse 95 Oximetry 10/17/19 10/17/19 10/17/19 14:03 14:15 14:24 Temperature 100.0 F H Pulse Rate 100 98 Respiratory 20 Rate Blood Pressure 154/58 O2 Sat by Pulse 96 Oximetry EKG Findings - EKG Comments: EKG Findings:: EKG: Normal sinus rhythm, left atrial enlargement, rate of 94, DC interval 194, QRS duration 86, QTC 440, no ST segment elevation or depression. Medical Decision Making - Medical Decision Making 64-year-old male presenting with 1 week of dyspnea and 24 hours of significant dyspnea, fever chills. Patient has rhonchi at the lung base and midlung ng on the right. There is concern for pneumonia with this patient presenting with a fever of 102.5. X-rays obtained, confirms her right lobar pneumonia. Patient has normal white blood cell count, he has a lactic acid 4.5 which is significantly elevated. He has a troponin elevation 0.043 with no significant EKG changes and no central chest pain. This is likely related to demand. And patient is anticoagulated on Eliquis. He has elevated BNP at 5930. His influenza testing is negative. He started on antibiotics treating community- acquired pneumonia. He will be admitted for continued treatment of pneumonia with sepsis in lactic acidosis. Echo will be obtained. Case is discussed with Dr. Galarza who will accept admission. - Lab Data Result diagrams: 10/17/19 13:08 10/17/19 13:17 Lab Results 10/17/19 10/17/19 10/17/19 Range/Units 13:08 13:17 13:17 WBC 7.1 (3.8-10.6) k/uL RBC 4.77 (4.30-5.90) m/uL Hgb 14.6 (13.0-17.5) gm/dL Hct 43.0 (39.0-53.0) % MCV 90.3 (80.0-100.0) fL MCH 30.6 (25.0-35.0) pg MCHC 33.9 (31.0-37.0) g/dL RDW 13.4 (11.5-15.5) % Plt Count 179 (150-450) k/uL Neutrophils % Not Reportable Neutrophils % (Manual) 66 % Band Neutrophils % 15 % Lymphocytes % Not Reportable Lymphocytes % (Manual) 13 % Monocytes % Not Reportable Monocytes % (Manual) 3 % Eosinophils % Not Reportable Basophils % Not Reportable Metamyelocytes % 3 % Myelocytes % 2 % Neutrophils # Not Reportable Neutrophils # (Manual) 5.70 (1.3-7.7) k/uL Lymphocytes # Not Reportable Lymphocytes # (Manual) 0.92 L (1.0-4.8) k/uL Monocytes # Not Reportable Monocytes # (Manual) 0.21 (0-1.0) k/uL Eosinophils # Not Reportable Basophils # Not Reportable Metamyelocytes # (Man) 0.21 H (0) k/uL Myelocytes # (Manual) 0.14 H (0) k/uL Nucleated RBCs 0 (0-0) /100 WBC Manual Slide Review Performed RBC Morphology Normal PT (9.0-12.0) sec INR (<1.2) APTT (22.0-30.0) sec Sodium 137 (137-145) mmol/L Potassium 4.4 (3.5-5.1) mmol/L Chloride 103 (98-107) mmol/L Carbon Dioxide 22 (22-30) mmol/L Anion Gap 12 mmol/L BUN 17 (9-20) mg/dL Creatinine 1.21 (0.66-1.25) mg/dL Est GFR (CKD-EPI)AfAm 72 (>60 ml/min/1.73 sqM) Est GFR (CKD-EPI)NonAf 63 (>60 ml/min/1.73 sqM) Glucose 106 H (74-99) mg/dL Plasma Lactic Acid Christiano 4.5 H* (0.7-2.0) mmol/L Calcium 9.4 (8.4-10.2) mg/dL Magnesium 1.5 L (1.6-2.3) mg/dL Total Bilirubin 1.7 H (0.2-1.3) mg/dL AST 71 H (17-59) U/L ALT 57 H (4-49) U/L Alkaline Phosphatase 56 (38-126) U/L Troponin I (0.000-0.034) ng/mL NT-Pro-B Natriuret Pep pg/mL Total Protein 6.5 (6.3-8.2) g/dL Albumin 4.0 (3.5-5.0) g/dL Influenza Type A RNA (Not Detectd) Influenza Type B (PCR) (Not Detectd) 10/17/19 10/17/19 10/17/19 Range/Units 13:17 13:17 13:17 WBC (3.8-10.6) k/uL RBC (4.30-5.90) m/uL Hgb (13.0-17.5) gm/dL Hct (39.0-53.0) % MCV (80.0-100.0) fL MCH (25.0-35.0) pg MCHC (31.0-37.0) g/dL RDW (11.5-15.5) % Plt Count (150-450) k/uL Neutrophils % Neutrophils % (Manual) % Band Neutrophils % % Lymphocytes % Lymphocytes % (Manual) % Monocytes % Monocytes % (Manual) % Eosinophils % Basophils % Metamyelocytes % % Myelocytes % % Neutrophils # Neutrophils # (Manual) (1.3-7.7) k/uL Lymphocytes # Lymphocytes # (Manual) (1.0-4.8) k/uL Monocytes # Monocytes # (Manual) (0-1.0) k/uL Eosinophils # Basophils # Metamyelocytes # (Man) (0) k/uL Myelocytes # (Manual) (0) k/uL Nucleated RBCs (0-0) /100 WBC Manual Slide Review RBC Morphology PT 11.7 (9.0-12.0) sec INR 1.1 (<1.2) APTT 24.9 (22.0-30.0) sec Sodium (137-145) mmol/L Potassium (3.5-5.1) mmol/L Chloride (98-107) mmol/L Carbon Dioxide (22-30) mmol/L Anion Gap mmol/L BUN (9-20) mg/dL Creatinine (0.66-1.25) mg/dL Est GFR (CKD-EPI)AfAm (>60 ml/min/1.73 sqM) Est GFR (CKD-EPI)NonAf (>60 ml/min/1.73 sqM) Glucose (74-99) mg/dL Plasma Lactic Acid Christiano (0.7-2.0) mmol/L Calcium (8.4-10.2) mg/dL Magnesium (1.6-2.3) mg/dL Total Bilirubin (0.2-1.3) mg/dL AST (17-59) U/L ALT (4-49) U/L Alkaline Phosphatase (38-126) U/L Troponin I 0.043 H* (0.000-0.034) ng/mL NT-Pro-B Natriuret Pep 5930 pg/mL Total Protein (6.3-8.2) g/dL Albumin (3.5-5.0) g/dL Influenza Type A RNA (Not Detectd) Influenza Type B (PCR) (Not Detectd) 10/17/19 Range/Units 13:17 WBC (3.8-10.6) k/uL RBC (4.30-5.90) m/uL Hgb (13.0-17.5) gm/dL Hct (39.0-53.0) % MCV (80.0-100.0) fL MCH (25.0-35.0) pg MCHC (31.0-37.0) g/dL RDW (11.5-15.5) % Plt Count (150-450) k/uL Neutrophils % Neutrophils % (Manual) % Band Neutrophils % % Lymphocytes % Lymphocytes % (Manual) % Monocytes % Monocytes % (Manual) % Eosinophils % Basophils % Metamyelocytes % % Myelocytes % % Neutrophils # Neutrophils # (Manual) (1.3-7.7) k/uL Lymphocytes # Lymphocytes # (Manual) (1.0-4.8) k/uL Monocytes # Monocytes # (Manual) (0-1.0) k/uL Eosinophils # Basophils # Metamyelocytes # (Man) (0) k/uL Myelocytes # (Manual) (0) k/uL Nucleated RBCs (0-0) /100 WBC Manual Slide Review RBC Morphology PT (9.0-12.0) sec INR (<1.2) APTT (22.0-30.0) sec Sodium (137-145) mmol/L Potassium (3.5-5.1) mmol/L Chloride (98-107) mmol/L Carbon Dioxide (22-30) mmol/L Anion Gap mmol/L BUN (9-20) mg/dL Creatinine (0.66-1.25) mg/dL Est GFR (CKD-EPI)AfAm (>60 ml/min/1.73 sqM) Est GFR (CKD-EPI)NonAf (>60 ml/min/1.73 sqM) Glucose (74-99) mg/dL Plasma Lactic Acid Christiano (0.7-2.0) mmol/L Calcium (8.4-10.2) mg/dL Magnesium (1.6-2.3) mg/dL Total Bilirubin (0.2-1.3) mg/dL AST (17-59) U/L ALT (4-49) U/L Alkaline Phosphatase (38-126) U/L Troponin I (0.000-0.034) ng/mL NT-Pro-B Natriuret Pep pg/mL Total Protein (6.3-8.2) g/dL Albumin (3.5-5.0) g/dL Influenza Type A RNA Not Detected (Not Detectd) Influenza Type B (PCR) Not Detected (Not Detectd) Disposition Clinical Impression: Community acquired pneumonia Disposition: ADMITTED IP TO THIS [facility] Condition: Stable Is patient prescribed a controlled substance at d/c from ED?: No Referrals: Theo Reid MD [Primary Care Provider] - 1-2 days Decision to Admit Reason: Admit from EC Decision Date: 10/17/19 Decision Time: 14:32
[2019-10-17 13:46] LABS: Calcium 9.4 mg/dL (8.4-10.2); Magnesium 1.5 mg/dL (1.6-2.3); Potassium 4.4 mmol/L (3.5-5.1); Total Bilirubin 1.7 mg/dL (0.2-1.3); Total Protein 6.5 g/dL (6.3-8.2)
[2019-10-17 13:48] LABS: HGB 14.6 gm/dL (13.0-17.5); MCH 30.6 pg (25.0-35.0); MCHC 33.9 g/dL (31.0-37.0); MCV 90.3 fL (80.0-100.0); Mean Platelet Volume 8.3; Platelet Count 179 k/uL (150-450); RBC 4.77 m/uL (4.30-5.90); RDW 13.4 % (11.5-15.5); WBC 7.1 k/uL (3.8-10.6)
[2019-10-17 13:49] LABS: INR 1.1 (<1.2); Partial Thromboplastin Time 24.9 sec (22.0-30.0); Prothrombin Time 11.7 sec (9.0-12.0)
--- NOTE | 2019-10-17 13:53 | XR ---
EXAMINATION TYPE: XR chest 2V DATE OF EXAM: 10/17/2019 COMPARISON: Chest CT June 20, 2019 HISTORY: Difficulty in breathing. TECHNIQUE: Frontal and lateral views of the chest are obtained. FINDINGS: There is new right basilar patchy and reticulonodular opacity. Left lung remains clear. T he cardiac silhouette size is stable and within normal limits. The osseous structures are intact. IMPRESSION: New right basilar alveolar and interstitial infiltrates and/or edema thought present. Pro rafi study advised.
[2019-10-17] MEDS ORDERED: SODIUM CHLORIDE 0.9% 1,000 ML IV ONE (14:02)
[2019-10-17] MEDS ORDERED: AZITHROMYCIN 500 MG in SODIUM CHLORIDE 0.9% 250 ML IVPB STA (14:03)
[2019-10-17] MEDS ORDERED: MAGNESIUM SULFATE-D5W PMX 1 GM in DEXTROSE/WATER 1 100ML.BAG IVPB ONE (14:03)
[2019-10-17 14:09] LABS: Band Neutrophils % 15 %; Lymphocytes # (M) 0.92 k/uL (1.0-4.8); Metamyelocytes # (M) 0.21 k/uL (0); Metamyelocytes % 3 %; Monocytes # (M) 0.21 k/uL (0-1.0); Myelocytes # (M) 0.14 k/uL (0); Myelocytes % 2 %; Neutrophils % (M) 66 %; Nucleated Red Blood Cells 0 /100 WBC (0-0); Total Cells Counted 200
[2019-10-17] MEDS ORDERED: ASPIRIN 325 MG TAB PO STA (14:16)
[2019-10-17] MEDS: SODIUM CHLORIDE 0.9% 1,000 ML IV SCH (14:16)
[2019-10-17] MEDS ORDERED: PNEUMONIA PROTOCOL UTILIZED 1 EACH MISC PO PRN (14:24)
[2019-10-17] MEDS: ALBUTEROL NEBULIZED 2.5 MG/3 ML INHALATION SCH ×2 (16:48→21:04)
[2019-10-17] MEDS ORDERED: CYCLOBENZAPRINE 10 MG TAB PO PRN (17:15)
[2019-10-17] MEDS ORDERED: MELATONIN 5 MG TABLET PO PRN (17:15)
[2019-10-17] MEDS ORDERED: ACETAMINOPHEN TAB 325 MG TAB PO PRN (17:20)
[2019-10-17] MEDS: PANTOPRAZOLE 40 MG TABLET PO SCH (17:27)
[2019-10-17] MEDS: HYDROcodone/APAP 10-325MG 1 EACH TAB PO PRN (17:28)
[2019-10-17] MEDS ORDERED: SODIUM CHLORIDE 0.9% 500 ML 500 ML IV ONE (19:06)
[2019-10-17] MEDS: IBUPROFEN 800 MG TAB PO PRN (19:20)
[2019-10-17] MEDS: SUCRALFATE 1 GM TAB PO SCH (19:38)
[2019-10-17] MEDS: ESCITALOPRAM 20 MG TAB PO SCH (19:38)
[2019-10-17] MEDS: MULTIVITAMINS, THERA 1 EACH TAB PO SCH (19:38)
[2019-10-17] MEDS: ASCORBIC ACID 500 MG TAB PO SCH (19:39)
[2019-10-17] MEDS: APIXABAN 5 MG TAB PO SCH (19:39)
[2019-10-17] MEDS: AMITRIPTYLINE HCL 25 MG TAB PO SCH (19:39)
[2019-10-17] MEDS: VIT A,C & E-LUTEIN-MINERALS 1 EACH TAB PO SCH (19:45)
[2019-10-18] MEDS: SODIUM CHLORIDE 0.9% 1,000 ML IV SCH ×2 (03:04→13:11)
[2019-10-18 04:27] LABS: HCT 38.6 % (39.0-53.0); HGB 12.8 gm/dL (13.0-17.5); MCH 30.3 pg (25.0-35.0); MCHC 33.2 g/dL (31.0-37.0); Mean Platelet Volume 8.5; Platelet Count 117 k/uL (150-450); RBC 4.25 m/uL (4.30-5.90); RDW 13.7 % (11.5-15.5); WBC 10.3 k/uL (3.8-10.6)
[2019-10-18 04:46] LABS: ALT 46 U/L (4-49); AST 47 U/L (17-59); African American GFR (CKD) >90 (>60 ml/min/1.73 sqM); Albumin 3.1 g/dL (3.5-5.0); Alkaline Phosphatase 46 U/L (38-126); Anion Gap 10 mmol/L; Blood Urea Nitrogen 17 mg/dL (9-20); Calcium 8.4 mg/dL (8.4-10.2); Carbon Dioxide 22 mmol/L (22-30); Chloride 105 mmol/L (98-107); Glucose 117 mg/dL (74-99); Magnesium 1.9 mg/dL (1.6-2.3); Non-African American GFR(CKD) 85 (>60 ml/min/1.73 sqM); Potassium 3.7 mmol/L (3.5-5.1); Sodium 137 mmol/L (137-145); Total Bilirubin 1.4 mg/dL (0.2-1.3); Total Protein 5.5 g/dL (6.3-8.2)
[2019-10-18] MEDS: PANTOPRAZOLE 40 MG TABLET PO SCH ×2 (06:23→16:18)
--- NOTE | 2019-10-18 06:55 | ECHOF ---
Referral Reason:CHF? MEASUREMENTS -------- HEIGHT: 182.9 cm WEIGHT: 113.4 kg BP: 165/66 RVIDd: 3.6 cm (< 3.3) IVSd: 1.3 cm (0.6 - 1.1) LVIDd: 5.5 cm (3.9 - 5.3) LVPWd: 1.3 cm (0.6 - 1.1) IVSs: 2.0 cm LVIDs: 3.3 cm LVPWs: 1.7 cm LA Diam: 3.2 cm (2.7 - 3.8) LAESV Index (A-L): 26.12 ml/m Ao Diam: 3.7 cm (2.0 - 3.7) AV Cusp: 2.5 cm (1.5 - 2.6) MV EXCURSION: 10.759 mm (> 18.000) MV EF SLOPE: 47 mm/s (70 - 150) EPSS: 1.1 cm MV E Daniel: 0.98 m/s MV DecT: 209 ms MV A Daniel: 0.92 m/s MV E/A Ratio: 1.07 RAP: 5.00 mmHg RVSP: 43.55 mmHg FINDINGS -------- Resting tachycardia (HR>100bpm). This was a technically difficult study with suboptimal views. The left ventricular size is normal. There is mild concentric left ventricular hypertrophy. Overa ll left ventricular systolic function is normal with, an EF between 55 - 60 %. The right ventricle is mildly enlarged. Normal LA size by volume 22+/-6 ml/m2. The right atrium is normal in size. 5.0mg of Lumason was utilized for enhancement of images Interatrial and interventricular septum intact. The aortic valve is trileaflet and appears structurally normal. The mitral valve is normal. Mild tricuspid regurgitation present. Right ventricular systolic pressure is normal at < 35 mmHg. The pulmonic valve was not well visualized. The aortic root size is normal. IVC Not well visulized. There is no pericardial effusion. CONCLUSIONS -------- 1. Resting tachycardia (HR>100bpm). 2. This was a technically difficult study with suboptimal views. 3. The left ventricular size is normal. 4. There is mild concentric left ventricular hypertrophy. 5. The right ventricle is mildly enlarged. 6. Normal LA size by volume 22+/-6 ml/m2. 7. The right atrium is normal in size. 8. 5.0mg of Lumason was utilized for enhancement of images 9. Interatrial and interventricular septum intact. 10. The aortic valve is trileaflet and appears structurally normal. 11. The mitral valve is normal. 12. Mild tricuspid regurgitation present. 13. Right ventricular systolic pressure is normal at < 35 mmHg. 14. The pulmonic valve was not well visualized. 15. The aortic root size is normal. 16. IVC Not well visulized. 17. There is no pericardial effusion. MANAGER PE: Vania Sorensen RDCS
[2019-10-18] MEDS: AZITHROMYCIN 500 MG TAB PO SCH (08:13)
[2019-10-18] MEDS: APIXABAN 5 MG TAB PO SCH ×2 (08:13→20:13)
[2019-10-18] MEDS: SUCRALFATE 1 GM TAB PO SCH ×2 (08:13→20:13)
[2019-10-18] MEDS: LISINOPRIL-HCTZ 10-12.5 MG 1 EACH TAB PO SCH (08:14)
[2019-10-18] MEDS: FLUDROCORTISONE 0.1 MG TAB PO SCH (08:14)
[2019-10-18] MEDS: ALBUTEROL NEBULIZED 2.5 MG/3 ML INHALATION SCH ×4 (08:14→21:02)
--- NOTE | 2019-10-18 09:46 | XR ---
EXAMINATION TYPE: XR chest 2V DATE OF EXAM: 10/18/2019 COMPARISON: 10/17/2019 TECHNIQUE: PA and lateral views submitted. HISTORY: Cough possible pneumonia FINDINGS: Left lung is clear. Large area right-sided consolidation and pleural effusion stable. Heart size stab le. No pneumothorax. Osseous structures intact. IMPRESSION: 1. Diffuse right-sided consolidation correlate for pneumonia.
[2019-10-18] MEDS ORDERED: SODIUM CHLORIDE 0.9% 500 ML 500 ML IV ONE (12:37)
--- NOTE | 2019-10-18 12:59 | P.HPIM ---
History of Present Illness H&P Date: 10/18/19 Chief Complaint: Shortness of breath and malaise 64-year-old male patient worsening dyspnea over the past 24 hours he has had a nonproductive cough associated with this he has been on Eliquis for previous history of DVTs and pulmonary embolus he has had fever and chills no lower extremity pain or swelling no abdominal pain Review of Systems Constitutional: Reports chills, Reports malaise, Reports sweats Ears, nose, mouth and throat: Reports as per HPI Cardiovascular: Reports as per HPI Respiratory: Reports congestion, Reports cough, Reports dyspnea, Reports respiratory infections, Reports wheezing Gastrointestinal: Reports as per HPI Genitourinary: Reports as per HPI Musculoskeletal: Reports as per HPI Integumentary: Reports as per HPI Neurological: Reports as per HPI Psychiatric: Reports as per HPI Endocrine: Reports as per HPI Hematologic/Lymphatic: Reports as per HPI Allergic/Immunologic: Reports as per HPI Past Medical History Past Medical History: Deep Vein Thrombosis (DVT), GERD/Reflux, Hypertension, Osteoarthritis (OA), Pulmonary Embolus (PE) Additional Past Medical History / Comment(s): CHRONIC BACK PAIN, recurrent pulmonary embolism the first episode was around 2-1/2 years ago and the patient was treated with anticoagulation and then discontinued and subsequently he had another episode in 2018 and since then has been on anticoagulation, hy pertension, osteoarthritis, chronic back pain, acid reflux, recent hospitalization for GI bleed, currently artery stenosis, 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%. History of Any Multi-Drug Resistant Organisms: None Reported Past Surgical History: Hernia Repair, Orthopedic Surgery Additional Past Surgical History / Comment(s): ALBERT SHOULDERS right rotator cuff/ left tendon damage, LEFT CARPAL TUNNEL, Past Anesthesia/Blood Transfusion Reactions: No Reported Reaction Past Psychological History: Depression Smoking Status: Former smoker Past Alcohol Use History: None Reported Additional Past Alcohol Use History / Comment(s): smoked 20 years <1ppd quit 2015 Past Drug Use History: None Reported - Past Family History Father Family Medical History: Respiratory Disorder Mother Family Medical History: Dementia Medications and Allergies Home Medications Medication Instructions Recorded Confirmed Type Lisinopril-Hctz 10-12.5 mg 1 tab PO DAILY 03/28/15 10/17/19 History [Zestoretic 10-12.5] Ascorbic Acid [Vitamin C] 1,000 mg PO HS 01/08/17 10/17/19 History Escitalopram [Lexapro] 20 mg PO HS 01/08/17 10/17/19 History HYDROcodone/APAP 10-325MG [[place] 1 tab PO TID PRN 01/08/17 10/17/19 History 10-325] Multivitamins, Thera [Multivitamin 1 tab PO HS 01/08/17 10/17/19 History (formulary)] Melatonin 10 mg PO HS PRN 01/28/18 10/17/19 History Vits A,C,E/Lutein/Minerals 1 tab PO HS 01/28/18 10/17/19 History [Ocuvite with Lutein Tablet] Pantoprazole Sodium [Protonix] 40 mg PO AC-BID #60 tablet. 12/25/18 10/17/19 Rx Amitriptyline HCl [Elavil] 25 mg PO HS 12/29/18 10/17/19 History Apixaban [Eliquis] 5 mg PO BID #60 tab 01/31/19 10/17/19 Rx Fludrocortisone [Florinef] 0.1 mg PO DAILY #30 tab 01/31/19 10/17/19 Rx Sucralfate [Carafate] 1 gm PO BID #60 ml 01/31/19 10/17/19 Rx Cyclobenzaprine [Flexeril] 10 mg PO DAILY PRN 10/17/19 10/17/19 History Allergies Allergy/AdvReac Type Severity Reaction Status Date / Time No Known Allergies Allergy Verified 10/17/19 12:49 Physical Exam Osteopathic Statement: *. No significant issues noted on an osteopathic structural exam other than those noted in the History and Physical/Consult. Vitals: Vital Signs Temp Pulse Pulse Resp BP BP Pulse Ox 10/18/19 12:23 94 10/18/19 12:12 96 10/18/19 12:00 98.0 F 98 16 147/78 97 10/18/19 08:27 92 10/18/19 08:17 88 95 10/18/19 08:12 98.5 F 89 24 128/76 95 10/18/19 08:00 89 24 10/18/19 03:04 97.6 F 77 20 125/69 93 L 10/18/19 00:00 97.9 F 88 20 107/67 91 L 10/17/19 21:14 92 10/17/19 21:05 100 10/17/19 19:39 98.9 F 90 24 127/68 90 L 10/17/19 18:59 102.0 F H 95 26 H 114/65 94 L 10/17/19 17:52 102 H 24 10/17/19 17:01 102 H 10/17/19 16:55 101.9 F H 102 H 16 135/69 92 L 10/17/19 16:50 106 H 10/17/19 16:00 99.9 F H 99 21 107/55 94 L 10/17/19 15:00 99 20 165/66 94 L 10/17/19 14:24 98 20 154/58 96 10/17/19 14:15 100 10/17/19 14:03 100.0 F H 10/17/19 14:02 94 10/17/19 14:00 96 20 141/62 94 L 10/17/19 13:28 102 H 20 94 L 10/17/19 12:59 102.5 F H Intake and Output 10/17/19 10/18/19 10/18/19 22:59 06:59 14:59 Intake Total 770 600 260 Balance 770 600 260 Intake: IV 10 Invasive Line 1 10 Intake, IV Titration 500 600 Amount Sodium Chloride 0.9% 1, 600 000 ml @ 75 mls/hr IV . [id number] [facility] Rx#:[id number] Sodium Chloride 0.9% 500 500 ml 500 ml @ 999 mls/hr IV .Q31M ONE Rx#:[id number] Oral 260 260 Other: # Voids 1 Weight 113.398 kg 120.2 kg General: [Patient awake, alert and oriented times 3. Patient in no acute distress.] HEENT: [PERRL. EOMI. No pharyngeal erythema or exudate.] Neck: [No adenopathy.] Cardiac: [Heart regular in rate and rhythm. No S3. No S4. No clicks, rubs. No murmur.] Lungs: [Bilateral coarse rhonchi with right side being worse than left with bibasilar wheezes] Abdomen: [No mass. No organomegaly. Bowel sounds presnt and normoactive in all 4 quadrants.] Extremes: [No edema no cyanosis no claudication normal pulses] : [Normal male genitalia] Musculoskeletal: [No joint erythema, edema or tenderness.] Skin: [No rash.] Neurologic: [No lateralizing deficits. CN II - XII grossly intact.] Lymphatic: [No adenopathy.] Results CBC & Chem 7: 10/18/19 03:58 10/18/19 03:58 Labs: Abnormal Lab Results - Last 24 Hours (Table) 10/17/19 10/17/19 10/17/19 Range/Units 13:08 13:17 13:17 RBC (4.30-5.90) m/uL Hgb (13.0-17.5) gm/dL Hct (39.0-53.0) % Plt Count (150-450) k/uL Lymphocytes # (Manual) 0.92 L (1.0-4.8) k/uL Metamyelocytes # (Man) 0.21 H (0) k/uL Myelocytes # (Manual) 0.14 H (0) k/uL Glucose 106 H (74-99) mg/dL Plasma Lactic Acid Christiano 4.5 H* (0.7-2.0) mmol/L Magnesium 1.5 L (1.6-2.3) mg/dL Total Bilirubin 1.7 H (0.2-1.3) mg/dL AST 71 H (17-59) U/L ALT 57 H (4-49) U/L Troponin I (0.000-0.034) ng/mL Total Protein (6.3-8.2) g/dL Albumin (3.5-5.0) g/dL 10/17/19 10/17/19 10/17/19 Range/Units 13:17 18:10 18:10 RBC (4.30-5.90) m/uL Hgb (13.0-17.5) gm/dL Hct (39.0-53.0) % Plt Count (150-450) k/uL Lymphocytes # (Manual) (1.0-4.8) k/uL Metamyelocytes # (Man) (0) k/uL Myelocytes # (Manual) (0) k/uL Glucose (74-99) mg/dL Plasma Lactic Acid Christiano 4.7 H* (0.7-2.0) mmol/L Magnesium (1.6-2.3) mg/dL Total Bilirubin (0.2-1.3) mg/dL AST (17-59) U/L ALT (4-49) U/L Troponin I 0.043 H* 0.046 H* (0.000-0.034) ng/mL Total Protein (6.3-8.2) g/dL Albumin (3.5-5.0) g/dL 10/17/19 10/18/19 10/18/19 Range/Units 22:27 03:58 03:58 RBC 4.25 L (4.30-5.90) m/uL Hgb 12.8 L (13.0-17.5) gm/dL Hct 38.6 L (39.0-53.0) % Plt Count 117 L (150-450) k/uL Lymphocytes # (Manual) (1.0-4.8) k/uL Metamyelocytes # (Man) (0) k/uL Myelocytes # (Manual) (0) k/uL Glucose 117 H (74-99) mg/dL Plasma Lactic Acid Christiano 3.9 H* (0.7-2.0) mmol/L Magnesium (1.6-2.3) mg/dL Total Bilirubin 1.4 H (0.2-1.3) mg/dL AST (17-59) U/L ALT (4-49) U/L Troponin I (0.000-0.034) ng/mL Total Protein 5.5 L (6.3-8.2) g/dL Albumin 3.1 L (3.5-5.0) g/dL 10/18/19 10/18/19 10/18/19 Range/Units 03:58 08:07 11:55 RBC (4.30-5.90) m/uL Hgb (13.0-17.5) gm/dL Hct (39.0-53.0) % Plt Count (150-450) k/uL Lymphocytes # (Manual) (1.0-4.8) k/uL Metamyelocytes # (Man) (0) k/uL Myelocytes # (Manual) (0) k/uL Glucose (74-99) mg/dL Plasma Lactic Acid Christian[place] 4.1 H* 3.5 H* 4.2 H* (0.7-2.0) mmol/L Magnesium (1.6-2.3) mg/dL Total Bilirubin (0.2-1.3) mg/dL AST (17-59) U/L ALT (4-49) U/L Troponin I (0.000-0.034) ng/mL Total Protein (6.3-8.2) g/dL Albumin (3.5-5.0) g/dL Thrombosis Risk Factor Assmnt - DVT/VTE Prophylaxis DVT/VTE Prophylaxis: Pharmacologic Prophylaxis ordered - Choose All That Apply Any of the Below Risk Factors Present?: Yes Each Factor Represents 1 point: Obesity (BMI >25), Swollen legs (current) Other Risk Factors: Yes Each Risk Factor Represents 2 Points: Age 61-74 years Each Risk Factor Represents 3 Points: History of DVT/PE Other congenital or acquired thrombophilia - If yes, enter type in comment: No Thrombosis Risk Factor Assessment Total Risk Factor Score: 7 Thrombosis Risk Factor Assessment Level: High Risk Assessment and Plan (1) Community acquired pneumonia Current Visit: Yes Status: Acute Code(s): J18.9 - PNEUMONIA, UNSPECIFIED ORGANISM SNOMED Code(s): 258785300 (2) Dehydration Current Visit: No Status: Acute Code(s): E86.0 - DEHYDRATION SNOMED Code(s): 23493973 Plan: [facility] 10/17/2019 Current antibiotics are Rocephin IV azithromycin by mouth Aggressive rehydration for elevated lactic acid Sputum and blood culture We will follow closely Time with Patient: Greater than 30
[2019-10-18 13:25] LABS: Basophils % (A) 0 %; Eosinophils # (A) 0.1 k/uL (0-0.7); Eosinophils % (A) 1 %; HCT 36.3 % (39.0-53.0); HGB 12.4 gm/dL (13.0-17.5); Lymphocytes % (A) 10 %; MCHC 34.1 g/dL (31.0-37.0); MCV 90.9 fL (80.0-100.0); Mean Platelet Volume 8.9; Monocytes # (A) 0.3 k/uL (0-1.0); Monocytes % (A) 3 %; Neutrophils # (A) 8.3 k/uL (1.3-7.7); Neutrophils % (A) 85 %; Platelet Count 126 k/uL (150-450); RBC 3.99 m/uL (4.30-5.90); RDW 13.8 % (11.5-15.5); WBC 9.8 k/uL (3.8-10.6)
[2019-10-18] MEDS: IBUPROFEN 800 MG TAB PO PRN (16:17)
[2019-10-18] MEDS: HYDROcodone/APAP 10-325MG 1 EACH TAB PO PRN (17:59)
[2019-10-18] MEDS: ASCORBIC ACID 500 MG TAB PO SCH (20:13)
[2019-10-18] MEDS: MULTIVITAMINS, THERA 1 EACH TAB PO SCH (20:13)
[2019-10-18] MEDS: AMITRIPTYLINE HCL 25 MG TAB PO SCH (20:13)
[2019-10-18] MEDS: ESCITALOPRAM 20 MG TAB PO SCH (20:13)
[2019-10-18] MEDS: VIT A,C & E-LUTEIN-MINERALS 1 EACH TAB PO SCH (20:13)
[2019-10-19] MEDS: PANTOPRAZOLE 40 MG TABLET PO SCH ×2 (06:13→16:44)
[2019-10-19] MEDS: SODIUM CHLORIDE 0.9% 1,000 ML IV SCH ×3 (06:13→23:33)
[2019-10-19 06:21] LABS: Basophils % (A) 0 %; Eosinophils # (A) 0.3 k/uL (0-0.7); Eosinophils % (A) 3 %; HCT 34.5 % (39.0-53.0); HGB 11.8 gm/dL (13.0-17.5); Lymphocytes % (A) 10 %; MCH 30.8 pg (25.0-35.0); MCHC 34.2 g/dL (31.0-37.0); MCV 90.1 fL (80.0-100.0); Monocytes # (A) 0.3 k/uL (0-1.0); Monocytes % (A) 3 %; Neutrophils # (A) 7.9 k/uL (1.3-7.7); Neutrophils % (A) 82 %; Platelet Count 161 k/uL (150-450); RBC 3.84 m/uL (4.30-5.90); RDW 13.8 % (11.5-15.5); WBC 9.6 k/uL (3.8-10.6)
[2019-10-19 06:37] LABS: ALT 46 U/L (4-49); AST 48 U/L (17-59); African American GFR (CKD) >90 (>60 ml/min/1.73 sqM); Albumin 2.8 g/dL (3.5-5.0); Alkaline Phosphatase 88 U/L (38-126); Anion Gap 6 mmol/L; Blood Urea Nitrogen 13 mg/dL (9-20); Calcium 8.6 mg/dL (8.4-10.2); Carbon Dioxide 24 mmol/L (22-30); Chloride 109 mmol/L (98-107); Glucose 112 mg/dL (74-99); Non-African American GFR(CKD) >90 (>60 ml/min/1.73 sqM); Potassium 3.4 mmol/L (3.5-5.1); Sodium 139 mmol/L (137-145); Total Protein 5.3 g/dL (6.3-8.2)
[2019-10-19] MEDS: SUCRALFATE 1 GM TAB PO SCH ×2 (07:58→20:11)
[2019-10-19] MEDS: AZITHROMYCIN 500 MG TAB PO SCH (07:58)
[2019-10-19] MEDS: APIXABAN 5 MG TAB PO SCH ×2 (07:58→20:11)
[2019-10-19] MEDS: FLUDROCORTISONE 0.1 MG TAB PO SCH (07:59)
[2019-10-19] MEDS: LISINOPRIL-HCTZ 10-12.5 MG 1 EACH TAB PO SCH (07:59)
[2019-10-19] MEDS: ALBUTEROL NEBULIZED 2.5 MG/3 ML INHALATION SCH ×4 (08:39→19:26)
[2019-10-19] MEDS: HYDROcodone/APAP 10-325MG 1 EACH TAB PO PRN ×2 (10:49→20:12)
[2019-10-19] MEDS: IBUPROFEN 800 MG TAB PO PRN (14:58)
[2019-10-19] MEDS ORDERED: Potassium Replacement Protocol 1 EACH MISC MISCELLANE PRN (18:50)
--- NOTE | 2019-10-19 18:59 | P.PN ---
Subjective Progress Note Date: 10/19/19 Principal diagnosis: Shortness of breath and malaise 64-year-old patient worsening dyspnea for the past 24 hours in which she had a nonproductive cough. Has been on A previous history of DVTs and pulmonary embolus, currently denies lower extremity pain or swelling did complain of fever and chills Objective - Vital Signs Vital signs: Vital Signs Temp 100.0 F H 10/19/19 15:28 Pulse 87 10/19/19 15:28 Resp 20 10/19/19 15:28 BP 174/80 10/19/19 15:28 Pulse Ox 95 10/19/19 15:28 Intake & Output 10/18/19 10/19/19 10/19/19 18:59 06:59 18:59 Intake Total 460 800 720 Balance 460 800 720 Weight 119.5 kg Intake: Intake, IV Titration 800 Amount cefTRIAXone 1 gm In 800 Sodium Chloride 0.9% 50 ml @ 100 mls/hr IVPB Q24H [facility] Rx#:[id number] Oral 460 720 Other: Voiding Method Toilet Toilet # Voids 2 2 3 - Exam General: [Patient awake, alert and oriented times 3. Patient in no acute distress.] HEENT: [PERRL. EOMI. No pharyngeal erythema or exudate.] Neck: [No adenopathy.] Cardiac: [Heart regular in rate and rhythm. No S3. No S4. No clicks, rubs. No murmur.] Lungs: [Clear to auscultation bilaterally.] Abdomen: [No mass. No organomegaly. Bowel sounds presnt and normoactive in all 4 quadrants.] Extremes: [No edema no cyanosis no claudication normal pulses] : [Normal male genitalia] Musculoskeletal: [No joint erythema, edema or tenderness.] Skin: [No rash.] Neurologic: [No lateralizing deficits. CN II - XII grossly intact.] Lymphatic: [No adenopathy.] - Labs CBC & Chem 7: 10/19/19 05:55 10/19/19 05:55 Labs: Abnormal Lab Results - Last 24 Hours (Table) 10/18/19 10/19/19 10/19/19 Range/Units 20:00 05:55 05:55 RBC 3.84 L (4.30-5.90) m/uL Hgb 11.8 L (13.0-17.5) gm/dL Hct 34.5 L (39.0-53.0) % Neutrophils # 7.9 H (1.3-7.7) k/uL Potassium 3.4 L (3.5-5.1) mmol/L Chloride 109 H (98-107) mmol/L Glucose 112 H (74-99) mg/dL Plasma Lactic Acid Christiano 2.4 H* (0.7-2.0) mmol/L Total Protein 5.3 L (6.3-8.2) g/dL Albumin 2.8 L (3.5-5.0) g/dL Microbiology - Last 24 Hours (Table) 10/17/19 13:17 Blood Culture - Preliminary Blood No Growth after 48 hours 10/18/19 08:15 Gram Stain - Preliminary Sputum Sputum Culture - Preliminary Assessment and Plan (1) Community acquired pneumonia Current Visit: Yes Status: Acute Code(s): J18.9 - PNEUMONIA, UNSPECIFIED ORGANISM SNOMED Code(s): 733396898 (2) Dehydration Current Visit: No Status: Acute Code(s): E86.0 - DEHYDRATION SNOMED Code(s): 91733091 Plan: Sepsis is significantly improved, Lactic acid normal/patient's fluid status significantly improved no longer dehydrated Breath sounds significantly improved white count back to normal We'll continue IV antibiotics Anticipate discharge home tomorrow Time with Patient: Greater than 30
[2019-10-19] MEDS: POTASSIUM CHLORIDE ER 20 MEQ TAB.ER PO SCH ×2 (20:11→21:14)
[2019-10-19] MEDS: ASCORBIC ACID 500 MG TAB PO SCH (20:11)
[2019-10-19] MEDS: MULTIVITAMINS, THERA 1 EACH TAB PO SCH (20:11)
[2019-10-19] MEDS: VIT A,C & E-LUTEIN-MINERALS 1 EACH TAB PO SCH (20:12)
[2019-10-19] MEDS: AMITRIPTYLINE HCL 25 MG TAB PO SCH (20:12)
[2019-10-19] MEDS: ESCITALOPRAM 20 MG TAB PO SCH (20:12)
[2019-10-20] MEDS: PANTOPRAZOLE 40 MG TABLET PO SCH ×2 (06:55→16:44)
[2019-10-20 07:33] LABS: ALT 46 U/L (4-49); AST 41 U/L (17-59); African American GFR (CKD) >90 (>60 ml/min/1.73 sqM); Albumin 2.9 g/dL (3.5-5.0); Alkaline Phosphatase 122 U/L (38-126); Anion Gap 8 mmol/L; Blood Urea Nitrogen 10 mg/dL (9-20); Calcium 8.7 mg/dL (8.4-10.2); Carbon Dioxide 25 mmol/L (22-30); Chloride 108 mmol/L (98-107); Glucose 102 mg/dL (74-99); Non-African American GFR(CKD) >90 (>60 ml/min/1.73 sqM); Potassium 3.7 mmol/L (3.5-5.1); Sodium 141 mmol/L (137-145); Total Bilirubin 0.9 mg/dL (0.2-1.3); Total Protein 5.3 g/dL (6.3-8.2)
[2019-10-20 07:58] LABS: Basophils % (A) 0 %; Eosinophils # (A) 0.2 k/uL (0-0.7); Eosinophils % (A) 2 %; HCT 34.9 % (39.0-53.0); HGB 11.6 gm/dL (13.0-17.5); Lymphocytes # (A) 1.1 k/uL (1.0-4.8); Lymphocytes % (A) 13 %; MCH 30.1 pg (25.0-35.0); MCHC 33.4 g/dL (31.0-37.0); MCV 90.1 fL (80.0-100.0); Mean Platelet Volume 8.5; Monocytes # (A) 0.4 k/uL (0-1.0); Monocytes % (A) 5 %; Neutrophils # (A) 6.3 k/uL (1.3-7.7); Neutrophils % (A) 77 %; Platelet Count 185 k/uL (150-450); RBC 3.87 m/uL (4.30-5.90); RDW 13.8 % (11.5-15.5); WBC 8.2 k/uL (3.8-10.6)
[2019-10-20] MEDS: ALBUTEROL NEBULIZED 2.5 MG/3 ML INHALATION SCH ×2 (08:28→11:50)
[2019-10-20] MEDS: FLUDROCORTISONE 0.1 MG TAB PO SCH (09:07)
[2019-10-20] MEDS: HYDROcodone/APAP 10-325MG 1 EACH TAB PO PRN (09:07)
[2019-10-20] MEDS: APIXABAN 5 MG TAB PO SCH (09:07)
[2019-10-20] MEDS: SUCRALFATE 1 GM TAB PO SCH (09:07)
[2019-10-20] MEDS: LISINOPRIL-HCTZ 10-12.5 MG 1 EACH TAB PO SCH (09:07)
[2019-10-20] MEDS: SODIUM CHLORIDE 0.9% 1,000 ML IV SCH (09:12)
--- NOTE | 2019-10-20 12:02 | CDI ---
Documentation Clarification Form Date: 10/20/2019 11:50:10 AM From: Astrid Andres RN CCDS Admit Date: 10/17/2019 02:25:00 PM Patient Name: Andrea White Visit Number: [id number] Discharge Date: ATTENTION: The Clinical Documentation Specialists (CDI) and [facility] Coding Staff appreciate your assistance in clarifying documentation. Please respond to the clarification below the line at the bottom and electronically sign. The CDI & [facility] Coding staff will review the response and follow-up if needed. Please note: Queries are made part of the Legal Health Record. If you have any questions, please contact the author of this message via ITS. Dr. Stan Galarza Sepsis is significantly improved Is documented in your 10/19/2019 progress note. History/Risk Factors: 64-year-old male presents to the ED with one week of dyspnea worsening over the past 24 hours with a mild non-productive cough. Clinical Indicators: VSS 10/17 110/58 111 100.3 22 95% ra Labs Wbc 7.1; Lactic acidosis 4.5; Troponin 0.043; 0.046; BNP 5930; Lung examination per H & P - Bilateral Coase rhonchi with right side being worse than left with bibasilar wheezes. CXR-10/17 New right basilar alveolar and interstitial infiltrates and or edema thought present. Treatment: Rocephin ivpb Daily; Azithromycin ivpb; 0.9ns 1.5L bolus Definition of Present on Admission (POA): A diagnosis present at the time the order for admission to inpatient status was written. For each diagnosis, documentation must be clear to determine if the condition was present at the time of the patients inpatient admission or developed during the hospital stay. Please clarify if Sepsis was POA: ____Y = Yes, the condition was present at the time of the order for inpatient admission. ____N = No, the condition was not present at the time of the order for inpatient admission. __x_W = Clinically undetermined if the condition was present at the time of the order for inpatient admission. ____Sepsis Ruled Out. (Last Revision: Sep 2018) MTDD
[2019-10-20 13:24] VITALS: RESP 16
--- NOTE | 2019-10-20 15:29 | P.PN ---
Subjective Progress Note Date: 10/20/19 Principal diagnosis: Shortness of breath and malaise 64-year-old patient worsening dyspnea for the past 24 hours in which she had a nonproductive cough. Has been on A previous history of DVTs and pulmonary embolus, currently denies lower extremity pain or swelling did complain of fever and chills 10/20/2019 Patient is alert oriented 3 afebrile feeling much better wishes to go home had patient up walking desats down to 88% with exercise will require home O2 will be going home on Zithromax 500 mg daily 5 days and patient has a short acting beta agonist as an inhaler we'll reevaluate in the office on 10/26/2019 Objective - Vital Signs Vital signs: Vital Signs Temp 97.0 F L 10/20/19 11:40 Pulse 88 10/20/19 12:04 Resp 16 10/20/19 11:40 BP 162/78 10/20/19 11:40 Pulse Ox 98 10/20/19 11:40 Intake & Output 10/19/19 10/20/19 10/20/19 18:59 06:59 18:59 Intake Total 720 1600 720 Output Total 400 Balance 720 1600 320 Weight 119.9 kg Intake: Intake, IV Titration 1600 Amount Sodium Chloride 0.9% 1, 1600 000 ml @ 100 mls/hr IV . Q10H [facility] Rx#:[id number] Oral 720 720 Output: Urine 400 Other: Voiding Method Toilet Toilet Toilet # Voids 3 2 - Exam General: [Patient awake, alert and oriented times 3. Patient in no acute distress.] HEENT: [PERRL. EOMI. No pharyngeal erythema or exudate.] Neck: [No adenopathy.] Cardiac: [Heart regular in rate and rhythm. No S3. No S4. No clicks, rubs. No murmur.] Lungs: Clear bilaterally with bibasilar crackles Abdomen: [No mass. No organomegaly. Bowel sounds presnt and normoactive in all 4 quadrants.] Extremes: [No edema no cyanosis no claudication normal pulses] : [Normal male genitalia] Musculoskeletal: [No joint erythema, edema or tenderness.] Skin: [No rash.] Neurologic: [No lateralizing deficits. CN II - XII grossly intact.] Lymphatic: [No adenopathy.] - Labs CBC & Chem 7: 10/20/19 06:12 10/20/19 06:12 Labs: Abnormal Lab Results - Last 24 Hours (Table) 10/20/19 10/20/19 Range/Units 06:12 06:12 RBC 3.87 L (4.30-5.90) m/uL Hgb 11.6 L (13.0-17.5) gm/dL Hct 34.9 L (39.0-53.0) % Chloride 108 H (98-107) mmol/L Glucose 102 H (74-99) mg/dL Total Protein 5.3 L (6.3-8.2) g/dL Albumin 2.9 L (3.5-5.0) g/dL Microbiology - Last 24 Hours (Table) 10/18/19 08:15 Gram Stain - Final Sputum Sputum Culture - Final 10/17/19 13:17 Blood Culture - Preliminary Blood No Growth after 48 hours Assessment and Plan (1) Community acquired pneumonia Current Visit: Yes Status: Acute Code(s): J18.9 - PNEUMONIA, UNSPECIFIED ORGANISM SNOMED Code(s): 207856192 (2) Dehydration Current Visit: No Status: Acute Code(s): E86.0 - DEHYDRATION SNOMED Code(s): 52303694 Plan: Discharge home today Suspect underlying COPD we'll perform pulmonary function tests as an outpatient to confirm this diagnosis Zithromax 500 mg by mouth daily for 5 days Home O2 patient is desaturating with exercise into the low 80s and improves when placed on oxygen Recommend albuterol metered-dose inhaler for rescue/patient will continue incentive spirometry at home Patient will not go to work at all until cleared by primary care physician Appointment scheduled with primary care office 10/26/2019 Time with Patient: Greater than 30
--- NOTE | 2019-10-20 15:43 | P.DS ---
Providers Date of admission: 10/17/19 14:25 Expected date of discharge: 10/20/19 Attending physician: Stan Galarza Primary care physician: Theo Reid - Discharge Diagnosis(es) (1) Community acquired pneumonia Current Visit: Yes Status: Acute (2) Dehydration Current Visit: No Status: Acute Assessment: See progress note dictated today Patient Condition at Discharge: Stable Plan - Discharge Summary Discharge Rx Participant: No New Discharge Prescriptions: New Albuterol Inhaler [Ventolin Hfa Inhaler] 1 - 2 puff INHALATION RT-Q6H PRN #1 inhaler PRN Reason: Bronchospasm Azithromycin [Zithromax] 500 mg PO DAILY #5 tab No Action Lisinopril-Hctz 10-12.5 mg [Zestoretic 10-12.5] 1 tab PO BID Multivitamins, Thera [Multivitamin (formulary)] 1 tab PO HS HYDROcodone/APAP 10-325MG [[place] 10-325] 1 tab PO TID PRN PRN Reason: Pain Escitalopram [Lexapro] 20 mg PO HS Ascorbic Acid [Vitamin C] 1,000 mg PO HS Vits A,C,E/Lutein/Minerals [Ocuvite with Lutein Tablet] 1 tab PO HS Melatonin 10 mg PO HS PRN PRN Reason: Insomnia Pantoprazole Sodium [Protonix] 40 mg PO AC-BID #60 tablet. Amitriptyline HCl [Elavil] 25 mg PO HS Apixaban [Eliquis] 5 mg PO BID #60 tab Fludrocortisone [Florinef] 0.1 mg PO DAILY #30 tab Cyclobenzaprine [Flexeril] 10 mg PO DAILY PRN PRN Reason: Muscle Spasm Discharge Medication List Lisinopril-Hctz 10-12.5 mg [Zestoretic 10-12.5] 1 tab PO BID 03/28/15 [History] Ascorbic Acid [Vitamin C] 1,000 mg PO HS 01/08/17 [History] Escitalopram [Lexapro] 20 mg PO HS 01/08/17 [History] HYDROcodone/APAP 10-325MG [[place] 10-325] 1 tab PO TID PRN 01/08/17 [History] Multivitamins, Thera [Multivitamin (formulary)] 1 tab PO HS 01/08/17 [History] Melatonin 10 mg PO HS PRN 01/28/18 [History] Vits A,C,E/Lutein/Minerals [Ocuvite with Lutein Tablet] 1 tab PO HS 01/28/18 [History] Pantoprazole Sodium [Protonix] 40 mg PO AC-BID #60 tablet.dr 12/25/18 [Rx] Amitriptyline HCl [Elavil] 25 mg PO HS 12/29/18 [History] Apixaban [Eliquis] 5 mg PO BID #60 tab 01/31/19 [Rx] Fludrocortisone [Florinef] 0.1 mg PO DAILY #30 tab 01/31/19 [Rx] Cyclobenzaprine [Flexeril] 10 mg PO DAILY PRN 10/17/19 [History] Albuterol Inhaler [Ventolin Hfa Inhaler] 1 - 2 puff INHALATION RT-Q6H PRN #1 inhaler 10/20/19 [Rx] Azithromycin [Zithromax] 500 mg PO DAILY #5 tab 10/20/19 [Rx] Follow up Appointment(s)/Referral(s): Theo Reid MD [Primary Care Provider] - 1-2 days
[2019-10-20 16:08] VITALS: BP 178/76; PULSE 82; TEMP 98.4
[2019-10-20] MEDS: AZITHROMYCIN 500 MG TAB PO SCH (16:44)
[2019-10-21] MEDS ORDERED: LISINOPRIL-HCTZ 10-12.5 MG 1 EACH TAB PO SCH (09:00)
== END 2019-10-20 17:29 | disposition home or self-care (01) | DRG 871 ==
LOC: EC 12:21 → 3SCARD 14:25
PROVIDERS: ADMIT Family Medicine; ATTEND Family Medicine
DX: A41.9 Sepsis, unspecified organism (principal); J18.9 Pneumonia, unspecified organism; E86.0 Dehydration; F32.9 Major depressive disorder, single episode, unspecified; I10 Essential (primary) hypertension; Z79.01 Long term (current) use of anticoagulants; Z79.52 Long term (current) use of systemic steroids; Z86.711 Personal history of pulmonary embolism; Z86.718 Personal history of other venous thrombosis and embolism; Z87.891 Personal history of nicotine dependence
CPT/HCPCS: 36415; 71046; 80053; 83605; 83735; 83880; 84484; 85025; 85027; 85610; 85730; 87040; 87070; 87205; 87502; 93005; 93306; 94640; 94760; 96365; 96367; 99285

== ENCOUNTER → 2019-10-27 | Outpatient (CLI) | payer BC ==
--- NOTE | 2019-10-27 14:26 | XR ---
EXAMINATION TYPE: XR chest 2V DATE OF EXAM: 10/27/2019 COMPARISON: 10/18/2019 TECHNIQUE: PA and lateral views submitted. HISTORY: Cough FINDINGS: Left lung is clear. Large area right-sided consolidation and pleural effusion stable. Heart size stab le. No pneumothorax. Osseous structures intact. IMPRESSION: 1. Stable diffuse right-sided infiltrate. Correlate for pneumonia. Follow to resolution to exclude ot her etiologies including neoplasm.
== END | disposition home or self-care (01) ==
LOC: RADXRMAIN 13:53
PROVIDERS: ATTEND Nurse Practitioner Women's Health
DX: R91.8 Other nonspecific abnormal finding of lung field (principal)
CPT/HCPCS: 71046

== ENCOUNTER 2019-12-03 09:57 | Day surgery (SDC) | payer BC ==
[2019-12-01 11:40] VITALS: BMI 34.2
--- NOTE | 2019-12-02 14:43 | HP ---
HISTORY AND PHYSICAL DATE OF SURGERY: 12/03/2019 Andrea White is a 64-year-old gentleman seen with progressive right knee pain. We discussed options for treatment. He elected to proceed with arthroscopy. Consent was obtained. Home his. PAST MEDICAL HISTORY: Hypertension, asthma, gastroesophageal reflux disease. PAST SURGICAL HISTORY: Noncontributory daily. MEDICATIONS: Eliquis, Lexapro, lisinopril/hydrochlorothiazide, [place], amitriptyline, Protonix. ALLERGIES: None. SOCIAL HISTORY: He currently denies tobacco use. PHYSICAL EXAMINATION: Evaluation of the right knee. His range of motion is 0-130. There is a mild effusion present. Tenderness along the medial and lateral joint lines. Medial Michelle's positive, lateral Michelle's positive. Ligaments stable. Hip rotation without pain. Distal neurovascular exam intact. RADIOGRAPHS OF THE RIGHT KNEE: Revealed moderate osteoarthritis. MRI of the right knee revealed medial and lateral meniscal tears. IMPRESSION: 1. Internal derangement with medial and lateral meniscal tears. 2. Right knee osteoarthritis. 3. Hypertension. 4. Gastroesophageal reflux disease. PLAN: Right knee arthroscopy with partial meniscectomy and debridement and partial synovectomy. MMODL / IJN: [id number] /
[~2019-12-03 09:57] MED LIST changes: +DEXAMETHASONE SOD PHOSPHATE 10 MG/ML 1 ML VIAL IV ONE; +LIDOCAINE 1% 20 ML VIAL (10MG/ML) FOR IV START INTRADERMA PRN; +MIDAZOLAM 2 MG/2 ML VIAL IV PRN; +ONDANSETRON 4 MG/2 ML VIAL IVP ONE; +fentaNYL (PF) 50 MCG/ML 2 ML AMP IV PRN
[2019-12-03] MEDS ORDERED: BUPIVACAINE (PF) 0.25% 30 ML VIAL SQ ONE (11:34)
[2019-12-03] MEDS ORDERED: MIDAZOLAM 2 MG/2 ML VIAL ONE (11:38)
[2019-12-03] MEDS ORDERED: LIDOCAINE 1% INJ 10MG/ML (20 ML MDV) ONE (11:38)
[2019-12-03] MEDS ORDERED: fentaNYL (PF) 50 MCG/ML 2 ML AMP ONE (11:38)
[2019-12-03] MEDS ORDERED: PROPOFOL 10 MG/ML 20 ML VIAL IV ONE (11:38)
--- NOTE | 2019-12-03 12:32 | P.OP ---
Date of Procedure: 12/03/19 Preoperative Diagnosis: Internal derangement right knee Postoperative Diagnosis: 1. Tear lateral meniscus right knee 2. Grade 2 chondromalacia medial femoral condyle right knee 3. Reactive synovitis medial, lateral and suprapatellar compartments right knee Procedure(s) Performed: 1. Arthroscopic partial lateral meniscectomy right knee 2. Arthroscopic chondroplasty medial femoral condyle right knee 3. Arthroscopic partial synovectomy medial, lateral and suprapatellar compartments right knee Anesthesia: JANIEA, local Surgeon: Casey Willis Estimated Blood Loss (ml): 7 Pathology: none sent Condition: stable Disposition: PACU Indications for Procedure: 64-year-old patient seen with progressive right knee pain. After treatment options were discussed, he elected to proceed with arthroscopy. Operative Findings: See description of procedure Description of Procedure: Patient was taken to the operative suite. Patient underwent a general anesthetic by the department of anesthesia. Patient was given preoperative antibiotics. The right lower extremity was placed in a well-padded arthroscopic leg perez. The right leg was prepped and draped in the normal sterile orthopedic fashion. A lateral parapatellar and suprapatellar incision was made. Trochars were inserted. Arthroscopy was initiated. Suprapatellar pouch revealed diffuse thick reactive synovitis. The patellofemoral joint appeared to articulate congruently. There was grade 1 chondromalacia changes of the patella with no osteochondral tears present. The scope was guided into the medial gutter. No loose bodies or plica were identified. The scope was then guided into the medial compartment. A medial parapatellar incision was made. Trocar inserted followed by probe. The medial meniscus was probed and found to be stable. There were grade 2 chondromalacia changes the medial femoral condyle with some small osteochondral flap tears present. There was thick reactive synovitis anteriorly. I performed a chondroplasty of the medial femoral condyle. I performed a partial synovectomy decompressing the reactive synovitis. The residual osteochondral surface was stable. There was good decompression of the synovitis. Scope and probe were then guided into the intercondylar notch. Cruciates were identified, probed and found to be stable. The scope and probe were then guided into lateral compartment. There were radial tears involving the posterior horn of the lateral meniscus. There were grade 1 chondromalacia changes lateral compartment with no osteochondral tears present. There was reactive synovitis anteriorly. I performed a partial lateral meniscectomy. I performed a partial synovectomy. The residual meniscus was stable. There was good decompression of the synovitis. The scope was in guided back into the suprapatellar compartment. I introduced a motorized shaver into the suprapatellar compartment. I debrided some piecemeal fragments of meniscus I encountered. I performed a partial synovectomy decompressing reactive synovitis. The shaver was removed. There appeared be good decompression synovitis. I took one more look on the entire knee, no residual debris. Instruments were now removed from the joint. The joint was infiltrated with .25% Marcaine. Steri-Strips were applied to the portal sites. Sterile dressings were applied. The patient was placed into a THERESE hose. No tourniquet was utilized. The patient was awakened, transferred to a bed and taken to recovery stable satisfactory condition.
[2019-12-03] MEDS: HYDROmorphone 0.5 MG/0.5 ML SYRINGE IVP PRN ×4 (12:36→13:15)
[2019-12-03] MEDS ORDERED: KETOROLAC 30 MG/ML 1 ML VIAL IVP ONE (12:39)
[2019-12-03 12:54] VITALS: RESP 20; TEMP 97.3
[2019-12-03 14:30] VITALS: BP 120/67; PULSE 73
== END 2019-12-03 14:53 | disposition home or self-care (01) ==
LOC: OR 09:57
PROVIDERS: ATTEND Orthopaedic Surgery
DX: S83.281A Other tear of lateral meniscus, current injury, right knee, initial encounter (principal); X58.XXXA Exposure to other specified factors, initial encounter; M94.261 Chondromalacia, right knee; M65.861 Other synovitis and tenosynovitis, right lower leg; I10 Essential (primary) hypertension; J45.909 Unspecified asthma, uncomplicated; K21.9 Gastro-esophageal reflux disease without esophagitis; Z86.711 Personal history of pulmonary embolism; Z79.01 Long term (current) use of anticoagulants; Z79.891 Long term (current) use of opiate analgesic; Z79.899 Other long term (current) drug therapy
CPT/HCPCS: 29881; J2250; J1100; J0690; J2405; J2001; J3010; J1885; J2704; J1170

== ENCOUNTER → 2020-01-04 | Outpatient (CLI) | payer BC | END | disposition home or self-care (01) | DX: R22.41 Localized swelling, mass and lump, right lower limb (principal) ==

== ENCOUNTER → 2020-04-06 | Outpatient (CLI) | payer BC ==
--- NOTE | 2020-04-06 16:50 | CONS ---
CONSULTATION DATE OF SERVICE: 04/06/2020 This patient is a 64-year-old gentleman who has been evaluated in Sleep Center for possible obstructive sleep apnea-hypopnea syndrome. HISTORY OF PRESENT ILLNESS/SLEEP/WAKE EVALUATION: Patient's usual sleep schedule on weekdays is from 8:30 or 9 p.m. until 4:30 a.m. and on weekends from 11 p.m. until 8:30 a.m. Usually he has no problems with falling asleep. No TV in bedroom. He usually sleeps on the side position with his . He has loud snoring and difficulties with breathing. He wakes up from sleep once. During the day the patient has difficulties paying attention, has problems with memory, concentration, depression, anxiety. [place] Sleepiness Scale is 9. The patient has a significant amount of movements during the night and also has symptoms of restless legs. PAST MEDICAL HISTORY: Past medical history is positive for hypertension, acid reflux, arthritis, pulmonary embolism. PAST SURGICAL HISTORY: Right knee surgery, bilateral shoulder surgery. MEDICATIONS: Lisinopril, Lexapro, gabapentin, [place], Eliquis. SOCIAL HISTORY: Former smoker; quit 3-1/2 years ago. Smoked half pack a day for about 20 years. Alcohol consumption: None at the present time. REVIEW OF SYSTEMS: Movements during the night. Difficulties breathing during sleep. Sometimes sleepiness during the day. [place] Sleepiness Scale is 9. PHYSICAL EXAMINATION: GENERAL: A pleasant gentleman without distress. VITAL SIGNS: BP 134/73, HR 72, RR 16, height 5 feet 11 inches, weight 268, body mass index 37.3, temperature 98.1, oxygen saturation at room air 96%. HEENT: PERRLA, EOMI. Evaluation of oropharynx showed tongue protrudes midline. Extremely low position of soft palate. Mallampati IV. NECK: Supple. No JVD. Thyroid is not palpable. Wide neck; 17-1/2 inches in circumference. LUNGS: Clear to percussion and to auscultation. Good air exchange. No wheezing or rhonchi. HEART: S1, S2 regular. No murmurs, gallops or rubs. ABDOMEN: Obese. EXTREMITIES: No clubbing or cyanosis. RN L AND D: Awake, alert, and oriented X3. Cranial nerves 2 to 7 intact. There is no fasciculation or atrophy. noted. No focal deficits observed. IMPRESSION: 1. Loud snoring, extremely low position of soft palate, wide neck that measures 17-1/2 inches in circumference, episodes of excessive daytime sleepiness; obstructive sleep apnea-hypopnea syndrome. 2. Symptoms of restless legs and movements at night; possibly periodic limb movements. 3. Obesity. 4. Hypertension. 5. Arthritis. 6. History of pulmonary embolism. 7. Status post right knee surgery. 8. Status post bilateral shoulder surgery. PLAN: 1. Polysomnography for evaluation of patient's breathing during sleep and also to check for abnormal movements for possible periodic limb movements. 2. CPAP/BiPAP titration if sleep study confirms obstructive sleep apnea-hypopnea syndrome. 3. Preferable position during sleep on the side. 4. No driving if patient feels any sleepiness. 5. I will see patient for follow up visit to explain results of testing and following plan. Thank you very much for allowing me to participate in the management of your patient. Sincerely, Mehran Gutierrez MD, PhD, FAASM Diplomat of [place] [employer] [place] [employer] [place] Superintendent of [facility] [place] MMODL / CARLN: [id number] /
== END | disposition home or self-care (01) ==
LOC: SLEEP 15:06
PROVIDERS: ATTEND Internal Medicine
DX: G47.33 Obstructive sleep apnea (adult) (pediatric) (principal); E66.9 Obesity, unspecified; I10 Essential (primary) hypertension; M19.90 Unspecified osteoarthritis, unspecified site; G25.81 Restless legs syndrome; Z86.711 Personal history of pulmonary embolism; Z96.651 Presence of right artificial knee joint; Z98.890 Other specified postprocedural states; Z68.37 Body mass index [BMI] 37.0-37.9, adult; Z79.891 Long term (current) use of opiate analgesic; Z79.01 Long term (current) use of anticoagulants; Z79.899 Other long term (current) drug therapy; Z87.891 Personal history of nicotine dependence
CPT/HCPCS: 99211

== ENCOUNTER → 2020-05-24 | Outpatient (CLI) | payer BC ==
--- NOTE | 2020-05-24 12:55 | CT ---
CT CHEST FOR PULMONARY EMBOLISM. EXAMINATION TYPE: CT angio chest DATE OF EXAM: 05/24/2020 INDICATION: difficulty breathing, history of pe CT DLP: 577 mGycm, Automated exposure control for dose reduction was used. CONTRAST: Patient injected with 100 mL of Isovue 370. COMPARISON: 06/20/2019 TECHNIQUE: CT of the chest is performed on a spiral scan at 2 mm thick sections. Study is performed with intravenous contrast timed for evaluation for pulmonary embolism. This will limit additional po rtions of the evaluation. 3-D MIP images reconstructed by the technologist are reviewed on the compu ter in the coronal and sagittal planes. FINDINGS: No persistent filling defects are evident to suggest an acute pulmonary embolism. No mediastinal or hilar adenopathy enlarged by CT criteria is evident. The ascending aorta diameter at the level of the main pulmonary artery is 3.8 cm. The main pulmonary artery diameter at the bifur cation is 3.2 cm. Lung windows are clear. Limited CT section through the upper abdomen are unremarkable. IMPRESSIONS: 1. No acute pulmonary embolism. Previous right middle and lower lobe pulmonary emboli are not identif ied.
== END | disposition home or self-care (01) ==
LOC: RADCTMAIN 09:26
PROVIDERS: ATTEND Internal Medicine Hematology & Oncology
DX: I26.99 Other pulmonary embolism without acute cor pulmonale (principal)
CPT/HCPCS: 82565; 84520; 71275; Q9967

== ENCOUNTER → 2020-09-08 | Outpatient (CLI) | payer MEDICARE ==
--- NOTE | 2020-09-08 20:47 | SFUN ---
SLEEP CENTER FOLLOW UP NOTE DATE OF SERVICE: 09/08/2020 This patient is a 65-year-old gentleman who has been followed in Sleep Center for treatment of obstructive sleep apnea-hypopnea syndrome. Recently the patient received a new CPAP unit after a CPAP titration. Today is his first visit with the CPAP machine. The patient is able to use his CPAP equipment every night without significant problems related to mask fitting, pressure or humidification. [place] Sleepiness Scale today is 12, which is above normal. I checked his CPAP unit. Pressure is 13 cm of water. Usage is 29/30 nights, and 25/30 nights for more than 4 hours. Average usage is 6 hours per night. Leak is only 1 L/minute and apnea-hypopnea index only 0.6, which is perfect. MEDICATIONS: Lisinopril, Lexapro, gabapentin, [place], Eliquis. PHYSICAL EXAMINATION: GENERAL: A pleasant patient in no distress. VITAL SIGNS: BP 118/70, HR 69, RR 15, weight 273.4, temperature 98.6, oxygen saturation at room air 95%. HEENT: PERRLA, EOMI. Evaluation of oropharynx showed tongue protrudes midline. Extremely low position of soft palate. Mallampati IV. NECK: Supple. No JVD. Thyroid is not palpable. LUNGS: Clear to percussion and to auscultation. Good air exchange. No wheezing or rhonchi. HEART: S1, S2 regular. No murmurs, gallops or rubs. ABDOMEN: Soft and nontender. Bowel sounds are present. No organomegaly appreciated. EXTREMITIES: No clubbing or cyanosis. BAR POINTER: Awake, alert, and oriented X3. Cranial nerves 2 to 7 intact. There is no fasciculation or atrophy. noted. No focal deficits observed. IMPRESSION: 1. Obstructive sleep apnea-hypopnea syndrome. Patient demonstrated great compliance with treatment, benefitting from treatment. 2. Obesity. 3. Hypertension. 4. Arthritis. 5. History of pulmonary embolism. 6. Status post right knee surgery. 7. Status post bilateral shoulder surgery. PLAN: 1. Patient will continue to use PAP equipment every night for the whole night. 2. Sleep hygiene with regular time in bed for at least 7-1/2 to 8 hours. 3. Precautions related to driving. No driving if feeling sleepiness. 4. I will maintain all necessary prescription for PAP supplies including mask, tube, filters. 5. Watching weight. 6. No driving if feeling sleepiness. 7. Follow-up visit in 6 months or earlier if patient has any problems. Thank you very much for allowing me to participate in the management of your patient. Sincerely, Mehran Gutierrez MD, PhD, FAASM Diplomat of [place] [employer] [place] [employer] [place] Manager of [facility] MMODL / CARLN: [id number] /
== END | disposition home or self-care (01) ==
LOC: SLEEP 13:43
PROVIDERS: ATTEND Internal Medicine
DX: G47.33 Obstructive sleep apnea (adult) (pediatric) (principal); E66.9 Obesity, unspecified; I10 Essential (primary) hypertension; M19.90 Unspecified osteoarthritis, unspecified site; Z86.711 Personal history of pulmonary embolism; Z99.89 Dependence on other enabling machines and devices; Z98.890 Other specified postprocedural states

== ENCOUNTER 2020-09-17 13:13 | Emergency (ER) | payer BC, MEDICARE ==
[2020-09-17 13:49] LABS: Basophils % (A) 1 %; Eosinophils % (A) 0 %; HCT 40.2 % (39.0-53.0); HGB 13.9 gm/dL (13.0-17.5); Lymphocytes # (A) 0.9 k/uL (1.0-4.8); Lymphocytes % (A) 21 %; MCH 31.3 pg (25.0-35.0); MCHC 34.5 g/dL (31.0-37.0); MCV 90.7 fL (80.0-100.0); Mean Platelet Volume 8.5; Monocytes # (A) 0.3 k/uL (0-1.0); Monocytes % (A) 6 %; Neutrophils # (A) 2.9 k/uL (1.3-7.7); Neutrophils % (A) 68 %; Platelet Count 154 k/uL (150-450); RBC 4.43 m/uL (4.30-5.90); RDW 12.3 % (11.5-15.5); WBC 4.3 k/uL (3.8-10.6)
[2020-09-17 13:59] LABS: Albumin 4.2 g/dL (3.5-5.0); Calcium 8.6 mg/dL (8.4-10.2); Potassium 4.2 mmol/L (3.5-5.1); Total Bilirubin 0.5 mg/dL (0.2-1.3)
[2020-09-17 14:03] LABS: INR 1.1 (<1.2); Partial Thromboplastin Time 26.2 sec (22.0-30.0); Prothrombin Time 10.8 sec (9.0-12.0)
--- NOTE | 2020-09-17 14:03 | XR ---
EXAMINATION TYPE: XR chest 2V DATE OF EXAM: 09/17/2020 COMPARISON: Chest x-ray October 27, 2019. CTA chest May 24, 2020 HISTORY: Shortness of breath and weakness with no appetite. TECHNIQUE: Frontal and lateral views of the chest are obtained. FINDINGS: The cardiac silhouette size is stable and upper limits of normal persistent low lung volum es. New patchy left basilar and peripheral right upper lung opacities. No pleural effusion or pneum othorax seen bilaterally. The osseous structures are intact. IMPRESSION: New peripheral right upper lung and left basilar acute infiltrates. Correlate for covid- 19 infection in current medical environment.
[2020-09-17] MEDS ORDERED: DEXAMETHASONE SOD PHOSPHATE 10 MG/ML 1 ML VIAL IV STA (14:44)
[2020-09-17] MEDS ORDERED: SODIUM CHLORIDE 0.9% 500 ML 500 ML IV STA (14:47)
--- NOTE | 2020-09-17 14:47 | ED ---
General Adult HPI - General Chief complaint: Shortness of Breath Stated complaint: Diff Breathing Time Seen by Provider: 09/17/20 14:27 Source: patient Mode of arrival: ambulatory Limitations: no limitations - History of Present Illness Initial comments: Dictation was produced using [employer] dictation software. please excuse any grammatical, word or spelling errors. This patient was cared for during a federal and state declared state of emergency secondary to Covid 19 Chief Complaint: 65-year-old male presents with 3 days of shortness of breath History of Present Illness: 65-year-old male he has multiple comorbidities including DVTs, takes anticoagulation, has history of hypertension and pneumonia. He presents today with 3 days of shortness of breath. Patient states he also has headache and diarrhea. Patient states he has chronic loose stools however as of late it seemed a little different. He states it's not bloody or bilious. Denies any constitutional symptoms. No obvious exposure to anyone with coronavirus or cold 19. He has been mostly at his house except maybe a week and half to 2 weeks ago he did go to [employer]. Patient denies any cough. The ROS documented in this emergency department record has been reviewed and confirmed by me. Those systems with pertinent positive or negative responses have been documented in the HPI. All other systems are other negative and/or noncontributory. PHYSICAL EXAM: General Impression: Alert and oriented x3, not in acute distress HEENT: Normocephalic atraumatic, extra-ocular movements intact, pupils equal and reactive to light bilaterally, mucous membranes moist. Cardiovascular: Heart regular rate and rhythm Chest: Able to complete full sentences, no retractions, no tachypnea Abdomen: abdomen soft, non-tender, non-distended, no organomegaly Musculoskeletal: Pulses present and equal in all extremities, no peripheral edema Motor: no focal deficits noted Neurological: CN II-XII grossly intact, no focal motor or sensory deficits noted Skin: Intact with no visualized rashes Psych: Normal affect and mood ED course: 65-year-old male presents with 3 days of dyspnea. Vital signs upon arrival are within acceptable limits. He is 97% on room air. Laboratory evaluation obtained. No leukocytosis. There is level cytopenia. Coag panel is negative. Lactic acidosis at 2.4. There is a mild anion gap acidosis. Elevated renal markers however this appears to be just mildly elevated from his baseline. Repeat lactic acid level was found to be normal. Coronal virus test is positive. Patient observed in the emergency department for approximately 3 hours with stable medical condition. He was reevaluated at bedside at approximately 4 PM IV not dyspneic. Patient counseled on coronal virus. Patient discharged. Return parameters discussed. Patient agreeable with plan. EKG interpretation: Ventricular rate 79, normal sinus rhythm, NV interval 206, QRS 80, QTc 447. No NV prolongation, no QTC prolongation, no ST or T-wave changes noted. EKG compared to 10/09/2019 showing no changes. Overall, this EKG is unremarkable - Related Data Home Medications Medication Instructions Recorded Confirmed Lisinopril-Hctz 10-12.5 mg 1 tab PO DAILY 03/28/15 12/03/19 [Zestoretic 10-12.5] Ascorbic Acid [Vitamin C] 1,000 mg PO HS 01/08/17 12/03/19 Escitalopram [Lexapro] 20 mg PO HS 01/08/17 12/03/19 HYDROcodone/APAP 10-325MG [[place] 1 tab PO QID 01/08/17 12/03/19 10-325] Multivitamins, Thera [Multivitamin 1 tab PO HS 01/08/17 12/03/19 (formulary)] Melatonin 10 mg PO HS PRN 01/28/18 12/03/19 Amitriptyline HCl [Elavil] 25 mg PO HS 12/29/18 12/03/19 Cyclobenzaprine [Flexeril] 10 mg PO DAILY 10/17/19 12/03/19 Cyanocobalamin (Vitamin B-12) 1,000 mcg PO DAILY 12/01/19 12/03/19 [Vitamin B-12] Diclofenac Sodium [Voltaren Gel] 2 gram TOPICAL DAILY PRN 12/01/19 12/03/19 Gabapentin [Neurontin] 100 mg PO TID 12/01/19 12/03/19 Iron 18 mg PO DAILY 12/01/19 12/03/19 Previous Rx's Medication Instructions Recorded Pantoprazole Sodium [Protonix] 40 mg PO AC-BID #60 tablet. 12/25/18 Apixaban [Eliquis] 5 mg PO BID #60 tab 01/31/19 Allergies Allergy/AdvReac Type Severity Reaction Status Date / Time No Known Allergies Allergy Verified 09/17/20 13:15 Review of Systems ROS Statement: Those systems with pertinent positive or pertinent negative responses have been documented in the HPI. ROS Other: All systems not noted in ROS Statement are negative. 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%., hx pulm hypertension History of Any Multi-Drug Resistant Organisms: None Reported Past Surgical History: Hernia Repair, Orthopedic Surgery Additional Past Surgical History / Comment(s): ALBERT SHOULDERS right rotator cuff/ left tendon damage, LEFT CARPAL TUNNEL, Past Anesthesia/Blood Transfusion Reactions: No Reported Reaction Past Psychological History: No Psychological Hx Reported Smoking Status: Former smoker Past Alcohol Use History: None Reported Past Drug Use History: None Reported - Past Family History Father Family Medical History: Respiratory Disorder Additional Family Medical History / Comment(s): pulmonary fibrosis Mother Family Medical History: Dementia General Exam Limitations: no limitations Course Vital Signs 09/17/20 09/17/20 09/17/20 13:15 13:18 14:40 Temperature 99.6 F Pulse Rate 76 78 Respiratory 18 20 Rate Blood Pressure 97/57 97/55 O2 Sat by Pulse 97 95 Oximetry 09/17/20 15:47 Temperature Pulse Rate Respiratory 20 Rate Blood Pressure O2 Sat by Pulse Oximetry Medical Decision Making - Lab Data Result diagrams: 09/17/20 13:31 09/17/20 13:26 Lab Results 09/17/20 09/17/20 09/17/20 Range/Units 13:26 13:26 13:26 WBC (3.8-10.6) k/uL RBC (4.30-5.90) m/uL Hgb (13.0-17.5) gm/dL Hct (39.0-53.0) % MCV (80.0-100.0) fL MCH (25.0-35.0) pg MCHC (31.0-37.0) g/dL RDW (11.5-15.5) % Plt Count (150-450) k/uL MPV Neutrophils % % Lymphocytes % % Monocytes % % Eosinophils % % Basophils % % Neutrophils # (1.3-7.7) k/uL Lymphocytes # (1.0-4.8) k/uL Monocytes # (0-1.0) k/uL Eosinophils # (0-0.7) k/uL Basophils # (0-0.2) k/uL PT 10.8 (9.0-12.0) sec INR 1.1 (<1.2) APTT 26.2 (22.0-30.0) sec Sodium 132 L (137-145) mmol/L Potassium 4.2 (3.5-5.1) mmol/L Chloride 103 (98-107) mmol/L Carbon Dioxide 17 L (22-30) mmol/L Anion Gap 12 mmol/L BUN 21 H (9-20) mg/dL Creatinine 1.56 H (0.66-1.25) mg/dL Est GFR (CKD-EPI)AfAm 53 (>60 ml/min/1.73 sqM) Est GFR (CKD-EPI)NonAf 46 (>60 ml/min/1.73 sqM) Glucose 121 H (74-99) mg/dL Plasma Lactic Acid Christiano 2.4 H* (0.7-2.0) mmol/L Calcium 8.6 (8.4-10.2) mg/dL Total Bilirubin 0.5 (0.2-1.3) mg/dL AST 43 (17-59) U/L ALT 40 (4-49) U/L Alkaline Phosphatase 75 (38-126) U/L Troponin I (0.000-0.034) ng/mL NT-Pro-B Natriuret Pep pg/mL Total Protein 7.0 (6.3-8.2) g/dL Albumin 4.2 (3.5-5.0) g/dL Coronavirus (PCR) (Not Detectd) 09/17/20 09/17/20 09/17/20 Range/Units 13:26 13:31 13:31 WBC 4.3 (3.8-10.6) k/uL RBC 4.43 (4.30-5.90) m/uL Hgb 13.9 (13.0-17.5) gm/dL Hct 40.2 (39.0-53.0) % MCV 90.7 (80.0-100.0) fL MCH 31.3 (25.0-35.0) pg MCHC 34.5 (31.0-37.0) g/dL RDW 12.3 (11.5-15.5) % Plt Count 154 (150-450) k/uL MPV 8.5 Neutrophils % 68 % Lymphocytes % 21 % Monocytes % 6 % Eosinophils % 0 % Basophils % 1 % Neutrophils # 2.9 (1.3-7.7) k/uL Lymphocytes # 0.9 L (1.0-4.8) k/uL Monocytes # 0.3 (0-1.0) k/uL Eosinophils # 0.0 (0-0.7) k/uL Basophils # 0.0 (0-0.2) k/uL PT (9.0-12.0) sec INR (<1.2) APTT (22.0-30.0) sec Sodium (137-145) mmol/L Potassium (3.5-5.1) mmol/L Chloride (98-107) mmol/L Carbon Dioxide (22-30) mmol/L Anion Gap mmol/L BUN (9-20) mg/dL Creatinine (0.66-1.25) mg/dL Est GFR (CKD-EPI)AfAm (>60 ml/min/1.73 sqM) Est GFR (CKD-EPI)NonAf (>60 ml/min/1.73 sqM) Glucose (74-99) mg/dL Plasma Lactic Acid Christiano (0.7-2.0) mmol/L Calcium (8.4-10.2) mg/dL Total Bilirubin (0.2-1.3) mg/dL AST (17-59) U/L ALT (4-49) U/L Alkaline Phosphatase (38-126) U/L Troponin I <0.012 (0.000-0.034) ng/mL NT-Pro-B Natriuret Pep 410 pg/mL Total Protein (6.3-8.2) g/dL Albumin (3.5-5.0) g/dL Coronavirus (PCR) (Not Detectd) 09/17/20 09/17/20 Range/Units 14:37 14:37 WBC (3.8-10.6) k/uL RBC (4.30-5.90) m/uL Hgb (13.0-17.5) gm/dL Hct (39.0-53.0) % MCV (80.0-100.0) fL MCH (25.0-35.0) pg MCHC (31.0-37.0) g/dL RDW (11.5-15.5) % Plt Count (150-450) k/uL MPV Neutrophils % % Lymphocytes % % Monocytes % % Eosinophils % % Basophils % % Neutrophils # (1.3-7.7) k/uL Lymphocytes # (1.0-4.8) k/uL Monocytes # (0-1.0) k/uL Eosinophils # (0-0.7) k/uL Basophils # (0-0.2) k/uL PT (9.0-12.0) sec INR (<1.2) APTT (22.0-30.0) sec Sodium (137-145) mmol/L Potassium (3.5-5.1) mmol/L Chloride (98-107) mmol/L Carbon Dioxide (22-30) mmol/L Anion Gap mmol/L BUN (9-20) mg/dL Creatinine (0.66-1.25) mg/dL Est GFR (CKD-EPI)AfAm (>60 ml/min/1.73 sqM) Est GFR (CKD-EPI)NonAf (>60 ml/min/1.73 sqM) Glucose (74-99) mg/dL Plasma Lactic Acid Christiano 2.0 (0.7-2.0) mmol/L Calcium (8.4-10.2) mg/dL Total Bilirubin (0.2-1.3) mg/dL AST (17-59) U/L ALT (4-49) U/L Alkaline Phosphatase (38-126) U/L Troponin I (0.000-0.034) ng/mL NT-Pro-B Natriuret Pep pg/mL Total Protein (6.3-8.2) g/dL Albumin (3.5-5.0) g/dL Coronavirus (PCR) Detected A (Not Detectd) Disposition Clinical Impression: COVID-19 Disposition: HOME SELF-CARE Condition: Good Instructions (If sedation given, give patient instructions): Viral Pneumonia (ED) Additional Instructions: Today you were evaluated for symptoms consistent with upper respiratory infection. There is concern that perhaps your symptomatology may represent Covid 19. Your are stable for discharge, however it is instructed to to seek immediate medical attention especially if you develop worsening symptoms especially respiratory distress. In the meantime please remain in quarantine for 14 days. For any other questions please contact Angel for here in emergency department or [facility] at [phone] Is patient prescribed a controlled substance at d/c from ED?: No Referrals: Theo Reid MD [Primary Care Provider] - 1-2 days Time of Disposition: 15:55
[2020-09-17 16:19] VITALS: BP 120/62; PULSE 69; RESP 18; TEMP 100.7
== END 2020-09-17 16:19 | disposition home or self-care (01) ==
LOC: EC 13:13
DX: U07.1 COVID-19 (principal); I10 Essential (primary) hypertension; K21.9 Gastro-esophageal reflux disease without esophagitis; Z79.899 Other long term (current) drug therapy; Z86.718 Personal history of other venous thrombosis and embolism; Z86.711 Personal history of pulmonary embolism; Z87.891 Personal history of nicotine dependence
CPT/HCPCS: 36415; 93005; 83880; 80053; 83605; 84484; 85025; 85610; 85730; 87635; 71046; 99285; 96374; 96361; J1100

== ENCOUNTER → 2020-12-27 | Outpatient (CLI) | payer MEDICARE | END | disposition home or self-care (01) | LOC: CPPFTMAIN 13:09 | PROVIDERS: ATTEND Internal Medicine Critical Care Medicine | DX: R06.00 Dyspnea, unspecified (principal); R94.2 Abnormal results of pulmonary function studies | CPT/HCPCS: 94060; 94726; 94729 ==

== ENCOUNTER → 2021-04-20 | Outpatient (CLI) | payer MEDICARE ==
--- NOTE | 2021-04-20 20:59 | SFUN ---
SLEEP CENTER FOLLOW UP NOTE DATE OF SERVICE: 04/20/2021 65-year-old gentleman has been followed in [facility] Center for treatment of obstructive sleep apnea-hypopnea syndrome. The patient is using his equipment every night but has problem related to some leak from the mask to the eye area. Patient using Simplus fullface mask. [place] Sleepiness Scale today is 10, which is in borderline. I checked his CPAP unit. Pressure is 13 cm of water, usage 24/30 nights and 20/30 nights for more than 4 hours. Average usage is 6.1 hours per night. According to machine, leak is 0 L/minute. Apnea-hypopnea index 0.3, which is perfect. MEDICATIONS: Eliquis 5 mg twice a day. Lisinopril hydrochlorothiazide 10-12.5 mg once a day. Protonix 40 mg once a day. Gabapentin 300 mg 3 times a day. Lexapro 20 mg once a day, hydrocodone 10-3.25 mg as needed. PHYSICAL EXAMINATION: GENERAL: Patient in no distress. BP 132/67, HR 74, RR 16, height 5 feet 11 inches, weight 264, BMI 36.8, temperature 98.2, oxygen saturation at room air 98%. HEENT: PERRLA, EOMI. Oropharynx extremely low position of soft palate, Mallampati 4. Neck is 17.5 inches in circumference. HEENT: PERRLA, EOMI, evaluation of oropharynx showed tongue protrudes midline. NECK: Supple, no JVD. Thyroid is not palpable. LUNGS: Clear to percussion and to auscultation. Good air exchange. No wheezing or rhonchi. HEART: S1, S2 regular. No murmurs, gallops, or rubs. ABDOMEN: Slightly obese. Soft and nontender. Bowel sounds are present. No organomegaly appreciated. EXTREMITIES: No clubbing or cyanosis. 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 Cranial nerves 2 to 7 intact. There is no fasciculation or atrophy. noted. No focal deficits observed. IMPRESSION: 1. Obstructive sleep apnea-hypopnea syndrome. Patient demonstrated good compliance with treatment benefitting from treatment. Patient complains some leak from full- face mask to the eye area. 2. Obesity. 3. Hypertension. 4. Arthritis. 5. History of pulmonary embolism. 6. Status post right knee surgery. 7. Status post bilateral shoulder surgery. PLAN: 1. I discussed with the patient the necessity to periodically replace filters, tube and mask and how to arrange that. 2. I explained to the patient other options for the full-face mask and I wrote a prescription for DreamWear under the nose fullface mask to avoid leak to the eyes area. 3. Sleep hygiene with regular time in bed for at least 7-1/2 to 8 hours. 4. Precautions related to driving. No driving if feeling sleepiness. 5. I will maintain all necessary prescription for PAP supplies including mask, tube, filters. 6. Watching weight. 7. Follow-up visit in 6 months or earlier if patient has any problems. 8. I spent with the patient and in documentation more than 30 minutes. Thank you very much for allowing me to participate in management of your patient. Sincerely, Mehran Gutierrez MD, PhD, FAASM Diplomat of [place] [employer] [place] [employer] Manager [employer] [facility] [place] MMODL / CARLN: [id number] /
== END | disposition home or self-care (01) ==
LOC: SLEEP 09:54
PROVIDERS: ATTEND Internal Medicine
DX: G47.33 Obstructive sleep apnea (adult) (pediatric) (principal); I10 Essential (primary) hypertension; E66.9 Obesity, unspecified; M19.90 Unspecified osteoarthritis, unspecified site; Z86.711 Personal history of pulmonary embolism; Z96.651 Presence of right artificial knee joint; Z96.611 Presence of right artificial shoulder joint; Z68.36 Body mass index [BMI] 36.0-36.9, adult

== ENCOUNTER → 2021-07-11 | Outpatient (CLI) | payer MEDICARE | END | disposition home or self-care (01) | LOC: CPPFTMAIN 10:22 | PROVIDERS: ATTEND Internal Medicine Critical Care Medicine | DX: I26.99 Other pulmonary embolism without acute cor pulmonale (principal) | CPT/HCPCS: 94060; 94726; 94729 ==

== ENCOUNTER → 2021-09-26 | Outpatient (CLI) | payer MEDICARE ==
[2021-09-26 18:41] LABS: Basophils # (A) 0.07 X 10*3/uL (0.00-0.10); Basophils % (A) 0.8 %; Eosinophils # (A) 0.32 X 10*3/uL (0.04-0.35); Eosinophils % (A) 3.6 %; HCT 39.2 % (39.6-50.0); HGB 12.6 g/dL (13.0-17.0); Lymphocytes # (A) 2.87 X 10*3/uL (0.90-5.00); Lymphocytes % (A) 32.1 %; MCH 29.9 pg (27.0-32.0); MCHC 32.1 g/dL (32.0-37.0); MCV 93.1 fL (80.0-97.0); Mean Platelet Volume 11.9 fL (9.5-12.2); Monocytes # (A) 0.82 X 10*3/uL (0.20-1.00); Monocytes % (A) 9.2 %; Neutrophils # (A) 4.84 X 10*3/uL (1.80-7.70); Platelet Count 240 X 10*3/uL (140-440); RBC 4.21 X 10*6/uL (4.40-5.60); RDW 12.7 % (11.5-14.5); WBC 8.95 X 10*3/uL (4.50-10.00)
== END | disposition home or self-care (01) ==
LOC: LABWHC1 13:22
PROVIDERS: ATTEND Internal Medicine Gastroenterology
DX: K27.9 Peptic ulcer, site unspecified, unspecified as acute or chronic, without hemorrhage or perforation (principal)
CPT/HCPCS: 36415; 85025

== ENCOUNTER 2022-01-05 13:32 | Inpatient (IN) | payer MEDICARE ==
[2022-01-05 14:39] LABS: Basophils # (A) 0.1 k/uL (0-0.2); Basophils % (A) 1 %; Eosinophils # (A) 0.3 k/uL (0-0.7); Eosinophils % (A) 4 %; HCT 41.7 % (39.0-53.0); HGB 13.8 gm/dL (13.0-17.5); Lymphocytes # (A) 1.9 k/uL (1.0-4.8); Lymphocytes % (A) 28 %; MCHC 33.1 g/dL (31.0-37.0); MCV 90.4 fL (80.0-100.0); Mean Platelet Volume 8.6; Monocytes # (A) 0.4 k/uL (0-1.0); Monocytes % (A) 6 %; Neutrophils # (A) 3.7 k/uL (1.3-7.7); Neutrophils % (A) 57 %; Platelet Count 255 k/uL (150-450); RBC 4.62 m/uL (4.30-5.90); RDW 14.9 % (11.5-15.5); WBC 6.6 k/uL (3.8-10.6)
[2022-01-05 14:52] LABS: Albumin 4.4 g/dL (3.5-5.0); Calcium 9.9 mg/dL (8.4-10.2); Partial Thromboplastin Time 22.7 sec (22.0-30.0); Potassium 5.1 mmol/L (3.5-5.1); Prothrombin Time 11.1 sec (9.0-12.0); Total Bilirubin 0.6 mg/dL (0.2-1.3); Total Protein 7.5 g/dL (6.3-8.2)
[2022-01-05] MEDS ORDERED: SODIUM CHLORIDE 0.9% 1,000 ML IV ONE (15:07)
[2022-01-05] MEDS ORDERED: ACETAMINOPHEN TAB 325 MG TAB PO PRN (15:26)
[2022-01-05] MEDS ORDERED: NALOXONE 0.4 MG/ML 1 ML VIAL IV PRN (15:26)
--- NOTE | 2022-01-05 15:30 | ED ---
General Adult HPI - General Chief complaint: Shortness of Breath Stated complaint: SOB Time Seen by Provider: 01/05/22 14:13 Source: patient, RN notes reviewed, old records reviewed Mode of arrival: ambulatory Limitations: no limitations - History of Present Illness Initial comments: 66-year-old male presents for evaluation of dyspnea, he's had 3 weeks of progressive dyspnea with any exertion. He has history of multiple pulmonary emboli is currently on Eliquis 5 mg twice daily. He states that his symptoms are similar nature to previous pulmonary emboli. He denies central chest pain. He denies cough or fever. He denies lower extremity pain or swelling. He's had no vomiting or diarrhea. - Related Data Home Medications Medication Instructions Recorded Confirmed Lisinopril-Hctz 10-12.5 mg 1 tab PO DAILY 03/28/15 12/03/19 [Zestoretic 10-12.5] Ascorbic Acid [Vitamin C] 1,000 mg PO HS 01/08/17 12/03/19 Escitalopram [Lexapro] 20 mg PO HS 01/08/17 12/03/19 HYDROcodone/APAP 10-325MG [[place] 1 tab PO QID 01/08/17 12/03/19 10-325] Multivitamins, Thera [Multivitamin 1 tab PO HS 01/08/17 12/03/19 (formulary)] Melatonin 10 mg PO HS PRN 01/28/18 12/03/19 Amitriptyline HCl [Elavil] 25 mg PO HS 12/29/18 12/03/19 Cyclobenzaprine [Flexeril] 10 mg PO DAILY 10/17/19 12/03/19 Cyanocobalamin (Vitamin B-12) 1,000 mcg PO DAILY 12/01/19 12/03/19 [Vitamin B-12] Diclofenac Sodium [Voltaren Gel] 2 gram TOPICAL DAILY PRN 12/01/19 12/03/19 Gabapentin [Neurontin] 100 mg PO TID 12/01/19 12/03/19 Iron 18 mg PO DAILY 12/01/19 12/03/19 Previous Rx's Medication Instructions Recorded Pantoprazole Sodium [Protonix] 40 mg PO AC-BID #60 tablet. 12/25/18 Apixaban [Eliquis] 5 mg PO BID #60 tab 04/13/19 Allergies Allergy/AdvReac Type Severity Reaction Status Date / Time No Known Allergies Allergy Verified 09/17/20 13:15 Review of Systems ROS Statement: Those systems with pertinent positive or pertinent negative responses have been documented in the HPI. ROS Other: All systems not noted in ROS Statement are negative. 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%., hx pulm hypertension History of Any Multi-Drug Resistant Organisms: None Reported Past Surgical History: Hernia Repair, Orthopedic Surgery Additional Past Surgical History / Comment(s): ALBERT SHOULDERS right rotator cuff/ left tendon damage, LEFT CARPAL TUNNEL, Past Anesthesia/Blood Transfusion Reactions: No Reported Reaction Past Psychological History: No Psychological Hx Reported Smoking Status: Former smoker Past Alcohol Use History: None Reported Past Drug Use History: None Reported - Past Family History Father Family Medical History: Respiratory Disorder Additional Family Medical History / Comment(s): pulmonary fibrosis Mother Family Medical History: Dementia General Exam Limitations: no limitations General appearance: alert, in no apparent distress Head exam: Present: atraumatic, normocephalic Eye exam: Present: normal appearance, PERRL ENT exam: Present: normal exam Neck exam: Present: normal inspection. Absent: tenderness, meningismus Respiratory exam: Present: normal lung sounds bilaterally. Absent: respiratory distress, wheezes Cardiovascular Exam: Present: regular rate, normal rhythm GI/Abdominal exam: Present: soft. Absent: distended, tenderness, guarding, rebound Extremities exam: Present: normal inspection, normal capillary refill. Absent: pedal edema Neurological exam: Present: alert, oriented X3, CN II-XII intact. Absent: motor sensory deficit Psychiatric exam: Present: normal affect, normal mood Skin exam: Present: warm, dry, intact. Absent: cyanosis, diaphoretic Course Vital Signs 01/05/22 01/05/22 13:40 14:18 Temperature 98.2 F Pulse Rate 89 Respiratory 24 Rate Blood Pressure 154/66 O2 Sat by Pulse 95 98 Oximetry EKG Findings - EKG Comments: EKG Findings:: EKG: Sinus rhythm with first-degree AV block, frequent PVC rate of 77, MD interval 219, QRS duration 104, QTC 408, no ST segment elevation Medical Decision Making - Medical Decision Making 66-year-old male presenting with progressive dyspnea over the past 3 weeks. No associated chest pain or cough. He has history of pulmonary embolism. EKG is sinus rhythm with occasional PVC. He has no typical chest pain. He has no lower extremity pain or swelling. He is anticoagulated at baseline. I do have suspicion for pulmonary embolism in this patient. He had an outpatient chest x- ray performed 3 days ago which showed mild hyperinflation without acute f indings. He has a mildly elevated BUN and creatinine. I would prefer to obtain CT angiography on this patient to rule out pulmonary embolism however in the setting of acute kidney injury I prefer to hydrate the patient prior to this study. He has a negative troponin and negative BMP. I discussed this with the primary care physician Dr. Galarza who does agree to admit the patient for hydration and close monitoring. Laboratory studies will be repeated in the morning. CT has been ordered but has not been performed at this time. - Lab Data Result diagrams: 01/05/22 14:14 01/05/22 14:14 Lab Results 01/05/22 01/05/22 01/05/22 Range/Units 14:14 14:14 14:14 WBC 6.6 (3.8-10.6) k/uL RBC 4.62 (4.30-5.90) m/uL Hgb 13.8 (13.0-17.5) gm/dL Hct 41.7 (39.0-53.0) % MCV 90.4 (80.0-100.0) fL MCH 30.0 (25.0-35.0) pg MCHC 33.1 (31.0-37.0) g/dL RDW 14.9 (11.5-15.5) % Plt Count 255 (150-450) k/uL MPV 8.6 Neutrophils % 57 % Lymphocytes % 28 % Monocytes % 6 % Eosinophils % 4 % Basophils % 1 % Neutrophils # 3.7 (1.3-7.7) k/uL Lymphocytes # 1.9 (1.0-4.8) k/uL Monocytes # 0.4 (0-1.0) k/uL Eosinophils # 0.3 (0-0.7) k/uL Basophils # 0.1 (0-0.2) k/uL PT 11.1 (9.0-12.0) sec INR 1.0 (<1.2) APTT 22.7 (22.0-30.0) sec Sodium 135 L (137-145) mmol/L Potassium 5.1 (3.5-5.1) mmol/L Chloride 103 (98-107) mmol/L Carbon Dioxide 20 L (22-30) mmol/L Anion Gap 12 mmol/L BUN 28 H (9-20) mg/dL Creatinine 1.38 H (0.66-1.25) mg/dL Est GFR (CKD-EPI)AfAm 61 (>60 ml/min/1.73 sqM) Est GFR (CKD-EPI)NonAf 53 (>60 ml/min/1.73 sqM) Glucose 114 H (74-99) mg/dL Plasma Lactic Acid Christiano (0.7-2.0) mmol/L Calcium 9.9 (8.4-10.2) mg/dL Total Bilirubin 0.6 (0.2-1.3) mg/dL AST 28 (17-59) U/L ALT 26 (4-49) U/L Alkaline Phosphatase 74 (38-126) U/L Troponin I (0.000-0.034) ng/mL NT-Pro-B Natriuret Pep pg/mL Total Protein 7.5 (6.3-8.2) g/dL Albumin 4.4 (3.5-5.0) g/dL 01/05/22 01/05/22 01/05/22 Range/Units 14:14 14:14 14:14 WBC (3.8-10.6) k/uL RBC (4.30-5.90) m/uL Hgb (13.0-17.5) gm/dL Hct (39.0-53.0) % MCV (80.0-100.0) fL MCH (25.0-35.0) pg MCHC (31.0-37.0) g/dL RDW (11.5-15.5) % Plt Count (150-450) k/uL MPV Neutrophils % % Lymphocytes % % Monocytes % % Eosinophils % % Basophils % % Neutrophils # (1.3-7.7) k/uL Lymphocytes # (1.0-4.8) k/uL Monocytes # (0-1.0) k/uL Eosinophils # (0-0.7) k/uL Basophils # (0-0.2) k/uL PT (9.0-12.0) sec INR (<1.2) APTT (22.0-30.0) sec Sodium (137-145) mmol/L Potassium (3.5-5.1) mmol/L Chloride (98-107) mmol/L Carbon Dioxide (22-30) mmol/L Anion Gap mmol/L BUN (9-20) mg/dL Creatinine (0.66-1.25) mg/dL Est GFR (CKD-EPI)AfAm (>60 ml/min/1.73 sqM) Est GFR (CKD-EPI)NonAf (>60 ml/min/1.73 sqM) Glucose (74-99) mg/dL Plasma Lactic Acid Christiano 2.4 H* (0.7-2.0) mmol/L Calcium (8.4-10.2) mg/dL Total Bilirubin (0.2-1.3) mg/dL AST (17-59) U/L ALT (4-49) U/L Alkaline Phosphatase (38-126) U/L Troponin I <0.012 (0.000-0.034) ng/mL NT-Pro-B Natriuret Pep 196 pg/mL Total Protein (6.3-8.2) g/dL Albumin (3.5-5.0) g/dL Disposition Clinical Impression: Hx pulmonary embolism, JAYCOB (acute kidney injury) Disposition: ADMITTED IP TO THIS HOSP Condition: Stable Is patient prescribed a controlled substance at d/c from ED?: No Referrals: Theo Reid MD [Primary Care Provider] - 1-2 days Decision to Admit Reason: Admit from EC Decision Date: 01/05/22 Decision Time: 15:32
[2022-01-05] MEDS ORDERED: MELATONIN 5 MG TABLET PO PRN (16:47)
--- NOTE | 2022-01-05 16:55 | CT ---
EXAMINATION TYPE: CT chest angio for PE DATE OF EXAM: 01/05/2022 COMPARISON: 05/24/2020 HISTORY: Difficulty in breathing. CT DLP: 749 mGycm Automated exposure control for dose reduction was used. CONTRAST: Performed with IV Contrast, patient injected with 100 mL of Isovue 370. There are Three-D postprocessed images. Images obtained from the thoracic inlet through the diaphragm with IV contrast. There are multiple large filling defects in the lower lobe pulmonary arteries bilaterally. There is a lso a filling defect in the right upper lobe pulmonary artery. There are no hilar masses. Thoracic aorta is intact. There is no aneurysm or dissection. There is no mediastinal adenopathy. Thoracic vertebra have normal alignment. There is no compression fracture. Sternum is intact. The rib s are intact. The lungs are clear of infiltrate. There is no evidence of a pulmonary mass. There is no pleural effu kenzie. IMPRESSION: Multiple large pulmonary emboli. Emboli are essentially new compared to old exam of 05/24/2020 This exam was discussed with emergency room staff at 5:00 PM .
[2022-01-05] MEDS ORDERED: HEPARIN SODIUM 1,000 UN/ML (10ML VL) IV PRN (17:14)
[2022-01-05] MEDS ORDERED: HEPARIN SODIUM 1,000 UN/ML (10ML VL) IV ONE (17:14)
[2022-01-05] MEDS: SODIUM CHLORIDE 0.9% 1,000 ML IV SCH (17:46)
[2022-01-05] MEDS: HEPARIN SOD,PORK IN 0.45% NACL 25,000 UNIT in 0.45% NACL 1 250ML.BAG IV SCH (17:49)
[2022-01-05] MEDS: HYDROcodone/APAP 10-325MG 1 EACH TAB PO SCH ×2 (19:00→22:56)
[2022-01-05 19:27] LABS: INR 1.2 (<1.2); Prothrombin Time 12.3 sec (9.0-12.0)
[2022-01-05] MEDS ORDERED: APIXABAN 5 MG TAB PO SCH (21:00)
[2022-01-05] MEDS: ALBUTEROL NEBULIZED 2.5 MG/3 ML INHALATION SCH (22:00)
[2022-01-05] MEDS: GABAPENTIN 300 MG CAP PO SCH (22:56)
[2022-01-06 07:11] LABS: Basophils # (A) 0.1 k/uL (0-0.2); Basophils % (A) 1 %; Eosinophils # (A) 0.4 k/uL (0-0.7); Eosinophils % (A) 8 %; HCT 40.5 % (39.0-53.0); HGB 13.2 gm/dL (13.0-17.5); Lymphocytes # (A) 2.3 k/uL (1.0-4.8); Lymphocytes % (A) 40 %; MCH 30.1 pg (25.0-35.0); MCHC 32.5 g/dL (31.0-37.0); MCV 92.5 fL (80.0-100.0); Mean Platelet Volume 8.5; Monocytes # (A) 0.3 k/uL (0-1.0); Monocytes % (A) 5 %; Neutrophils # (A) 2.5 k/uL (1.3-7.7); Neutrophils % (A) 43 %; Platelet Count 234 k/uL (150-450); RBC 4.38 m/uL (4.30-5.90); RDW 15.1 % (11.5-15.5); WBC 5.9 k/uL (3.8-10.6)
[2022-01-06 07:16] LABS: Albumin 3.9 g/dL (3.5-5.0); Potassium 4.7 mmol/L (3.5-5.1); Total Bilirubin 0.6 mg/dL (0.2-1.3); Total Protein 6.9 g/dL (6.3-8.2)
[2022-01-06] MEDS: HYDROcodone/APAP 10-325MG 1 EACH TAB PO PRN ×3 (07:56→20:02)
[2022-01-06] MEDS: PANTOPRAZOLE 40 MG TABLET PO SCH (07:59)
[2022-01-06] MEDS: CYCLOBENZAPRINE 10 MG TAB PO SCH (08:00)
[2022-01-06] MEDS: LISINOPRIL-HCTZ 10-12.5 MG 1 EACH TAB PO SCH (08:00)
[2022-01-06] MEDS: GABAPENTIN 300 MG CAP PO SCH ×2 (08:00→20:02)
[2022-01-06] MEDS: ASCORBIC ACID 500 MG TAB PO SCH (08:00)
[2022-01-06] MEDS: FERROUS SULFATE 325 MG TAB PO SCH (08:01)
[2022-01-06] MEDS: MULTIVITAMINS, THERA 1 EACH TAB PO SCH (08:01)
[2022-01-06] MEDS: HEPARIN SOD,PORK IN 0.45% NACL 25,000 UNIT in 0.45% NACL 1 250ML.BAG IV SCH ×2 (10:12→16:54)
[2022-01-06] MEDS: ALBUTEROL NEBULIZED 2.5 MG/3 ML INHALATION SCH ×2 (11:02→19:44)
--- NOTE | 2022-01-06 13:06 | US ---
EXAMINATION TYPE: US venous doppler duplex LE DATE OF EXAM: 01/06/2022 12:58 PM COMPARISON: Prior bilateral ultrasound December 20, 2018 CLINICAL HISTORY: Pain. PE on blood thinners. SIDE PERFORMEDBilateral: TECHNIQUE: The lower extremity deep venous system is examined utilizing real time linear array sonog davion with graded compression, doppler sonography and color-flow sonography. VESSELS IMAGED: Common Femoral Vein Deep Femoral Vein Greater Saphenous Vein * Femoral Vein Popliteal Vein Small Saphenous Vein * Proximal Calf Veins (* superficial vessels) Right Leg: Negative for DVT Left Leg: Negative for DVT Grayscale, color doppler, spectral doppler imaging performed of the deep veins of the bilateral lower extremities. There is normal flow, compressibility, vascular waveforms. IMPRESSION: No ultrasound evidence for acute DVT in either lower extremity. No significant change fr om prior.
--- NOTE | 2022-01-06 13:49 | P.CNPUL ---
History of Present Illness Consult date: 01/06/22 Reason for consult: dyspnea History of present illness: This is a 66-year-old male patient who follows up in our office under the care of Dr. Washington . The patient is currently hospitalized because of bilateral pulmonary embolism. Note that the patient has previous history of pulmonary embolism of several years duration. The patient has had previous recurrent pulmonary embolism and the patient was doing well on antibiotic ventilation with Eliquis. Note that the patient was taken off sedation briefly on 12/05/2021 and 12/19/2021. The previous continuation of the Eliquis was probably for a total of 3 or 4 days as the patient wasn't feeling epidural shots to his back with his neurologist, Dr. Rodríguez. During this time, the patient was getting more short of breath. I saw this patient in the office and I noted that the patient was short of breath. Nevertheless, he was not hypoxic. He had no signs of any cardiac congestion heart failure. He has had previous coronary 19 infection from which she had recovered. He was deconditioned he was gaining weight. Based on that, surgery. The family obstructive sleep apnea. Nevertheless, over the past few days, his breathing got worse and the patient came into the emergency department and the patient was found to have new-onset pulmonary embolism bilateral. Specifically, the CTA of the chest showed new onset bilateral pulmonary emboli, with multiple large filling defects in the inner lower lobe pulmonary artery branches bilaterally. There was also filling defects in the right upper lobe. No other parenchymal lung abnormalities. No evidence of any lung masses. Note that these were not present on previous CAT scan from 2019. Based on that, the patient was started on IV heparin. Note that the patient was taken his anticoagulation according to him and he has not missed any of his Eliquis doses. He did however discontinue anticoagulation for a few days at a time of those epidural shots in his back. No pleurisy. No hemoptysis. He is hemodynamically stable at this point in time. He is on normal saline at rate of 75 mL an hour. Review of Systems Constitutional: Reports fatigue, Reports weakness, is also positive for weight gain. Eyes: denies as per HPI, denies blurred vision, denies bulging eye, denies decreased vision, denies diplopia, denies discharge, denies dry eye, denies irritation, denies itching, denies pain, denies photophobia, denies loss of peripheral vision, denies loss of vision, denies tunnel vision/blind spots Ears: deny: decreased hearing, ear discharge, earache, tinnitus Ears, nose, mouth and throat: Denies headache, Denies sore throat Cardiovascular: Reports chest pain, Reports decreased exercise tolerance, Reports dyspnea on exertion, Reports palpitations, Reports shortness of breath Respiratory: Reports dyspnea Gastrointestinal: Denies abdominal pain, Denies diarrhea, Denies nausea, Denies vomiting Genitourinary: Reports as per HPI Musculoskeletal: Reports as per HPI Musculoskeletal: absent: ankle pain, ankle stiffness, ankle swelling, as per HPI, elbow pain, elbow stiffness, elbow swelling, foot pain, foot stiffness, foot swelling, hand pain, hand stiffness, hand swelling, hip pain, hip stiffness, hip swelling, knee pain, knee stiffness, knee swelling, shoulder pain, shoulder stiffness, shoulder swelling, wrist pain, wrist stiffness, wrist swelling Integumentary: Reports as per HPI Neurological: Reports as per HPI, no recent syncope. No focal neurological deficits. Psychiatric: Reports as per HPI Endocrine: Reports fatigue Hematologic/Lymphatic: Reports as per HPI Allergic/Immunologic: Reports as per HPI 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%., hx pulm hypertension History of Any Multi-Drug Resistant Organisms: None Reported Past Surgical History: Hernia Repair, Orthopedic Surgery Additional Past Surgical History / Comment(s): ALBERT SHOULDERS right rotator cuff/ left tendon damage, LEFT CARPAL TUNNEL, Past Anesthesia/Blood Transfusion Reactions: No Reported Reaction Past Psychological History: No Psychological Hx Reported Smoking Status: Former smoker Past Alcohol Use History: None Reported Past Drug Use History: None Reported - Past Family History Father Family Medical History: Respiratory Disorder Additional Family Medical History / Comment(s): pulmonary fibrosis Mother Family Medical History: Dementia Medications and Allergies Home Medications Medication Instructions Recorded Confirmed Type Lisinopril-Hctz 10-12.5 mg 1 tab PO DAILY 03/28/15 01/05/22 History [Zestoretic 10-12.5] Ascorbic Acid [Vitamin C] 1,000 mg PO DAILY 01/08/17 01/05/22 History HYDROcodone/APAP 10-325MG [[place] 1 tab PO QID 01/08/17 01/05/22 History 10-325] Multivitamins, Thera [Multivitamin 1 tab PO DAILY 01/08/17 01/05/22 History (formulary)] Melatonin 10 mg PO HS PRN 01/28/18 01/05/22 History Apixaban [Eliquis] 5 mg PO BID #60 tab 01/31/19 01/05/22 Rx Cyclobenzaprine [Flexeril] 10 mg PO DAILY 10/17/19 01/05/22 History Diclofenac Sodium [Voltaren Gel] 2 gram TOPICAL DAILY PRN 12/01/19 01/05/22 History Iron 18 mg PO DAILY 12/01/19 01/05/22 History Albuterol Sulfate [Albuterol 2 puff PO RT-BID 01/05/22 01/05/22 History Sulfate Hfa] Gabapentin 600 mg PO BID 01/05/22 01/05/22 History Pantoprazole Sodium [Protonix] 40 mg PO DAILY 01/05/22 01/05/22 History Allergies Allergy/AdvReac Type Severity Reaction Status Date / Time No Known Allergies Allergy Verified 01/05/22 16:02 Physical Exam Vitals: Vital Signs Temp Pulse Resp BP Pulse Ox 01/06/22 11:13 76 01/06/22 11:02 64 01/06/22 10:17 67 18 128/67 96 01/06/22 08:03 85 18 109/66 94 L 01/06/22 07:26 64 18 123/67 96 01/05/22 22:56 73 18 114/60 96 01/05/22 22:10 73 01/05/22 22:00 68 01/05/22 17:30 65 18 136/75 100 01/05/22 17:00 62 18 01/05/22 16:30 62 18 123/64 01/05/22 16:00 61 19 124/71 97 01/05/22 15:30 61 18 126/67 97 01/05/22 15:00 64 18 116/67 97 01/05/22 14:30 71 18 131/87 97 01/05/22 14:18 98 01/05/22 14:04 73 17 98 01/05/22 13:40 98.2 F 89 24 154/66 95 Intake and Output 01/05/22 01/06/22 01/06/22 22:59 06:59 14:59 Intake Total 173.421 75.889 Balance 173.421 75.889 Intake: Intake, IV Titration 173.421 75.889 Amount Heparin Sod,Pork in 0.45% 173.421 75.889 NaCl 25,000 unit In 0.45 % NaCl 1 250ml.bag @ 18 UNITS/KG/HR 22.045 mls/hr IV .[id number] [facility] Rx#: [id number] GENERAL EXAM: Alert, active, shortness of breath with limited amount of activity. Breathing is nonlabored and the patient is currently comfortable, on 2 L about 2 nasal cannula HEAD: Normocephalic. EYES: Normal reaction of pupils, equal size. NOSE: Clear with pink turbinates. THROAT: No erythema or exudates. NECK: No masses, no JVD. CHEST: No chest wall deformity. LUNGS: Equal air entry with no crackles, wheeze, rhonchi or dullness. CVS: S1 and S2 normal with no audible murmur, regular rhythm. ABDOMEN: No hepatosplenomegaly, normal bowel sounds, no guarding or rigidity. SPINE: No scoliosis or deformity SKIN: No rashes CENTRAL NERVOUS SYSTEM: No focal deficits, tone is normal in all 4 extremities. EXTREMITIES: There is no peripheral edema. No clubbing, no cyanosis. Peripheral pulses are intact. Results - Laboratory Findings CBC and BMP: 01/06/22 06:09 01/06/22 06:09 PT/INR, D-dimer PT 12.3 sec (9.0-12.0) H 01/05/22 18:54 INR 1.2 (<1.2) H 01/05/22 18:54 Abnormal lab findings: Abnormal Labs 01/05/22 01/05/22 01/05/22 14:14 14:14 18:54 PT 12.3 H INR 1.2 H APTT Sodium 135 L Carbon Dioxide 20 L BUN 28 H Creatinine 1.38 H Glucose 114 H Plasma Lactic Acid Christiano 2.4 H* 01/05/22 01/06/22 23:57 06:09 PT INR APTT 133.1 H* Sodium 135 L Carbon Dioxide BUN Creatinine Glucose 103 H Plasma Lactic Acid Christiano - Diagnostic Findings CT scan - chest: image reviewed Assessment and Plan Plan: 1 acute pulmonary embolism. This is a recurrent episodes of PE and a CT angiogram is showing new bilateral pulmonary emboli and and the patient presented with worsening shortness of breath and hypoxemia currently on 2 L of oxygen by nasal cannula. No evidence of RV strain based on the CT angiogram. The patient is currently on IV heparin. Note that the patient was taken to coagulation with Eliquis on outpatient basis. He was compliant is. However, this was discontinued on few occasions back in 12/05/2021 and as the patient was receiving epidural injections to his neck pain. As such, I'm not absolutely sure this is a treatment failure to Eliquis versus recurrent pulmonary embolism due to previous continuation of the medication. We will have to discuss this further with hematology oncology. Noted the patient is quite significantly thrombogenic as the patient developed pulmonary emboli either while being on an anticoagulation with Eliquis or during brief interruption of Eliquis treatment. 2 previous history of pulmonary emboli, high likelihood for underlying hypercoa gulability/hypercoagulable state 3 obesity 4 obstructive sleep apnea , maintained on CPAP therapy at a pressure 15 cm of water 5 chronic back and neck pain 6 previous history COVID 19 infection in 2020, recovered 7 depression 8 hypertension 9 gastric ulcer/acid reflux Plan Continue IV heparin echocardiogram Doppler of the lower extremities Discuss the matter further with hematology oncology. This may be potentially treatment failure versus breakthrough pulmonary embolism due to recent discontinuation of anticoagulation We'll make further recommendations accordingly. Hemodynamically stable on 2 L of O2 by nasal cannula
--- NOTE | 2022-01-06 15:13 | P.HPIM ---
History of Present Illness H&P Date: 01/06/22 Chief Complaint: Dyspnea Mr. White is a 66-year-old male well-known to my practice who presented to the hospital with shortness of breath previous history of covid and 19 viral infection, approximately 1 year ago she does all also developed pulmonary embolus significant low back and cervical spine issues, past history of alcoholism past history of long-term narcotic pain med use patient has been on close underwent cervical epidural injections for which he stopped his outlook was for 3 days in order to undergo the epidural injections he stopped the elaquis, I post-the question to the patient could you possibly been reinfected with COVID-19 virus and he stated he was asking himself the same thing however he has been vaccinated 3 times including a booster, prior to going to his room from the ER 353 a repeat Covid screen was performed a sed rate and C-reactive protein were ordered, all his other labs performed the emergency room were completely unremarkable with no evidence of any underlying comorbidity that might have caused repeat pulmonary embolus formation. Patient denies nausea denies vomiting no evidence of lung masses on imaging patient was started on IV heparin. Patient states he had not missed any doses of elaquis was with the exception of the epidural Review of Systems Ears, nose, mouth and throat: Reports as per HPI Cardiovascular: Reports chest pain Respiratory: Reports congestion, Reports cough, Reports dyspnea Gastrointestinal: Reports as per HPI Genitourinary: Reports as per HPI Integumentary: Reports as per HPI Neurological: Reports as per HPI Psychiatric: Reports as per HPI 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%., hx pulm hypertension History of Any Multi-Drug Resistant Organisms: None Reported Past Surgical History: Hernia Repair, Orthopedic Surgery Additional Past Surgical History / Comment(s): ALBERT SHOULDERS right rotator cuff/ left tendon damage, LEFT CARPAL TUNNEL, Past Anesthesia/Blood Transfusion Reactions: No Reported Reaction Past Psychological History: No Psychological Hx Reported Smoking Status: Former smoker Past Alcohol Use History: None Reported Past Drug Use History: None Reported - Past Family History Father Family Medical History: Respiratory Disorder Additional Family Medical History / Comment(s): pulmonary fibrosis Mother Family Medical History: Dementia Medications and Allergies Home Medications Medication Instructions Recorded Confirmed Type Lisinopril-Hctz 10-12.5 mg 1 tab PO DAILY 03/28/15 01/05/22 History [Zestoretic 10-12.5] Ascorbic Acid [Vitamin C] 1,000 mg PO DAILY 01/08/17 01/05/22 History HYDROcodone/APAP 10-325MG [[place] 1 tab PO QID 01/08/17 01/05/22 History 10-325] Multivitamins, Thera [Multivitamin 1 tab PO DAILY 01/08/17 01/05/22 History (formulary)] Melatonin 10 mg PO HS PRN 01/28/18 01/05/22 History Apixaban [Eliquis] 5 mg PO BID #60 tab 01/31/19 01/05/22 Rx Cyclobenzaprine [Flexeril] 10 mg PO DAILY 10/17/19 01/05/22 History Diclofenac Sodium [Voltaren Gel] 2 gram TOPICAL DAILY PRN 12/01/19 01/05/22 History Iron 18 mg PO DAILY 12/01/19 01/05/22 History Albuterol Sulfate [Albuterol 2 puff PO RT-BID 01/05/22 01/05/22 History Sulfate Hfa] Gabapentin 600 mg PO BID 01/05/22 01/05/22 History Pantoprazole Sodium [Protonix] 40 mg PO DAILY 01/05/22 01/05/22 History Allergies Allergy/AdvReac Type Severity Reaction Status Date / Time No Known Allergies Allergy Verified 01/05/22 16:02 Physical Exam Osteopathic Statement: *. No significant issues noted on an osteopathic structural exam other than those noted in the History and Physical/Consult. Vitals: Vital Signs Temp Pulse Resp BP Pulse Ox 01/06/22 14:00 97.8 F 73 18 127/65 96 01/06/22 11:13 76 01/06/22 11:02 64 01/06/22 10:17 67 18 128/67 96 01/06/22 08:03 85 18 109/66 94 L 01/06/22 07:26 64 18 123/67 96 01/05/22 22:56 73 18 114/60 96 01/05/22 22:10 73 01/05/22 22:00 68 01/05/22 17:30 65 18 136/75 100 01/05/22 17:00 62 18 01/05/22 16:30 62 18 123/64 01/05/22 16:00 61 19 124/71 97 01/05/22 15:30 61 18 126/67 97 01/05/22 15:00 64 18 116/67 97 Intake and Output 01/05/22 01/06/22 01/06/22 22:59 06:59 14:59 Intake Total 173.421 75.889 Balance 173.421 75.889 Intake: Intake, IV Titration 173.421 75.889 Amount Heparin Sod,Pork in 0.45% 173.421 75.889 NaCl 25,000 unit In 0.45 % NaCl 1 250ml.bag @ 18 UNITS/KG/HR 22.045 mls/hr IV .[id number] [facility] Rx#: [id number] General: [Patient awake, alert and oriented times 3. Patient complains of shortness of breath and mild chest discomfort HEENT: [PERRL. EOMI. No pharyngeal erythema or exudate.] Neck: [No adenopathy.] Cardiac: [Heart regular in rate and rhythm. No S3. No S4. No clicks, rubs. No murmur.] Lungs: [Clear to auscultation bilaterally. Abdomen: [No mass. No organomegaly. Bowel sounds presnt and normoactive in all 4 quadrants. Morbidly obese Extremes: [No edema no cyanosis no claudication normal pulses] : Normal male genitalia Musculoskeletal: [No joint erythema, edema or tenderness.] Skin: [No rash.] Neurologic: [No lateralizing deficits. CN II - XII grossly intact.] Lymphatic: [No adenopathy.] Results CBC & Chem 7: 01/06/22 06:09 01/06/22 06:09 Labs: Abnormal Lab Results - Last 24 Hours (Table) 01/05/22 01/05/22 01/05/22 Range/Units 14:14 14:14 18:54 PT 12.3 H (9.0-12.0) sec INR 1.2 H (<1.2) APTT (22.0-30.0) sec Sodium 135 L (137-145) mmol/L Carbon Dioxide 20 L (22-30) mmol/L BUN 28 H (9-20) mg/dL Creatinine 1.38 H (0.66-1.25) mg/dL Glucose 114 H (74-99) mg/dL Plasma Lactic Acid Christiano 2.4 H* (0.7-2.0) mmol/L 01/05/22 01/06/22 Range/Units 23:57 06:09 PT (9.0-12.0) sec INR (<1.2) APTT 133.1 H* (22.0-30.0) sec Sodium 135 L (137-145) mmol/L Carbon Dioxide (22-30) mmol/L BUN (9-20) mg/dL Creatinine (0.66-1.25) mg/dL Glucose 103 H (74-99) mg/dL Plasma Lactic Acid Christiano (0.7-2.0) mmol/L Assessment and Plan (1) Hx pulmonary embolism Current Visit: Yes Status: Acute Code(s): Z86.711 - PERSONAL HISTORY OF PULMONARY EMBOLISM SNOMED Code(s): 199720229 (2) Multiple pulmonary emboli Current Visit: Yes Status: Acute Code(s): I26.99 - OTHER PULMONARY EMBOLISM WITHOUT ACUTE COR PULMONALE SNOMED Code(s): 51847243 Plan: Multiple pulmonary emboli Consider reinfection with covid 19 Consider some other underlying cause for pulmonary embolism We'll repeat labs to include PSA, AFP, CEA Patient to be admitted placed on heparin Consultation with pulmonary medicine Consider consultation with hematology Time with Patient: Greater than 30
[2022-01-06] MEDS: SODIUM CHLORIDE 0.9% 1,000 ML IV SCH ×2 (16:53→17:38)
[2022-01-07] MEDS: HEPARIN SOD,PORK IN 0.45% NACL 25,000 UNIT in 0.45% NACL 1 250ML.BAG IV SCH ×2 (05:52→10:25)
[2022-01-07] MEDS: PANTOPRAZOLE 40 MG TABLET PO SCH (06:31)
[2022-01-07] MEDS: ALBUTEROL NEBULIZED 2.5 MG/3 ML INHALATION SCH ×2 (07:43→20:06)
[2022-01-07] MEDS: HYDROcodone/APAP 10-325MG 1 EACH TAB PO PRN ×2 (09:01→17:15)
[2022-01-07] MEDS: ASCORBIC ACID 500 MG TAB PO SCH (09:01)
[2022-01-07] MEDS: LISINOPRIL-HCTZ 10-12.5 MG 1 EACH TAB PO SCH (09:01)
[2022-01-07] MEDS: GABAPENTIN 300 MG CAP PO SCH ×2 (09:02→20:10)
[2022-01-07] MEDS: MULTIVITAMINS, THERA 1 EACH TAB PO SCH (09:02)
[2022-01-07] MEDS: FERROUS SULFATE 325 MG TAB PO SCH (09:02)
--- NOTE | 2022-01-07 10:05 | P.CONS ---
History of Present Illness - Reason for Consult Consult date: 01/07/22 Recurrent PE - History of Present Illness Mr. White is a 66 yr old white male, with overall well controlled medical problems. His hematology history is as follows: The patient was admitted to [facility] on 05/21/17 due to fairly acute onset of shortness of breath, as well as chest discomfort across the mid chest, made worse by deep breathing. Computed tomography scan of the chest revealed multiple filling defects involving the segmental and subsegmental branches of the pulmonary arteries throughout both lungs. Overall thrombus burden was moderate. No suspicious pulmonary nodules or masses were noted. Dopplers of both lower extremities were negative for DVT. Initial chest x-ray on 05/21/17 had shown no evidence of acute cardiopulmonary process. The patient was started on IV heparin, and then transitioned over to Eliquis. He was seen by hematology, Dr. Mueller, and had a partial hypercoagulable workup d one, including cardiolipin and beta 2 glycoprotein 1 antibodies, protein C, protein S, and antithrombin III, which were all within normal limits. Post discharge, the patient was referred by his PCP, Dr. Reid here for further evaluation and recommendations He denied any prior personal history of DVT or PE. He also denied any family history of the same. No major risk factors could be identified. The patient had had a plane trip to [place] within 2 weeks of this event. However the flight nickolas e had been 2 hours or less. This was felt to be essentially unprovoked, and indefinite treatment was recommended. Per his request, hypercoag w/u was completed by testing for Factor 5 Leiden and PG mutations, which were negative. The pt did not f/u after 07/07. Apparently he stopped antiocagulation after 6 mths despite my recommendations to continue lifelong. He had a recurrence in 02/05 and was placed back on anticoagulation. He was seen in consult at [facility] in 01/06, when admitted with severe anemia, in the 5 range. EGD revealed a duodenal ulcer. He received blood transfusion, and IV iron. As the ulcer was non bleeding, and Hgb had stabilised, after detailed discussion of risk benefit, he resumed Eliquis at 2.5 mg BID. This was subsequently increased to 5mg BID. He received IV iron in 03/08, and 09/08 he had a repeat CTA in 06/08. This showed significant reduction of prior embol ic burden. Possibly new areas were noted in the right upper and lower lobes, but clinically these are not compatible with the emboli as the patient was asymptomatic and had significant improvement in clot burden elsewhere. This is felt to be more likely due to technical issues related to the prior, or this study he had an admission for pneumonia and sepsis in late 10/08. He was referred to a pulmonary HTN specialist at the [facility], for his persistent SOB, and has established there. CTA in 06/09 showed clearing of previously noted emboli. the patient then again had follow-up at the [facility], with additional evaluation showing no evidence of pulmonary hypertension. He had a sleep study evaluation and was then placed on CPAP. we had discussed reducing the dose of eliquis to 2.5 mg twice a day at his visit in 11/10. However continuation of the same dose was recommended by his lotus notes administrator locally, and at the [facility]. The patient has been on regular follow-up in the office mainly to check for recurrence of anemia. He has been doing well in this regard. The patient has been having muscular skeletal procedures, for which he has held Eliquis for a few days this past winter without any problems. He had an epidural injection in late 12/12, for which he held Eliquis, again. He apparently resumed it on 12/19/21. The patient states that he subsequently developed shortness of breath, which was not very prominent for the first 5-6 days but then became increasingly worse. He denied any chest pain, or hemoptysis. He was seen by pulmonary med yung late last week, but was not hypoxic. However his symptoms worsen significantly over the next 1-2 days due to which she came to the ER. He had a CT angiogram done which showed bilateral new PE. Dopplers were negative. Patient was started on IV heparin, and admitted. Review of Systems Constitutional: Reports fatigue Eyes: denies blurred vision, denies pain Ears, nose, mouth and throat: Denies headache, Denies sore throat Cardiovascular: Reports shortness of breath Respiratory: Reports dyspnea Gastrointestinal: Denies abdominal pain, Denies diarrhea, Denies nausea, Denies vomiting Genitourinary: Reports as per HPI Musculoskeletal: Reports as per HPI Integumentary: Denies pruritus, Denies rash Neurological: Denies numbness, Denies weakness Psychiatric: Denies anxiety, Denies depression Endocrine: Denies fatigue, Denies weight change Hematologic/Lymphatic: Reports as per HPI, Reports thrombophilia 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%., hx pulm hypertension History of Any Multi-Drug Resistant Organisms: None Reported Past Surgical History: Hernia Repair, Orthopedic Surgery Additional Past Surgical History / Comment(s): ALBERT SHOULDERS right rotator cuff/ left tendon damage, LEFT CARPAL TUNNEL, Past Anesthesia/Blood Transfusion Reactions: No Reported Reaction Past Psychological History: No Psychological Hx Reported Smoking Status: Former smoker Past Alcohol Use History: None Reported Past Drug Use History: None Reported - Past Family History Father Family Medical History: Respiratory Disorder Additional Family Medical History / Comment(s): pulmonary fibrosis Mother Family Medical History: Dementia Medications and Allergies Home Medications Medication Instructions Recorded Confirmed Type Lisinopril-Hctz 10-12.5 mg 1 tab PO DAILY 03/28/15 01/05/22 History [Zestoretic 10-12.5] Ascorbic Acid [Vitamin C] 1,000 mg PO DAILY 01/08/17 01/05/22 History HYDROcodone/APAP 10-325MG [[place] 1 tab PO QID 01/08/17 01/05/22 History 10-325] Multivitamins, Thera [Multivitamin 1 tab PO DAILY 01/08/17 01/05/22 History (formulary)] Melatonin 10 mg PO HS PRN 01/28/18 01/05/22 History Apixaban [Eliquis] 5 mg PO BID #60 tab 01/31/19 01/05/22 Rx Cyclobenzaprine [Flexeril] 10 mg PO DAILY 10/17/19 01/05/22 History Diclofenac Sodium [Voltaren Gel] 2 gram TOPICAL DAILY PRN 12/01/19 01/05/22 History Iron 18 mg PO DAILY 12/01/19 01/05/22 History Albuterol Sulfate [Albuterol 2 puff PO RT-BID 01/05/22 01/05/22 History Sulfate Hfa] Gabapentin 600 mg PO BID 01/05/22 01/05/22 History Pantoprazole Sodium [Protonix] 40 mg PO DAILY 01/05/22 01/05/22 History Allergies Allergy/AdvReac Type Severity Reaction Status Date / Time No Known Allergies Allergy Verified 01/05/22 16:02 Physical Exam Vitals: Vital Signs Temp Pulse Pulse Resp BP BP Pulse Ox 01/06/22 19:45 98.7 F 70 20 110/63 94 L 01/06/22 14:00 97.8 F 73 18 127/65 96 01/06/22 11:13 76 01/06/22 11:02 64 01/06/22 10:17 67 18 128/67 96 01/06/22 08:03 85 18 109/66 94 L 01/06/22 07:26 64 18 123/67 96 Intake and Output 01/06/22 01/06/22 01/07/22 14:59 22:59 06:59 Intake Total 75.889 246.468 Balance 75.889 246.468 Intake: Intake, IV Titration 75.889 246.468 Amount Heparin Sod,Pork in 0.45% 75.889 246.468 NaCl 25,000 unit In 0.45 % NaCl 1 250ml.bag @ 18 UNITS/KG/HR 22.045 mls/hr IV .[id number] [facility] Rx#: [id number] Other: Voiding Method Toilet # Voids 1 - Constitutional General appearance: no acute distress - EENT Eyes: EOMI, PERRLA ENT: hearing grossly normal, normal oropharynx - Neck Neck: no lymphadenopathy Thyroid: bilateral: normal size - Respiratory Respiratory: bilateral: CTA - Cardiovascular Rhythm: regular Heart sounds: normal: S1, S2 - Gastrointestinal General gastrointestinal: normal bowel sounds, soft - Integumentary Integumentary: normal - Neurologic Neurologic: CNII-XII intact - Musculoskeletal Musculoskeletal: strength equal bilaterally Results CBC & Chem 7: 01/06/22 06:09 01/06/22 06:09 Labs: Abnormal Lab Results - Last 24 Hours (Table) 01/05/22 01/06/22 01/06/22 Range/Units 23:57 06:09 15:54 APTT 133.1 H* 119.8 H* (22.0-30.0) sec Sodium 135 L (137-145) mmol/L Glucose 103 H (74-99) mg/dL 01/06/22 Range/Units 20:34 APTT 70.1 H (22.0-30.0) sec Sodium (137-145) mmol/L Glucose (74-99) mg/dL Chest x-ray: report reviewed CT scan - chest: report reviewed Venous US: report reviewed Assessment and Plan (1) Multiple pulmonary emboli Narrative/Plan: This is definitely a new event, given the patient's clinical picture, as well as CTA in 06/09 being negative for PE. The patient has been on Eliquis chronically. He reports good compliance for the same. He did hold the medication for 2 or maximum 3 days for epidural injection and then resumed it on a 12/19/21 or 12/20/21. - The patient was closely questioned as to the onset of shortness of breath. The findings exactly was somewhat difficult as he does have some chronic shortness of breath. However at this time the patient seemed fairly positive that his symptoms change from baseline about 5-7 days after he resumed his anticoagulation - The patient states that he has everything written down on his kitchen calendar. He will have his bring it in and decrease his symptoms with her. - Given that the onset of action of his medication is immediate, if his symptoms occurred 5-7 days after resumption, for sure, then we would definitely have to consider failure of anticoagulation and consider change of treatment. However if his symptoms started soon after, then it is more likely that the clot occurred when he was off anticoagulation. - We will revisit with the patient in the a.m. by which time he to have a better idea. Continue IV heparin in the meantime Current Visit: Yes Status: Acute Code(s): I26.99 - OTHER PULMONARY EMBOLISM WITHOUT ACUTE COR PULMONALE SNOMED Code(s): 97905197 (2) Anemia Narrative/Plan: The patient has done well with oral iron, monitoring and intermittent IV iron after treatment for his gastric ulcer. Hemoglobin remains normal. Continue oral iron. Current Visit: No Status: Acute Priority: High Code(s): D64.9 - ANEMIA, UNSPECIFIED SNOMED Code(s): 219570518
[2022-01-07] MEDS: SODIUM CHLORIDE 0.9% 1,000 ML IV SCH ×2 (10:35→20:08)
[2022-01-07] MEDS: CYCLOBENZAPRINE 10 MG TAB PO SCH (10:36)
--- NOTE | 2022-01-07 11:14 | P.PN ---
Subjective Progress Note Date: 01/07/22 Principal diagnosis: Dyspnea, recurrent pulmonary emboli This is a 66-year-old male well-known to the practice presented to the hospital emergency room with progressively worsening dyspnea, previous covid 19 pneumonia which had resolved approximately one year ago, venous history of pulmonary embolism for which patient was anticoagulated with Elaquis, which he took faithfully, with the exception of stopping dosing during epidural injections for approximately 3 days approximately 3 months ago. However patient states shortly after that he began developing shortness of breath, it was supposed that this was due to deconditioning, patient also was diagnosed with obstructive sleep apnea started on nasal CPAP which incidentally he also says he is quite faithful with the use. No current laboratory evidence of hypercoagulable state, acute phase reactants all appropriately normal, covid 19, testing demonstrated negative at this time. Pulmonary medicine note appreciated, heme onc note also appreciated, other underlying coagulopathies being considered Objective - Vital Signs Vital signs: Vital Signs Temp 98.2 F 01/07/22 08:00 Pulse 84 01/07/22 08:00 Resp 18 01/07/22 08:00 BP 151/74 01/07/22 08:00 Pulse Ox 93 L 01/07/22 08:00 Intake & Output 01/06/22 01/07/22 01/07/22 18:59 06:59 18:59 Intake Total 253.713 72.176 78.014 Balance 253.713 72.176 78.014 Intake: Intake, IV Titration 253.713 72.176 78.014 Amount Heparin Sod,Pork in 0.45% 253.713 72.176 78.014 NaCl 25,000 unit In 0.45 % NaCl 1 250ml.bag @ 18 UNITS/KG/HR 22.045 mls/hr IV .[id number] [facility] Rx#: [id number] Other: Voiding Method Toilet Toilet # Voids 1 - Exam General: [Patient awake, alert and oriented times 3. Patient in no acute distress.] HEENT: [PERRL. EOMI. No pharyngeal erythema or exudate.] Neck: [No adenopathy.] Cardiac: [Heart regular in rate and rhythm. No S3. No S4. No clicks, rubs. No murmur.] Lungs: [Clear to auscultation bilaterally.] Abdomen: [No mass. No organomegaly. Bowel sounds presnt and normoactive in all 4 quadrants.] Extremes: [No edema no cyanosis no claudication normal pulses] : Normal male genitalia Musculoskeletal: [No joint erythema, edema or tenderness.] Skin: [No rash.] Neurologic: [No lateralizing deficits. CN II - XII grossly intact.] Lymphatic: [No adenopathy.] - Labs CBC & Chem 7: 01/06/22 06:09 01/06/22 06:09 Labs: Abnormal Lab Results - Last 24 Hours (Table) 01/06/22 01/06/22 01/07/22 Range/Units 15:54 20:34 03:35 APTT 119.8 H* 70.1 H 102.0 H* (22.0-30.0) sec Assessment and Plan (1) Hx pulmonary embolism Current Visit: Yes Status: Acute Code(s): Z86.711 - PERSONAL HISTORY OF PULMONARY EMBOLISM SNOMED Code(s): 561079286 (2) Multiple pulmonary emboli Current Visit: Yes Status: Acute Code(s): I26.99 - OTHER PULMONARY EMBOLISM WITHOUT ACUTE COR PULMONALE SNOMED Code(s): 10552482 Plan: Multiple pulmonary emboli covid 19-negative Consider some other underlying cause for pulmonary embolism We'll repeat labs to include PSA, AFP, CEA Patient to be admitted placed on heparin Consultation with pulmonary medicine Consider consultation with hematology Time with Patient: Greater than 30
[2022-01-07 12:56] LABS: Alpha Fetoprotein, Tumor Mkr 2.7 ng/mL (0.00-7.90); Carcinoembryonic Antigen 0.8 ng/mL (0.0-4.9)
--- NOTE | 2022-01-07 15:10 | P.PN ---
Subjective Progress Note Date: 01/07/22 This is a 66-year-old male patient who follows up in our office under the care of Dr. Washington . The patient is currently hospitalized because of bilateral pulmonary embolism. Note that the patient has previous history of pulmonary embolism of several years duration. The patient has had previous recurrent pulmonary embolism and the patient was doing well on antibiotic ventilation with Eliquis. Note that the patient was taken off sedation briefly on 12/05/2021 and 12/19/2021. The previous continuation of the Eliquis was probably for a total of 3 or 4 days as the patient wasn't feeling epidural shots to his back with his neurologist, Dr. Rodríguez. During this time, the patient was getting more short of breath. I saw this patient in the office and I noted that the patient was short of breath. Nevertheless, he was not hypoxic. He had no signs of any cardiac congestion heart failure. He has had previous coronary 19 infection from which she had recovered. He was deconditioned he was gaining weight. Based on that, surgery. The family obstructive sleep apnea. Nevertheless, over the past few days, his breathing got worse and the patient came into the emergency department and the patient was found to have new-onset pulmonary embolism bilateral. Specifically, the CTA of the chest showed new onset bilateral pulmonary emboli, with multiple large filling defects in the inner lower lobe pulmonary artery branches bilaterally. There was also filling defects in the right upper lobe. No other parenchymal lung abnormalities. No evidence of any lung masses. Note that these were not present on previous CAT scan from 2019. Based on that, the patient was started on IV heparin. Note t hat the patient was taken his anticoagulation according to him and he has not missed any of his Eliquis doses. He did however discontinue anticoagulation for a few days at a time of those epidural shots in his back. No pleurisy. No hemoptysis. He is hemodynamically stable at this point in time. He is on normal saline at rate of 75 mL an hour. On today's evaluation of 01/07/2022, I'm seeing the patient for a follow-up. The patient remains on IV heparin. Based on my opinion and based on the bureau chief's opinion, spontaneous this is a treatment failure to Eliquis versus breakthrough clotting due to discontinuation of the medication. We are still awaiting for the calendar to see the exact timing with anticoagulation with discontinue by the patient. Meanwhile, the patient remains on IV heparin. Doppler of lower extremity is negative. Echocardiogram was completed and is also still pending for now. He is less short of breath on today's evaluation. The patient is on 2 L of oxygen by nasal cannula with a pulse ox of 97%. Breathing is nonlabored. No pleurisy. No hemoptysis. Objective - Vital Signs Vital signs: Vital Signs Temp 98.1 F 01/07/22 12:00 Pulse 68 01/07/22 14:00 Resp 18 01/07/22 14:00 BP 129/77 01/07/22 12:00 Pulse Ox 97 01/07/22 12:00 Intake & Output 01/06/22 01/07/22 01/07/22 18:59 06:59 18:59 Intake Total 253.713 72.176 78.014 Balance 253.713 72.176 78.014 Intake: Intake, IV Titration 253.713 72.176 78.014 Amount Heparin Sod,Pork in 0.45% 253.713 72.176 78.014 NaCl 25,000 unit In 0.45 % NaCl 1 250ml.bag @ 18 UNITS/KG/HR 22.045 mls/hr IV .[id number] [facility] Rx#: [id number] Other: Voiding Method Toilet Toilet # Voids 1 - Exam GENERAL EXAM: Alert, active, shortness of breath with limited amount of activity. Breathing is nonlabored and the patient is currently comfortable, on 2 L about 2 nasal cannula HEAD: Normocephalic. EYES: Normal reaction of pupils, equal size. NOSE: Clear with pink turbinates. THROAT: No erythema or exudates. NECK: No masses, no JVD. CHEST: No chest wall deformity. LUNGS: Equal air entry with no crackles, wheeze, rhonchi or dullness. CVS: S1 and S2 normal with no audible murmur, regular rhythm. ABDOMEN: No hepatosplenomegaly, normal bowel sounds, no guarding or rigidity. SPINE: No scoliosis or deformity SKIN: No rashes CENTRAL NERVOUS SYSTEM: No focal deficits, tone is normal in all 4 extremities. EXTREMITIES: There is no peripheral edema. No clubbing, no cyanosis. Peripheral pulses are intact. - Labs CBC & Chem 7: 01/06/22 06:09 01/06/22 06:09 Labs: Abnormal Lab Results - Last 24 Hours (Table) 01/06/22 01/06/22 01/07/22 Range/Units 15:54 20:34 03:35 APTT 119.8 H* 70.1 H 102.0 H* (22.0-30.0) sec Assessment and Plan Plan: 1 acute pulmonary embolism. This is a recurrent episodes of PE and a CT angiogram is showing new bilateral pulmonary emboli and and the patient presented with worsening shortness of breath and hypoxemia currently on 2 L of oxygen by nasal cannula. No evidence of RV strain based on the CT angiogram. The patient is currently on IV heparin. Note that the patient was taken to coagulation with Eliquis on outpatient basis. He was compliant is. However, this was discontinued on few occasions back in 12/05/2021 and as the patient was receiving epidural injections to his neck pain. As such, I'm not absolutely sure this is a treatment failure to Eliquis versus recurrent pulmonary embolism due to previous continuation of the medication. We will have to discuss this further with hematology oncology. Noted the patient is quite significantly thrombogenic as the patient developed pulmonary emboli either while being on an anticoagulation with Eliquis or during brief interruption of Eliquis treatment. 2 previous history of pulmonary emboli, high likelihood for underlying hypercoagulability/hypercoagulable state 3 obesity 4 obstructive sleep apnea , maintained on CPAP therapy at a pressure 15 cm of water 5 chronic back and neck pain 6 previous history COVID 19 infection in 2020, recovered 7 depression 8 hypertension 9 gastric ulcer/acid reflux Plan I would suggest keeping the patient IV heparin to absolutely sure whether this is a treatment failure versus a recurrent clotting due to interruption of Eliqui s treatment. We are waiting for the medication calendar the [place] for us to review the days where and when the antibiotic ventilation was discontinued. Meanwhile, the patient is going to be kept on IV heparin. echocardiogram to be completed Doppler of the lower extremities was negative for any clots in lower extremities Discuss the matter further with hematology oncology. We'll make further recommendations accordingly. Hemodynamically stable on 2 L of O2 by nasal cannula
[2022-01-08] MEDS: HEPARIN SOD,PORK IN 0.45% NACL 25,000 UNIT in 0.45% NACL 1 250ML.BAG IV SCH ×2 (00:15→16:11)
[2022-01-08] MEDS: PANTOPRAZOLE 40 MG TABLET PO SCH (06:41)
[2022-01-08] MEDS: HYDROcodone/APAP 10-325MG 1 EACH TAB PO PRN ×2 (06:43→16:12)
[2022-01-08] MEDS: LISINOPRIL-HCTZ 10-12.5 MG 1 EACH TAB PO SCH (08:17)
[2022-01-08] MEDS: FERROUS SULFATE 325 MG TAB PO SCH (08:17)
[2022-01-08] MEDS: CYCLOBENZAPRINE 10 MG TAB PO SCH (08:17)
[2022-01-08] MEDS: GABAPENTIN 300 MG CAP PO SCH ×2 (08:17→19:41)
[2022-01-08] MEDS: ASCORBIC ACID 500 MG TAB PO SCH (08:17)
[2022-01-08] MEDS: MULTIVITAMINS, THERA 1 EACH TAB PO SCH (08:17)
[2022-01-08] MEDS: SODIUM CHLORIDE 0.9% 1,000 ML IV SCH ×2 (08:18→19:38)
[2022-01-08] MEDS: ALBUTEROL NEBULIZED 2.5 MG/3 ML INHALATION SCH ×2 (09:27→22:08)
[2022-01-08 11:46] VITALS: RESP 18
--- NOTE | 2022-01-08 12:54 | P.PN ---
Subjective Progress Note Date: 01/08/22 Principal diagnosis: Acute PE on Eliquis Patient had noted the times his Eliquis was held for minor procedure, which was approximately 10 days prior to symptoms, therefore it appears this will need to be considered an anticoagulant failure. Objective - Vital Signs Vital signs: Vital Signs Temp 97.8 F 01/08/22 11:25 Pulse 75 01/08/22 11:25 Resp 18 01/08/22 11:25 BP 126/65 01/08/22 11:25 Pulse Ox 96 01/08/22 11:25 Intake & Output 01/07/22 01/08/22 01/08/22 18:59 06:59 18:59 Intake Total 1828.014 237.186 268.313 Output Total 200 Balance 1828.014 37.186 268.313 Intake: IV 750 Sodium Chloride 0.9% 1, 750 000 ml @ 75 mls/hr IV . [id number] [facility] Rx#:[id number] Intake, IV Titration 78.014 237.186 148.313 Amount Heparin Sod,Pork in 0.45% 78.014 237.186 148.313 NaCl 25,000 unit In 0.45 % NaCl 1 250ml.bag @ 18 UNITS/KG/HR 22.045 mls/hr IV .[id number] [facility] Rx#: [id number] Oral 1000 120 Output: Urine 200 Other: Voiding Method Toilet Toilet Toilet # Voids 3 1 - Exam Alert and Oriented NAD Up in Chair No bleeding Abd Soft nondist HR reg Ext no edema - Labs CBC & Chem 7: 01/06/22 06:09 01/06/22 06:09 Labs: Abnormal Lab Results - Last 24 Hours (Table) 01/07/22 01/08/22 Range/Units 15:01 06:31 APTT 57.0 H 52.9 H (22.0-30.0) sec Assessment and Plan (1) Hx pulmonary embolism Current Visit: Yes Status: Acute Code(s): Z86.711 - PERSONAL HISTORY OF PULMONARY EMBOLISM SNOMED Code(s): 206598660 (2) Multiple pulmonary emboli Narrative/Plan: Acute PE, Has been on Eliquis and adherent to this, with exception of holding 3 days for outpatient epidural. It appears when further reviewing time line he had been back on Eliquis for 10 days prior to symptoms, therefore this would be considered a DOAC failure and switch of treatment is recommended. We recommend moving forward with Pradaxa, given the need for ongoing pain management support and risk of infection warfarin would place patient at increased risk for bleeding and/or repeat thrombolic event. Would not recommend switching to Xarelto as mechanism of action is one in same of eliquis and with failure and extensive clooting on Eliquis this would place patient at increased risk. He is also morbidly obese therefore the best option would be pradaxa given the above. I have asked caser in to assist if prior auth is needed and to ensure patient has medication in hand prior to discharge from hospital to make sure he is not without AC therapy at that time. Pradaxa 150mg po BID ongoing for lifelong anticoagulation has been added to his discharge, and sent to [facility] for fill. Recommend he follow-up with Dr. White as outpatient in approx. 4-6 weeks after discharge. Current Visit: Yes Status: Acute Code(s): I26.99 - OTHER PULMONARY EMBOLISM WITHOUT ACUTE COR PULMONALE SNOMED Code(s): 03555150 Plan: Also to note appears patient is on Iron for "iron deficiency anemia" - will recheck iron studies, hemoglobin stable to see if needed moving forward. If he has not had a recent GI evalaution and represents with iron deficiency recommend to undergo given the need of life long anticoagulation.
[2022-01-08 13:26] LABS: Basophils # (A) 0.1 k/uL (0-0.2); Basophils % (A) 1 %; Eosinophils # (A) 0.3 k/uL (0-0.7); Eosinophils % (A) 6 %; HCT 41.4 % (39.0-53.0); HGB 13.4 gm/dL (13.0-17.5); Lymphocytes # (A) 2.6 k/uL (1.0-4.8); Lymphocytes % (A) 44 %; MCH 30.7 pg (25.0-35.0); MCHC 32.3 g/dL (31.0-37.0); MCV 94.8 fL (80.0-100.0); Mean Platelet Volume 8.4; Monocytes # (A) 0.3 k/uL (0-1.0); Monocytes % (A) 6 %; Neutrophils # (A) 2.3 k/uL (1.3-7.7); Neutrophils % (A) 40 %; Platelet Count 210 k/uL (150-450); RBC 4.37 m/uL (4.30-5.90); RDW 14.6 % (11.5-15.5); WBC 5.8 k/uL (3.8-10.6)
[2022-01-08 13:44] LABS: Calcium 9.6 mg/dL (8.4-10.2); Potassium 4.2 mmol/L (3.5-5.1); Total Bilirubin 0.7 mg/dL (0.2-1.3)
--- NOTE | 2022-01-08 14:00 | P.PN ---
Subjective Progress Note Date: 01/08/22 This is a 66-year-old male well-known to the practice presented to the hospital emergency room with progressively worsening dyspnea, previous covid 19 pneumonia which had resolved approximately one year ago, venous history of pulmonary embolism for which patient was anticoagulated with Elaquis, which he took faithfully, with the exception of stopping dosing during epidural injections for approximately 3 days approximately 3 months ago. However patient states shortly after that he began developing shortness of breath, it was supposed that this was due to deconditioning, patient also was diagnosed with obstructive sleep apnea started on nasal CPAP which incidentally he also says he is quite faithful with the use. No current laboratory evidence of hypercoagulable state, acute phase reactants all appropriately normal, covid 19, testing demonstrated negative at this time. Pulmonary medicine note appreciated, heme onc note also appreciated, other underlying coagulopathies being considered 01/08/2022 recurrent pulmonary emboli, maintained on heparin drip. Hematology following. Doppler of lower extremities reported negative. Renal function improved. Maintaining O2 sats in the 90s on 2 L nasal cannula. Denies chest pain, palpitations or shortness of breath. Objective - Vital Signs Vital signs: Vital Signs Temp 98.0 F 01/08/22 08:18 Pulse 66 01/08/22 09:40 Resp 16 01/08/22 08:18 BP 137/66 01/08/22 08:18 Pulse Ox 95 01/08/22 09:29 Intake & Output 01/07/22 01/08/22 01/08/22 18:59 06:59 18:59 Intake Total 1828.014 237.186 268.313 Output Total 200 Balance 1828.014 37.186 268.313 Intake: IV 750 Sodium Chloride 0.9% 1, 750 000 ml @ 75 mls/hr IV . [id number] [facility] Rx#:[id number] Intake, IV Titration 78.014 237.186 148.313 Amount Heparin Sod,Pork in 0.45% 78.014 237.186 148.313 NaCl 25,000 unit In 0.45 % NaCl 1 250ml.bag @ 18 UNITS/KG/HR 22.045 mls/hr IV .[id number] [facility] Rx#: [id number] Oral 1000 120 Output: Urine 200 Other: Voiding Method Toilet Toilet Toilet # Voids 3 1 - Exam General: [Patient awake, alert and oriented times 3. Sitting up in chair, no acute distress.] HEENT: [PERRL. EOMI. No pharyngeal erythema or exudate.] Neck: Supple, no JVD Cardiac: [Heart regular in rate and rhythm. No S3. No S4. No clicks, rubs. No murmur.] Lungs: [Clear to auscultation bilaterally.] Abdomen: [No mass. No organomegaly. Bowel sounds presnt and normoactive in all 4 quadrants.] Extremes: [No edema no cyanosis no claudication normal pulses] Skin: [Warm and dry, No rash.] Neurologic: CN II - XII grossly intact. No focal deficits.] - Labs CBC & Chem 7: 01/08/22 12:47 01/08/22 12:47 Labs: Abnormal Lab Results - Last 24 Hours (Table) 01/07/22 01/08/22 Range/Units 15:01 06:31 APTT 57.0 H 52.9 H (22.0-30.0) sec Assessment and Plan Assessment: Recurrent PE, multiple pulmonary emboli, etiology unclear, possibly related to interruption of eliquis secondary to epidural procedure, or possibly failure of anticoagulation, in a patient with history of pulmonary emboli. Per hematology, failure of anticoagulation . Anemia Obstructive sleep apnea, maintained on CPAP Previous history of COVID 19 infection in 2020 Obesity, BMI 36.6 Gastroesophageal reflux disease History of gastric ulcer Hypertension Depression Plan: Continue on current medication regime ,monitoring and symptomatic treatm ent. Continue weaning off of oxygen as tolerated. Echo completed, report pending regarding RV strain. Currently on heparin drip; anticoagulation for discharge with discharge planning in progress. The impression and plan of care has been dictated as directed. : I performed a history and examination of this patient, discussed the same with the dictator. I agree with the dictator's note ,documented as a scribe. Any additional findings or plans will be noted.
--- NOTE | 2022-01-08 14:01 | ECHOF ---
Referral Reason:dyspnea MEASUREMENTS -------- HEIGHT: 182.9 cm WEIGHT: 122.5 kg BP: 123/64 IVSd: 1.4 cm (0.6 - 1.1) LVIDd: 4.5 cm (3.9 - 5.3) LVPWd: 1.6 cm (0.6 - 1.1) IVSs: 1.9 cm LVIDs: 2.7 cm LVPWs: 1.7 cm LAESV Index (A-L): 36.74 ml/m MV E Daniel: 0.64 m/s MV DecT: 226 ms MV A Daniel: 0.93 m/s MV E/A Ratio: 0.69 FINDINGS -------- Sinus rhythm. This was a technically difficult study with suboptimal views. Limited Study The left ventricular size is normal. There is moderate concentric left ventricular hypertrophy. O verall left ventricular systolic function is normal with, an EF between 55 - 60 %. The RV was not well visualized. LA is moderately dilated 34-39 ml/m2 The right atrium was not well visualized. Lumason used There is no evidence of aortic regurgitation. There is no evidence of aortic stenosis. Moderate mitral regurgitation is present. Mild tricuspid regurgitation present. There is no evidence of pulmonary hypertension. There is no pericardial effusion. CONCLUSIONS -------- 1. The left ventricular size is normal. 2. There is moderate concentric left ventricular hypertrophy. 3. Overall left ventricular systolic function is normal with, an EF between 55 - 60 %. 4. LA is moderately dilated 34-39 ml/m2 5. Moderate mitral regurgitation is present. 6. Mild tricuspid regurgitation present. BOAT PERSON: Ayse Damon, [facility]
--- NOTE | 2022-01-08 15:39 | P.PN ---
Subjective Progress Note Date: 01/08/22 Principal diagnosis: Acute pulmonary embolism This is a 66-year-old male patient who follows up in our office under the care of Dr. Washington . The patient is currently hospitalized because of bilateral pulmonary embolism. Note that the patient has previous history of pulmonary em bolism of several years duration. The patient has had previous recurrent pulmonary embolism and the patient was doing well on antibiotic ventilation with Eliquis. Note that the patient was taken off sedation briefly on 12/05/2021 and 12/19/2021. The previous continuation of the Eliquis was probably for a total of 3 or 4 days as the patient wasn't feeling epidural shots to his back with his neurologist, Dr. Rodríguez. During this time, the patient was getting more short of breath. I saw this patient in the office and I noted that the patient was short of breath. Nevertheless, he was not hypoxic. He had no signs of any cardiac congestion heart failure. He has had previous coronary 19 infection from which she had recovered. He was deconditioned he was gaining weight. Based on that, surgery. The family obstructive sleep apnea. Nevertheless, over the past few days, his breathing got worse and the patient came into the emergency department and the patient was found to have new-onset pulmonary embolism bilateral. Specifically, the CTA of the chest showed new onset bilateral pulmonary emboli, with multiple large filling defects in the inner lower lobe pulmonary artery branches bilaterally. There was also filling defects in the right upper lobe. No other parenchymal lung abnormalities. No evidence of any lung masses. Note that these were not present on previous CAT scan from 2019. Based on that, the patient was started on IV heparin. Note that the patient was taken his anticoagulation according to him and he has not missed any of his Eliquis doses. He did however discontinue anticoagulation for a few days at a time of those epidural shots in his back. No pleurisy. No hemoptysis. He is hemodynamically stable at this point in time. He is on normal saline at rate of 75 mL an hour. On today's evaluation of 01/07/2022, I'm seeing the patient for a follow-up. The patient remains on IV heparin. Based on my opinion and based on the macroeconomics professor's opinion, spontaneous this is a treatment failure to Eliquis versus breakthrough clotting due to discontinuation of the medication. We are still awaiting for the calendar to see the exact timing with anticoagulation with discontinue by the patient. Meanwhile, the patient remains on IV heparin. Doppler of lower extremity is negative. Echocardiogram was completed and is also still pending for now. He is less short of breath on today's evaluation. The patient is on 2 L of oxygen by nasal cannula with a pulse ox of 97%. Breathing is nonlabored. No pleurisy. No hemoptysis. Patient was reevaluated today on 01/08/22, feeling better, no cough no wheezing no shortness of breath, patient was seen by hematology, and the decision was to discharge the patient home on Pradaxa. Considering the patient failed treatment with eliquis, oncology/hematology felt Pradaxa would be a good choice. Hence the patient could be placed on Pradaxa, heparin will be discontinued, and could be discharged home from my perspective Objective - Vital Signs Vital signs: Vital Signs Temp 97.8 F 01/08/22 11:25 Pulse 75 01/08/22 11:25 Resp 18 01/08/22 11:25 BP 126/65 01/08/22 11:25 Pulse Ox 96 01/08/22 11:25 Intake & Output 01/07/22 01/08/22 01/08/22 18:59 06:59 18:59 Intake Total 1828.014 237.186 388.313 Output Total 200 Balance 1828.014 37.186 388.313 Intake: IV 750 Sodium Chloride 0.9% 1, 750 000 ml @ 75 mls/hr IV . [id number] [facility] Rx#:[id number] Intake, IV Titration 78.014 237.186 148.313 Amount Heparin Sod,Pork in 0.45% 78.014 237.186 148.313 NaCl 25,000 unit In 0.45 % NaCl 1 250ml.bag @ 18 UNITS/KG/HR 22.045 mls/hr IV .[id number] [facility] Rx#: [id number] Oral 1000 240 Output: Urine 200 Other: Voiding Method Toilet Toilet Toilet # Voids 3 1 - Exam Physical Exam: Revealed a 66-year-old white male in no distress. Head: Atraumatic, normocephalic. HEENT:[Neck is supple.] [No neck masses.] [No thyromegaly.] [No JVD.] Chest: [Clear throughout, no crackles, no rhonchi, no wheezes.] Cardiac Exam: [Normal S1 and S2, no S3 gallop, no murmur.] Abdomen: [Soft, nontender, no megaly, no rebound, no guarding, normal bowel sounds.] Extremities: [No clubbing, no edema, no cyanosis.] Neurological Exam: [No focal neurologic deficit.] Psychiatric: Normal mood affect and normal status examination. - Labs CBC & Chem 7: 01/08/22 12:47 01/08/22 12:47 Labs: Abnormal Lab Results - Last 24 Hours (Table) 01/08/22 01/08/22 Range/Units 06:31 12:47 APTT 52.9 H (22.0-30.0) sec Glucose 129 H (74-99) mg/dL Assessment and Plan Assessment: Impression: Acute pulmonary embolism Previous history of pulmonary emboli Obesity Obstructive sleep apnea syndrome History of COVID-19 infection in 2020 Depression Hypertension History of gastric ulcer/GERD. Recommendation: Agree with discharge planning on Pradaxa Follow-up on outpatient basis with Dr. Casanova and with hematology/oncology Time with Patient: Less than 30
[2022-01-08] MEDS: DABIGATRAN 150 MG CAP PO SCH (18:25)
[2022-01-08 18:43] LABS: % Iron Saturation 40.89 (15.00-50.00); Ferritin 81.8 ng/mL (22.0-322.0)
[2022-01-09] MEDS: PANTOPRAZOLE 40 MG TABLET PO SCH (06:26)
[2022-01-09] MEDS: DABIGATRAN 150 MG CAP PO SCH (07:40)
[2022-01-09] MEDS: LISINOPRIL-HCTZ 10-12.5 MG 1 EACH TAB PO SCH (07:40)
[2022-01-09] MEDS: ASCORBIC ACID 500 MG TAB PO SCH (07:41)
[2022-01-09] MEDS: FERROUS SULFATE 325 MG TAB PO SCH (07:41)
[2022-01-09] MEDS: CYCLOBENZAPRINE 10 MG TAB PO SCH (07:41)
[2022-01-09] MEDS: MULTIVITAMINS, THERA 1 EACH TAB PO SCH (07:41)
[2022-01-09] MEDS: GABAPENTIN 300 MG CAP PO SCH (07:41)
[2022-01-09 07:50] LABS: Basophils # (A) 0.1 k/uL (0-0.2); Basophils % (A) 1 %; Eosinophils # (A) 0.4 k/uL (0-0.7); Eosinophils % (A) 9 %; HCT 41.6 % (39.0-53.0); HGB 13.1 gm/dL (13.0-17.5); Lymphocytes # (A) 1.9 k/uL (1.0-4.8); Lymphocytes % (A) 39 %; MCH 30.3 pg (25.0-35.0); MCHC 31.5 g/dL (31.0-37.0); MCV 96.1 fL (80.0-100.0); Mean Platelet Volume 8.7; Monocytes # (A) 0.4 k/uL (0-1.0); Monocytes % (A) 8 %; Neutrophils % (A) 40 %; Platelet Count 220 k/uL (150-450); RBC 4.33 m/uL (4.30-5.90); RDW 14.7 % (11.5-15.5); WBC 4.9 k/uL (3.8-10.6)
[2022-01-09] MEDS: ALBUTEROL NEBULIZED 2.5 MG/3 ML INHALATION SCH (07:54)
[2022-01-09 08:46] VITALS: BP 145/89; PULSE 72; TEMP 97.9
[2022-01-09] MEDS: HYDROcodone/APAP 10-325MG 1 EACH TAB PO PRN (11:19)
--- NOTE | 2022-01-09 12:54 | P.DS ---
Providers Date of admission: 01/06/22 09:52 Expected date of discharge: 01/09/22 Attending physician: Stan Galarza Consults: 01/06/22 11:39 Consult Physician Stat Consulting Provider: Dalton White Consult Reason/Comments: Blood Clots Do you want consulting provider notified?: Yes 01/06/22 11:44 Consult Physician Stat Consulting Provider: Natalya Casanova Consult Reason/Comments: clots Do you want consulting provider notified?: Yes Primary care physician: Theo Reid Hospital Course: Final Diagnoses: Recurrent acute PE, multiple pulmonary emboli, etiology unclear, possibly related to interruption of eliquis secondary to epidural procedure, or possibly failure of anticoagulation, in a patient with history of pulmonary emboli. Per hematology, failure of anticoagulation -being discharged on Pradaxa. Recommending GI evaluation OP. Anemia, iron deficient Obstructive sleep apnea, maintained on CPAP Previous history of COVID 19 infection in 2020 Obesity, BMI 36.6 Gastroesophageal reflux disease History of gastric ulcer Hypertension Depression Hospital course: This is a 66-year-old male well-known to the practice presented to the hospital emergency room with progressively worsening dyspnea, previous covid 19 pneumonia which had resolved approximately one year ago, venous history of pulmonary embolism for which patient was anticoagulated with Elaquis, which he took faithfully, with the exception of stopping dosing during epidural injections for approximately 3 days approximately 3 months ago. However patient states shortly after that he began developing shortness of breath, it was supposed that this was due to deconditioning, patient also was diagnosed with obstructive sleep apnea started on nasal CPAP which incidentally he also says he is quite faithful with the use. No current laboratory evidence of hypercoagulable state, acute phase reactants all appropriately normal, covid 19, testing demonstrated negative at this time. Pulmonary medicine note appreciated, heme onc note also appreciated, other underlying coagulopathies being considered 01/08/2022 recurrent pulmonary emboli, maintained on heparin drip. Hematology following. Doppler of lower extremities reported negative. Renal function improved. Maintaining O2 sats in the 90s on 2 L nasal cannula. Denies chest pain, palpitations or shortness of breath. Echo performed, technical difficult study with suboptimal views, RV was not well visualized, moderate concentric left entry, hypertrophy, normal LV function, EF 55-60%, only moderately dilated, no evidence of aortic regurgitation, aortic stenosis nor pulmonary hypertension. Moderate mitral and tricuspid regurgitation. Further evaluated by hematology, considers event to be an anticoagulant failure secondary to Eliquis held for minor procedure, approximately 10 days prior to symptoms, recommending Pradaxa. Cleared by both pulmonary and hematology for discharge. Patient will be discharged home today in a stable condition with guarded prognosis. Hematology also recommending a GI evaluation if not done recently secondary to iron deficiency, the need of lifelong anticoagulation-to be arranged by PCP OP. The impression and plan of care has been dictated as directed. : I performed a history and examination of this patient, discussed the same with the dictator. I agree with the dictator's note ,documented as a scribe. Any additional findings or plans will be noted. Patient Condition at Discharge: Stable Plan - Discharge Summary Discharge Rx Participant: No New Discharge Prescriptions: New Dabigatran Etexilate Mesylate [Pradaxa] 150 mg PO BID 90 Days #60 cap Continue Lisinopril-Hctz 10-12.5 mg [Zestoretic 10-12.5] 1 tab PO DAILY Multivitamins, Thera [Multivitamin (formulary)] 1 tab PO DAILY HYDROcodone/APAP 10-325MG [[place] 10-325] 1 tab PO QID Ascorbic Acid [Vitamin C] 1,000 mg PO DAILY Melatonin 10 mg PO HS PRN PRN Reason: Insomnia Cyclobenzaprine [Flexeril] 10 mg PO DAILY Iron 18 mg PO DAILY Diclofenac Sodium [Voltaren Gel] 2 gram TOPICAL DAILY PRN PRN Reason: Pain Albuterol Sulfate [Albuterol Sulfate Hfa] 2 puff PO RT-BID Pantoprazole Sodium [Protonix] 40 mg PO DAILY Gabapentin 600 mg PO BID Discontinued Apixaban [Eliquis] 5 mg PO BID #60 tab Discharge Medication List Lisinopril-Hctz 10-12.5 mg [Zestoretic 10-12.5] 1 tab PO DAILY 03/28/15 [History] Ascorbic Acid [Vitamin C] 1,000 mg PO DAILY 01/08/17 [History] HYDROcodone/APAP 10-325MG [[place] 10-325] 1 tab PO QID 01/08/17 [History] Multivitamins, Thera [Multivitamin (formulary)] 1 tab PO DAILY 01/08/17 [History] Melatonin 10 mg PO HS PRN 01/28/18 [History] Cyclobenzaprine [Flexeril] 10 mg PO DAILY 10/17/19 [History] Diclofenac Sodium [Voltaren Gel] 2 gram TOPICAL DAILY PRN 12/01/19 [History] Iron 18 mg PO DAILY 12/01/19 [History] Albuterol Sulfate [Albuterol Sulfate Hfa] 2 puff PO RT-BID 01/05/22 [History] Gabapentin 600 mg PO BID 01/05/22 [History] Pantoprazole Sodium [Protonix] 40 mg PO DAILY 01/05/22 [History] Dabigatran Etexilate Mesylate [Pradaxa] 150 mg PO BID 90 Days #60 cap 01/08/22 [Rx] Follow up Appointment(s)/Referral(s): Theo Reid MD [Primary Care Provider] - 01/11/22 3:30 pm (SATURDAY) Natalya Casanova MD [STAFF PHYSICIAN] - 01/17/22 10:45 am (SATURDAY) Patient Instructions/Handouts: Pulmonary Embolism (DC)
[2022-01-10 11:54] LABS: Protein, Total 6.7 g/dL (6.2-8.2)
[2022-01-10 12:55] LABS: Albumin 4.03 g/dL (3.80-4.90); Gamma Globulin 0.84 g/dL (0.70-1.50)
== END 2022-01-09 12:29 | disposition home or self-care (01) | DRG 176 ==
LOC: EC 13:32 → 6NMEDSUR 15:26 → 3SCARD 16:43 → OBSVTOIN 01-06 09:52 → 3SCARD 01-06 13:52
PROVIDERS: ADMIT Family Medicine; ATTEND Family Medicine
DX: I26.99 Other pulmonary embolism without acute cor pulmonale (principal); D50.9 Iron deficiency anemia, unspecified; E66.01 Morbid (severe) obesity due to excess calories; Z20.822 Contact with and (suspected) exposure to COVID-19; F32.A Depression, unspecified; G47.33 Obstructive sleep apnea (adult) (pediatric); G89.29 Other chronic pain; M19.90 Unspecified osteoarthritis, unspecified site; I10 Essential (primary) hypertension; I08.1 Rheumatic disorders of both mitral and tricuspid valves; I49.3 Ventricular premature depolarization; K21.9 Gastro-esophageal reflux disease without esophagitis; Z68.36 Body mass index [BMI] 36.0-36.9, adult; Z79.01 Long term (current) use of anticoagulants; Z79.899 Other long term (current) drug therapy; Z86.16 Personal history of COVID-19; Z86.711 Personal history of pulmonary embolism; Z87.01 Personal history of pneumonia (recurrent); Z87.11 Personal history of peptic ulcer disease; Z87.891 Personal history of nicotine dependence; Z87.19 Personal history of other diseases of the digestive system; Z86.718 Personal history of other venous thrombosis and embolism
CPT/HCPCS: 36415; 71275; 80053; 82105; 82378; 82607; 82728; 82746; 83540; 83550; 83605; 83880; 84165; 84484; 85025; 85610; 85652; 85730; 86140; 87635; 93005; 93308; 93970; 94640; 94760; 96361; 96374; 96376; 99285

== ENCOUNTER 2022-01-17 16:03 | Inpatient (IN) | payer MEDICARE ==
[2022-01-17] MEDS ORDERED: HEPARIN SODIUM 1,000 UN/ML (10ML VL) IV PRN (16:22)
[2022-01-17] MEDS ORDERED: HEPARIN SODIUM 1,000 UN/ML (10ML VL) IV ONE (16:22)
[2022-01-17] MEDS ORDERED: NALOXONE 0.4 MG/ML 1 ML VIAL IV PRN (16:51)
[2022-01-17] MEDS ORDERED: ACETAMINOPHEN TAB 325 MG TAB PO PRN (17:03)
[2022-01-17 17:10] LABS: HCT 41.5 % (39.0-53.0); HGB 13.8 gm/dL (13.0-17.5); MCH 30.6 pg (25.0-35.0); MCHC 33.3 g/dL (31.0-37.0); MCV 91.8 fL (80.0-100.0); Mean Platelet Volume 8.9; Platelet Count 238 k/uL (150-450); RBC 4.52 m/uL (4.30-5.90); RDW 14.8 % (11.5-15.5); WBC 7.4 k/uL (3.8-10.6)
--- NOTE | 2022-01-17 17:12 | ED ---
General Adult HPI - General Chief complaint: Shortness of Breath Stated complaint: Pulmonary Embolism Time Seen by Provider: 01/17/22 16:10 Source: patient, family, RN notes reviewed, old records reviewed Mode of arrival: wheelchair - History of Present Illness Initial comments: 66-year-old male presents from outpatient CT with increased pulmonary embolism burden compared to recent imaging. Patient was admitted for bilateral pulmonary embolism about 2 weeks ago. He was switched from Eliquis to Pradaxa. He has been on this medication for about one week. He's had shortness of breath. He had a follow-up appointment with his stage director today who recommended outpatient CT. This was obtained and showed increased clot burden in the right pulmonary artery. Patient was sent to the emergency department for admission. No central chest pain. No cough. No fever. - Related Data Home Medications Medication Instructions Recorded Confirmed Lisinopril-Hctz 10-12.5 mg 1 tab PO DAILY 03/28/15 01/17/22 [Zestoretic 10-12.5] Ascorbic Acid [Vitamin C] 1,000 mg PO DAILY 01/08/17 01/17/22 HYDROcodone/APAP 10-325MG [[place] 1 tab PO TID 01/08/17 01/17/22 10-325] Multivitamins, Thera [Multivitamin 1 tab PO DAILY 01/08/17 01/17/22 (formulary)] Melatonin 10 mg PO HS PRN 01/28/18 01/17/22 Cyclobenzaprine [Flexeril] 10 mg PO DAILY 10/17/19 01/17/22 Diclofenac Sodium [Voltaren Gel] 2 gram TOPICAL DAILY PRN 12/01/19 01/17/22 Iron 18 mg PO DAILY 12/01/19 01/17/22 Albuterol Sulfate [Albuterol 2 puff INHALATION RT-BID 01/05/22 01/17/22 Sulfate Hfa] Gabapentin 600 mg PO BID 01/05/22 01/17/22 Pantoprazole Sodium [Protonix] 40 mg PO DAILY 01/05/22 01/17/22 Previous Rx's Medication Instructions Recorded Dabigatran Etexilate Mesylate 150 mg PO BID 90 Days #60 cap 01/08/22 [Pradaxa] Allergies Allergy/AdvReac Type Severity Reaction Status Date / Time No Known Allergies Allergy Verified 01/17/22 17:32 Review of Systems ROS Statement: Those systems with pertinent positive or pertinent negative responses have been documented in the HPI. ROS Other: All systems not noted in ROS Statement are negative. 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%., hx pulm hypertension History of Any Multi-Drug Resistant Organisms: None Reported Past Surgical History: Hernia Repair, Orthopedic Surgery Additional Past Surgical History / Comment(s): ALBERT SHOULDERS right rotator cuff/ left tendon damage, LEFT CARPAL TUNNEL, Past Anesthesia/Blood Transfusion Reactions: No Reported Reaction Past Psychological History: No Psychological Hx Reported Smoking Status: Former smoker Past Alcohol Use History: None Reported Past Drug Use History: None Reported - Past Family History Father Family Medical History: Respiratory Disorder Additional Family Medical History / Comment(s): pulmonary fibrosis Mother Family Medical History: Dementia General Exam General appearance: alert, in no apparent distress Head exam: Present: atraumatic, normocephalic Eye exam: Present: normal appearance, PERRL ENT exam: Present: normal exam Neck exam: Present: normal inspection. Absent: tenderness, meningismus Respiratory exam: Present: normal lung sounds bilaterally, respiratory distress. Absent: wheezes, rales Cardiovascular Exam: Present: regular rate, normal rhythm GI/Abdominal exam: Present: soft. Absent: distended, tenderness, guarding Neurological exam: Present: alert, oriented X3, CN II-XII intact. Absent: motor sensory deficit Psychiatric exam: Present: normal affect, normal mood Skin exam: Present: warm, dry, intact. Absent: cyanosis, diaphoretic Course Vital Signs 01/17/22 16:10 Temperature 97 F L Pulse Rate 66 Respiratory 18 Rate Blood Pressure 98/51 O2 Sat by Pulse 100 Oximetry EKG Findings - EKG Comments: EKG Findings:: EKG: Sinus rhythm with first-degree AV block, rate is 64, NJ interval 249, QRS duration 91, QTC 414, no ST segment elevation. Medical Decision Making - Medical Decision Making Case discussed with Dr. Galarza and with Cass benitez for pulmonology. Patient will be admitted on heparin drip. Echo will be ordered. Case discussed with Dr. Johnson covering for vascular. Laboratory testing is pending at the time of this dictation. - Lab Data Result diagrams: 01/17/22 16:28 01/17/22 16:28 Lab Results 01/17/22 01/17/22 01/17/22 Range/Units 16:28 16:28 16:28 WBC 7.4 (3.8-10.6) k/uL RBC 4.52 (4.30-5.90) m/uL Hgb 13.8 (13.0-17.5) gm/dL Hct 41.5 (39.0-53.0) % MCV 91.8 (80.0-100.0) fL MCH 30.6 (25.0-35.0) pg MCHC 33.3 (31.0-37.0) g/dL RDW 14.8 (11.5-15.5) % Plt Count 238 (150-450) k/uL MPV 8.9 Neutrophils % (Manual) 39 % Lymphocytes % (Manual) 53 % Monocytes % (Manual) 2 % Eosinophils % (Manual) 6 % Neutrophils # (Manual) 2.89 (1.3-7.7) k/uL Lymphocytes # (Manual) 3.92 (1.0-4.8) k/uL Monocytes # (Manual) 0.15 (0-1.0) k/uL Eosinophils # (Manual) 0.44 (0-0.7) k/uL Nucleated RBCs 0 (0-0) /100 WBC Manual Slide Review Performed RBC Morphology Normal PT 12.9 H (9.0-12.0) sec INR 1.2 H (<1.2) APTT 27.4 (22.0-30.0) sec Sodium 122 L (137-145) mmol/L Potassium 4.6 (3.5-5.1) mmol/L Chloride 92 L (98-107) mmol/L Carbon Dioxide 18 L (22-30) mmol/L Anion Gap 12 mmol/L BUN 30 H (9-20) mg/dL Creatinine 1.37 H (0.66-1.25) mg/dL Est GFR (CKD-EPI)AfAm 61 (>60 ml/min/1.73 sqM) Est GFR (CKD-EPI)NonAf 53 (>60 ml/min/1.73 sqM) Glucose 94 (74-99) mg/dL Plasma Lactic Acid Christian[place] (0.7-2.0) mmol/L Calcium 8.7 (8.4-10.2) mg/dL Total Bilirubin 0.6 (0.2-1.3) mg/dL AST 20 (17-59) U/L ALT 21 (4-49) U/L Alkaline Phosphatase 63 (38-126) U/L Troponin I (0.000-0.034) ng/mL Total Protein 6.3 (6.3-8.2) g/dL Albumin 3.6 (3.5-5.0) g/dL 01/17/22 01/17/22 Range/Units 16:28 16:28 WBC (3.8-10.6) k/uL RBC (4.30-5.90) m/uL Hgb (13.0-17.5) gm/dL Hct (39.0-53.0) % MCV (80.0-100.0) fL MCH (25.0-35.0) pg MCHC (31.0-37.0) g/dL RDW (11.5-15.5) % Plt Count (150-450) k/uL MPV Neutrophils % (Manual) % Lymphocytes % (Manual) % Monocytes % (Manual) % Eosinophils % (Manual) % Neutrophils # (Manual) (1.3-7.7) k/uL Lymphocytes # (Manual) (1.0-4.8) k/uL Monocytes # (Manual) (0-1.0) k/uL Eosinophils # (Manual) (0-0.7) k/uL Nucleated RBCs (0-0) /100 WBC Manual Slide Review RBC Morphology PT (9.0-12.0) sec INR (<1.2) APTT (22.0-30.0) sec Sodium (137-145) mmol/L Potassium (3.5-5.1) mmol/L Chloride (98-107) mmol/L Carbon Dioxide (22-30) mmol/L Anion Gap mmol/L BUN (9-20) mg/dL Creatinine (0.66-1.25) mg/dL Est GFR (CKD-EPI)AfAm (>60 ml/min/1.73 sqM) Est GFR (CKD-EPI)NonAf (>60 ml/min/1.73 sqM) Glucose (74-99) mg/dL Plasma Lactic Acid Christiano 1.5 (0.7-2.0) mmol/L Calcium (8.4-10.2) mg/dL Total Bilirubin (0.2-1.3) mg/dL AST (17-59) U/L ALT (4-49) U/L Alkaline Phosphatase (38-126) U/L Troponin I <0.012 (0.000-0.034) ng/mL Total Protein (6.3-8.2) g/dL Albumin (3.5-5.0) g/dL Critical Care Time Critical Care Time: Yes Total Critical Care Time: 35 Disposition Clinical Impression: Bilateral pulmonary embolism Disposition: ADMITTED IP TO THIS [facility] Condition: Stable Is patient prescribed a controlled substance at d/c from ED?: No Decision to Admit Reason: Admit from EC Decision Date: 01/17/22 Decision Time: 18:00
[2022-01-17 17:13] LABS: INR 1.2 (<1.2); Partial Thromboplastin Time 27.4 sec (22.0-30.0); Prothrombin Time 12.9 sec (9.0-12.0)
[2022-01-17 17:18] LABS: Albumin 3.6 g/dL (3.5-5.0); Calcium 8.7 mg/dL (8.4-10.2); Potassium 4.6 mmol/L (3.5-5.1); Total Bilirubin 0.6 mg/dL (0.2-1.3); Total Protein 6.3 g/dL (6.3-8.2)
[2022-01-17 17:31] LABS: Eosinophils # (M) 0.44 k/uL (0-0.7); Lymphocytes # (M) 3.92 k/uL (1.0-4.8); Monocytes # (M) 0.15 k/uL (0-1.0); Neutrophils # (M) 2.89 k/uL (1.3-7.7); Neutrophils % (M) 39 %; Nucleated Red Blood Cells 0 /100 WBC (0-0); Total Cells Counted 100
[2022-01-17 17:32] LABS: RBC Morphology Normal
[2022-01-17] MEDS: HEPARIN SOD,PORK IN 0.45% NACL 25,000 UNIT in 0.45% NACL 1 250ML.BAG IV SCH (17:34)
[2022-01-17] MEDS: HYDROcodone/APAP 10-325MG 1 EACH TAB PO PRN (21:53)
[2022-01-18] MEDS: HEPARIN SOD,PORK IN 0.45% NACL 25,000 UNIT in 0.45% NACL 1 250ML.BAG IV SCH ×3 (04:53→20:08)
[2022-01-18 07:56] LABS: Basophils # (A) 0.1 k/uL (0-0.2); Basophils % (A) 2 %; Eosinophils # (A) 0.3 k/uL (0-0.7); Eosinophils % (A) 4 %; HCT 44.9 % (39.0-53.0); HGB 14.1 gm/dL (13.0-17.5); Lymphocytes # (A) 2.1 k/uL (1.0-4.8); Lymphocytes % (A) 36 %; MCH 29.4 pg (25.0-35.0); MCHC 31.4 g/dL (31.0-37.0); MCV 93.8 fL (80.0-100.0); Mean Platelet Volume 8.3; Monocytes # (A) 0.3 k/uL (0-1.0); Monocytes % (A) 5 %; Neutrophils # (A) 2.9 k/uL (1.3-7.7); Neutrophils % (A) 50 %; Platelet Count 160 k/uL (150-450); RBC 4.79 m/uL (4.30-5.90); RDW 14.2 % (11.5-15.5); WBC 5.8 k/uL (3.8-10.6)
[2022-01-18] MEDS: PANTOPRAZOLE 40 MG/10 ML VIAL IV SCH (08:14)
[2022-01-18] MEDS: HYDROcodone/APAP 10-325MG 1 EACH TAB PO PRN ×2 (08:14→16:36)
[2022-01-18] MEDS ORDERED: MELATONIN 5 MG TABLET PO PRN (10:41)
[2022-01-18] MEDS ORDERED: PANTOPRAZOLE 40 MG TABLET PO SCH (10:45)
[2022-01-18] MEDS ORDERED: LISINOPRIL-HCTZ 10-12.5 MG 1 EACH TAB PO SCH (10:45)
[2022-01-18] MEDS ORDERED: IPRATROPIUM-ALBUTEROL 3 ML NEB INHALATION PRN (10:46)
[2022-01-18] MEDS ORDERED: CYCLOBENZAPRINE 10 MG TAB PO SCH (11:00)
[2022-01-18] MEDS: IPRATROPIUM-ALBUTEROL 3 ML NEB INHALATION SCH ×3 (11:38→20:25)
--- NOTE | 2022-01-18 11:45 | P.GSCN ---
History of Present Illness Consult date: 01/18/22 Reason for Consult: Bilateral pulmonary embolism Requesting physician: Stan Galarza Jr History of present illness: This is a 66-year-old male with a past medical history of multiple recurrent pulmonary embolism, obesity, DVT, hypertension, chronic back pain who recently underwent epidural injections who presented to the emergency department with complaints of shortness of breath on exertion. Patient was recently hospitalized 01/05/2022 through 01/09/2022 for bilateral pulmonary embolism. He has been following with pulmonology and was treated with heparin and discharged on per DEXA. Prior to that patient had been on Ahlquist 5 mg twice a day however he did stop taking his Ahlquist for several days to undergo epidural injections. At that time he started having shortness of breath and came in for evaluation found to have bilateral pulmonary embolism. Yesterday he underwent a chest CTA that reported progression of pulmonary embolism of the right upper lobe with complete occlusion of the right upper lobe pulmonary artery and its segmental and subsegmental branches. Regressing pulmonary embolism in the left lung with mixed changed in the right lower lobe pulmonary embolism as detailed above. Suspect right cardiac strain with more dilation of the pulmonary trunk. He states today he is feeling better, shortness of breath at rest has improved. He still has some mild shortness of breath with exertion. He denies any chest pain. His oxygen saturation has been between 94 and 87% on room air. Troponins were negative 2. During his last admission he was followed by hematology who has done extensive outpatient workup and patient denies any clotting disorder. Vascular surgery was consulted for bilateral pulmonary embolism. Patient has seen Dr. Marroquin in the office he reported for his last pulmonary embolism. Echocardiogram was completed, pending results. Currently on a heparin drip. Review of Systems A 14 point review systems was completed all pertinent positives and negatives as stated in the HPI 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%., hx pulm hypertension History of Any Multi-Drug Resistant Organisms: None Reported Past Surgical History: Hernia Repair, Orthopedic Surgery Additional Past Surgical History / Comment(s): ALBERT SHOULDERS right rotator cuff/ left tendon damage, LEFT CARPAL TUNNEL, Past Anesthesia/Blood Transfusion Reactions: No Reported Reaction Past Psychological History: No Psychological Hx Reported Smoking Status: Former smoker Past Alcohol Use History: None Reported Additional Past Alcohol Use History / Comment(s): smoked 20 years <1ppd quit 2015 Past Drug Use History: None Reported - Past Family History Father Family Medical History: Respiratory Disorder Additional Family Medical History / Comment(s): pulmonary fibrosis Mother Family Medical History: Dementia Medications and Allergies Home Medications Medication Instructions Recorded Confirmed Type Lisinopril-Hctz 10-12.5 mg 1 tab PO DAILY 03/28/15 01/17/22 History [Zestoretic 10-12.5] Ascorbic Acid [Vitamin C] 1,000 mg PO DAILY 01/08/17 01/17/22 History HYDROcodone/APAP 10-325MG [[place] 1 tab PO TID 01/08/17 01/17/22 History 10-325] Multivitamins, Thera [Multivitamin 1 tab PO DAILY 01/08/17 01/17/22 History (formulary)] Melatonin 10 mg PO HS PRN 01/28/18 01/17/22 History Cyclobenzaprine [Flexeril] 10 mg PO DAILY 10/17/19 01/17/22 History Diclofenac Sodium [Voltaren Gel] 2 gram TOPICAL DAILY PRN 12/01/19 01/17/22 History Iron 18 mg PO DAILY 12/01/19 01/17/22 History Albuterol Sulfate [Albuterol 2 puff INHALATION RT-BID 01/05/22 01/17/22 History Sulfate Hfa] Gabapentin 600 mg PO BID 01/05/22 01/17/22 History Pantoprazole Sodium [Protonix] 40 mg PO DAILY 01/05/22 01/17/22 History Dabigatran Etexilate Mesylate 150 mg PO BID 90 Days #60 cap 01/08/22 01/17/22 Rx [Pradaxa] Allergies Allergy/AdvReac Type Severity Reaction Status Date / Time No Known Allergies Allergy Verified 01/17/22 17:32 Surgical - Exam Vital Signs Temp Pulse Resp BP Pulse Ox 97 F L 66 18 98/51 100 01/17/22 16:10 01/17/22 16:10 01/17/22 16:10 01/17/22 16:10 01/17/22 16:10 General appearance: The patient is alert, oriented, appears in no acute distress. Obese. HET: Head is normocephalic and atraumatic. Pupils are equal and reactive. Neck: Supple without lymphadenopathy. Trachea midline. No audible carotid bruit. Heart: S1 S2. Regular rate and rhythm. Lungs: Clear to auscultation bilaterally. Abdomen: Soft, nontender, nondistended. Extremities: Normal skin color and turgor. No cyanosis, rash, ulceration, clubbing, or edema. Radial and pedal pulses are 2/4 bilaterally. Patient has varicose veins bilateral lower extremities. Neurological: No focal deficits. Strength and sensation are grossly intact. Results - Labs 01/18/22 07:24 01/19/22 09:38 Abnormal Lab Results - Last 24 Hours (Table) 01/17/22 01/17/22 01/17/22 Range/Units 16:28 16:28 22:20 PT 12.9 H (9.0-12.0) sec INR 1.2 H (<1.2) APTT 151.5 H* (22.0-30.0) sec Sodium 122 L (137-145) mmol/L Chloride 92 L (98-107) mmol/L Carbon Dioxide 18 L (22-30) mmol/L BUN 30 H (9-20) mg/dL Creatinine 1.37 H (0.66-1.25) mg/dL 01/18/22 Range/Units 07:21 PT (9.0-12.0) sec INR (<1.2) APTT 76.8 H (22.0-30.0) sec Sodium (137-145) mmol/L Chloride (98-107) mmol/L Carbon Dioxide (22-30) mmol/L BUN (9-20) mg/dL Creatinine (0.66-1.25) mg/dL Diabetes panel 01/17/22 Range/Units 16:28 Sodium 122 L (137-145) mmol/L Potassium 4.6 (3.5-5.1) mmol/L Chloride 92 L (98-107) mmol/L Carbon Dioxide 18 L (22-30) mmol/L BUN 30 H (9-20) mg/dL Creatinine 1.37 H (0.66-1.25) mg/dL Glucose 94 (74-99) mg/dL Calcium 8.7 (8.4-10.2) mg/dL AST 20 (17-59) U/L ALT 21 (4-49) U/L Alkaline Phosphatase 63 (38-126) U/L Total Protein 6.3 (6.3-8.2) g/dL Albumin 3.6 (3.5-5.0) g/dL Calcium panel 01/17/22 Range/Units 16:28 Calcium 8.7 (8.4-10.2) mg/dL Albumin 3.6 (3.5-5.0) g/dL Pituitary panel 01/17/22 Range/Units 16:28 Sodium 122 L (137-145) mmol/L Potassium 4.6 (3.5-5.1) mmol/L Chloride 92 L (98-107) mmol/L Carbon Dioxide 18 L (22-30) mmol/L BUN 30 H (9-20) mg/dL Creatinine 1.37 H (0.66-1.25) mg/dL Glucose 94 (74-99) mg/dL Calcium 8.7 (8.4-10.2) mg/dL Adrenal panel 01/17/22 Range/Units 16:28 Sodium 122 L (137-145) mmol/L Potassium 4.6 (3.5-5.1) mmol/L Chloride 92 L (98-107) mmol/L Carbon Dioxide 18 L (22-30) mmol/L BUN 30 H (9-20) mg/dL Creatinine 1.37 H (0.66-1.25) mg/dL Glucose 94 (74-99) mg/dL Calcium 8.7 (8.4-10.2) mg/dL Total Bilirubin 0.6 (0.2-1.3) mg/dL AST 20 (17-59) U/L ALT 21 (4-49) U/L Alkaline Phosphatase 63 (38-126) U/L Total Protein 6.3 (6.3-8.2) g/dL Albumin 3.6 (3.5-5.0) g/dL - Imaging Comments: CTA that reported progression of pulmonary embolism of the right upper lobe with complete occlusion of the right upper lobe pulmonary artery and its segmental and subsegmental branches. Regressing pulmonary embolism in the left lung with mixed changed in the right lower lobe pulmonary embolism as detailed above. Suspect right cardiac strain with more dilation of the pulmonary trunk as detailed above. Assessment and Plan Assessment: 1. Bilateral pulmonary embolism 2. History of pulmonary embolism Plan: 1. Continue heparin drip 2. Await echocardiogram results 3. Pulmonology requesting IVC filter placement 3. No indication for EKOS Thank you for this consultation. The impression and plan of care has been dictated as directed. Dr. Johnson I performed a history and examination of this patient, discussed the same with the dictator. I agree with the dictator's note ,documented as a scribe. Any additional findings or plans will be noted.
[2022-01-18] MEDS: MULTIVITAMINS, THERA 1 EACH TAB PO SCH (13:38)
[2022-01-18] MEDS: FERROUS SULFATE 325 MG TAB PO SCH (13:38)
[2022-01-18] MEDS: lisinopriL 10 MG TAB PO SCH (13:38)
[2022-01-18] MEDS: ASCORBIC ACID 500 MG TAB PO SCH (13:39)
[2022-01-18] MEDS: GABAPENTIN 300 MG CAP PO SCH ×2 (13:39→20:08)
[2022-01-18] MEDS: HYDROcodone/APAP 10-325MG 1 EACH TAB PO SCH ×2 (13:42→16:32)
--- NOTE | 2022-01-18 14:20 | P.HPIM ---
History of Present Illness H&P Date: 01/18/22 Chief Complaint: Bilateral pulmonary embolism This is 66-year-old gentleman recently admitted with recurrent acute PE, multiple pulmonary emboli, etiology unclear, possibly related to interruption of eliquis secondary to epidural procedure, or possibly failure of anticoagulation, in a patient with history of pulmonary emboli,. Per hematology, failure of anticoagulation -discharged on Pradaxa, 01/09/2022. Patient fully vaccinated with 2 vaccines of Moderna plus Moderna booster on 02/08. Patient states since discharge his shortness of breath has never improved. Yesterday he followed up with pulmonary, Dr. Casanova. Repeat chest CTA performed reported progression of the pulmonary embolism of the right upper lobe with complete occlusion of the right upper lobe pulmonary artery and its segmental insulin segmental branches as detailed above, requesting pulmonary embolism in the left lung with mixed change in the right lower lobe pulmonary embolism, suspected right cardiac strain more dilation of the pulmonary trunk. Denies chest pain, palpitations or chest pressure. Sitting up in chair, short of breath with conversing. Vascular surgery and pulmonary consulted. Anticoagulated on heparin drip. Maintaining O2 sats in the 90s on room air. Afebrile, normal WBC, hemoglobin 14.1, platelets 160, INR 1.2, sodium 122, BUN 30, creatinine 1.37, EKG sinus rhythm f irst degree AV block, troponins negative 3. Echo pending. Review of Systems ROS Statement: Those systems with pertinent positive or pertinent negative responses have been documented in the HPI. ROS Other: All systems not noted in ROS Statement are negative. 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%., hx pulm hypertension History of Any Multi-Drug Resistant Organisms: None Reported Past Surgical History: Hernia Repair, Orthopedic Surgery Additional Past Surgical History / Comment(s): ALBERT SHOULDERS right rotator cuff/ left tendon damage, LEFT CARPAL TUNNEL, Past Anesthesia/Blood Transfusion Reactions: No Reported Reaction Past Psychological History: No Psychological Hx Reported Smoking Status: Former smoker Past Alcohol Use History: None Reported Additional Past Alcohol Use History / Comment(s): smoked 20 years <1ppd quit 2015 Past Drug Use History: None Reported - Past Family History Father Family Medical History: Respiratory Disorder Additional Family Medical History / Comment(s): pulmonary fibrosis Mother Family Medical History: Dementia Medications and Allergies Home Medications Medication Instructions Recorded Confirmed Type Lisinopril-Hctz 10-12.5 mg 1 tab PO DAILY 03/28/15 01/17/22 History [Zestoretic 10-12.5] Ascorbic Acid [Vitamin C] 1,000 mg PO DAILY 01/08/17 01/17/22 History HYDROcodone/APAP 10-325MG [[place] 1 tab PO TID 01/08/17 01/17/22 History 10-325] Multivitamins, Thera [Multivitamin 1 tab PO DAILY 01/08/17 01/17/22 History (formulary)] Melatonin 10 mg PO HS PRN 01/28/18 01/17/22 History Cyclobenzaprine [Flexeril] 10 mg PO DAILY 10/17/19 01/17/22 History Diclofenac Sodium [Voltaren Gel] 2 gram TOPICAL DAILY PRN 12/01/19 01/17/22 History Iron 18 mg PO DAILY 12/01/19 01/17/22 History Albuterol Sulfate [Albuterol 2 puff INHALATION RT-BID 01/05/22 01/17/22 History Sulfate Hfa] Gabapentin 600 mg PO BID 01/05/22 01/17/22 History Pantoprazole Sodium [Protonix] 40 mg PO DAILY 01/05/22 01/17/22 History Dabigatran Etexilate Mesylate 150 mg PO BID 90 Days #60 cap 01/08/22 01/17/22 Rx [Pradaxa] Allergies Allergy/AdvReac Type Severity Reaction Status Date / Time No Known Allergies Allergy Verified 01/17/22 17:32 Physical Exam Vitals: Vital Signs Temp Pulse Pulse Resp BP BP Pulse Ox 01/18/22 12:00 89 18 178/72 96 01/18/22 11:49 74 01/18/22 11:41 71 01/18/22 08:00 84 16 135/59 95 01/18/22 04:00 98.4 F 73 20 128/58 94 L 03/31/22 02:00 99.1 F 73 18 137/63 91 L 01/17/22 21:00 90 18 126/64 97 01/17/22 19:41 79 18 130/59 99 01/17/22 17:20 18 01/17/22 16:10 97 F L 66 18 98/51 100 Intake and Output 01/17/22 01/18/22 01/18/22 22:59 06:59 14:59 Intake Total 234.29 36.742 Output Total 325 Balance -90.71 36.742 Intake: Intake, IV Titration 234.29 36.742 Amount Heparin Sod,Pork in 0.45% 234.29 36.742 NaCl 25,000 unit In 0.45 % NaCl 1 250ml.bag @ 18 UNITS/KG/HR 22.045 mls/hr IV .[id number] [facility] Rx#: [id number] Oral 0 Output: Urine 325 Other: Weight 122.47 kg 122.47 kg - Exam General: [Patient awake, alert and oriented times 3. Sitting up in chair, no acute distress.] HEENT: [PERRL. EOMI. No pharyngeal erythema or exudate.MMM. Neck: Supple, no JVD Cardiac: [Heart regular in rate and rhythm. No S3. No S4. No clicks, rubs. No murmur.] Lungs: [Clear to auscultation bilaterally.] Abdomen: [No mass. No organomegaly. Bowel sounds presnt and normoactive in all 4 quadrants.] Extremes: [No edema no cyanosis no claudication normal pulses] Skin: [Warm and dry, No rash.] Neurologic: CN II - XII grossly intact. No focal deficits.] Results CBC & Chem 7: 01/18/22 07:24 01/17/22 16:28 Labs: Abnormal Lab Results - Last 24 Hours (Table) 01/17/22 01/17/22 01/17/22 Range/Units 16:28 16:28 22:20 PT 12.9 H (9.0-12.0) sec INR 1.2 H (<1.2) APTT 151.5 H* (22.0-30.0) sec Sodium 122 L (137-145) mmol/L Chloride 92 L (98-107) mmol/L Carbon Dioxide 18 L (22-30) mmol/L BUN 30 H (9-20) mg/dL Creatinine 1.37 H (0.66-1.25) mg/dL 01/18/22 Range/Units 07:21 PT (9.0-12.0) sec INR (<1.2) APTT 76.8 H (22.0-30.0) sec Sodium (137-145) mmol/L Chloride (98-107) mmol/L Carbon Dioxide (22-30) mmol/L BUN (9-20) mg/dL Creatinine (0.66-1.25) mg/dL Thrombosis Risk Factor Assmnt - Choose All That Apply Each Factor Represents 1 point: Obesity (BMI >25) Other Risk Factors: Yes Each Risk Factor Represents 2 Points: Age 61-74 years Each Risk Factor Represents 3 Points: History of DVT/PE Thrombosis Risk Factor Assessment Total Risk Factor Score: 6 Thrombosis Risk Factor Assessment Level: High Risk Assessment and Plan Assessment: Progression of pulmonary embolism of the right upper lobe with complete occlusion of the right upper lobe pulmonary artery, segmental and subsegmental branches, suspected right cardiac strain in a patient, recently admitted 01/06/22 with Recurrent acute PE, multiple pulmonary emboli, etiology unclear, possibly related to interruption of eliquis secondary to epidural procedure, or possibly failure of anticoagulation, in a patient with history of pulmonary emboli. Per hematology, failure of anticoagulation - discharged on Pradaxa. Patient fully vaccinated with 2 vaccines of Moderna plus Moderna booster on 02/08. Anemia, iron deficient Obstructive sleep apnea, maintained on CPAP Previous history of COVID 19 infection in 2020 Obesity, BMI 36.6 Gastroesophageal reflux disease History of gastric ulcer Hypertension Depression Plan: Continue on current medication regime ,monitoring and symptomatic treatment. Anticoagulated on heparin drip. Echo pending. Vascular and pulmonary consults in place. Further recommendations to follow. The impression and plan of care has been dictated as directed. : I performed a history and examination of this patient, discussed the same with the dictator. I agree with the dictator's note ,documented as a scribe. Any additional findings or plans will be noted.
--- NOTE | 2022-01-18 14:38 | P.CNPUL ---
History of Present Illness Consult date: 01/18/22 Requesting physician: Stan Galarza Jr Reason for consult: dyspnea, hypoxemia, pulmonary embolism, abnormal CXR/CT Chief complaint: Shortness of breath on exertion. History of present illness: Pulmonary consultation dated 01/18/2022. 66-year-old male seen by my partner yesterday in the pulmonary office. The patient was sent to the hospital for a CT angiogram. Evidence of worsening pulmonary emboli, compared to a recent computed tomography scan done just a week or so earlier. The patient had been on Eliquis for quite some time, for chronic and recurrent pulmonary embolism. I have actually sent the patient to the pulmonary hypertension clinic at [facility], because of his concerns about chronic thromboembolic pulmonary hypertension. They felt that this was not the case, and they recommended chronic therapy with a factor X a inhibitor. I saw the patient last in my office in May of last year. At that time, he was doing reasonably well, although, he states that he was a bit more short of breath. PFTs at that time did not reveal any major changes in lung function. The patient has been compliant with his blood thinner. When he was here last, a CT angiogram revealed new pulmonary emboli, and hematology. The patient was a failure on Eliquis and recommended Pradaxa. He has been taking that medication since discharge which was on January 09. The patient states that his major issue is shortness of breath with any activity. I even sent the patient to cardiology just to make sure that the shortness breath was not related to an intrinsic cardiac issue. He told me today that cardiology said it was not. Today's CBC is normal. He is on IV heparin, and his PTT is 64.2. Sodium 122, potassium 4.6, chlorides 92, CO2 18, anion gap 12, BUN 30, creatinine 1.37. N-terminal proBNP was normal. Troponins were negative 3. CT angiogram when compared to the most recent CT angiogram showed improvement in the area of the left lower lobe, some improvement in the right lower lobe, but worsening clot in the right upper lobe. Also, it was mentioned on the CT angiogram, that there was right heart strain. The patient apparently was seen by vascular surgery, and apparently they felt that EKOS was not necessary, nor did they dressing issue of a IVC filter. Review of Systems REVIEW OF SYSTEMS: CONSTITUTIONAL: [Negative.] NEUROLOGIC: [ Negative.] HEENT: [ Negative.] CARDIAC: [Negative.] PULMONARY: Shortness of breath, severe, on any exertion. GI: [Negative.] : [Negative.] RHEUMATOLOGIC: [ Negative.] IMMUNOLOGIC: [ Negative.] ENDOCRINE: [Negative. ] DERMATOLOGIC: [Negative.] 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%., hx pulm hypertension History of Any Multi-Drug Resistant Organisms: None Reported Past Surgical History: Hernia Repair, Orthopedic Surgery Additional Past Surgical History / Comment(s): ALBERT SHOULDERS right rotator cuff/ left tendon damage, LEFT CARPAL TUNNEL, Past Anesthesia/Blood Transfusion Reactions: No Reported Reaction Past Psychological History: No Psychological Hx Reported Smoking Status: Former smoker Past Alcohol Use History: None Reported Additional Past Alcohol Use History / Comment(s): smoked 20 years <1ppd quit 2015 Past Drug Use History: None Reported - Past Family History Father Family Medical History: Respiratory Disorder Additional Family Medical History / Comment(s): pulmonary fibrosis Mother Family Medical History: Dementia Medications and Allergies Home Medications Medication Instructions Recorded Confirmed Type Lisinopril-Hctz 10-12.5 mg 1 tab PO DAILY 03/28/15 01/17/22 History [Zestoretic 10-12.5] Ascorbic Acid [Vitamin C] 1,000 mg PO DAILY 01/08/17 01/17/22 History HYDROcodone/APAP 10-325MG [[place] 1 tab PO TID 01/08/17 01/17/22 History 10-325] Multivitamins, Thera [Multivitamin 1 tab PO DAILY 01/08/17 01/17/22 History (formulary)] Melatonin 10 mg PO HS PRN 01/28/18 01/17/22 History Cyclobenzaprine [Flexeril] 10 mg PO DAILY 10/17/19 01/17/22 History Diclofenac Sodium [Voltaren Gel] 2 gram TOPICAL DAILY PRN 12/01/19 01/17/22 History Iron 18 mg PO DAILY 12/01/19 01/17/22 History Albuterol Sulfate [Albuterol 2 puff INHALATION RT-BID 01/05/22 01/17/22 History Sulfate Hfa] Gabapentin 600 mg PO BID 01/05/22 01/17/22 History Pantoprazole Sodium [Protonix] 40 mg PO DAILY 01/05/22 01/17/22 History Dabigatran Etexilate Mesylate 150 mg PO BID 90 Days #60 cap 01/08/22 01/17/22 Rx [Pradaxa] Allergies Allergy/AdvReac Type Severity Reaction Status Date / Time No Known Allergies Allergy Verified 01/17/22 17:32 Physical Exam Osteopathic Statement: *. No significant issues noted on an osteopathic structural exam other than those noted in the History and Physical/Consult. Vitals: Vital Signs Temp Pulse Pulse Resp BP BP Pulse Ox 01/18/22 12:00 89 18 178/72 96 01/18/22 11:49 74 01/18/22 11:41 71 01/18/22 08:00 84 16 135/59 95 01/18/22 04:00 98.4 F 73 20 128/58 94 L 01/18/22 02:00 99.1 F 73 18 137/63 91 L 01/17/22 21:00 90 18 126/64 97 01/17/22 19:41 79 18 130/59 99 01/17/22 17:20 18 01/17/22 16:10 97 F L 66 18 98/51 100 Intake and Output 01/17/22 01/18/22 01/18/22 22:59 06:59 14:59 Intake Total 234.29 156.742 Output Total 325 Balance -90.71 156.742 Intake: Intake, IV Titration 234.29 36.742 Amount Heparin Sod,Pork in 0.45% 234.29 36.742 NaCl 25,000 unit In 0.45 % NaCl 1 250ml.bag @ 18 UNITS/KG/HR 22.045 mls/hr IV .[id number] [facility] Rx#: [id number] Oral 0 120 Output: Urine 325 Other: # Voids 1 Weight 122.47 kg 122.47 kg No acute distress, oriented 3. Room air saturation 96%. No respiratory distress audible wheezing, or use of accessory muscles. HEENT examination is grossly unremarkable. Neck supple. Full range of motion. No adenopathy thyromegaly or neck vein distention. Cardiovascular examination reveals regular rhythm rate. S1-S2 normal. No S3 or S4. No discernible murmur noted. Heart rate 89. Lungs reveal mostly clear breath sounds. Breath sounds are equal bilaterally. Minimal scattered rhonchi are noted. No wheezes or crackles. Abdomen soft bowel sounds are heard. No masses or tenderness. Extremities are intact. No cyanosis clubbing or edema. Skin is without rash or lesion. Neurologic examination is brief but nonfocal. Results - Laboratory Findings CBC and BMP: 01/18/22 07:24 01/17/22 16:28 PT/INR, D-dimer PT 12.9 sec (9.0-12.0) H 01/17/22 16:28 INR 1.2 (<1.2) H 01/17/22 16:28 Abnormal lab findings: Abnormal Labs 01/17/22 01/17/22 01/17/22 16:28 16:28 22:20 PT 12.9 H INR 1.2 H APTT 151.5 H* Sodium 122 L Chloride 92 L Carbon Dioxide 18 L BUN 30 H Creatinine 1.37 H 01/18/22 01/18/22 07:21 13:47 PT INR APTT 76.8 H 64.2 H Sodium Chloride Carbon Dioxide BUN Creatinine - Diagnostic Findings Chest x-ray: image reviewed CT scan - chest: image reviewed Assessment and Plan Assessment: Recurrent pulmonary embolism, despite adequate anticoagulation, having now failed both Eliquis and Pradaxa. History of deep venous thrombosis. History of gastroesophageal reflux disease. History of hypertension. Osteoarthritis. Chronic back pain. History of pneumonia. History of pulmonary hypertension. Obesity. Plan: Plan dated 01/18/2022. On his recent admission, the patient was switched from Eliquis to Pradaxa. The patient has been compliant with his blood thinners all along. The most recent computed tomography scan dated January 17, was compared to a CAT scan dated January 05. Areas of the right upper lobe pulmonary arteries, show significant worsening, and near complete occlusion. The left lower lobe pulmonary emboli appear a bit better, and the right lower lobe pulmonary emboli are about the same. The patient was seen by vascular surgery. The patient apparently was not thought to be a candidate for EKOS. I think some consideration should be given to placement of an IVC filter. The patient has clearly demonstrated failure on 2 different blood thinners. Additional recommendations and suggestions are forthcoming. We'll continue to follow. Currently the patient's on IV heparin. Time with Patient: Greater than 30
[2022-01-18] MEDS: CYCLOBENZAPRINE 10 MG TAB PO SCH (20:08)
[2022-01-18 21:58] LABS: Albumin 4.4 g/dL (3.5-5.0); Calcium 9.5 mg/dL (8.4-10.2); Magnesium 2.2 mg/dL (1.6-2.3); Potassium 4.4 mmol/L (3.5-5.1); Total Bilirubin 0.6 mg/dL (0.2-1.3); Total Protein 7.4 g/dL (6.3-8.2)
--- NOTE | 2022-01-19 07:36 | ECHOF ---
Referral Reason:pE MEASUREMENTS -------- HEIGHT: 157.5 cm WEIGHT: 122.5 kg BP: RVIDd: 3.4 cm (< 3.3) RAP: 5.00 mmHg RVSP: 11.89 mmHg FINDINGS -------- Sinus rhythm. Morbid Obesity This was a techncally difficult study with suboptimal views, , Lumason utilized for enhancement of images. Echo done 01/09/22: RE-EVAL FOR PE. Overall left ventricular systolic function is low-normal with, an EF between 50 - 55 %. There is a trivial pericardial effusion present. CONCLUSIONS -------- 1. Morbid Obesity 2. This was a techncally difficult study with suboptimal views, , Lumason utilized for enhancement of images. 3. Echo done 01/09/22: RE-EVAL FOR PE. 4. Overall left ventricular systolic function is low-normal with, an EF between 50 - 55 %. 5. There is a trivial pericardial effusion present. STUDENT ACCOUNTS MANAGER: Coleen Witt RDCS
[2022-01-19] MEDS: lisinopriL 10 MG TAB PO SCH (08:14)
[2022-01-19] MEDS: PANTOPRAZOLE 40 MG/10 ML VIAL IV SCH (08:14)
[2022-01-19] MEDS: GABAPENTIN 300 MG CAP PO SCH ×2 (08:14→19:56)
[2022-01-19] MEDS: FERROUS SULFATE 325 MG TAB PO SCH (08:15)
[2022-01-19] MEDS: ASCORBIC ACID 500 MG TAB PO SCH (08:15)
[2022-01-19] MEDS: MULTIVITAMINS, THERA 1 EACH TAB PO SCH (08:15)
[2022-01-19] MEDS: HYDROcodone/APAP 10-325MG 1 EACH TAB PO PRN ×2 (08:15→15:56)
[2022-01-19] MEDS: IPRATROPIUM-ALBUTEROL 3 ML NEB INHALATION SCH ×4 (09:26→19:09)
[2022-01-19 10:35] LABS: Calcium 9.3 mg/dL (8.4-10.2); Potassium 4.6 mmol/L (3.5-5.1)
--- NOTE | 2022-01-19 12:07 | P.PN ---
Subjective Progress Note Date: 01/19/22 This is 66-year-old gentleman recently admitted with recurrent acute PE, multiple pulmonary emboli, etiology unclear, possibly related to interruption of eliquis secondary to epidural procedure, or possibly failure of anticoagulation, in a patient with history of pulmonary emboli,. Per hematology, failure of anticoagulation -discharged on Pradaxa, 01/09/2022. Patient fully vaccinated with 2 vaccines of Moderna plus Moderna booster on 02/08. Patient states since discharge his shortness of breath has never improved. Yesterday he followed up with pulmonary, Dr. Casanova. Repeat chest CTA performed reported progression of the pulmonary embolism of the right upper lobe with complete occlusion of the right upper lobe pulmonary artery and its segmental insulin segmental branches as detailed above, requesting pulmonary embolism in the left lung with mixed change in the right lower lobe pulmonary embolism, suspected right cardiac strain more dilation of the pulmonary trunk. Denies chest pain, palpitations or chest pressure. Sitting up in chair, short of breath with conversing. Vascular surgery and pulmonary consulted. Anticoagulated on heparin drip. Maintaining O2 sats in the 90s on room air. Afebrile, normal WBC, hemoglobin 14.1, platelets 160, INR 1.2, sodium 122, BUN 30, creatinine 1.37, EKG sinus rhythm first degree AV block, troponins negative 3. Echo pending. 01/19/2022 evaluated by pulmonary and vascular surgery, recommendations noted and appreciated. EKOS not recommended as per vascular surgery. NPO, scheduled for IVC filter today, in a patient with failure on 2 different blood thinners. Maintaining O2 sats in the high 90s on room air. Denies chest pain, palpitati ons or increasing shortness of breath. Afebrile, sodium and renal function improving. Objective - Vital Signs Vital signs: Vital Signs Temp 98.0 F 01/19/22 07:36 Pulse 78 01/19/22 07:36 Resp 16 01/19/22 07:36 BP 120/80 01/19/22 07:36 Pulse Ox 97 01/19/22 09:26 Intake & Output 01/18/22 01/19/22 01/19/22 18:59 06:59 18:59 Intake Total 351.592 5796.929 Balance 275.220 0371.929 Intake: Intake, IV Titration 36.742 188.929 Amount Heparin Sod,Pork in 0.45% 36.742 188.929 NaCl 25,000 unit In 0.45 % NaCl 1 250ml.bag @ 18 UNITS/KG/HR 22.045 mls/hr IV .[id number] [facility] Rx#: [id number] Oral 120 1205 Other: Voiding Method Toilet # Voids 1 1 - Exam - Exam General: [Patient awake, alert and oriented times 3. Sitting up in chair, no acute distress.] HEENT: [PERRL. EOMI. No pharyngeal erythema or exudate. Neck: Supple, no JVD Cardiac: [Heart regular in rate and rhythm. No S3. No S4. No clicks, rubs. No murmur.] Lungs: [Clear to auscultation bilaterally.] Abdomen: [No mass. No organomegaly. Bowel sounds presnt and normoactive in all 4 quadrants.] Extremes: [No edema no cyanosis no claudication normal pulses] Skin: [Warm and dry, No rash.] Neurologic: CN II - XII grossly intact. No focal deficits.] - Labs CBC & Chem 7: 01/18/22 07:24 01/19/22 09:38 Labs: Abnormal Lab Results - Last 24 Hours (Table) 01/18/22 01/18/22 01/19/22 Range/Units 13:47 20:47 09:38 APTT 64.2 H (22.0-30.0) sec Sodium 132 L 134 L (137-145) mmol/L Carbon Dioxide 21 L 21 L (22-30) mmol/L BUN 25 H 22 H (9-20) mg/dL Creatinine 1.69 H (0.66-1.25) mg/dL Glucose 110 H 102 H (74-99) mg/dL Assessment and Plan Assessment: Progression of pulmonary embolism of the right upper lobe with complete occlusion of the right upper lobe pulmonary artery, segmental and subsegmental branches, suspected right cardiac strain in a patient, recently admitted 01/06/22 with Recurrent acute PE, multiple pulmonary emboli, etiology unclear, possibly related to interruption of eliquis secondary to epidural procedure, or possibly failure of anticoagulation, in a patient with history of pulmonary emboli. Per hematology, failure of anticoagulation -discha rged on Pradaxa. Patient fully vaccinated with 2 vaccines of Moderna plus Moderna booster on 02/08. Anemia, iron deficient Obstructive sleep apnea, maintained on CPAP Previous history of COVID 19 infection in 2020 Obesity, BMI 36.6 Gastroesophageal reflux disease History of gastric ulcer Hypertension Depression Plan: Continue on current medication regime ,monitoring and symptomatic dayron tment. Anticoagulated on heparin drip. Echo pending. Vascular and pulmonary consults in place. Further recommendations to follow. The impression and plan of care has been dictated as directed. : I performed a history and examination of this patient, discussed the same with the dictator. I agree with the dictator's note ,documented as a scribe. Any additional findings or plans will be noted.
--- NOTE | 2022-01-19 12:20 | P.PN ---
Subjective Progress Note Date: 01/19/22 Principal diagnosis: Pulmonary embolism. Pulmonary consultation dated 01/18/2022. 66-year-old male seen by my partner yesterday in the pulmonary office. The patient was sent to the hospital for a CT angiogram. Evidence of worsening pulmonary emboli, compared to a recent computed tomography scan done just a week or so earlier. The patient had been on Eliquis for quite some time, for chronic and recurrent pulmonary embolism. I have actually sent the patient to the pulmonary hypertension clinic at [facility], because of his concerns about chronic thromboembolic pulmonary hypertension. They felt that this was not the case, and they recommended chronic therapy with a factor X a inhibitor. I saw the patient last in my office in May of last year. At that time, he was doing reasonably well, although, he states that he was a bit more short of breath. PFTs at that time did not reveal any major changes in lung function. The patient has been compliant with his blood thinner. When he was here last, a CT angiogram revealed new pulmonary emboli, and hematology. The patient was a failure on Eliquis and recommended Pradaxa. He has been taking that medication since discharge which was on January 09. The patient states that his major issue is shortness of breath with any activity. I even sent the patient to cardiology just to make sure that the shortness breath was not related to an intrinsic cardiac issue. He told me today that cardiology said it was not. Today's CBC is normal. He is on IV heparin, and his PTT is 64.2. Sodium 122, potassium 4.6, chlorides 92, CO2 18, anion gap 12, BUN 30, creatinine 1.37. N-terminal proBNP was normal. Troponins were negative 3. CT angiogram when compared to the most recent CT angiogram showed improvement in the area of the left lower lobe, some improvement in the right lower lobe, but worsening clot in the right upper lobe. Also, it was mentioned on the CT angiogram, that there was right heart strain. The patient apparently was seen by vascular surgery, and apparently they felt that EKOS was not necessary, nor did they dressing issue of a IVC filter. Progress note dated 01/19/2022. 66-year-old male well-known to me. He has a history of recurrent pulmonary embolism. He previously was on Eliquis and was recently switched to Pradaxa, as he was recently discovered to have failed the former drug. The patient is readmitted after having seen my partner in the office, with additional blood clot, in the lung, and I recommended placement of an IVC filter. That will be done today. The patient can continue on blood thinners. He will need blood thinners for the rest of his life. Clinically he looks well. He is on room air. He's currently on IV heparin. Laboratory data today includes a PTT of 25.6, sodium 134, potassium 4.6, chlorides 106, CO2 21, BUN 22, and creatinine 1.20. Vascular surgery did not think the patient was a candidate for EKOS. Objective - Vital Signs Vital signs: Vital Signs Temp 98.0 F 01/19/22 07:36 Pulse 73 01/19/22 12:03 Resp 16 01/19/22 12:03 BP 116/70 01/19/22 12:03 Pulse Ox 97 01/19/22 12:03 Intake & Output 01/18/22 01/19/22 01/19/22 18:59 06:59 18:59 Intake Total 130.812 1980.016 Balance 441.298 8201.016 Intake: Intake, IV Titration 36.742 346.016 Amount Heparin Sod,Pork in 0.45% 36.742 346.016 NaCl 25,000 unit In 0.45 % NaCl 1 250ml.bag @ 18 UNITS/KG/HR 22.045 mls/hr IV .[id number] [facility] Rx#: [id number] Oral 120 1205 Other: Voiding Method Toilet # Voids 1 1 - Exam No acute distress, oriented 3. Room air saturation 97%. No respiratory distress audible wheezing, or use of accessory muscles. HEENT examination is grossly unremarkable. Neck supple. Full range of motion. No adenopathy thyromegaly or neck vein distention. Cardiovascular examination reveals regular rhythm rate. S1-S2 normal. No S3 or S4. No discernible murmur noted. Heart rate 73 beats per minute. Lungs reveal mostly clear breath sounds. Breath sounds are equal bilaterally. Minimal scattered rhonchi are noted. No wheezes or crackles. Abdomen soft bowel sounds are heard. No masses or tenderness. Extremities are intact. No cyanosis clubbing or edema. Skin is without rash or lesion. Neurologic examination is brief but nonfocal. - Labs CBC & Chem 7: 01/18/22 07:24 01/19/22 09:38 Labs: Abnormal Lab Results - Last 24 Hours (Table) 01/18/22 01/18/22 01/19/22 Range/Units 13:47 20:47 09:38 APTT 64.2 H (22.0-30.0) sec Sodium 132 L 134 L (137-145) mmol/L Carbon Dioxide 21 L 21 L (22-30) mmol/L BUN 25 H 22 H (9-20) mg/dL Creatinine 1.69 H (0.66-1.25) mg/dL Glucose 110 H 102 H (74-99) mg/dL Assessment and Plan Assessment: Recurrent pulmonary embolism, despite adequate anticoagulation, having now failed both Eliquis and Pradaxa. History of deep venous thrombosis. History of gastroesophageal reflux disease. History of hypertension. Osteoarthritis. Chronic back pain. History of pneumonia. History of pulmonary hypertension. Obesity. Plan: Plan dated 01/18/2022. On his recent admission, the patient was switched from Eliquis to Pradaxa. The patient has been compliant with his blood thinners all along. The most recent computed tomography scan dated January 17, was compared to a CAT scan dated January 05. Areas of the right upper lobe pulmonary arteries, show significant worsening, and near complete occlusion. The left lower lobe pulmonary emboli appear a bit better, and the right lower lobe pulmonary emboli are about the same. The patient was seen by vascular surgery. The patient apparently was not thought to be a candidate for EKOS. I think some consideration should be given to placement of an IVC filter. The patient has clearly demonstrated failure on 2 different blood thinners. Additional recommendations and suggestions are forthcoming. We'll continue to follow. Currently the patient's on IV heparin. Plan dated 01/19/2022. The patient is to have a IVC filter placed today. I believe that to be the best course of action given the fact that he recently failed 2 different blood thinners. The patient will need to continue on blood thinners after the filter is placed. It could be either one of the 2 he's been on. We will continue to follow the patient and make recommendations were appropriate. Vascular surgery did not feel he was a candidate for EKOS. Additional recommendations and suggestions are forthcoming. Prognosis is guarded. Appreciate input by vascular surgery Time with Patient: Less than 30
[2022-01-19] MEDS ORDERED: LIDOCAINE 1% INJ 10MG/ML (20 ML MDV) SQ ONE (14:20)
--- NOTE | 2022-01-19 14:38 | P.OP ---
Date of Procedure: 01/19/22 Preoperative Diagnosis: Deep venous thrombosis with progressive pulmonary venous thrombosis in spite of adequate anticoagulation. Postoperative Diagnosis: Same. Procedure(s) Performed: #1: Ultrasound-guided cannulation of the right common femoral vein. #2: Right iliac venogram and inferior venacavogram. #3: Placement of IVC filter at the L2-L3 level. Anesthesia: local Surgeon: Matteo Johnson Estimated Blood Loss (ml): 5 Urine output (ml): 0 Pathology: none sent Condition: stable Disposition: no change Indications for Procedure: Patient is a 66-year-old male with history of deep venous thrombosis who was placed on appropriate oral anticoagulation. This DVT was associated with a pulmonary embolism. Patient was doing well for a few weeks and then re- presented with increasing shortness of breath. Repeat CTA of the chest demonstrates increased pulmonary thrombotic burden. Because of increased thrombotic burden in spite of the fact the patient was on adequate anticoagulation and was recommended patient have an IVC filter placed. The proc edure, risk and benefits were discussed with the patient, and the patient wished to proceed Description of Procedure: Patient was brought to the special procedure suite. Both groins were sterilely prepped and draped in usual manner. 1% Xylocaine was lysed local anesthesia tissues overlying the left femoral artery/vein area. With the aid of ultrasound the left common femoral vein was identified. 1% Xylocaine was utilized for local anesthesia tissues overlying the femoral vein. Through this anesthetized area a multipurpose needle was utilized to cannulate the vein. Once candidate Softip guidewire is advanced into the vein. The needle was withdrawn and a 5- Bolivian sheath was placed. A right iliac venogram as well as inferior venacavogram was performed. This d emonstrated no evidence of iliac or caval thrombus in the cava measured to less than 28 mm. Guidewire was readvanced through the sheath. The sheath was removed and a tulip filter sheath and dilator advanced over the guidewire. Guidewire and dilator were withdrawn after the sheath was patient at the lower end of the L3 level, below the confluence of the renal veins with the cava. Tulip filter was advanced and then deployed successfully. Completion venogram demonstrated the filter to be in appropriate position. The sheath was withdrawn and pressure was held at the puncture site until all evidence of bleeding ceased. Patient tolerated procedure well and was returned to his room in satisfactory and stable condition. Total fluoroscopy time: 0.6 minutes. Total contrast volume: 15 ML's of Isovue 250.
--- NOTE | 2022-01-19 15:29 | IR ---
Fluoroscopy HISTORY: DVT, pulmonary emboli 0.6 minutes fluoroscopy time supplied to the referring clinician. 41 intraoperative C-arm images doc ument the procedure. See dictated report from vascular surgery.
[2022-01-19] MEDS: HEPARIN SOD,PORK IN 0.45% NACL 25,000 UNIT in 0.45% NACL 1 250ML.BAG IV SCH ×2 (16:08→19:57)
[2022-01-19] MEDS: CYCLOBENZAPRINE 10 MG TAB PO SCH (19:57)
[2022-01-20] MEDS: IPRATROPIUM-ALBUTEROL 3 ML NEB INHALATION SCH ×2 (07:40→10:53)
[2022-01-20] MEDS: PANTOPRAZOLE 40 MG/10 ML VIAL IV SCH (09:06)
[2022-01-20] MEDS: ASCORBIC ACID 500 MG TAB PO SCH (09:06)
[2022-01-20] MEDS: FERROUS SULFATE 325 MG TAB PO SCH (09:07)
[2022-01-20] MEDS: MULTIVITAMINS, THERA 1 EACH TAB PO SCH (09:07)
[2022-01-20] MEDS: lisinopriL 10 MG TAB PO SCH (09:07)
[2022-01-20] MEDS: HYDROcodone/APAP 10-325MG 1 EACH TAB PO PRN (09:07)
[2022-01-20] MEDS: GABAPENTIN 300 MG CAP PO SCH (09:07)
[2022-01-20] MEDS: HEPARIN SOD,PORK IN 0.45% NACL 25,000 UNIT in 0.45% NACL 1 250ML.BAG IV SCH (09:15)
[2022-01-20 10:49] VITALS: BP 124/75; PULSE 98; RESP 20; TEMP 98.4
[2022-01-20 11:58] LABS: Glucose,Whole Blood 101 mg/dL (75-99)
[2022-01-20] MEDS ORDERED: CALCIUM CHLORIDE 100 MG/ML 10 ML SYRINGE ONE (12:03)
[2022-01-20] MEDS ORDERED: EPINEPHrine 10 ML SYRINGE (0.1 MG/ML) ONE (12:03)
[2022-01-20] MEDS ORDERED: SODIUM BICARB 8.4% 50 ML SYR (1 MEQ/ML) ONE ×2 (12:03→12:19)
[2022-01-20] MEDS ORDERED: ATROPINE SULFATE 0.1 MG/ML 10ML SYRINGE ONE (12:03)
[2022-01-20] MEDS ORDERED: EPINEPHrine 1 MG/ML (MDV) 30 ML VIAL ONE (12:03)
[2022-01-20] MEDS ORDERED: ALTEPLASE 50 MG VIAL IV STA (12:17)
[2022-01-20] MEDS ORDERED: SODIUM CHLORIDE 0.9% 50 ML MINI-BAG IV ONE (13:19)
--- NOTE | 2022-01-20 13:28 | P.PN ---
Subjective Progress Note Date: 01/20/22 Principal diagnosis: Pulmonary embolism. Pulmonary consultation dated 01/18/2022. 66-year-old male seen by my partner yesterday in the pulmonary office. The patient was sent to the hospital for a CT angiogram. Evidence of worsening pulmonary emboli, compared to a recent computed tomography scan done just a week or so earlier. The patient had been on Eliquis for quite some time, for chronic and recurrent pulmonary embolism. I have actually sent the patient to the pulmonary hypertension clinic at [facility], because of his concerns about chronic thromboembolic pulmonary hypertension. They felt that this was not the case, and they recommended chronic therapy with a factor X a inhibitor. I saw the patient last in my office in May of last year. At that time, he was doing reasonably well, although, he states that he was a bit more short of breath. PFTs at that time did not reveal any major changes in lung function. The patient has been compliant with his blood thinner. When he was here last, a CT angiogram revealed new pulmonary emboli, and hematology. The patient was a failure on Eliquis and recommended Pradaxa. He has been taking that medication since discharge which was on January 09. The patient states that his major issue is shortness of breath with any activity. I even sent the patient to cardiology just to make sure that the shortness breath was not related to an intrinsic cardiac issue. He told me today that cardiology said it was not. Today's CBC is normal. He is on IV heparin, and his PTT is 64.2. Sodium 122, potassium 4.6, chlorides 92, CO2 18, anion gap 12, BUN 30, creatinine 1.37. N-terminal proBNP was normal. Troponins were negative 3. CT angiogram when compared to the most recent CT angiogram showed improvement in the area of the left lower lobe, some improvement in the right lower lobe, but worsening clot in the right upper lobe. Also, it was mentioned on the CT angiogram, that there was right heart strain. The patient apparently was seen by vascular surgery, and apparently they felt that EKOS was not necessary, nor did they dressing issue of a IVC filter. Progress note dated 01/19/2022. 66-year-old male well-known to me. He has a history of recurrent pulmonary embolism. He previously was on Eliquis and was recently switched to Pradaxa, as he was recently discovered to have failed the former drug. The patient is readmitted after having seen my partner in the office, with additional blood clot, in the lung, and I recommended placement of an IVC filter. That will be done today. The patient can continue on blood thinners. He will need blood thinners for the rest of his life. Clinically he looks well. He is on room air. He's currently on IV heparin. Laboratory data today includes a PTT of 25.6, sodium 134, potassium 4.6, chlorides 106, CO2 21, BUN 22, and creatinine 1.20. Vascular surgery did not think the patient was a candidate for EKOS. Progress note dated 01/20/2022. 66-year-old male, well-known to me. The patient had a IVC filter placed yesterday by the vascular surgeon. The patient continues on IV heparin. He is on room air. He sitting at the bedside. He's feeling well. No major complaints. He denies any shortness of breath, difficulty breathing, p alpitations, chest pain, chest pressure, or any complaints for that matter. He has been seen by the education associate, and also the vascular surgeon. No new labs today other than a PTT of 63.7 and a glucose of 101. Objective - Vital Signs Vital signs: Vital Signs Temp 98.4 F 01/20/22 08:00 Pulse 98 01/20/22 08:00 Resp 20 01/20/22 08:00 BP 124/75 01/20/22 08:00 Pulse Ox 94 L 01/20/22 08:00 Intake & Output 01/19/22 01/20/22 01/20/22 18:59 06:59 18:59 Intake Total 180 1085.693 313.814 Balance 180 1085.693 313.814 Intake: Intake, IV Titration 0 115.693 193.814 Amount Heparin Sod,Pork in 0.45% 0 115.693 193.814 NaCl 25,000 unit In 0.45 % NaCl 1 250ml.bag @ 18 UNITS/KG/HR 22.045 mls/hr IV .[id number] [facility] Rx#: [id number] Oral 180 970 120 Other: Voiding Method Toilet # Voids 1 - Exam No acute distress, oriented 3. Room air saturation 96%. No respiratory distress audible wheezing, or use of accessory muscles. HEENT examination is grossly unremarkable. Neck supple. Full range of motion. No adenopathy thyromegaly or neck vein distention. Cardiovascular examination reveals regular rhythm rate. S1-S2 normal. No S3 or S4. No discernible murmur noted. Heart rate 83 beats per minute. Lungs reveal mostly clear breath sounds. Breath sounds are equal bilaterally. Minimal scattered rhonchi are noted. No wheezes or crackles. Abdomen soft bowel sounds are heard. No masses or tenderness. Extremities are intact. No cyanosis clubbing or edema. Skin is without rash or lesion. Neurologic examination is brief but nonfocal. - Labs CBC & Chem 7: 01/18/22 07:24 01/19/22 09:38 Labs: Abnormal Lab Results - Last 24 Hours (Table) 01/19/22 01/20/22 01/20/22 Range/Units 21:42 06:24 11:57 APTT 35.4 H 63.7 H (22.0-30.0) sec POC Glucose (mg/dL) 101 H (75-99) mg/dL Assessment and Plan Assessment: Recurrent pulmonary embolism, despite adequate anticoagulation, having now failed both Eliquis and Pradaxa, status post IVC filter placement on 01/19/2022. History of deep venous thrombosis. History of gastroesophageal reflux disease. History of hypertension. Osteoarthritis. Chronic back pain. History of pneumonia. History of pulmonary hypertension. Obesity. Plan: Plan dated 01/18/2022. On his recent admission, the patient was switched from Eliquis to Pradaxa. The patient has been compliant with his blood thinners all along. The most recent computed tomography scan dated January 17, was compared to a CAT scan dated January 05. Areas of the right upper lobe pulmonary arteries, show significant worsening, and near complete occlusion. The left lower lobe pulmonary emboli appear a bit better, and the right lower lobe pulmonary emboli are about the same. The patient was seen by vascular surgery. The patient apparently was not thought to be a candidate for EKOS. I think some consideration should be given to placement of an IVC filter. The patient has clearly demonstrated failure on 2 different blood thinners. Additional recommendations and suggestions are forthcoming. We'll continue to follow. Currently the patient's on IV heparin. Plan dated 01/19/2022. The patient is to have a IVC filter placed today. I believe that to be the best course of action given the fact that he recently failed 2 different blood thinners. The patient will need to continue on blood thinners after the filter is placed. It could be either one of the 2 he's been on. We will continue to follow the patient and make recommendations were appropriate. Vascular surgery did not feel he was a candidate for EKOS. Additional recommendations and suggestions are forthcoming. Prognosis is guarded. Appreciate input by vascular surgery Plan dated 01/20/2022. The patient had a IVC filter placed yesterday in the vascular surgeon. The patient's doing well. He sitting at the bedside. He's on room air. He has no symptoms. The patient continues on IV heparin. The patient can resume his Pradaxa once he goes home. No additional recommendations are made. Prognosis is guarded. We will continue to follow. Time with Patient: Less than 30
--- NOTE | 2022-01-20 13:35 | P.PN ---
Subjective Progress Note Date: 01/20/22 Principal diagnosis: Cardiopulmonary arrest, patient was being examined by Dr. Marroquin vascular surgeon, was seated at the side of the bed he pitched forward and splayed out almost placed down the physician called him and with help was able to put him back in bed at which time Mr. Juan was found to be pulseless de la torre and in full cardiac arrest. A CODE BLUE was called the team arrived quickly Dr. Washington would just left the patient's room hurriedly initiated resuscitative efforts the emergency room physician also arrived and one of the hospitalist arrived I arrived shortly after that a effort was made to resuscitate this patient , with multiple infusions of epinephrine TPA for her pulmonary embolus this effort and on for about 40+ minutes . the efforts proved fruitless this patient did not read by never regained a pulse and never regained consciousness. Objective - Vital Signs Vital signs: Vital Signs Temp 98.4 F 01/20/22 08:00 Pulse 98 01/20/22 08:00 Resp 20 01/20/22 08:00 BP 124/75 01/20/22 08:00 Pulse Ox 94 L 01/20/22 08:00 Intake & Output 01/19/22 01/20/22 01/20/22 18:59 06:59 18:59 Intake Total 180 1085.693 313.814 Balance 180 1085.693 313.814 Intake: Intake, IV Titration 0 115.693 193.814 Amount Heparin Sod,Pork in 0.45% 0 115.693 193.814 NaCl 25,000 unit In 0.45 % NaCl 1 250ml.bag @ 18 UNITS/KG/HR 22.045 mls/hr IV .[id number] [facility] Rx#: [id number] Oral 180 970 120 Other: Voiding Method Toilet # Voids 1 - Exam Patient - Labs CBC & Chem 7: 01/18/22 07:24 01/19/22 09:38 Labs: Abnormal Lab Results - Last 24 Hours (Table) 01/19/22 01/20/22 01/20/22 Range/Units 21:42 06:24 11:57 APTT 35.4 H 63.7 H (22.0-30.0) sec POC Glucose (mg/dL) 101 H (75-99) mg/dL Assessment and Plan Assessment: Patient Plan: Resuscitative efforts were made unsuccessfully Patient Time with Patient: Greater than 30
[2022-01-20] MEDS ORDERED: EPINEPHrine 10 ML SYRINGE (0.1 MG/ML) IV STA ×3 (14:28→14:30)
[2022-01-20] MEDS ORDERED: SODIUM BICARB 8.4% 50 ML SYR (1 MEQ/ML) IV STA ×3 (14:30)
--- NOTE | 2022-01-20 16:11 | PCN ---
PROCEDURE NOTE PULMONARY/CRITICAL CARE PROCEDURE NOTES: FIRST PROCEDURE: Placement of left internal jugular triple-lumen catheter. OPERATORS: 1. Dr. Washington. 2. Dr. Winslow. PREOPERATIVE DIAGNOSIS: Administration of fluids and pressors. POSTOPERATIVE DIAGNOSIS: Administration of fluids and pressors. DESCRIPTION OF PROCEDURE: A time-out was completed verifying correct patient, procedure, site, positioning, and implant(s) or special equipment if applicable. The patient was placed in a dependent position appropriate for triple lumen catheter placement based on the vein to be cannulated. The patient's left neck was prepped and draped in sterile fashion. 1% Lidocaine was used to anesthetize the surrounding skin area. A triple lumen 9F Cordis catheter was introduced into the left internal jugular vein using Seldinger technique via the posterior approach. The catheter was threaded smoothly over the guide wire and appropriate blood return was obtained. There was good blood return from all three ports. Each lumen of the catheter was evacuated of air and flushed with sterile saline. The catheter was then sutured in place to the skin and a sterile dressing applied by the nurse. Perfusion to the extremity distal to the point of catheter insertion was checked and found to be adequate. There was no immediate complication. A chest x-ray will be ordered to check placement. SECOND PROCEDURE: Oral endotracheal intubation. PREOPERATIVE DIAGNOSIS: Respiratory failure. POSTOPERATIVE DIAGNOSIS: Respiratory failure. OPERATORS: 1. Dr. Washington. 2. Dr. Winslow. PROCEDURE DESCRIPTION: We used a standard laryngoscope with a #3 Amelia blade. The patient was intubated with a #8 endotracheal tube. There was good visualization of the glottic opening once the tip of the laryngoscope was inserted into the vallecula. The endotracheal tube was passed through the glottic opening into the trachea. There were good bilateral breath sounds. The transport pilot balloon was inflated. The patient was bagged. There was no immediate complication. The tube was secured by Respiratory Therapy. A chest x-ray will be ordered to check placement. MMODL / IJN: [id number] /
--- NOTE | 2022-01-20 17:01 | P.EN ---
CODE BLUE Indication: Unresponsiveness Arrived on Scene to find: Dr. Marroquin at bedside. He came to evaluate the patient and found him slumped over with agonal respirations. Rapid response was activated. Patient was unresponsive with minimal respirations with a pulse. He very quickly stopped breathing and lost pulses. Initial Rhythm: PEA Code Course: Patient had a prolonged code course. He initially was agonal with PE on the monitor. He was given a dose of epi. He was intubated by Dr. Washington. Patient had a central line placed by Dr. Washington during the code. He received a total of 15 mg of epinephrine, 1 dose of atropine, one of calcium carbonate, 4 doses of bicarb, TPA was ordered and infused at 1228 for probable massive pulmonary embolism as patient without signs of improved after 25 minutes of high quality CPR. Patient also had epi drip started during the code. After extensive resuscitative efforts by myself, Dr. Adhikari, and Dr. Washington patient was pronounced at 1238. Pupils fixed, dilated, absent pulse, absent respiration. Dr. Adhikari physically preformed CPR while I ran resuscitative efforts. See Code Sheet for further details. Patient admitteing physician Dr. Galarza came to bedside at the start of the code, contacted family whi arrived to the hospice. Notified: - myself and Dr. Michell Story by Dr. Washington DX: acute respiratory arrest, PEA arrest A Total of 35 minutes of critical care time was spent on the complex care of this patient.
== END 2022-01-20 16:28 | disposition expired | DRG 175 ==
LOC: EC 16:03 → 3SCARD 16:51
PROVIDERS: ADMIT Family Medicine; ATTEND Family Medicine
PROC: B5191ZZ Fluoroscopy of Inferior Vena Cava using Low Osmolar Contrast (ICD-10-PCS; principal; 2022-01-19 11:25)
PROC: 06H03DZ Insertion of Intraluminal Device into Inferior Vena Cava, Percutaneous Approach (ICD-10-PCS; principal; 2022-01-19 11:25)
PROC: B51F1ZZ Fluoroscopy of Right Pelvic (Iliac) Veins using Low Osmolar Contrast (ICD-10-PCS; principal; 2022-01-19 11:25)
PROC: 5A12012 Performance of Cardiac Output, Single, Manual (ICD-10-PCS; 2022-01-20)
PROC: 0BH18EZ Insertion of Endotracheal Airway into Trachea, Via Natural or Artificial Opening Endoscopic (ICD-10-PCS; 2022-01-20)
PROC: 02HV33Z Insertion of Infusion Device into Superior Vena Cava, Percutaneous Approach (ICD-10-PCS; 2022-01-20)
PROC: 3E043XZ Introduction of Vasopressor into Central Vein, Percutaneous Approach (ICD-10-PCS; 2022-01-20)
PROC: 3E04317 Introduction of Other Thrombolytic into Central Vein, Percutaneous Approach (ICD-10-PCS; 2022-01-20)
DX: I26.99 Other pulmonary embolism without acute cor pulmonale (principal); J96.91 Respiratory failure, unspecified with hypoxia; I82.409 Acute embolism and thrombosis of unspecified deep veins of unspecified lower extremity; I46.8 Cardiac arrest due to other underlying condition; G89.29 Other chronic pain; G47.33 Obstructive sleep apnea (adult) (pediatric); F32.A Depression, unspecified; E66.9 Obesity, unspecified; Z68.36 Body mass index [BMI] 36.0-36.9, adult; I10 Essential (primary) hypertension; D50.9 Iron deficiency anemia, unspecified; I27.20 Pulmonary hypertension, unspecified; I44.0 Atrioventricular block, first degree; K21.9 Gastro-esophageal reflux disease without esophagitis; M19.90 Unspecified osteoarthritis, unspecified site; Z79.899 Other long term (current) drug therapy; Z86.16 Personal history of COVID-19; Z86.711 Personal history of pulmonary embolism; Z86.718 Personal history of other venous thrombosis and embolism; Z87.01 Personal history of pneumonia (recurrent); Z87.11 Personal history of peptic ulcer disease; Z87.891 Personal history of nicotine dependence; Z53.8 Procedure and treatment not carried out for other reasons; Z98.890 Other specified postprocedural states; Z82.0 Family history of epilepsy and other diseases of the nervous system; Z79.01 Long term (current) use of anticoagulants; Z83.6 Family history of other diseases of the respiratory system; Z82.69 Family history of other diseases of the musculoskeletal system and connective tissue
CPT/HCPCS: 36415; 37191; 71275; 80048; 80053; 82565; 83605; 83735; 83880; 84484; 84520; 85025; 85610; 85730; 93005; 93308; 94640; 94760; 96365; 96366; 96375; 99291

== ENCOUNTER → 2022-01-17 | Outpatient (CLI) | payer MEDICARE ==
--- NOTE | 2022-01-17 15:39 | CT ---
EXAMINATION TYPE: CT angio chest DATE OF EXAM: 01/17/2022 COMPARISON: CT Pulmonary angio dated 01/05/2022 HISTORY: SOB CT DLP: 561.3 mGy.cm. Automated Exposure Control for Dose Reduction was Utilized. TECHNIQUE AND CONTRAST: CTA scan of the thorax is performed with IV Contrast, patient injected with 80ML mL of Isovue 370, pu lmonary angiogram protocol. MIP Images are created on an independent workstation and reviewed. FINDINGS: Progression of the previously seen right upper lobe pulmonary embolism. There is complete occlusion o f the right upper lobe pulmonary artery protruding into the right main pulmonary artery with complete occlusion of the more distal segmental and subsegmental pulmonary arteries. Persistent pulmonary emb ilya within the segmental and subsegmental branches of the right lower lobe, some of the emboli have s lightly progressed in size and others have slightly regressed. On the left side, smaller left lower lobe segmental and subsegmental pulmonary emboli as well as the left upper lobe segmental and subsegmental pulmonary emboli. No progressive pulmonary embolism in the left lung. No pulmonary embolism is seen within the pulmonary trunk or the central portions of the m ain pulmonary arteries. The pulmonary trunk measures 3.4 cm compared to 3.2 cm previously. Flattening of the interventricular septum suggestive of right cardiac strain. Scattered arterial and coronary atherosclerotic calcifications. No gross cardiomegaly. No pericardial effusion. Persistent prominent mediastinal lymph nodes measuring up to 10 mm in the right right para tracheal location. Stable right lung base lateral nodule. Minimal atelectasis/infiltration in the lef t lower lobe. Grossly unremarkable lungs otherwise. Patent trachea and main bronchi. No pleural effus ion. Suspected hepatic steatosis. No aggressive bone lesion. Degenerative changes of the thoracic spi ne. IMPRESSION: Progression of the pulmonary embolism of the right upper lobe with complete occlusion of the right up per lobe pulmonary artery and its segmental and subsegmental branches as detailed above. Regressing pulmonary embolism in the left lung with mixed change in the right lower lobe pulmonary em bolism as detailed above. Suspected right cardiac strain with more dilatation of the pulmonary trunk as detailed above. Other findings as described above.
== END | disposition home or self-care (01) ==
LOC: RADCTMAIN 12:55
PROVIDERS: ATTEND Internal Medicine Critical Care Medicine
DX: I26.99 Other pulmonary embolism without acute cor pulmonale (principal)
CPT/HCPCS: 82565; 84520; 71275; 36415; Q9967